=== PATIENT | male | born 1945 | race African-American/Black ===

== ENCOUNTER 2020-07-23 07:52 | Outpatient (REF) | payer MEDICARE, MEDICAID, SELFPAY | END 2020-07-23 07:53 | disposition home or self-care (01) | LOC: HO.LAB 07:52 | PROVIDERS: Visit Provider Internal Medicine | DX: Z20.822 Contact with and (suspected) exposure to COVID-19 (principal) | CPT/HCPCS: 36415; C9803; U0003 ==

== ENCOUNTER → 2022-03-06 14:32 | Outpatient (BNVA) | payer OTHER, MEDICAID, SELFPAY | PROVIDERS: PCP Internal Medicine; Visit Provider Internal Medicine Cardiovascular Disease | DX: I10 Essential (primary) hypertension (principal); I35.0 Nonrheumatic aortic (valve) stenosis; E78.5 Hyperlipidemia, unspecified; Z79.899 Other long term (current) drug therapy | CPT/HCPCS: 93005 ==

== ENCOUNTER → 2023-04-22 09:40 | Outpatient (REF) | payer OTHER, SELFPAY | LOC: HO.CARD 09:40 | PROVIDERS: PCP Internal Medicine; Visit Provider Internal Medicine Cardiovascular Disease | DX: I51.7 Cardiomegaly (principal) | CPT/HCPCS: 93306; Q9957 ==

== ENCOUNTER → 2023-04-22 09:45 | Outpatient (BNV) | payer OTHER, SELFPAY | PROVIDERS: PCP Internal Medicine; Visit Provider Internal Medicine Cardiovascular Disease | DX: I35.0 Nonrheumatic aortic (valve) stenosis (principal) | CPT/HCPCS: 93306 ==

== ENCOUNTER 2023-07-29 09:26 | Outpatient (AMB) | payer OTHER, SELFPAY ==
[2023-07-29 09:27] VITALS: BP 140/56; PULSE 85; BMI 36.8
--- NOTE | 2023-07-29 09:27 | A.OFFVIS_ITS ---
Intake Vital Signs 07/29/23 09:27 Height 5 ft 5 in Weight 220 lb 14.451 oz BMI 36.8 BP 140/56 H Blood Pressure Location Lt brachial Position Sitting Pulse 85 Intake Visit Reasons: f/up overdue Intake Note: f/up pt its its feeling fine. 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: No Accompanied by: Daughter Allergies oxycodone [OXYCODONE] Allergy (Unknown, Verified 03/06/22 14:33) ITCH Medication List - Last Reconciled 07/29/23 by Helder Nguyen MD albuterol sulfate 90 mcg/actuation (Ventolin HFA) 2 puffs inhalation Q4H PRN amlodipine 2.5 mg PO DAILY aspirin 81 mg PO DAILY atorvastatin 40 mg PO BEDTIME cholecalciferol (vitamin D3) 50 mcg PO DAILY dulaglutide (Trulicity) 1.5 mg subcut QWEEK empagliflozin (Jardiance) 10 mg PO DAILY finasteride 5 mg PO DAILY lisinopril-hydrochlorothiazide 20-25 mg 1 tab PO DAILY metformin 1,000 mg PO BID naproxen 500 mg PO BID PRN omeprazole 20 mg PO DAILY HPI HPI Comments History of Present Illness Details Pleasant 77-year-old gentleman who is here for aortic stenosis and hypertension. It appears he had a murmur picked up by his primary care physician and underwent echocardiography. ECHO was performed with [facility] at [facility] which showed mild aortic valve stenosis and preserved left ventricular right ventricular function with concentric mild left ventricle hypertrophy. He also had a stress echocardiogram performed previously which did not show any wall motion abnormalities but he had a hypertensive response to exercise after exercising to a maximum workload of 7 metabolic equivalents. He also had [address] depressions inferiorly. He is not complaining of any chest discomfort or shortness of breath. He is compliant with medications but it appears he takes more than recommend salt in his diet. He has background of hypertension, hyperlipidemia, diabetes and asthma. 07/29/2023: He returns for follow-up. B lood pressure is mildly elevated. He is accompanied by his daughter who is concerned that he is short of breath with activities. Patient is denying any dyspnea but apparently does not complain as per the daughter. No chest discomfort. He has vfzz-yo-adlqjgqr aortic valve stenosis on echocardiography. Previously we tried to do stress test but he had a hypertensive response to exercise and had some ST depressions inferiorly. He also has asthma and is poorly controlled and wheezes with activity quite frequently. He has not seen a awning maker before. [facility] Surgical History H/O prostate biopsy Family History Mother Diabetes HTN (hypertension) Hypercholesteremia Father Heart disease Cancer HTN (hypertension) Hypercholesteremia Asthma Brother HTN (hypertension) Heart disease Hypercholesteremia Prostate cancer Brother No problems noted. Brother No problems noted. Brother Heart disease Heart attack Asthma Sister HTN (hypertension) Hypercholesteremia Kidney disease Sister Diabetes HTN (hypertension) Hypercholesteremia COPD (chronic obstructive pulmonary disease) Asthma Daughter Hyperthyroidism Asthma Daughter Asthma Migraines Social History Alcohol intake: current Alcohol intake frequency: a few times a week Alcohol type: beer and hard liquor Patient Tobacco Use Status: Never used Tobacco Review of Systems Const Reports chills, Reports fatigue, Reports fever(s), Reports frequent falls, Reports weakness, Reports weight gain and Reports weight loss ENT Reports dizziness Card Reports chest pain, Reports leg edema, Reports lightheadedness, Reports palpitations, Reports dyspnea and Reports dyspnea on exertion Resp Reports cough, Reports dyspnea and Reports dyspnea on exertion GI Reports hematochezia Musc Reports abnormal gait, Reports muscle weakness, Reports numbness, Reports radiating pain into limb and Reports tingling Neuro Reports abnormal gait, Reports dizziness, Reports frequent falls, Reports numbness, Reports tingling and Reports weakness Endo Reports fatigue and Reports palpitations Physical Exam Vital Signs: Last Vital Signs Pulse 85 07/29/23 09:27 BP 140/56 H 07/29/23 09:27 BMI result Body Mass Index 36.8 GENERAL APPEARANCE: in no acute distress, pleasant. NECK: no carotid bruit, mild jugular venous distention. SKIN: no suspicious lesions, warm and dry. HEART: Ejection systolic murmur aortic area with preserved 2nd heart sound, regular rate and rhythm. LUNGS: clear to auscultation bilaterally. ABDOMEN: soft, nontender. EXTREMITIES: no edema. PERIPHERAL PULSES: equal. NEUROLOGIC: No gross deficits, AAO X 3 Office Procedures EKG Details: Sinus rhythm 85 beats per minute, normal axis, premature atrial complexes, QTC 445 milliseconds. [id number], Complete Assessment & Plan Assessment & Plan (1) Hyperlipidemia: Code(s): E78.5 - Hyperlipidemia, unspecified (2) Aortic stenosis: Code(s): I35.0 - Nonrheumatic aortic (valve) stenosis (3) Essential hypertension: Code(s): I10 - Essential (primary) hypertension (4) LEONG (dyspnea on exertion): Code(s): R06.09 - Other forms of dyspnea Plan 77-year-old gentleman with background of hypertension, diabetes, hyperlipidemia and axjj-ns-ucgcttky aortic valve stenosis. Blood pressure is not well controlled. Increasing amlodipine to 5 mg daily. His daughter is a medical administrator and will check the blood pressure and reach out to us about the readings in case they are elevated. Not endorsing any clear signs of congestive heart failure. Given dyspnea on exertion and equivocal exercise stress test previously where he had hypertensive response to exercise with some inferior ST depressions: I have decided to refer him for a coronary CTA to make sure he does not have any significant coronary disease in the background. We will also refer him to pulmonology for further assessment of asthma and management. He should have a fasting lipid panel. He is complaining of some neuropathy and I have advised him that he should be using multivitamins which it appears he has been. Follow-up with us in few months. Thank you for allowing me to participate in the care of your patient. Please feel free to contact me if you have any questions. Orders: Orders B Type Natriuretic Peptide Today R06.09 - Other forms of dyspnea Basic Metabolic Panel Today R06.09 - Other forms of dyspnea CT Cardiac Coronary Angio Today R06.09 - Other forms of dyspnea Referrals Pulmonary Medicine Referral R06.09 - Other forms of dyspnea Medications: New amlodipine 5 mg PO DAILY 90 tabs 3RF Discontinued amlodipine PLEASE CALL AND SCHEDULE CARDIOLOGY FOLLOW-UP Discontinued Reason: Doctor's Order 2.5 mg PO DAILY 90 tabs 0RF I10 - Essential (primary) hypertension Coding Level of Care Code Procedure Only Diagnoses Hyperlipidemia E78.5 Aortic stenosis I35.0 Essential hypertension I10 LEONG (dyspnea on exertion) R06.09 CPT Codes EKG - CPT: 86667-[id number], Complete ([id number])
== END 2023-07-29 10:23 | disposition home or self-care (01) ==
PROVIDERS: PCP Internal Medicine; Visit Provider Internal Medicine Cardiovascular Disease
DX: E78.5 Hyperlipidemia, unspecified (principal); I35.0 Nonrheumatic aortic (valve) stenosis; I10 Essential (primary) hypertension; R06.09 Other forms of dyspnea; I49.1 Atrial premature depolarization
CPT/HCPCS: 93010; 99214

== ENCOUNTER → 2023-07-29 09:26 | Outpatient (BNVA) | payer OTHER, SELFPAY | PROVIDERS: PCP Internal Medicine; Visit Provider Internal Medicine Cardiovascular Disease | DX: E78.5 Hyperlipidemia, unspecified (principal); I35.0 Nonrheumatic aortic (valve) stenosis; I10 Essential (primary) hypertension; R06.09 Other forms of dyspnea | CPT/HCPCS: 93005; 99212 ==

== ENCOUNTER 2023-08-31 14:52 | Outpatient (AMB) | payer OTHER, SELFPAY ==
--- NOTE | 2023-08-31 14:55 | A.OFFVIS_ITS ---
Intake Vital Signs 08/31/23 14:58 Height 5 ft 7 in Weight 225 lb BMI 35.2 Pulse 89 Pulse Source Pulse Oximeter Pulse Oximetry (%) 96 Oxygen Delivery Method Room Air Intake Visit Reasons: dyspnea Allergies oxycodone [OXYCODONE] Allergy (Unknown, Verified 08/31/23 15:00) ITCH HPI HPI Comments History of Present Illness Details The patient is here for pulmonary evaluation. The patient is a 77-year-old gentleman with a known history of asthma in addition to underlying valvular disease in being evaluated from a cardiac standpoint. The patient has been having increasing dyspnea on exertion. Even with minimal activity the family's noticed that he is very breathless. The patient has been using his rescue inhaler few times a day when he gets short of breath. This has been partially helpful. He also was on Flovent and subsequently switched over to Asmanex due to the fact that Flovent was no longer available. He however does not feel comfortable with taking the Asmanex because it has a bad after taste and he does not see that is helpful. He quit smoking around 25-30 years ago. And denies any exposure to any fumes or toxins. The patient states that he does have allergies specially the springtime with pollen and other environmental allergies. The patient has not had allergy testing. During the office visit we did go for brief walking oximetry and the patient were spacer be dyspneic and his heart rate increased to 140. At that point we slow down to stop to allow his heart rate come down. It quickly came down but is suggest that there was significant amount of physiological stress. His pulse ox did decrease slightly to 94% but still within normal limits. The patient did have an echocardiogram demonstrating hyim-yl-ymhyvhlz aortic stenosis and will be evaluated with a cardiac coronary artery CT scan coming up soon. I do believe that assessing his cardiac status is the right approach. Right now his respiratory exam is fairly controlled. Will go ahead and maximize his respiratory inhalers and will plan to have him come back for PFTs. [facility] Medical History (Updated 08/31/23 @ 21:30 by Yogesh Saul MD) Tachycardia Asthma Surgical History H/O prostate biopsy Family History Mother Diabetes HTN (hypertension) Hypercholesteremia Father Heart disease Cancer HTN (hypertension) Hypercholesteremia Asthma Brother HTN (hypertension) Heart disease Hypercholesteremia Prostate cancer Brother No problems noted. Brother No problems noted. Brother Heart disease Heart attack Asthma Sister HTN (hypertension) Hypercholesteremia Kidney disease Sister Diabetes HTN (hypertension) Hypercholesteremia COPD (chronic obstructive pulmonary disease) Asthma Daughter Hyperthyroidism Asthma Daughter Asthma Migraines Social History Alcohol intake: current Alcohol intake frequency: a few times a week Alcohol type: beer and hard liquor Patient Tobacco Use Status: Never used Tobacco Review of Systems Const Reports chills, Reports fatigue, Reports fever(s), Reports frequent falls, Reports weakness, Reports weight gain and Reports weight loss ENT Reports dizziness Card Reports chest pain, Reports leg edema, Reports lightheadedness, Reports palpitations, Reports dyspnea and Reports dyspnea on exertion Resp Reports cough, Reports dyspnea and Reports dyspnea on exertion GI Reports hematochezia Musc Reports abnormal gait, Reports muscle weakness, Reports numbness, Reports radiating pain into limb and Reports tingling Neuro Reports abnormal gait, Reports dizziness, Reports frequent falls, Reports numbness, Reports tingling and Reports weakness Endo Reports fatigue and Reports palpitations Physical Exam Vital Signs: Last Vital Signs Pulse 89 08/31/23 14:58 Pulse Ox 96 08/31/23 14:58 Oxygen Delivery Method Room Air 08/31/23 14:58 BMI result Body Mass Index 35.2 Const General: comfortable HEENT Head: Yes normocephalic Neck Neck: Yes supple Chest Chest palpation & inspection: normal inspection of the chest Resp Effort & Inspection: normal respiratory effort Auscultation: no wheezes and diminished lung sounds Cardio Heart sounds: S1 normal heart sound present, S2 normal heart sound present and Murmur heart sound present systolic III/ and at the right sternal border GI Palpation (GI): Soft to palpation Skin General skin exam: no rashes or lesions noted Extrem General: No clubbing and No cyanosis Assessment & Plan Assessment & Plan (1) LEONG (dyspnea on exertion): Code(s): R06.09 - Other forms of dyspnea (2) Aortic stenosis: Code(s): I35.0 - Nonrheumatic aortic (valve) stenosis Qualifiers: Cardiac valve disease etiology: etiology unspecified Qualified Code(s): I35.0 - Nonrheumatic aortic (valve) stenosis (3) Asthma: Code(s): J45.909 - Unspecified asthma, uncomplicated Qualifiers: Asthma severity: moderate Asthma persistence: persistent Asthma complication type: uncomplicated Qualified Code(s): J45.40 - Moderate persistent asthma, uncomplicated (4) Tachycardia: Code(s): R00.0 - Tachycardia, unspecified Plan Stop Asmanex start Trelegy daily CHERELLE as needed PFTs Awaiting cardiac w/u with CT coronary scan at [facility] [facility] Monitor HR with activity F/U after PFTs Orders: Orders PFT pulmonary function test Today R06.09 - Other forms of dyspnea Medications: New fjlppiqeegf-dsemjooqw-wwtvuldr 100-62.5-25 mcg (Trelegy Ellipta) 1 inh inhalation DAILY 30 days 60 ea 11RF J44.9 - Chronic obstructive pulmonary disease, unspecified Coding Level of Care Code New Pt Level 4 (35172) Diagnoses LEONG (dyspnea on exertion) R06.09 Aortic valve stenosis, etiology of cardiac valve disease unspecified I35.0 Cardiac valve disease etiology: etiology unspecified Moderate persistent asthma without complication J45.40 Asthma severity: moderate Asthma persistence: persistent Asthma complication type: uncomplicated Tachycardia R00.0 Time Spent (min) 40
[2023-08-31 14:58] VITALS: PULSE 89; O2SAT 96; BMI 35.2
== END 2023-08-31 15:32 | disposition home or self-care (01) ==
PROVIDERS: PCP Internal Medicine; Referring Provider Internal Medicine Cardiovascular Disease; Visit Provider Hospitalist
DX: R06.09 Other forms of dyspnea (principal); I35.0 Nonrheumatic aortic (valve) stenosis; J45.40 Moderate persistent asthma, uncomplicated; R00.0 Tachycardia, unspecified
CPT/HCPCS: 99204

== ENCOUNTER → 2023-08-31 14:52 | Outpatient (BNVA) | payer OTHER, SELFPAY | PROVIDERS: PCP Internal Medicine; Referring Provider Internal Medicine Cardiovascular Disease; Visit Provider Hospitalist | DX: J45.40 Moderate persistent asthma, uncomplicated (principal); R06.09 Other forms of dyspnea; R00.0 Tachycardia, unspecified; I35.0 Nonrheumatic aortic (valve) stenosis | CPT/HCPCS: 99202 ==

== ENCOUNTER 2023-10-19 10:34 | Outpatient (REF) | payer OTHER, SELFPAY ==
[2023-10-19 09:10] VITALS: PULSE 82; RESP 16; O2SAT 97
--- NOTE | 2023-10-19 14:45 | PFT_ITS ---
Indication: Asthma Spirometry [FEV1 to FVC 78%; FEV1 2.5 L; FVC 3.22 L. No significant response to bronchodilators noted. Maximum voluntary ventilation within normal limits.] Lung Volumes [Total lung capacity 80% predicted] Diffusion Capacity [DLCO 125% predicted] Comparisons [None] Interpretation [No obstructive nor restrictive ventilatory defects identified. No significant response to bronchodilators noted. Normal maximum voluntary ventilation. Total lung capacity is low normal. The patient does have a elevated diffusion capacity. Clinical correlation warranted.] MTDD
== END 2023-10-19 10:35 | disposition home or self-care (01) ==
LOC: HO.RESP 10:34
PROVIDERS: Visit Provider Hospitalist
DX: R06.09 Other forms of dyspnea (principal)
CPT/HCPCS: 94010; 94640; 94727; 94729

== ENCOUNTER → 2023-10-19 14:45 | Outpatient (BNV) | payer OTHER, SELFPAY | PROVIDERS: Visit Provider Hospitalist | DX: J45.909 Unspecified asthma, uncomplicated (principal) | CPT/HCPCS: 94060; 94727; 94729 ==

== ENCOUNTER 2023-11-11 06:57 | Outpatient (REF) | payer OTHER, SELFPAY ==
[2023-11-11 08:53] LABS: Anion Gap 13 (12-20); Blood Urea Nitrogen 19 mg/dL (9-16); Calcium 9.3 mg/dL (8.4-10.2); Carbon Dioxide 29 mmol/L (22-29); Chloride 102 mmol/L (96-108); Cholesterol 144 mg/dL (<200); Estimated Glomerular Filt Rate > 60; Glucose Random 146 mg/dL (60-115); HDL Cholesterol 36 mg/dL (>40); LDL Cholesterol Calculated 71 mg/dL (<100); Sodium 140 mmol/L (135-145); Triglycerides 185 mg/dL (<150)
[2023-11-11 08:58] LABS: B Type Natriuretic Peptide < 10 pg/mL (<100)
== END 2023-11-11 06:58 | disposition home or self-care (01) ==
LOC: HO.LAB 06:57
PROVIDERS: PCP Internal Medicine; Visit Provider Internal Medicine Cardiovascular Disease
DX: R06.09 Other forms of dyspnea (principal); E78.5 Hyperlipidemia, unspecified
CPT/HCPCS: 36415; 80048; 80061; 83880

== ENCOUNTER 2023-11-17 10:49 | Outpatient (AMB) | payer OTHER, SELFPAY ==
[2023-11-17 11:06] VITALS: PULSE 78; O2SAT 97; BMI 35.2
--- NOTE | 2023-11-17 11:06 | MHC.OFFVIS ---
Vital Signs 11/17/23 11:06 Height 5 ft 7 in Weight 224 lb 13.944 oz BMI 35.2 Pulse 78 Pulse Source Pulse Oximeter Pulse Oximetry (%) 97 Oxygen Delivery Method Room Air Intake Visit Reasons: dyspnea Manufacture Specialist Required: No Allergies oxycodone [OXYCODONE] Allergy (Unknown, Verified 11/17/23 11:08) ITCH HPI Comments Details: The patient is a 78-year-old gentleman with a known history of asthma in addition to underlying valvular disease in being evaluated from a cardiac standpoint. The patient has been having increasing dyspnea on exertion. Even with minimal activity the family's noticed that he is very breathless. The patient has been using his rescue inhaler few times a day when he gets short of breath. This has been partially helpful. He also was on Flovent and subsequently switched over to Asmanex due to the fact that Flovent was no longer available. He however does not feel comfortable with taking the Asmanex because it has a bad after taste and he does not see that is helpful. He quit smoking around 25-30 years ago. And denies any exposure to any fumes or toxins. The patient states that he does have allergies specially the springtime with pollen and other environmental allergies. The patient has not had allergy testing. During the office visit we did go for brief walking oximetry and the patient were spacer be dyspneic and his heart rate increased to 140. At that point we slow down to stop to allow his heart rate come down. It quickly came down but is suggest that there was significant amount of physiological stress. His pulse ox did decrease slightly to 94% but still within normal limits. The patient did have an echocardiogram demonstrating rghg-vv-sxjxsdpn aortic stenosis and will be evaluated with a cardiac coronary artery CT scan coming up soon. I do believe that assessing his cardiac status is the right approach. Right now his respiratory exam is fairly controlled. Will go ahead and maximize his respiratory inhalers and will plan to have him come back for PFTs. 11/17/2023 the patient is here for a pulmonary follow-up visit. The patient overall has been doing well. He is responding well to the Trelegy inhaler. Denies any significant shortness of breath or wheezing at rest. The patient did have pulmonary function studies which were also reassuring without any evidence of any obstructive nor restrictive ventilatory defects. He did undergo his CT angiogram of the coronary arteries. I did look at the images in his lung parenchyma least the lung windows we had available appeared to be completely normal. The patient however did have significant atherosclerosis and some areas of stenosis. Will be meeting the transportation planning technician soon and they can talk about the findings and then further interventions in steps moving forward. Otherwise patient is doing well from a respiratory status he will continue the Trelegy for now will follow-up in a year's time. If any new issues arise he will call for an earlier assessment. [facility] Medical History (Updated 11/17/23 @ 21:32 by Yogesh Saul MD) CAD (coronary artery disease) Tachycardia Asthma Surgical History H/O prostate biopsy Family History Mother Diabetes HTN (hypertension) Hypercholesteremia Father Heart disease Cancer HTN (hypertension) Hypercholesteremia Asthma Brother HTN (hypertension) Heart disease Hypercholesteremia Prostate cancer Brother No problems noted. Brother No problems noted. Brother Heart disease Heart attack Asthma Sister HTN (hypertension) Hypercholesteremia Kidney disease Sister Diabetes HTN (hypertension) Hypercholesteremia COPD (chronic obstructive pulmonary disease) Asthma Daughter Hyperthyroidism Asthma Daughter Asthma Migraines Social History Alcohol intake: current Alcohol intake frequency: a few times a week Alcohol type: beer and hard liquor Patient Tobacco Use Status: Never used Tobacco Review of Systems Const Reports fatigue, Denies fever(s) and Reports weight loss ENT Reports dizziness Card Reports chest pain, Reports leg edema, Reports lightheadedness, Reports palpitations, Reports dyspnea and Reports dyspnea on exertion Resp Reports cough, Reports dyspnea and Reports dyspnea on exertion GI Reports hematochezia Musc Reports abnormal gait, Reports muscle weakness, Reports numbness, Reports radiating pain into limb and Reports tingling Neuro Reports abnormal gait, Reports dizziness, Reports numbness and Reports tingling Endo Reports fatigue and Reports palpitations Physical Exam Vital Signs: Last Vital Signs Pulse 78 11/17/23 11:06 Pulse Ox 97 11/17/23 11:06 Oxygen Delivery Method Room Air 11/17/23 11:06 BMI result Body Mass Index 35.2 Const General: comfortable HEENT Head: Yes normocephalic Neck Neck: Yes supple Chest Chest palpation & inspection: normal inspection of the chest Resp Effort & Inspection: normal respiratory effort Auscultation: no wheezes and diminished lung sounds Cardio Heart sounds: S1 normal heart sound present, S2 normal heart sound present and Murmur heart sound present systolic III/ and at the right sternal border GI Palpation (GI): Soft to palpation Skin General skin exam: no rashes or lesions noted Extrem General: No clubbing and No cyanosis Assessment & Plan Assessment & Plan (1) LEONG (dyspnea on exertion): Code(s): R06.09 - Other forms of dyspnea Category: Medical (2) Aortic stenosis: Code(s): I35.0 - Nonrheumatic aortic (valve) stenosis Category: Medical Qualifiers: Cardiac valve disease etiology: etiology unspecified Qualified Code(s): I35.0 - Nonrheumatic aortic (valve) stenosis (3) Asthma: Code(s): J45.909 - Unspecified asthma, uncomplicated Category: Medical Qualifiers: Asthma complication type: uncomplicated Asthma persistence: persistent Asthma severity: moderate Qualified Code(s): J45.40 - Moderate persistent asthma, uncomplicated (4) Tachycardia: Code(s): R00.0 - Tachycardia, unspecified Category: Medical (5) CAD (coronary artery disease): Code(s): I25.10 - Atherosclerotic heart disease of [place] coronary artery without angina pectoris Category: Medical Qualifiers: Coronary Disease-Associated Artery/Lesion type: [place] artery [place] vs. transplanted heart: [place] heart Associated angina: unspecified whether angina present Qualified Code(s): I25.10 - Atherosclerotic heart disease of [place] coronary artery without angina pectoris Plan continue Trelegy daily CHERELLE as needed F/U with Cardiology re: abnormal CTA coronary F/U 1 yr Orders: Orders XR foot RT 2V Today R52 - Pain, unspecified XR foot LT 2V Today R52 - Pain, unspecified Coding Level of Care Code Est Pt Level 4 (18592) Diagnoses LEONG (dyspnea on exertion) R06.09 Aortic valve stenosis, etiology of cardiac valve disease unspecified I35.0 Cardiac valve disease etiology: etiology unspecified Moderate persistent asthma without complication J45.40 Asthma complication type: uncomplicated Asthma persistence: persistent Asthma severity: moderate Tachycardia R00.0 Coronary artery disease involving [place] coronary artery of [place] heart, unspecified whether angina present I25.10 Coronary Disease-Associated Artery/Lesion type: [place] artery [place] vs. transplanted heart: [place] heart Associated angina: unspecified whether angina present Time Spent (min) 18
== END 2023-11-17 11:31 | disposition home or self-care (01) ==
PROVIDERS: PCP Internal Medicine; Visit Provider Hospitalist
DX: R06.09 Other forms of dyspnea (principal); I35.0 Nonrheumatic aortic (valve) stenosis; J45.40 Moderate persistent asthma, uncomplicated; R00.0 Tachycardia, unspecified; I25.10 Atherosclerotic heart disease of native coronary artery without angina pectoris
CPT/HCPCS: 99214

== ENCOUNTER → 2023-11-17 10:49 | Outpatient (BNVA) | payer OTHER, SELFPAY | PROVIDERS: PCP Internal Medicine; Visit Provider Hospitalist | DX: J45.40 Moderate persistent asthma, uncomplicated (principal); R06.09 Other forms of dyspnea; R00.0 Tachycardia, unspecified; I25.10 Atherosclerotic heart disease of native coronary artery without angina pectoris; I35.0 Nonrheumatic aortic (valve) stenosis | CPT/HCPCS: 99212 ==

== ENCOUNTER 2023-11-19 09:12 | Outpatient (REF) | payer OTHER, SELFPAY ==
--- NOTE | ~2023-11-19 | XR_ITS ---
EXAM: X-RAYS BILATERAL FEET CLINICAL INFORMATION: Pain, unspecified. TECHNIQUE: 3 views of each foot. COMPARISON: None. FINDINGS: Right foot: Large plantar and small dorsal calcaneal spurs. Extensive vascular calcifications. Mild narrowing of the first metatarsophalangeal joint with degenerative changes. Left foot: Moderate plantar and small dorsal calcaneal spurs. Extensive vascular calcifications. Mild narrowing of the first metatarsophalangeal joint with lateral hypertrophic change. XR/XR foot RT 2V IMPRESSION: 1. Bilateral calcaneal spurs. 2. Mild degenerative changes bilateral first metatarsophalangeal joints. 3. Extensive vascular calcifications. 4. No displaced fracture. Recommend follow up imaging in 10-14 days if fracture is suspected.
--- NOTE | ~2023-11-19 | XR_ITS ---
EXAM: X-RAYS BILATERAL FEET CLINICAL INFORMATION: Pain, unspecified. TECHNIQUE: 3 views of each foot. COMPARISON: None. FINDINGS: Right foot: Large plantar and small dorsal calcaneal spurs. Extensive vascular calcifications. Mild narrowing of the first metatarsophalangeal joint with degenerative changes. Left foot: Moderate plantar and small dorsal calcaneal spurs. Extensive vascular calcifications. Mild narrowing of the first metatarsophalangeal joint with lateral hypertrophic change. XR/XR foot LT 2V IMPRESSION: 1. Bilateral calcaneal spurs. 2. Mild degenerative changes bilateral first metatarsophalangeal joints. 3. Extensive vascular calcifications. 4. No displaced fracture. Recommend follow up imaging in 10-14 days if fracture is suspected.
== END 2023-11-19 09:13 | disposition home or self-care (01) ==
LOC: HO.XRAY 09:12
PROVIDERS: Visit Provider Hospitalist
DX: M79.672 Pain in left foot (principal); M79.671 Pain in right foot
CPT/HCPCS: 73620

== ENCOUNTER 2023-12-18 06:53 | Outpatient (REF) | payer OTHER, SELFPAY ==
[2023-12-18 07:40] LABS: Hematocrit 40.7 % (42.0-52.0); Hemoglobin 13.1 g/dl (14.0-18.0); Mean Corpuscular HGB Conc 32.2 g/dl (31.0-36.0); Mean Corpuscular Volume 83.9 fL (80.0-98.0); Mean Platelet Volume 12.7 fL (9.4-12.4); Platelet Count 192 X10*3/uL (160-400); Red Blood Count 4.85 X10*6/uL (4.60-5.80); White Blood Count 7.6 X10*3/uL (4.8-10.8)
[2023-12-18 07:59] LABS: Anion Gap 14 (12-20); Blood Urea Nitrogen 17 mg/dL (9-16); Calcium 9.8 mg/dL (8.4-10.2); Carbon Dioxide 27 mmol/L (22-29); Chloride 104 mmol/L (96-108); Estimated Glomerular Filt Rate > 60; Glucose Random 169 mg/dL (60-115); Potassium 4.2 mmol/L (3.3-5.1); Prothrombin Time 11.6 SEC (11.1-13.3); Sodium 141 mmol/L (135-145)
== END 2023-12-18 06:54 | disposition home or self-care (01) ==
LOC: HO.LAB 06:53
PROVIDERS: PCP Internal Medicine; Visit Provider Internal Medicine Cardiovascular Disease
DX: I25.10 Atherosclerotic heart disease of native coronary artery without angina pectoris (principal)
CPT/HCPCS: 36415; 80048; 85027; 85610

== ENCOUNTER → 2023-12-22 23:59 | Outpatient (BNV) | payer OTHER, SELFPAY | PROVIDERS: PCP Internal Medicine; Visit Provider Internal Medicine Cardiovascular Disease | DX: R93.1 Abnormal findings on diagnostic imaging of heart and coronary circulation (principal); I25.118 Atherosclerotic heart disease of native coronary artery with other forms of angina pectoris | CPT/HCPCS: 93458; 93571; 99152 ==

== ENCOUNTER 2024-01-28 12:13 | Outpatient (AMB) | payer OTHER, SELFPAY ==
[2024-01-28 12:15] VITALS: BP 130/62; PULSE 80; TEMP 36.6; O2SAT 96
--- NOTE | 2024-01-28 12:15 | MHC.OFFWIV ---
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 He injured his lower leg this morning on the Door (door closed on his leg). [facility] Medical History (Updated 11/17/23 @ 21:32 by Yogesh Saul MD) CAD (coronary artery disease) Tachycardia Asthma Surgical History H/O prostate biopsy Family History Mother Diabetes HTN (hypertension) Hypercholesteremia Father Heart disease Cancer HTN (hypertension) Hypercholesteremia Asthma Brother HTN (hypertension) Heart disease Hypercholesteremia Prostate cancer Brother No problems noted. Brother No problems noted. Brother Heart disease Heart attack Asthma Sister HTN (hypertension) Hypercholesteremia Kidney disease Sister Diabetes HTN (hypertension) Hypercholesteremia COPD (chronic obstructive pulmonary disease) Asthma Daughter Hyperthyroidism Asthma Daughter Asthma Migraines Social History Alcohol intake: current Alcohol intake frequency: a few times a week Alcohol type: beer and hard liquor Patient Tobacco Use Status: Never used Tobacco Review of Systems Const All systems reviewed & are unremarkable except as noted in HPI and below Physical Exam Vital Signs: Last Vital Signs Temp 97.8 F 01/28/24 12:15 Pulse 80 01/28/24 12:15 BP 130/62 01/28/24 12:15 Pulse Ox 96 01/28/24 12:15 Const General: comfortable and no acute distress Nutritional Appearance: obese Orientation/consciousness: patient oriented x3 Skin Trauma: laceration (Small Laceration clean and no pus) Neuro General: patient oriented x3, gait normal and moves all extremities Extrem Right lower extremity: full ROM and lower leg Details: erythema, no edema and laceration (right lower leg) Left lower extremity: normal to inspection and full ROM Ankle/foot/toe images: 1. Clean superficial cut, well healing Psych Speech and movement: Normal speech and movement present Assessment & Plan Assessment & Plan (1) Laceration of right lower leg: Code(s): S81.811A - Laceration without foreign body, right lower leg, initial encounter Qualifiers: Encounter type: initial encounter Qualified Code(s): S81.811A - Laceration without foreign body, right lower leg, initial encounter Plan: Clean the wound, applied Dermabond and Steris Acetaminophen for pain relief Coding Level of Care Code Est Pt Level 3 (31492) Diagnoses Laceration of right lower leg, initial encounter S81.811A Encounter type: initial encounter Time Spent (min) 15
== END 2024-01-28 12:46 | disposition home or self-care (01) ==
PROVIDERS: PCP Internal Medicine; Visit Provider Nurse Practitioner Family
DX: S81.811A Laceration without foreign body, right lower leg, initial encounter (principal)
CPT/HCPCS: 99213

== ENCOUNTER 2024-02-01 10:17 | Outpatient (AMB) | payer OTHER, SELFPAY ==
[2024-02-01 10:24] VITALS: BP 140/60; PULSE 75; BMI 34.9
--- NOTE | 2024-02-01 10:24 | MHC.OFFVIS ---
Vital Signs 02/01/24 10:24 Height 5 ft 7 in Weight 222 lb 10.67 oz BMI 34.9 BP 140/60 H Blood Pressure Location Lt brachial Position Sitting Pulse 75 Pulse Source Pulse Oximeter Intake Visit Reasons: 6 mth f/up cta/ ref to pulm / lipids Intake Note: pt is here for his 6mht f/up pt state that he is doing fine. Manufacturing Specialist Required: Yes Manufacturing Specialist Name: Molly/czech/ daughter Accompanied by: Daughter Allergies oxycodone [OXYCODONE] Allergy (Unknown, Verified 01/28/24 12:15) ITCH Medication List - Last Reconciled 02/01/24 by Helder Nguyen MD albuterol sulfate 90 mcg/actuation (Ventolin HFA) 2 puffs inhalation Q4H PRN 30 days amlodipine 5 mg PO DAILY aspirin 81 mg PO DAILY atorvastatin 40 mg PO BEDTIME blood sugar diagnostic (FreeStyle Lite Strips) As directed cholecalciferol (vitamin D3) 50 mcg PO DAILY empagliflozin (Jardiance) 10 mg PO DAILY finasteride 5 mg PO DAILY xnkguxhzdaq-rmxmckvom-pbacpwwa 100-62.5-25 mcg (Trelegy Ellipta) 1 inh inhalation DAILY 30 days lisinopril-hydrochlorothiazide 20-25 mg 1 tab PO DAILY metformin 1,000 mg PO BID naproxen 500 mg PO BID PRN omeprazole 20 mg PO DAILY semaglutide (Ozempic) mg subcut HPI Comments Details: Pleasant 78-year-old gentleman who is here for aortic stenosis and hypertension. It appears he had a murmur picked up by his primary care physician and underwent echocardiography. ECHO was performed with [facility] at [facility] which showed mild aortic valve stenosis and preserved left ventricular right ventricular function with concentric mild left ventricle hypertrophy. He also had a stress echocardiogram performed previously which did not show any wall motion abnormalities but he had a hypertensive response to exercise after exercising to a maximum workload of 7 metabolic equivalents. He also had [address] depressions inferiorly. He is not complaining of any chest discomfort or shortness of breath. He is compliant with medications but it appears he takes more than recommend salt in his diet. He has background of hypertension, hyperlipidemia, diabetes and asthma. 07/29/2023: He returns for follow-up. Blood pressure is mildly elevated. He is accompanied by his daughter who is concerned that he is short of breath with activities. Patient is denying any dyspnea but apparently does not complain as per the daughter. No chest discomfort. He has lcuc-yf-jbhzorsf aortic valve stenosis on echocardiography. Previously we tried to do stress test but he had a hypertensive response to exercise and had some ST depressions inferiorly. He also has asthma and is poorly controlled and wheezes with activity quite frequently. He has not seen a director building before. 02/01/24: He is here for follow-up. He underwent cardiac catheterization in December 2023. He had a 70% mid LAD stenosis-we performed IFR which was 0.93 and negative for ischemia. Mild gradient across the aortic valve 15 mm Hg was noted. Systemic pressures were mildly elevated during the procedure but LVEDP was normal. He returns and has been doing well. No chest discomfort. He has been changed to Ozempic but has not lost any significant weight currently. Blood pressure manually is 120/60. Lipid panel and labs reviewed. [facility] Medical History (Updated 11/17/23 @ 21:32 by Yogesh Saul MD) CAD (coronary artery disease) Tachycardia Asthma Surgical History (Updated 02/01/24 @ 10:29 by Renita Callejas CMA) Hx of cardiac cath H/O prostate biopsy Family History Mother Diabetes HTN (hypertension) Hypercholesteremia Father Heart disease Cancer HTN (hypertension) Hypercholesteremia Asthma Brother HTN (hypertension) Heart disease Hypercholesteremia Prostate cancer Brother No problems noted. Brother No problems noted. Brother Heart disease Heart attack Asthma Sister HTN (hypertension) Hypercholesteremia Kidney disease Sister Diabetes HTN (hypertension) Hypercholesteremia COPD (chronic obstructive pulmonary disease) Asthma Daughter Hyperthyroidism Asthma Daughter Asthma Migraines Social History Alcohol intake: current Alcohol intake frequency: a few times a week Alcohol type: beer and hard liquor Patient Tobacco Use Status: Never used Tobacco Review of Systems Const Denies chills, Denies fatigue, Denies fever(s), Denies frequent falls, Denies weakness, Denies weight gain and Denies weight loss ENT Denies dizziness Card Denies chest pain, Denies leg edema, Denies lightheadedness, Denies palpitations, Denies dyspnea and Denies dyspnea on exertion Resp Denies cough, Denies dyspnea and Denies dyspnea on exertion GI Denies hematochezia Musc Denies abnormal gait, Denies muscle weakness, Denies numbness, Denies radiating pain into limb and Denies tingling Neuro Denies abnormal gait, Denies dizziness, Denies frequent falls, Denies numbness, Denies tingling and Denies weakness Endo Denies fatigue and Denies palpitations Physical Exam Vital Signs: Last Vital Signs Pulse 75 02/01/24 10:24 BP 140/60 H 02/01/24 10:24 BMI result Body Mass Index 34.9 GENERAL APPEARANCE: in no acute distress, pleasant. NECK: no carotid bruit, mild jugular venous distention. SKIN: no suspicious lesions, warm and dry. HEART: Ejection systolic murmur aortic area with preserved 2nd heart sound, regular rate and rhythm. LUNGS: clear to auscultation bilaterally. ABDOMEN: soft, nontender. EXTREMITIES: no edema. PERIPHERAL PULSES: equal. NEUROLOGIC: No gross deficits, AAO X 3 Assessment & Plan Assessment & Plan (1) CAD (coronary artery disease): Code(s): I25.10 - Atherosclerotic heart disease of [place] coronary artery without angina pectoris Category: Medical Qualifiers: Coronary Disease-Associated Artery/Lesion type: [place] artery [place] vs. transplanted heart: [place] heart Associated angina: unspecified whether angina present Qualified Code(s): I25.10 - Atherosclerotic heart disease of [place] coronary artery without angina pectoris (2) Hyperlipidemia: Code(s): E78.5 - Hyperlipidemia, unspecified Category: Medical (3) Aortic stenosis: Code(s): I35.0 - Nonrheumatic aortic (valve) stenosis Category: Medical Qualifiers: Cardiac valve disease etiology: etiology unspecified Qualified Code(s): I35.0 - Nonrheumatic aortic (valve) stenosis (4) Essential hypertension: Code(s): I10 - Essential (primary) hypertension Category: Medical Plan Very pleasant 78-year-old gentleman who is here for follow-up. He has background history of hypertension, hyperlipidemia and diabetes. Blood pressure is 120/60 manually. He should continue same medications for now. His daughter will monitor blood pressure and report to us if he has high readings. Labs done in 11/07/2023 showing LDL 71, HDL 36, total cholesterol 144 and triglycerides 185. I have advised him that he is triglycerides are mildly elevated and he should watch what he is eating. Triglycerides are most commonly affected by lifestyle and diet. He should start exercising regularly and cut back on greasy foods and concentrated sugars like soda/cakes etc. Zrib-pu-hirwvcig aortic valve stenosis. He will see us back in few months. Thank you for allowing me to participate in the care of your patient. Please feel free to contact me if you have any questions. Coding Level of Care Code Est Pt Level 4 (21991) Diagnoses Coronary artery disease involving [place] coronary artery of [place] heart, unspecified whether angina present I25.10 Coronary Disease-Associated Artery/Lesion type: [place] artery [place] vs. transplanted heart: [place] heart Associated angina: unspecified whether angina present Hyperlipidemia E78.5 Aortic valve stenosis, etiology of cardiac valve disease unspecified I35.0 Cardiac valve disease etiology: etiology unspecified Essential hypertension I10
== END 2024-02-01 10:57 | disposition home or self-care (01) ==
PROVIDERS: PCP Internal Medicine; Visit Provider Internal Medicine Cardiovascular Disease
DX: I25.10 Atherosclerotic heart disease of native coronary artery without angina pectoris (principal); E78.5 Hyperlipidemia, unspecified; I35.0 Nonrheumatic aortic (valve) stenosis; I10 Essential (primary) hypertension
CPT/HCPCS: 99214

== ENCOUNTER → 2024-02-01 10:17 | Outpatient (BNVA) | payer OTHER, SELFPAY | PROVIDERS: PCP Internal Medicine; Visit Provider Internal Medicine Cardiovascular Disease | DX: I25.10 Atherosclerotic heart disease of native coronary artery without angina pectoris (principal); I35.0 Nonrheumatic aortic (valve) stenosis; I10 Essential (primary) hypertension; E78.5 Hyperlipidemia, unspecified | CPT/HCPCS: 99212 ==

== ENCOUNTER 2024-06-06 14:54 | Outpatient (AMB) | payer OTHER, SELFPAY ==
[2024-06-06 14:56] VITALS: BP 140/66; PULSE 94; BMI 34.9
--- NOTE | 2024-06-06 14:56 | A.OFFVIS_ITS ---
Vital Signs 06/06/24 14:56 Height 5 ft 7 in Weight 223 lb 1.725 oz BMI 34.9 BP 140/66 H Blood Pressure Location Lt brachial Position Sitting Pulse 94 Pulse Source Pulse Oximeter Intake Visit Reasons: 4 mthf /up Intake Note: 4 mth f/u Complaint Manager Required: Yes Complaint Manager Language: [employer]: Complaint Manager Offered & Declined Complaint Manager Name: daughter/ princess/ belarusian Accompanied by: Daughter Allergies oxycodone [OXYCODONE] Allergy (Unknown, Verified 01/28/24 12:15) ITCH Medication List - Last Reconciled 06/06/24 by Helder Nguyen MD albuterol sulfate 90 mcg/actuation (Ventolin HFA) 2 puffs inhalation Q4H PRN 30 days amlodipine 5 mg PO DAILY aspirin 81 mg PO DAILY atorvastatin 40 mg PO BEDTIME blood sugar diagnostic (FreeStyle Lite Strips) As directed cholecalciferol (vitamin D3) 50 mcg PO DAILY dulaglutide (Trulicity) mg subcut empagliflozin (Jardiance) 10 mg PO DAILY finasteride 5 mg PO DAILY aozuhmzcqhn-mtaxjvsrz-ujxftfuu 100-62.5-25 mcg (Trelegy Ellipta) 1 inh inhalation DAILY 30 days lisinopril-hydrochlorothiazide 20-25 mg 1 tab PO DAILY metformin 1,000 mg PO BID naproxen 500 mg PO BID PRN omeprazole 20 mg PO DAILY HPI Comments Details: Pleasant 78-year-old gentleman who is here for aortic stenosis and hypertension. It appears he had a murmur picked up by his primary care physician and underwent echocardiography. ECHO was performed with [facility] at [facility] which showed mild aortic valve stenosis and preserved left ventricular right ventricular function with concentric mild left ventricle hypertrophy. He also had a stress echocardiogram performed previously which did not show any wall motion abnormalities but he had a hypertensive response to exercise after exercising to a maximum workload of 7 metabolic equivalents. He also had [address] depressions inferiorly. He is not complaining of any chest discomfort or shortness of breath. He is compliant with medications but it appears he takes more than recommend salt in his diet. He has background of hypertension, hyperlipidemia, diabetes and asthma. 07/29/2023: He returns for follow-up. Blood pressure is mildly elevated. He is accompanied by his daughter who is concerned that he is short of breath with activities. Patient is denying any dyspnea but apparently does not complain as per the daughter. No chest discomfort. He has utwz-qv-rzfrfwzp aortic valve stenosis on echocardiography. Previously we tried to do stress test but he had a hypertensive response to exercise and had some ST depressions inferiorly. He also has asthma and is poorly controlled and wheezes with activity quite freque ntly. 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 02/01/24: He is here for follow-up. He underwent cardiac catheterization in December 2023. He had a 70% mid LAD stenosis-we performed IFR which was 0.93 and negative for ischemia. Mild gradient across the aortic valve 15 mm Hg was noted. Systemic pressures were mildly elevated during the procedure but LVEDP was normal. He returns and has been doing well. No chest discomfort. He has been changed to Ozempic but has not lost any significant weight currently. Blood pressure manually is 120/60. Lipid panel and labs reviewed. 06/06/2024: He is here for follow-up. He has bone spurs and is contemplating surgery. No chest pains or shortness of breath. He is doing some activities in his yd with raking leaves etc. but no regular exercise otherwise. He did not take all his medications today and blood pressure is mildly elevated. His daughter has been monitoring BP and reports blood pressures at home are in 120s. [facility] Medical History (Updated 11/17/23 @ 21:32 by Yogesh Saul MD) CAD (coronary artery disease) Tachycardia Asthma Surgical History (Reviewed 06/06/24 @ 14:59 by Renita Callejas [facility]) Hx of cardiac cath H/O prostate biopsy Family History Mother Diabetes HTN (hypertension) Hypercholesteremia Father Heart disease Cancer HTN (hypertension) Hypercholesteremia Asthma Brother HTN (hypertension) Heart disease Hypercholesteremia Prostate cancer Brother No problems noted. Brother No problems noted. Brother Heart disease Heart attack Asthma Sister HTN (hypertension) Hypercholesteremia Kidney disease Sister Diabetes HTN (hypertension) Hypercholesteremia COPD (chronic obstructive pulmonary disease) Asthma Daughter Hyperthyroidism Asthma Daughter Asthma Migraines Social History (Reviewed 06/06/24 @ 14:59 by Renita Callejas [facility]) Alcohol intake: current Alcohol intake frequency: a few times a week Alcohol type: beer and hard liquor Patient Tobacco Use Status: Never used Tobacco Review of Systems Const Denies chills, Denies fatigue, Denies fever(s), Denies frequent falls, Denies weakness, Denies weight gain and Denies weight loss ENT Denies dizziness Card Denies chest pain, Denies leg edema, Denies lightheadedness, Denies palpitations, Denies dyspnea and Denies dyspnea on exertion Resp Denies cough, Denies dyspnea and Denies dyspnea on exertion GI Denies hematochezia Musc Denies abnormal gait, Denies muscle weakness, Denies numbness, Denies radiating pain into limb and Denies tingling Neuro Denies abnormal gait, Denies dizziness, Denies frequent falls, Denies numbness, Denies tingling and Denies weakness Endo Denies fatigue and Denies palpitations Physical Exam Vital Signs: Last Vital Signs Pulse 94 06/06/24 14:56 BP 140/66 H 06/06/24 14:56 BMI result Body Mass Index 34.9 GENERAL APPEARANCE: in no acute distress, pleasant. NECK: no carotid bruit, mild jugular venous distention. SKIN: no suspicious lesions, warm and dry. HEART: Ejection systolic murmur aortic area with preserved 2nd heart sound, regular rate and rhythm. LUNGS: clear to auscultation bilaterally. ABDOMEN: soft, nontender. EXTREMITIES: no edema. PERIPHERAL PULSES: equal. NEUROLOGIC: No gross deficits, AAO X 3 Assessment & Plan Assessment & Plan (1) Aortic stenosis: Code(s): I35.0 - Nonrheumatic aortic (valve) stenosis Category: Medical Qualifiers: Cardiac valve disease etiology: etiology unspecified Qualified Code(s): I35.0 - Nonrheumatic aortic (valve) stenosis (2) Essential hypertension: Code(s): I10 - Essential (primary) hypertension Category: Medical (3) Hyperlipidemia: Code(s): E78.5 - Hyperlipidemia, unspecified Category: Medical Plan Pleasant 78-year-old gentleman who is here for follow-up. He has known history of coronary artery disease 60% mid LAD stenosis which was IFR negative (IFR 0.93). Blood pressure is mildly elevated but he has not taking his medications and his daughter worked as an MA before and has been monitoring blood pressure and reports that blood pressure has been good. Shqw-xv-tyymnogd aortic valve stenosis. He will need repeat echocardiography in 05/08/2025. No anginal symptoms currently. Overall he is intermediate risk for perioperative complication in case he decides to go for surgery under [place]. Thank you for allowing me to participate in the care of your patient. Please feel free to contact me if you have any questions. Coding Level of Care Code Est Pt Level 4 (66268) Diagnoses Aortic valve stenosis, etiology of cardiac valve disease unspecified I35.0 Cardiac valve disease etiology: etiology unspecified Essential hypertension I10 Hyperlipidemia E78.5
== END 2024-06-06 15:52 | disposition home or self-care (01) ==
PROVIDERS: PCP Internal Medicine; Visit Provider Internal Medicine Cardiovascular Disease
DX: I35.0 Nonrheumatic aortic (valve) stenosis (principal); I10 Essential (primary) hypertension; E78.5 Hyperlipidemia, unspecified
CPT/HCPCS: 99214

== ENCOUNTER → 2024-06-06 14:54 | Outpatient (BNVA) | payer OTHER, SELFPAY | PROVIDERS: PCP Internal Medicine; Visit Provider Internal Medicine Cardiovascular Disease | DX: I10 Essential (primary) hypertension (principal); I35.0 Nonrheumatic aortic (valve) stenosis; E78.5 Hyperlipidemia, unspecified | CPT/HCPCS: 99212 ==

== ENCOUNTER 2024-08-13 11:19 | Emergency (ER) | payer OTHER, SELFPAY ==
--- NOTE | ~2024-08-13 | XR_ITS ---
CLINICAL HISTORY: lesion 3 view left foot Comparison: CR/SR - XR FOOT LT 2V - 11/19/23 09:38 EDT Findings: No fractures or dislocations. Mild degenerative change of the 1st metatarsophalangeal joint. Mild deviation of the toes. Calcaneal enthesophytes. No ankle effusion. No radiopaque foreign body. Atherosclerosis calcification of the arterial structures. IMPRESSION: 1. No acute findings. This document has been electronically signed by: Chula Johnson MD on 08/13/2024 13:03:46
[2024-08-13 12:02] VITALS: BP 149/68; PULSE 79; RESP 20; TEMP 37.2; O2SAT 98; BMI 33.8
[2024-08-13 12:19] LABS: MANUAL DIFF FLAG NO
[2024-08-13 12:20] LABS: Basophils Absolute Auto 0.1 X10*3/uL (0.0-0.2); Basophils Percent Auto 0.6 % (0-2); Eosinophils Absolute Auto 0.1 X10*3/uL (0.0-0.4); Eosinophils Percent Auto 0.8 % (0-4); Hemoglobin 13.8 g/dl (14.0-18.0); Imm Gran Abs Auto 0.04 X10*3/uL (0.00-0.03); Imm Gran Pct Auto 0.4 % (0.0-0.4); Lymphocytes Absolute Auto 1.8 X10*3/uL (1.2-4.9); Lymphocytes Percent Auto 20.7 % (20-40); Mean Corpuscular HGB Conc 32.1 g/dl (31.0-36.0); Mean Corpuscular Hemoglobin 27.2 pg (27.0-33.0); Mean Corpuscular Volume 84.8 fL (80.0-98.0); Mean Platelet Volume 12.1 fL (9.4-12.4); Monocytes Absolute Auto 0.8 X10*3/uL (0.1-1.2); Monocytes Percent Auto 8.4 % (2-11); Neutrophils Absolute Auto 6.2 x10*3/uL (2.0-8.3); Neutrophils Percent Auto 69.1 % (45-73); Platelet Count 199 X10*3/uL (160-400); Red Blood Count 5.07 X10*6/uL (4.60-5.80); Red Cell Distribution Width 16.2 % (11.0-16.0); White Blood Count 8.9 X10*3/uL (4.8-10.8)
[2024-08-13 12:43] LABS: Alanine Aminotransferase 28 U/L (0-40); Albumin Level 4.6 g/dL (3.5-5.0); Alkaline Phosphatase 66 U/L (39-117); Anion Gap 13 (12-20); Aspartate Amino Transferase 28 U/L (5-37); Bilirubin Direct 0.2 mg/dL (0.0-0.5); Bilirubin Total 0.5 mg/dL (0.0-1.0); Blood Urea Nitrogen 22 mg/dL (9-16); Calcium 10.2 mg/dL (8.4-10.2); Carbon Dioxide 26 mmol/L (22-29); Chloride 105 mmol/L (96-108); Creatinine Clr Calc Pharmacy 89.5; Estimated Glomerular Filt Rate > 60; Glucose Random 78 mg/dL (60-115); Lipase 29 U/L (8-78); Sodium 140 mmol/L (135-145); Total Protein 8.1 g/dL (6.5-8.0)
[2024-08-13 16:00] VITALS: BP 137/88; PULSE 72; RESP 20; TEMP 36.9; O2SAT 98
--- NOTE | 2024-08-13 17:19 | ED_ITS ---
HPI - Extremity Problem General Chief complaint: Wound/Laceration Stated complaint: cellulitis of L foot Time Seen by Provider: 08/13/24 17:02 Source: patient Mode of arrival: ambulatory Limitations: no limitations History of Present Illness ED Provider: HPI Narrative: Patient is diabetic had a callus on the left lateral aspect of 5th toe seen by acid correction hand had a small wound seen at the urgent care center and prescribed doxycycline which she finished few days for last 2- 3 days patient noticed pain coming back without any pus discharge slight swelling no fever no chills Related Data Home Medications ?Medication ?Instructions ?Recorded ?Confirmed aspirin 81 mg tablet,delayed 81 mg PO DAILY 03/06/22 06/06/24 release cholecalciferol (vitamin D3) 50 50 mcg PO DAILY 03/06/22 06/06/24 mcg (2,000 unit) capsule empagliflozin 10 mg tablet 10 mg PO DAILY 03/06/22 06/06/24 (Jardiance) finasteride 5 mg tablet 5 mg PO DAILY 03/06/22 06/06/24 lisinopril 20 1 tab PO DAILY 03/06/22 06/06/24 mg-hydrochlorothiazide 25 mg tablet metformin 1,000 mg tablet 1,000 mg PO BID 03/06/22 06/06/24 naproxen 500 mg tablet 500 mg PO BID PRN 03/06/22 06/06/24 omeprazole 20 mg capsule,delayed 20 mg PO DAILY 03/06/22 06/06/24 release blood sugar diagnostic (FreeStyle #10 ea 01/28/24 Lite Strips) dulaglutide 3 mg/0.5 mL mg subcut 06/06/24 06/06/24 subcutaneous pen injector (Trulicity) Previous Rx's ?Medication ?Instructions ?Recorded fluticasone fur. 100 mcg-umeclid 1 inh inhalation DAILY 30 days #60 08/31/23 62.5 mcg-vilant 25 mcg ea inhalat.powder (Trelegy Ellipta) albuterol sulfate 90 mcg/actuation 2 puff inhalation Q4H PRN wheezing 09/21/23 aerosol inhaler (Ventolin HFA) 30 days #8.5 grams atorvastatin 40 mg tablet 40 mg PO BEDTIME #90 tabs 12/07/23 amlodipine 5 mg tablet 5 mg PO DAILY #90 tabs 05/03/24 cephalexin 500 mg capsule 500 mg PO QID 10 days #40 caps 08/13/24 doxycycline hyclate 100 mg tablet 100 mg PO BID #20 tabs 08/13/24 Allergies Allergy/AdvReac Type Severity Reaction Status Date / Time oxycodone [OXYCODONE] Allergy Unknown ITCH Verified 08/13/24 12:05 Review of Systems 2 Review of Systems: Yes all other systems are reviewed and are negative [facility] Past Medical History Medical History CAD (coronary artery disease) Tachycardia Asthma Surgical History Hx of cardiac cath H/O prostate biopsy Family History Family History Mother Diabetes HTN (hypertension) Hypercholesteremia Father Heart disease Cancer HTN (hypertension) Hypercholesteremia Asthma Brother HTN (hypertension) Heart disease Hypercholesteremia Prostate cancer Brother No problems noted. Brother No problems noted. Brother Heart disease Heart attack Asthma Sister HTN (hypertension) Hypercholesteremia Kidney disease Sister Diabetes HTN (hypertension) Hypercholesteremia COPD (chronic obstructive pulmonary disease) Asthma Daughter Hyperthyroidism Asthma Daughter Asthma Migraines Social History Social History Alcohol intake: current Alcohol intake frequency: a few times a week Alcohol type: beer and hard liquor Patient Tobacco Use Status: Never used Tobacco Smoked in Last 30 Days: No Use of substances other than those prescribed or required for medical reasons: No Advance Directives: No Advance Directives Information Provided: Yes Do you have a plan to hurt others: No Plan Physical Exam 2 Vital Signs: Vital Signs: Last Vital Signs Temp 98.5 F 08/13/24 18:35 Pulse 72 08/13/24 18:35 Resp 20 08/13/24 18:35 BP 137/88 08/13/24 18:35 Pulse Ox 98 08/13/24 18:35 O2 Del Method Room Air 08/13/24 18:35 BMI result Body Mass Index 33.8 Appearance: Alert. Oriented X3. No acute distress. Eyes: No pallor or icterus ENT: Pharynx normal. Oral Mucosa moist Neck: Normal inspection. Neck supple. CVS: Normal heart rate and rhythm. Pulses normal. Respiratory: No respiratory distress. Equal air entry bilateral, no wheezing/rales/rhonchi Abdomen: Soft and nontender. Bowel sounds are present, no mass palpable, no CVA tenderness Skin: Skin warm and dry. Normal skin color. Normal skin turgor. Extremities: No lower extremity edema. No calf tenderness left foot small healing wound with scab slight redness no pus discharge Neuro: Oriented X 3. No motor deficit. No sensory deficit. Medications Administered Discontinued Medications Generic Name Dose Route Start Last Admin Trade Name Freq PRN Reason Stop Dose Admin Cephalexin HCl 500 mg 08/13/24 18:01 08/13/24 18:35 Cephalexin 500 Mg Capsule PO 08/13/24 18:02 500 mg ONCE ONE Administration Doxycycline Monohydrate 100 mg 08/13/24 18:01 08/13/24 18:35 Doxycycline Monohydrate 100 Mg Capsule PO 08/13/24 18:02 100 mg ONCE ONE Administration Medical Decision Making Medical Decision Making [facility] Narrative: Patient is diabetic with healing wound on the left foot slight redness and tenderness x-ray negative for bony erosion WBC count normal wound does not look very deep slightly cellulitic will prescribe course of cephalexin and doxycycline again patient is suppose to see acid correction hand and will follow up Differential Diagnosis Differential Diagnoses: The differential diagnosis associated with the presentation includes Cellulitis/infected wound /osteomyelitis Lab Data [facility] Lab Attestation statement: I reviewed the patient's lab results. 08/13/24 12:15 08/13/24 12:15 Labs: Lab Results 08/13/24 Range/Units 12:15 WBC 8.9 (4.8-10.8) X10*3/uL RBC 5.07 (4.60-5.80) X10*6/uL Hgb 13.8 L (14.0-18.0) g/dl Hct 43.0 (42.0-52.0) % MCV 84.8 (80.0-98.0) fL MCH 27.2 (27.0-33.0) pg MCHC 32.1 (31.0-36.0) g/dl RDW 16.2 H (11.0-16.0) % Plt Count 199 (160-400) X10*3/uL MPV 12.1 (9.4-12.4) fL Immature Gran % (Auto) 0.4 (0.0-0.4) % Neut % (Auto) 69.1 (45-73) % Lymph % (Auto) 20.7 (20-40) % [place] % (Auto) 8.4 (2-11) % Eos % (Auto) 0.8 (0-4) % Baso % (Auto) 0.6 (0-2) % Lymph # (Auto) 1.8 (1.2-4.9) X10*3/uL [place] # (Auto) 0.8 (0.1-1.2) X10*3/uL Eos # (Auto) 0.1 (0.0-0.4) X10*3/uL Baso # (Auto) 0.1 (0.0-0.2) X10*3/uL Abs Immat Gran (auto) 0.04 H (0.00-0.03) X10*3/uL Absolute Neuts (auto) 6.2 (2.0-8.3) x10*3/uL Absolute Nucleated RBC 0.000 (0.0-0.012) X10*3/uL Nucleated RBC % (auto) 0.0 (0.0-0.2) /100WBC Sodium 140 (135-145) mmol/L Potassium 4.0 (3.3-5.1) mmol/L Chloride 105 (96-108) mmol/L Carbon Dioxide 26 (22-29) mmol/L Anion Gap 13 (12-20) BUN 22 H (9-16) mg/dL Creatinine 0.77 (0.5-1.4) mg/dL Estim Creat Clear Calc 89.5 Estimated GFR > 60 Random Glucose 78 (60-115) mg/dL Calcium 10.2 (8.4-10.2) mg/dL Total Bilirubin 0.5 (0.0-1.0) mg/dL Direct Bilirubin 0.2 (0.0-0.5) mg/dL AST 28 (5-37) U/L ALT 28 (0-40) U/L Alkaline Phosphatase 66 (39-117) U/L Total Protein 8.1 H (6.5-8.0) g/dL Albumin 4.6 (3.5-5.0) g/dL Lipase 29 (8-78) U/L Independent Interpretation I performed an independent interpretation of an: Plain X-Ray Radiology Impression Discussion of test interpretation with radiology: I have reviewed the radiologist's reading. Radiologist Impression: [address] [address] XRay Report Signed Patient: Major Christianson MR#: [id number] : 1945 Acct:[id number] Age/Sex: 78 / M ADM Date: 08/13/24 Loc: HO.ED Attending Dr: Ordering Physician: Generic ED Physician Date of Service: 08/13/24 Procedure(s): XR foot LT min 3V Accession Number(s): [id number] cc: Generic ED Physician; Carri Suazo MD~ CLINICAL HISTORY: lesion 3 view left foot Comparison: CR/SR - XR FOOT LT 2V - 11/19/23 09:38 EDT Findings: No fractures or dislocations. Mild degenerative change of the 1st metatarsophalangeal joint. Mild deviation of the toes. Calcaneal enthesophytes. No ankle effusion. No radiopaque foreign body. Atherosclerosis calcification of the arterial structures. IMPRESSION: 1. No acute findings. This document has been electronically signed by: Chula Johnsno MD on 08/13/2024 13:0 Discharge Plan Discharge Clinical Impression: Cellulitis of left foot Patient Disposition: Home, Self-Care Instructions: Cellulitis (ED) Additional Instructions: Local care as advised Take antibiotic as prescribed Follow up with acid correction hand and report to ER if not better Prescriptions: New cephalexin 500 mg capsule 500 mg PO QID 10 Days Qty: 40 0RF doxycycline hyclate 100 mg tablet 100 mg PO BID Qty: 20 0RF No Action albuterol sulfate [Ventolin HFA] 90 mcg/actuation HFA aerosol inhaler 2 puff inhalation Q4H PRN (Reason: wheezing) 30 Days Qty: 8.5 11RF atorvastatin 40 mg tablet 40 mg PO BEDTIME Qty: 90 1RF amlodipine 5 mg tablet 5 mg PO DAILY Qty: 90 3RF (DME) FreeStyle Lite Strips Strip See Rx Instructions .ROUTE DAILY Qty: 10 Rx Instructions: As directed Jardiance 10 mg tablet 10 mg PO DAILY omeprazole 20 mg capsule,delayed release(DR/EC) 20 mg PO DAILY naproxen 500 mg tablet 500 mg PO BID PRN lisinopril-hydrochlorothiazide 20-25 mg tablet 1 tab PO DAILY finasteride 5 mg tablet 5 mg PO DAILY metformin 1,000 mg tablet 1,000 mg PO BID aspirin 81 mg tablet,delayed release (DR/EC) 81 mg PO DAILY cholecalciferol (vitamin D3) 50 mcg (2,000 unit) capsule 50 mcg PO DAILY Trelegy Ellipta 100-62.5-25 mcg blister with device 1 inh inhalation DAILY 30 Days Qty: 60 11RF Trulicity 3 mg/0.5 mL pen injector subcut Interventions: ED Discharge Assessment Last Done: 08/13/24 18:35 Discharge Date/Time: 08/13/24 18:36 Print Language: Yakut
[2024-08-13 18:35] VITALS: BP 137/88; PULSE 72; RESP 20; TEMP 36.9; O2SAT 98
[2024-08-13] MEDS: cephALEXin 500 MG CAPSULE PO (18:35)
[2024-08-13] MEDS: Doxycycline Monohydrate 100 MG CAPSULE PO (18:35)
== END 2024-08-13 18:36 | disposition home or self-care (01) ==
PROVIDERS: Emergency Provider Internal Medicine; PCP Internal Medicine
DX: L03.116 Cellulitis of left lower limb (principal); M79.672 Pain in left foot; E11.9 Type 2 diabetes mellitus without complications; J45.909 Unspecified asthma, uncomplicated; Z79.85 Long-term (current) use of injectable non-insulin antidiabetic drugs; Z79.899 Other long term (current) drug therapy; Z79.82 Long term (current) use of aspirin; Z79.02 Long term (current) use of antithrombotics/antiplatelets
CPT/HCPCS: 36415; 73630; 80048; 80076; 83690; 85025; 99283; 99284

== ENCOUNTER → 2024-08-13 12:07 | Outpatient (BNV) | payer OTHER, SELFPAY | PROVIDERS: PCP Internal Medicine; Visit Provider Nuclear Medicine | DX: L98.9 Disorder of the skin and subcutaneous tissue, unspecified (principal) | CPT/HCPCS: 73630 ==

== ENCOUNTER 2024-10-04 15:52 | Emergency (ER) | payer OTHER, SELFPAY ==
--- NOTE | ~2024-10-04 | XR_ITS ---
CLINICAL HISTORY: pain, infection 2 view left ankle Comparison: None Findings: Bones intact. No dislocations. Mild degenerative changes throughout the ankle. No ankle effusion. No radiopaque foreign body. Diffuse vascular calcification. IMPRESSION: 1. No acute findings. This document has been electronically signed by: Samm Khan MD on 10/04/2024 17:53:53
--- NOTE | ~2024-10-04 | XR_ITS ---
CLINICAL HISTORY: pain 3 view left foot Comparison: None Findings: Bones intact. No dislocations. Mild degenerative changes throughout the foot and ankle. Diffuse vascular calcification. No bone destruction to suggest osteomyelitis by radiograph. No radiopaque foreign body. IMPRESSION: No bone destruction to suggest osteomyelitis by radiograph. This document has been electronically signed by: Samm Khan MD on 10/04/2024 17:54:06
[2024-10-04 16:07] VITALS: BP 147/74; PULSE 82; RESP 20; TEMP 36.6; O2SAT 97; BMI 34.1
--- NOTE | 2024-10-04 16:11 | ED_ITS ---
HPI - General Adult General Chief complaint: Skin/Abscess/Foreign Body Stated complaint: L foot pain Time Seen by Provider: 10/04/24 19:42 Source: patient Limitations: language barrier History of Present Illness ED Provider: Marleny Porter PA-C HPI narrative: 78-year-old male with a history of hypertension, hyperlipidemia, diabetes, coronary artery disease who is coming in with a atraumatic left foot and ankle pain x1 week. Patient is able to flex and extend, mild generalized erythema noted. No fevers. He is pending a procedure by vascular surgery, he saw his digital media planner, he was told to come in to rule out cellulitis. Related Data Home Medications ?Medication ?Instructions ?Recorded ?Confirmed aspirin 81 mg tablet,delayed 81 mg PO DAILY 03/06/22 06/06/24 release cholecalciferol (vitamin D3) 50 50 mcg PO DAILY 03/06/22 06/06/24 mcg (2,000 unit) capsule empagliflozin 10 mg tablet 10 mg PO DAILY 03/06/22 06/06/24 (Jardiance) finasteride 5 mg tablet 5 mg PO DAILY 03/06/22 06/06/24 lisinopril 20 1 tab PO DAILY 03/06/22 06/06/24 mg-hydrochlorothiazide 25 mg tablet metformin 1,000 mg tablet 1,000 mg PO BID 03/06/22 06/06/24 naproxen 500 mg tablet 500 mg PO BID PRN 03/06/22 06/06/24 omeprazole 20 mg capsule,delayed 20 mg PO DAILY 03/06/22 06/06/24 release blood sugar diagnostic (FreeStyle #10 ea 01/28/24 Lite Strips) dulaglutide 3 mg/0.5 mL mg subcut 06/06/24 06/06/24 subcutaneous pen injector (Trulicity) Previous Rx's ?Medication ?Instructions ?Recorded amlodipine 5 mg tablet 5 mg PO DAILY #90 tabs 05/03/24 cephalexin 500 mg capsule 500 mg PO QID 10 days #40 caps 08/13/24 doxycycline hyclate 100 mg tablet 100 mg PO BID #20 tabs 08/13/24 atorvastatin 40 mg tablet 40 mg PO BEDTIME #90 tabs 09/03/24 fluticasone fur. 100 mcg-umeclid 1 inh inhalation DAILY 30 days #60 09/06/24 62.5 mcg-vilant 25 mcg ea inhalat.powder (Trelegy Ellipta) albuterol sulfate 90 mcg/actuation 2 puff inhalation Q4H PRN wheezing 09/23/24 aerosol inhaler (Ventolin HFA) 30 days #8.5 grams clindamycin HCl 150 mg capsule 450 mg (3 x 150 mg) PO TID #90 caps 10/04/24 Allergies Allergy/AdvReac Type Severity Reaction Status Date / Time oxycodone [OXYCODONE] Allergy Unknown ITCH Verified 10/04/24 16:10 Review of Systems 2 Review of Systems: Yes all other systems are reviewed and are negative Constitutional: Constitutional: Denies fatigue and Denies fever(s) Musculoskeletal: Musculoskeletal: Reports arthralgias and Reports joint swelling Integumentary/Breasts: Skin/Breast: Reports erythema Endocrine: Endocrine: Denies fatigue PMFSH Past Medical History Attestation statement: The following information was validated with the patient. Medical History CAD (coronary artery disease) Tachycardia Asthma Surgical History Hx of cardiac cath H/O prostate biopsy Family History Family History Mother Diabetes HTN (hypertension) Hypercholesteremia Father Heart disease Cancer HTN (hypertension) Hypercholesteremia Asthma Brother HTN (hypertension) Heart disease Hypercholesteremia Prostate cancer Brother No problems noted. Brother No problems noted. Brother Heart disease Heart attack Asthma Sister HTN (hypertension) Hypercholesteremia Kidney disease Sister Diabetes HTN (hypertension) Hypercholesteremia COPD (chronic obstructive pulmonary disease) Asthma Daughter Hyperthyroidism Asthma Daughter Asthma Migraines Social History Social History Alcohol intake: current Alcohol intake frequency: a few times a week Alcohol type: beer and hard liquor Patient Tobacco Use Status: Never used Tobacco Advance Directives: No Advance Directives Information Provided: Yes Do you have a plan to hurt others: No Plan Physical Exam ED Vital Signs: Vital Signs - 24 hr 10/04/24 16:07 10/04/24 20:37 Temperature 97.9 F 98.7 F Pulse Rate 82 89 Respiratory Rate 20 16 Blood Pressure 147/74 H 142/79 H Pulse Oximetry 97 97 Oxygen Delivery Method Room Air Room Air BMI result Body Mass Index 34.1 Const Other: Alert Orientation/consciousness: patient oriented x3 Resp Effort & Inspection: normal respiratory effort Cardio Other: Normal peripheral perfusion Skin Other: Warm dry no rash Neuro General: patient oriented x3, gait normal, no focal motor deficits and CN's II- XI intact bilaterally Extrem Other: The skin over bilateral lower extremities is dry, somewhat hyperpigmented, thickened, may be signs of early venous insufficiency, there is a patch of further darkened skin with overlying erythema medial ankle over the left ankle. He is able to fully flex and extend, he is ambulatory with a ease Psych Other: Cooperative Course Course Course Narrative: This is a rapid medical exam performed by Marleny Porter PA-C. The patient is a 78-year-old male with a history of hypertension, hyperlipidemia, diabetes, coronary artery disease who is coming in with a atraumatic left foot and ankle pain x1 week. Patient was able to flex and extend, mild generalized erythema noted. We will be screening basic labs, inflammatory markers and x-rays of the ankle in the foot. The patient was hemodynamically stable and can return to the waiting room pending his full medical assessment. Medications Administered Discontinued Medications Generic Name Dose Route Start Last Admin Trade Name Freq PRN Reason Stop Dose Admin Clindamycin HCl 450 mg 10/04/24 19:42 10/04/24 20:36 Clindamycin Hcl 150 Mg Capsule PO 10/04/24 19:43 450 mg ONCE ONE Administration Medical Decision Making Medical Decision Making [facility] Narrative: 78-year-old male with a history of hypertension, hyperlipidemia, diabetes, coronary artery disease who is coming in with a atraumatic left foot and ankle pain x1 week. Patient is able to flex and extend, mild generalized erythema noted. No fevers. He is pending a procedure by vascular surgery, he saw his digital media planner, he was told to come in to rule out cellulitis. Problem: Diabetes History: Per patient I have considered the following differential diagnoses: Cellulitis, purulent cellulitis, diabetic foot infection, osteomyelitis, septic effusion Plan: Screening labs and imaging were ordered from triage, everything is unremarkable. This may be developing cellulitis, however I suspect it is chronic in nature. We will place on a course of clindamycin. The patient has pending follow up with his digital media planner and vascular surgeon within the week, this is ideal for a skin check. I have independently reviewed the following tests: Labs: No leukocytosis, not anemic, no electrolyte abnormality noted X-ray left ankle:Findings: Bones intact. No dislocations. Mild degenerative changes throughout the ankle. No ankle effusion. No radiopaque foreign body. Diffuse vascular calcification. IMPRESSION: 1. No acute findings. X-ray left foot:Findings: Bones intact. No dislocations. Mild degenerative changes throughout the foot and ankle. Diffuse vascular calcification. No bone destruction to suggest osteomyelitis by radiograph. No radiopaque foreign body. IMPRESSION: No bone destruction to suggest osteomyelitis by radiograph. Lab Data 10/04/24 16:15 10/04/24 16:15 Labs: Lab Results 10/04/24 Range/Units 16:15 WBC 7.6 (4.8-10.8) X10*3/uL RBC 4.73 (4.60-5.80) X10*6/uL Hgb 12.9 L (14.0-18.0) g/dl Hct 39.7 L (42.0-52.0) % MCV 83.9 (80.0-98.0) fL MCH 27.3 (27.0-33.0) pg MCHC 32.5 (31.0-36.0) g/dl RDW 18.5 H (11.0-16.0) % Plt Count 192 (160-400) X10*3/uL MPV 12.0 (9.4-12.4) fL Immature Gran % (Auto) 0.3 (0.0-0.4) % Neut % (Auto) 64.8 (45-73) % Lymph % (Auto) 25.1 (20-40) % [place] % (Auto) 8.4 (2-11) % Eos % (Auto) 1.0 (0-4) % Baso % (Auto) 0.4 (0-2) % Lymph # (Auto) 1.9 (1.2-4.9) X10*3/uL [place] # (Auto) 0.6 (0.1-1.2) X10*3/uL Eos # (Auto) 0.1 (0.0-0.4) X10*3/uL Baso # (Auto) 0.0 (0.0-0.2) X10*3/uL Abs Immat Gran (auto) 0.02 (0.00-0.03) X10*3/uL Absolute Neuts (auto) 4.9 (2.0-8.3) x10*3/uL Absolute Nucleated RBC 0.000 (0.0-0.012) X10*3/uL Nucleated RBC % (auto) 0.0 (0.0-0.2) /100WBC ESR 11 (0-15) MM/HR Sodium 143 (135-145) mmol/L Potassium 4.1 (3.3-5.1) mmol/L Chloride 107 (96-108) mmol/L Carbon Dioxide 28 (22-29) mmol/L Anion Gap 12 (12-20) BUN 17 H (9-16) mg/dL Creatinine 0.98 (0.5-1.4) mg/dL Estim Creat Clear Calc 70.6 Estimated GFR > 60 Random Glucose 163 H (60-115) mg/dL Calcium 9.5 D (8.4-10.2) mg/dL Magnesium 1.9 (1.6-2.6) mg/dL Total Bilirubin 0.4 (0.0-1.0) mg/dL AST 25 (5-37) U/L ALT 32 (0-40) U/L Alkaline Phosphatase 66 (39-117) U/L C-Reactive Protein 0.25 (< or = 0.50) mg/dL Total Protein 7.8 (6.5-8.0) g/dL Albumin 4.4 (3.5-5.0) g/dL Discharge Plan Discharge Clinical Impression: Cellulitis Patient Disposition: Home, Self-Care Instructions: Cellulitis (ED) Additional Instructions: All of your screening labs were normal, there were no abnormalities noted on the x-rays of your foot and ankle. We are treating you for suspect early cellulitis. See home care instructions. Take the clindamycin as directed, be sure to keep your follow up appointments with your vascular surgeon and your digital media planner. These will be great opportunities for skin re- checks. Prescriptions: New clindamycin HCl 150 mg capsule 450 mg PO TID Qty: 90 0RF No Action amlodipine 5 mg tablet 5 mg PO DAILY Qty: 90 3RF atorvastatin 40 mg tablet 40 mg PO BEDTIME Qty: 90 1RF Trelegy Ellipta 100-62.5-25 mcg blister with device 1 inh inhalation DAILY 30 Days Qty: 60 11RF albuterol sulfate [Ventolin HFA] 90 mcg/actuation HFA aerosol inhaler 2 puff inhalation Q4H PRN (Reason: wheezing) 30 Days Qty: 8.5 11RF cephalexin 500 mg capsule 500 mg PO QID 10 Days Qty: 40 0RF doxycycline hyclate 100 mg tablet 100 mg PO BID Qty: 20 0RF (DME) FreeStyle Lite Strips Strip See Rx Instructions .ROUTE DAILY Qty: 10 Rx Instructions: As directed Jardiance 10 mg tablet 10 mg PO DAILY omeprazole 20 mg capsule,delayed release(DR/EC) 20 mg PO DAILY naproxen 500 mg tablet 500 mg PO BID PRN lisinopril-hydrochlorothiazide 20-25 mg tablet 1 tab PO DAILY finasteride 5 mg tablet 5 mg PO DAILY metformin 1,000 mg tablet 1,000 mg PO BID aspirin 81 mg tablet,delayed release (DR/EC) 81 mg PO DAILY cholecalciferol (vitamin D3) 50 mcg (2,000 unit) capsule 50 mcg PO DAILY Trulicity 3 mg/0.5 mL pen injector subcut Interventions: ED Discharge Assessment Last Done: 10/04/24 20:37 Discharge Date/Time: 10/04/24 20:39 Print Language: [place]ayan
[2024-10-04 16:20] LABS: Basophils Percent Auto 0.4 % (0-2); Eosinophils Absolute Auto 0.1 X10*3/uL (0.0-0.4); Hematocrit 39.7 % (42.0-52.0); Hemoglobin 12.9 g/dl (14.0-18.0); Imm Gran Abs Auto 0.02 X10*3/uL (0.00-0.03); Imm Gran Pct Auto 0.3 % (0.0-0.4); Lymphocytes Absolute Auto 1.9 X10*3/uL (1.2-4.9); Lymphocytes Percent Auto 25.1 % (20-40); MANUAL DIFF FLAG NO; Mean Corpuscular HGB Conc 32.5 g/dl (31.0-36.0); Mean Corpuscular Hemoglobin 27.3 pg (27.0-33.0); Mean Corpuscular Volume 83.9 fL (80.0-98.0); Monocytes Absolute Auto 0.6 X10*3/uL (0.1-1.2); Monocytes Percent Auto 8.4 % (2-11); Neutrophils Absolute Auto 4.9 x10*3/uL (2.0-8.3); Neutrophils Percent Auto 64.8 % (45-73); Platelet Count 192 X10*3/uL (160-400); Red Blood Count 4.73 X10*6/uL (4.60-5.80); Red Cell Distribution Width 18.5 % (11.0-16.0); White Blood Count 7.6 X10*3/uL (4.8-10.8)
[2024-10-04 16:33] LABS: Alanine Aminotransferase 32 U/L (0-40); Albumin Level 4.4 g/dL (3.5-5.0); Alkaline Phosphatase 66 U/L (39-117); Anion Gap 12 (12-20); Aspartate Amino Transferase 25 U/L (5-37); Bilirubin Total 0.4 mg/dL (0.0-1.0); Blood Urea Nitrogen 17 mg/dL (9-16); C Reactive Protein 0.25 mg/dL (< or = 0.50); Calcium 9.5 mg/dL (8.4-10.2); Carbon Dioxide 28 mmol/L (22-29); Chloride 107 mmol/L (96-108); Creatinine Clr Calc Pharmacy 70.6; Estimated Glomerular Filt Rate > 60; Glucose Random 163 mg/dL (60-115); Magnesium 1.9 mg/dL (1.6-2.6); Potassium 4.1 mmol/L (3.3-5.1); Sodium 143 mmol/L (135-145); Total Protein 7.8 g/dL (6.5-8.0)
[2024-10-04 17:07] LABS: Erythrocyte Sedimentation Rate 11 MM/HR (0-15)
[2024-10-04] MEDS: Clindamycin HCL 150 MG CAPSULE 450 MG PO (20:36)
[2024-10-04 20:37] VITALS: BP 142/79; PULSE 89; RESP 16; TEMP 37.1; O2SAT 97
== END 2024-10-04 20:39 | disposition home or self-care (01) ==
PROVIDERS: Physician Assistant Medical; Emergency Provider Emergency Medicine; PCP Internal Medicine
DX: L03.116 Cellulitis of left lower limb (principal); M25.572 Pain in left ankle and joints of left foot; E11.9 Type 2 diabetes mellitus without complications; I10 Essential (primary) hypertension; I25.10 Atherosclerotic heart disease of native coronary artery without angina pectoris; E78.5 Hyperlipidemia, unspecified; Z79.899 Other long term (current) drug therapy
CPT/HCPCS: 36415; 73610; 73630; 80053; 83735; 85025; 85652; 86140; 99282; 99283

== ENCOUNTER → 2024-10-04 16:09 | Outpatient (BNV) | payer OTHER, SELFPAY | PROVIDERS: PCP Internal Medicine; Visit Provider Radiology Vascular & Interventional Radiology | DX: M25.572 Pain in left ankle and joints of left foot (principal) | CPT/HCPCS: 73610; 73630 ==

== ENCOUNTER 2024-10-18 15:21 | Outpatient (AMB) | payer OTHER, SELFPAY ==
--- NOTE | 2024-10-18 15:23 | A.OFFVIS_ITS ---
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 Snyder is concerned about circulation due to diabetes. Pt has cramping in bilateral LE w/ ambulation. Also when lying in bed he can get cramping and numbness. Does have some discoloration on the left ankle. 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 He has a longstanding history of diabetes and developed a left medial calf ulceration. In addition he has discomfort of the left foot. He had followed up with Podiatry and had discussed 5th metatarsal osteotomy the concern was at that time did not have palpable pulses. He now presents to us for vascular evaluation with daughter at bedside. PENDING SALE TO [facility] Medical History Diabetes CAD (coronary artery disease) Tachycardia Asthma Surgical History Hx of cardiac cath H/O prostate biopsy Family History Mother Diabetes HTN (hypertension) Hypercholesteremia Father Heart disease Cancer HTN (hypertension) Hypercholesteremia Asthma Brother HTN (hypertension) Heart disease Hypercholesteremia Prostate cancer Brother No problems noted. Brother No problems noted. Brother Heart disease Heart attack Asthma Sister HTN (hypertension) Hypercholesteremia Kidney disease Sister Diabetes HTN (hypertension) Hypercholesteremia COPD (chronic obstructive pulmonary disease) Asthma Daughter Hyperthyroidism Asthma Daughter Asthma Migraines Social History Alcohol intake: current Alcohol intake frequency: a few times a week Alcohol type: beer and hard liquor Patient Tobacco Use Status: Never used Tobacco Review of Systems Const All systems reviewed & are unremarkable except as noted in HPI and below Reports no additional complaints ENT Reports Normal hearing present Card Denies chest pain, Denies chest pain at rest, Denies chest pain with activity and Denies pedal edema Resp Denies cough GI Denies abdominal pain Musc Denies abnormal gait, Denies muscle cramps and Denies radiating pain into limb Skin/Breast Denies skin ulcer and Denies wounds Neuro Reports Normal hearing present and Denies abnormal gait Psych Reports no additional complaints Physical Exam Vital Signs: BMI result Body Mass Index 34.0 Const General: cooperative, healthy appearing and comfortable Orientation/consciousness: oriented to person, oriented to place and oriented to time HEENT Head: Yes normal to inspection Neck Neck: Yes normal visual inspection Carotids: no bruits Chest Chest palpation & inspection: normal inspection of the chest Resp Effort & Inspection: normal respiratory effort and able to speak in complete sentences Auscultation: clear to auscultation bilaterally, no crackles, no rales, no rhonchi and no wheezes Cardio Other: Bilateral DP signals Rate: regular rate Rhythm: regular rhythm Heart sounds: S1 normal heart sound present and S2 normal heart sound present Bruits: no carotid bruits GI Inspection: Yes normal to inspection Skin Other: Nonhealing ulcer medial aspect of left calf with skin discoloration Wounds: wounds noted Hair: normal Neuro General: oriented to person, oriented to place and oriented to time Cranial nerves: Yes CN's II-XII intact bilaterally and Yes Normal hearing present Cognition (Neuro): normal cognition Motor exam (neuro): 5/5 motor strength present throughout Extrem Other: venous exam: No significant superficial varicosities or spider t elangiectasias, minimal edema General: No clubbing, No cyanosis and No edema Psych Appearance: grossly normal Mental Status: mental status grossly normal Speech and movement: Normal speech and movement present Assessment & Plan Assessment & Plan (1) PAD (peripheral artery disease): Code(s): I73.9 - Peripheral vascular disease, unspecified Category: Medical Plan: In short patient has a history of a nonhealing ulcer with longstanding history of diabetes. I have taken the liberty of ordering noninvasive arterial testing in anticipation for podiatric intervention. I did review the pathophysiology of peripheral vascular disease with the patient. In addition we did discuss routine conservative measures including a healthy diet and the importance of exercise and ambulation. We did discuss risk factor modification. the patient will follow up with us after arterial testing. Thank you for allowing us to participate in this patient's care. If there are any questions or concerns please do not hesitate to contact us. (2) Varicose veins of left lower extremity with inflammation: Code(s): I83.12 - Varicose veins of left lower extremity with inflammation Category: Medical Plan: In addition the patient has discoloration on the medial aspect of the ankle with evidence of varicosities. I have taken the liberty of ordering venous insufficiency testing as well. This will not affect his overall podiatric surgery but may better assist us in healing that medial malleolus ulceration. He will follow up with us after testing. Thank you for allowing us to assist in his care. If there are any questions or concerns please do not hesitate to contact us. Orders: Orders US venous duplex LE BI 1 Week I83.12 - Varicose veins of left lower extremity with inflammation US arterial duplex LE BI 1 Week I73.9 - Peripheral vascular disease, unspecified Coding Level of Care Code New Pt Level 4 (08244) Complex EM visit Add On G2211 Diagnoses PAD (peripheral artery disease) I73.9 Varicose veins of left lower extremity with inflammation I83.12
[2024-10-18 15:24] VITALS: BMI 34.0
--- OUTSIDE RECORDS SUMMARY | 2024-10-18 18:13 | XMS_ITS | Clinical Summary ---
Author Organization [facility] [address] Address [address], [place] Phone Care Team Providers Care Admitting Manager Name Role Phone Carri Suazo MD Primary Care Provider [phone] Allergies Active Allergy Reactions Criticality Noted Date Comments Other 04/20/2009 Seasonal Allergies Medications FREESTYLE LANCETS MISC Use to test blood sugar once daily 3 Active albuterol 2.5 mg /3 mL (0.083 %) nebulizer solution TAKE 1 VIAL BY NEBULIZATION 4 TIMES DAILY. 3 Active albuterol HFA (Ventolin HFA) 90 mcg/actuation inhaler Inhale 2 Puffs into the lungs every 4 hours as needed for Cough or Wheezing. 3 Active amLODIPine (NORVASC) 5 mg tablet Take 1 Tablet by mouth daily. Active atorvastatin (LIPITOR) 40 mg tablet Take 40 mg by mouth at bedtime. 2 Active diclofenac (VOLTAREN) 1 % topical gel Apply 4 g topically 2 times daily. 4 Active fluticasone propionate (FLONASE) 50 mcg/actuation nasal spray 2 sprays each nostril twice daily x 1 week then once daily as needed. 3 Active fluticasone-umec lidinium-vilante rol (Trelegy Ellipta) 100-62.5-25 mcg inhaler Inhale 1 Puff into the lungs daily. 4 Active pen needle, diabetic (Pen Needle) 31 gauge x 3/16 needle 1 Each by Does not apply route 3 times daily (with meals). 4 Active omeprazole (PriLOSEC) [address] capsule TAKE 1 CAPSULE BY MOUTH EVERY DAY 90 capsule 1 4 Active cholecalciferol (VITAMIN D-3) 50 mcg (2,000 unit) capsule TAKE 1 CAPSULE BY MOUTH EVERY DAY 90 capsule 1 4 Active finasteride (PROSCAR) 5 mg tablet TAKE 1 TABLET BY MOUTH EVERY DAY 90 tablet 1 4 Active Jardiance 25 mg tablet TAKE 1 TABLET BY MOUTH EVERY DAY 90 tablet 1 4 Active lisinopril-hydro CHLOROthiazide (PRINZIDE,ZESTOR ETIC) 20-25 mg per tablet TAKE 1 TABLET BY MOUTH EVERY DAY 90 tablet 1 4 Active glipiZIDE (GLUCOTROL) 5 mg tablet TAKE 1 TABLET BY MOUTH EVERY DAY 90 tablet 1 4 Active metFORMIN (GLUCOPHAGE) 1,000 mg tablet TAKE 1 TABLET BY MOUTH TWICE A DAY WITH FOOD 180 tablet 1 4 Active FreeStyle Lite Meter monitoring kitIndications:T ype 2 diabetes mellitus with other ophthalmic complication, without long-term current use of insulin USE TO CHECK BLOOD SUGAR DAILY 1 kit 5 Active blood sugar diagnostic (FreeStyle Lite Strips) test stripIndications :Type 2 diabetes mellitus with other ophthalmic complication, without long-term current use of insulin USE TO TEST BLOOD SUGAR ONCE DAILY 200 strip 5 5 Active aspirin 81 mg EC tablet TAKE 1 TABLET BY MOUTH EVERY DAY 90 tablet 1 5 Active Trulicity 3 mg/0.5 mL pen injector injectionIndicat ions:Type 2 diabetes mellitus with other specified complication INJECT 3 MG INTO THE SKIN ONE TIME PER WEEK 6 mL 1 5 Active Active Problems Problem Noted Date Diagnosed Date Microalbuminuria 04/07/2022 Normocytic anemia 10/02/2019 Habitual alcohol use 10/26/2018 BPH (benign prostatic hyperplasia) 01/30/2016 PSA elevation 02/06/2015 DM (diabetes mellitus), type 2 with ophthalmic complications 09/12/2013 Overview (04/18/2024): Nuclear Sclerosis out side eye exam 07/07/12. Dr. Engle. Obesity (BMI 30.0-34.9) 11/20/2009 Asthma 04/13/2006 Essential hypertension, benign 04/13/2006 CAD (coronary artery disease) 04/13/2006 Hyperlipidemia 04/13/2006 Lumbago 04/13/2006 Encounters Date Type Department Care Team Description 10/11/2024 8:30 AM EDT Office Visit Orthopedic Surgery [place] [phone] [phone] Elder Snyder DPM Cellulitis of left foot (Primary Dx); Bilateral femoral artery stenosis (CMS/HCC); Tailor's bunionette, left 09/12/2024 9:30 AM EST Office Visit Orthopedic Surgery [place] [phone] [phone] Elder Snyder DPM Tailor's bunionette, left (Primary Dx); Ulcer of toe of left foot, limited to breakdown of skin (CMS/HCC); Type II diabetes mellitus with peripheral circulatory disorder (CMS/HCC) 09/07/2024 1:30 PM EST Office Visit [address] [phone] Carri Suazo MD Essential hypertension, benign (Primary Dx); Mixed hyperlipidemia; Benign prostatic hyperplasia without lower urinary tract symptoms; Need for tetanus, diphtheria, and acellular pertussis (Tdap) vaccine; 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 (CMS/HCC) 08/29/2024 8:15 AM EST Office Visit Orthopedic Surgery [place] [phone] [phone] Elder Snyder DPM Ulcer of toe of left foot, limited to breakdown of skin (CMS/HCC) (Primary Dx); Follow-up exam; Tailor's bunionette, left; Diabetic mononeuropathy simplex (CMS/HCC); Type II diabetes mellitus with peripheral circulatory disorder (CMS/HCC) 08/22/2024 8:45 AM EST Office Visit Orthopedic Surgery - [place] [phone] [facility] [address] [place] [address] Elder Snyder DPAbbi Ulcer of toe of left foot, limited to breakdown of skin ([facility]) (Primary Dx); Cellulitis of left foot; Tailor's bunionette, left; Diabetic mononeuropathy simplex ([facility]); Type II diabetes mellitus with peripheral circulatory disorder ([facility]) 08/01/2024 Telephone Endocrinology [facility] [address] [place] [phone] Chu Joyner MD Medication Problem (Freestyle lite glucometer) from Last 3 Months Immunizations Name Administration Dates Next Due H1N1 Inj Preservative Free 08/21/2009 Influenza Quadravalent, MDCK , 0.5ml, preservative free (Flucelvax) 6mo and older 04/07/2022,07/08/2018 Influenza trivalent, 0.5mL ( Fluad) 65yo and older 05/25/2024 Influenza trivalent, 0.5mL ( Fluzone High-dose) 65yo and older 05/28/2023,05/16/2021,06/10/2020,07/25,05/01/2017 Influenza trivalent, with pr eservative (Fluzone; Afluria) 6mo and older 07/31/2016,06/11/2015,06/06/2014,05/31,05/25/2012,06/23/2011,03/26/2010 ,05/21/2009,05/17/2007,06/08/2006 [employer] SARS-CoV-2 COVID-19, mRNA, LNP-S, preservative free 07/09/2021 Pneumococcal conjugate 13 va lent (Prevnar 13, PCV13) 2mo and older 07/31/2016 Pneumococcal polysaccharide 23 valent (Pneumovax 23) 2yo and older 05/25/2012 Td Tetanus diptheria (Tdvax) 7yo and older 06/27/2014,05/31/2013 Tdap Tetanus diptheria acell ular pertussis (Boostrix; Adacel) 7yo and older 09/07/2024 Zoster recombinant (Shingrix ) 19yo and older 01/02/2024 Surgical History Surgery Date Site/Laterality Comments OTHER SURGICAL HISTORY PROCEDURE: DENIES PREVIOUS SURGERY COLONOSCOPY 12/26/2016 PROCEDURE: HISTORICAL COLONOSCOPY; COMMENT: negative screening examination. Medical History Medical History Date Comments Coronary atherosclerosis of unspecified type of vessel, andreafski or graft 04/13/2006 DX:Coronary atherosclerosis of unspecified type of vessel, andreafski or graft Other and unspecified hyperlipidemia 04/13/2006 DX:Other and unspecified hyperlipidemia Lumbago 04/13/2006 DX:Lumbago Unspecified asthma(493.90) 04/13/2006 DX:Un specified asthma(493.90) Type II or unspecified type diabetes mellitus without mention of complication, uncontrolled 04/13/2006 DX:Type II or unspecified t ype diabetes mellitus without mention of complication, uncontrolled Essential hypertension, benign 04/13/2006 D X:Essential hypertension, benign LVH (left ventricular hypertrophy) DX:LVH (left ventricular hypertrophy) Diastolic dysfunction DX:Diastol ic dysfunction BPH (benign prostatic hyperplasia) 01/30/2016 DX:BPH (benign prostatic hyperplasia) DM (diabetes mellitus), type 2, uncontrolled w/ophthalmic complication 09/12/2013 DX:DM (diabetes mellitus), type 2, uncontrolled w/ophthalmic complication; COMMENT: Nuclear Sclerosis out side eye exam 07/07/12. Dr. Engle. Habitual alcohol use 10/26/2018 DX:Habitual alcohol use Family History Medical History Relation Name Comments Glaucoma Father Glaucoma Mother cad Relation Name Status Comments Brother Alive CAD Daughter 1 Alive thyroid problem s Daughter 2 Alive Daughter 3 Alive Daughter 4 Alive Father LA Mother DM Sister Alive DM Son Alive Social History Tobacco Use Types Packs/Day Years Used Date Smoking Tobacco: Former Smokeless Tobacco: Never Tobacco Cessation:Counseling Given: Not Answered Alcohol Use Standard Drinks/Week Comments Yes 6 (1 standard drink = 0.6 oz pur e alcohol) Sex and Gender Information Value Date Recorded Sex Assigned at Male 05/18/2024 2:30 PM EDT Legal Sex Male 11:35 PM EST Gender Identity Male 05/18/2024 2:30 PM EDT Sexual Orientation Straight 05/18/2024 2: 30 PM EDT Obstetrics History Last Filed Vital Signs Vital Sign Reading Time Taken Comments Blood Pressure 128/62 09/07/2024 1:34 PM EST Pulse 74 09/07/2024 1:34 PM EST Temperature 36.6 ??C (97.9 ??F) 09/07/2024 1:34 PM ES T Respiratory Rate 14 09/07/2024 1:34 PM EST Oxygen Saturation 96% 07/05/2024 8:57 AM EST Inhaled Oxygen Concentration - - Weight 99.8 kg (220 lb) 10/11/2024 8:26 AM EDT Height 170.2 cm (5' 7.01 ) 10/11/2024 8:26 AM ED T Body Mass Index 34.45 10/11/2024 8:26 AM EDT Plan of Treatment Upcoming Encounters Date Type Department Care Team (Late st Contact Info) Description 10/19/2024 3:15 PM EDT Office Visit Orthopedic Surgery [place] [phone] [phone] Elder Snyder, DPM [address] [phone] 01/05/2025 9:00 AM EDT Office Visit Endocrinology [address] [phone] Chu Joyner MD [address] [place] [phone] 01/05/2025 9:30 AM EDT Office Visit Adult Medicine [address] [phone] Rachel Kilgore PA [address] [place] [address] Health Maintenance Due Date Last Done Comments RSV Immunization Patients 60+ Years Old (1 - 1-dose 75+ series) 2021 Falls Risk Assessment 06/28/2022 Medicare Annual Wellness Visit 06/28/2022 Social Influencers of Health Screening 06/28/2022 Zoster Vaccines (2 of 2) 02/27/2024 01/02/2024 COVID-19 Vaccine (4 - 2024-25 season) 2024 07/09/2021, 11/18/2020, 10/28/2020 Depression Screening 09/02/2024 09/02/2023 Diabetes: Annual Retina Eye Exam 09/08/2024 09/08/2023, 09/08/2023 Diabetes: Blood Sugar Control Test (HGBA1C) 01/03/2025 07/05/2024, 02/29/2024, 02/29/2024, Additional history exists Diabetes: Annual Foot Exam 03/30/2025 03/30/2024 Diabetes: Annual Urine Albumin-Creatinine Ratio (uACR) 07/05/2025 07/05/2024, 02/29/2024 Diabetes: Annual GFR (Glomerular Filtration Rate) 07/05/2025 07/05/2024, 02/29/2024, 12/02/2023, Additional history exists Hypertension/CHF/CAD Annual BMP Blood Test 07/05/2025 07/05/2024, 02/29/2024, 12/02/2023, Additional history exists Cholesterol Screening (Lipid Panel) 07/05/2029 07/05/2024, 02/29/2024, 02/29/2024 DTaP,Tdap,and Td Vaccines (4 - Td or Tdap) 09/07/2034 09/07/2024, 06/27/2014, 05/31/2013 Hepatitis C Screening Completed 06/02/2013 Pneumococcal Vaccine: 50+ Years Completed 07/31/2016, 05/25/2012 Influenza Vaccine Completed 05/25/2024, , 04/07/2022, Additional history exists HIB Vaccines Aged Out No longer eligi ble based on patient's age to complete this topic HPV Vaccines Aged Out No longer eligi ble based on patient's age to complete this topic Hepatitis A Vaccines Aged Out No long er eligible based on patient's age to complete this topic Hepatitis B Vaccines Aged Out No long er eligible based on patient's age to complete this topic IPV Vaccines Aged Out No longer eligi ble based on patient's age to complete this topic MMR Vaccines Aged Out No longer eligi ble based on patient's age to complete this topic Meningococcal ACWY Vaccine Aged Out N o longer eligible based on patient's age to complete this topic Meningococcal B Vacine Aged Out No lo nger eligible based on patient's age to complete this topic RSV Immunization Patients Under 20 months Aged Out No longer eligible based on patient's age to complete this topic Varicella Vaccines Aged Out No longer eligible based on patient's age to complete this topic Procedures Procedure Name Priority Date/Time Associated Diagnosis Comments XR FOOT 3+ VIEWS LEFT Routine 08/29/2024 8:29 AM EST Follow-up exam MICROALBUMIN CREATININE URINE RATIO Routine 07/05/2024 8:17 AM EST Type 2 diabetes mellitus with other specified complication, without long-term current use of insulin (CMS/HCC) COMPREHENSIVE METABOLIC PANEL Routine 07/05/2024 8:17 AM EST Primary hypertension HEMOGLOBIN A1C Routine 07/05/2024 8:17 AM EST Type 2 diabetes mellitus with other specified complication, without long-term current use of insulin (CMS/HCC) LIPID PANEL WITH REFLEX TO DIRECT LDL Routine 07/05/2024 8:17 AM EST Type 2 diabetes mellitus with other specified complication, without long-term current use of insulin (CMS/HCC) DIABETES FOOT EXAM Routine 03/30/2024 DIABETES EYE EXAM Routine 09/08/2023 DEPRESSION SCREENING Routine 09/02/2023 HEPATITIS C SCREENING Routine 06/02/2013 from Last 3 Months or Most Recently Relevant to Health Maintenance Results * XR Foot 3+ Views Left (08/29/2024 8:29 AM EST) Anatomical Region Laterality Modality Lower Extremities, Foot Left Computed Radiography Narrative 08/29/2024 1:00 PM EST Left foot 3 views Mild tailor's bunionette deformity No acute findings us Elder Snyder DPAbbi IMG XR PROCEDURES Final R esult * (ABNORMAL) Lipid panel with reflex to direct LDL (07/05/2024 8:17 AM EST) Cholesterol 153 0 - 200 mg/dL LAB CHEMISTRY METHOD 07/05/2024 10:38 AM [facility] Triglycerides 167(H) 0 - 150 mg/dL LAB CHEMISTRY METHOD 07/05/2024 10:38 AM [facility] HDL 49 >=40 mg/dL LAB CHEMISTRY METHOD 07/05/2024 10:38 AM [facility] LDL Calculated 71 0 - 100 mg/dL LAB CHEMISTRY METHOD 07/05/2024 10:38 AM [facility] VLDL Cholesterol Eleazar 33.4 mg/dL LAB CHEMISTRY METHOD 07/05/2024 10:38 AM [facility] Non HDL Chol. (LDL+VLDL) 104 <145 mg/dL LAB CHEMISTRY METHOD 07/05/2024 10:38 AM [facility] Chol/HDL Ratio 3.1 0.0 - 4.4 LAB CHEMISTRY METHOD 07/05/2024 10:38 AM [facility] Blood Venous blood specimen / Unknown Venipuncture / Unknown 07/05/2024 8:17 AM EST 07/05/2024 8:17 AM EST us Carri Suazo MD LAB BLOOD ORDERABLES Final Resul t [facility] [address] [place] [address], [place] [phone] * Microalbumin creatinine urine ratio (07/05/2024 8:17 AM EST) Creatinine, Urine 166.0 mg/dL LAB CHEMISTRY METHOD 07/05/2024 11:01 AM [facility] Microalb, Ur 13.5 0.0 - 29.0 mg/L LAB CHEMISTRY METHOD 07/05/2024 11:01 AM EST [facility] Microalb/Creat Ratio 8 <30 mg/g creat LAB CHEMISTRY METHOD 07/05/2024 11:01 AM EST [facility] Urine Urine specimen obtained by clean catch procedure / Unknown Non-blood Collection / Unknown 07/05/2024 8:17 AM EST 07/05/2024 8:17 AM EST Carri Suazo MD LAB URINE ORDERABLES Final Resul t Performing Organization Address [facility]/ZIP Co de Phone Number [facility] [address] [place] [address], [place] [phone] * (ABNORMAL) Hemoglobin A1c (07/05/2024 8:17 AM EST) Hemoglobin A1C 7.0(H) <6.5 % LAB CHEMISTRY METHOD 07/05/2024 1:50 PM EST [facility] Mean Bld Glu Estim. 154 mg/dL LAB CHEMISTRY METHOD 07/05/2024 1:50 PM [facility] Blood Venous blood specimen / Unknown Venipuncture / Unknown 07/05/2024 8:17 AM EST 07/05/2024 8:17 AM EST us Carri Suazo MD LAB BLOOD ORDERABLES Final Resul t Performing Organization Address [facility]/ZIP Co de Phone Number [facility] [address] [place] [address], [place] [phone] * (ABNORMAL) Comprehensive metabolic panel (07/05/2024 8:17 AM EST) Sodium 138 133 - 145 mmol/L LAB CHEMISTRY METHOD 07/05/2024 10:38 AM [facility] Potassium 4.4 3.5 - 5.5 mmol/L LAB CHEMISTRY METHOD 07/05/2024 10:38 AM EST [facility] Chloride 102 96 - 110 mmol/L LAB CHEMISTRY METHOD 07/05/2024 10:38 AM [facility] CO2 28 21 - 32 mmol/L LAB CHEMISTRY METHOD 07/05/2024 10:38 AM [facility] Anion Gap 8 3 - 11 LAB CHEMISTRY METHOD 07/05/2024 10:38 AM [facility] Glucose 130(H) 70 - 100 mg/dL LAB CHEMISTRY METHOD 07/05/2024 10:38 AM [facility] BUN 17 5 - 25 mg/dL LAB CHEMISTRY METHOD 07/05/2024 10:38 AM [facility] Creatinine 1.25 0.70 - 1.30 mg/dL LAB CHEMISTRY METHOD 07/05/2024 10:38 AM [facility] eGFR 59(L) >=60 mL/min/1. 73m2 LAB CHEMISTRY METHOD 07/05/2024 10:38 AM [facility] Comment:Calculation based on the??Chronic Kidney Disease Epidemiology Collaboration (CKD-EPI) equation refit??without adjustment for race. BUN/Creatinine Ratio 13.6 LAB CHEMISTRY METHOD 07/05/2024 10:38 AM [facility] Calcium 9.4 8.5 - 10.5 mg/dL LAB CHEMISTRY METHOD 07/05/2024 10:38 AM [facility] AST (SGOT) 21 10 - 42 unit/L LAB CHEMISTRY METHOD 07/05/2024 10:38 AM [facility] ALT (SGPT) 27 10 - 60 unit/L LAB CHEMISTRY METHOD 07/05/2024 10:38 AM [facility] Alkaline Phosphatase 65 42 - 121 unit/L LAB CHEMISTRY METHOD 07/05/2024 10:38 AM [facility] Total Protein 7.6 6.0 - 8.0 g/dL LAB CHEMISTRY METHOD 07/05/2024 10:38 AM [facility] Albumin 4.3 3.2 - 5.0 g/dL LAB CHEMISTRY METHOD 07/05/2024 10:38 AM EST [facility] Total Bilirubin 0.7 0.0 - 1.4 mg/dL LAB CHEMISTRY METHOD 07/05/2024 10:38 AM EST [facility] Blood Venous blood specimen / Unknown Venipuncture / Unknown 07/05/2024 8:17 AM EST 07/05/2024 8:17 AM EST Carri Suazo MD LAB BLOOD ORDERABLES Final Resul t [facility] [address] [place] [address], * Diabetes Foot Exam (03/30/2024) [facility] Diabetes: Annual Foot Exam Abstracted Historical Provider HEALTH MAINTENANCE Final Result * Diabetes Eye Exam (09/08/2023) [facility] Diabetes: Annual Retina Eye Exam Abstracted Historical Provider HEALTH MAINTENANCE Final Result * Depression Screening (09/02/2023) [facility] Depression Screening Abstracted Historical Provider HEALTH MAINTENANCE Final Result * Hepatitis C Screening (06/02/2013) [facility] Hepatitis C Screening Abstracted Historical Provider HEALTH MAINTENANCE Final Result from Last 3 Months or Most Recently Relevant to Health Maintenance Insurance [facility] [employer] Member Subscriber Plan / Payer (Ef fective 2020-Present) Name:Major Christianson Relation to Subscriber:Self Name:Major Christianson Payer ID:[id number] Group ID:[id number] Type:Not on file Address: [address] [place] [address] Care Teams Admitting Manager Relationship Specialty Start Date End Date Carri Suazo MD [address] [place] [phone] PCP - General Internal Medicine 05/24/24
== END 2024-10-18 15:53 | disposition home or self-care (01) ==
LOC: HO.HVS 15:22
PROVIDERS: PCP Internal Medicine; Visit Provider Surgery Vascular Surgery
DX: I73.9 Peripheral vascular disease, unspecified (principal); I83.12 Varicose veins of left lower extremity with inflammation
CPT/HCPCS: 99204; G2211

== ENCOUNTER → 2024-10-18 15:21 | Outpatient (BNVA) | payer OTHER, SELFPAY | PROVIDERS: PCP Internal Medicine; Visit Provider Surgery Vascular Surgery | DX: I83.12 Varicose veins of left lower extremity with inflammation (principal); I73.9 Peripheral vascular disease, unspecified | CPT/HCPCS: 99202 ==

== ENCOUNTER 2024-11-15 08:14 | Outpatient (REF) | payer OTHER, SELFPAY ==
--- NOTE | ~2024-11-15 | US_ITS ---
EXAMINATION: US LOWER EXTREMITY VENOUS (REFLUX EXAM), BILATERAL CLINICAL INFORMATION: Varicose veins of left lower extremity with inflammation. COMPARISON: None. TECHNIQUE: Color flow triplex imaging and compression Doppler was performed to evaluate both the deep and the superficial systems bilaterally. To evaluate the superficial system, the examination was performed in the upright position. Color-flow Doppler ultrasound and compression ultrasound were utilized. In addition, maneuvers were utilized to demonstrate reflux. FINDINGS: 1. DEEP VENOUS ULTRASOUND OF THE RIGHT LOWER EXTREMITY: Common Femoral Vein: Compressible, normal respiratory variation and augmented flow. Femoral Vein: Compressible, normal color flow and augmentation. Popliteal Vein: Compressible, normal augmentation. Deep Reflux: There is no evidence of reflux in the deep system in either the common femoral vein, superficial femoral or the popliteal vein. There is no evidence of a Koroma's cyst. 2. SUPERFICIAL ULTRASOUND WITH DOPPLER OF RIGHT LOWER EXTREMITY: GREAT SAPHENOUS VEIN: Saphenofemoral Junction: 0.6 cm; Reflux: 0 ms Proximal Thigh: 0.4 cm; Reflux: 0 ms Mid Thigh: 0.3 cm; Reflux: 0 ms Distal Thigh: 0.4 cm; Reflux: 0 ms At Knee: 0.4 cm; Reflux: 0 ms Proximal Calf: 0.3 cm; Reflux: 0 ms Mid Calf: 0.2 cm; Reflux: 0 ms Distal Calf: 0.2 cm; Reflux: 0 ms DUPLICATED MEDIAL GREAT SAPHENOUS VEIN: None imaged . DUPLICATED LATERAL GREAT SAPHENOUS VEIN: None imaged. SMALL SAPHENOUS VEIN: Saphenopopliteal Junction: 0.2 cm; Reflux: 0 ms Proximal: 2.2 cm; Reflux: 0 ms Distal: 1.1 cm; Reflux: 0 ms VEIN OF GIACOMINI: None imaged. PERFORATORS: Proximal right calf, 0.2 cm, no reflux. Mid right calf, 0.2 cm, no reflux. VARICOSITIES: None imaged. 3. DEEP VENOUS ULTRASOUND OF THE LEFT LOWER EXTREMITY: Common Femoral Vein: Compressible, normal respiratory variation and augmented flow. Femoral Vein: Compressible, normal color flow and augmentation. Popliteal Vein: Compressible, normal augmentation. Deep Reflux: There is no evidence of reflux in the deep system in either the common femoral vein, superficial femoral or the popliteal vein. There is no evidence of a Koroma's cyst. 4. SUPERFICIAL ULTRASOUND WITH DOPPLER OF LEFT LOWER EXTREMITY: GREAT SAPHENOUS VEIN: Saphenofemoral Junction: 0.8 cm; Reflux: 0 ms Proximal Thigh: 0.5 cm; Reflux: 0 ms Mid Thigh: 0.3 cm; Reflux: 0 ms Distal Thigh: 0.3 cm; Reflux: 0 ms At Knee: 0.3 cm; Reflux: 0 ms Proximal Calf: 0.3 cm; Reflux: 0 ms Mid Calf: 0.2 cm; Reflux: 0 ms Distal Calf: 0.2 cm; Reflux: 0 ms DUPLICATED MEDIAL GREAT SAPHENOUS VEIN: None imaged. DUPLICATED LATERAL GREAT SAPHENOUS VEIN: None imaged. SMALL SAPHENOUS VEIN: Saphenopopliteal Junction: 0.1 cm; Reflux: 0 ms Proximal: 0.2 cm; Reflux: 0 ms Distal: 0.2 cm; Reflux: 0 ms VEIN OF GIACOMINI: Size: 0.3 Reflux: 0 ms PERFORATORS: Left mid calf, 0.1 cm, no reflux. Left distal calf, 0.2 cm, no reflux. VARICOSITIES: None imaged. US/US venous duplex LE BI IMPRESSION: Right: 1. No varicosities are present. 2. No hemodynamically significant deep or superficial venous reflux. 3. No evidence of DVT. Left: 1. No varicosities are present. 2. No hemodynamically significant deep or superficial venous reflux. 3. No evidence of DVT. Electronically signed by: Steffen Hyatt MD 11/15/2024 09:45 AM EDT
--- OUTSIDE RECORDS SUMMARY | 2024-11-15 08:29 | XMS_ITS | Clinical Summary ---
Author Organization [facility] Address [address] [place] [address] Care Team Providers Care Buffing And Polishing Wheel Repairer Name Role Phone Wandy Delcid DO Primary Care P delmyder Allergies No known active allergies Medications Medication Sig Dispensed Refills Start Date End Date Status omeprazole (PriLOSEC) 20 MG capsule Take 20 mg by mouth daily. 0 Active albuterol (PROVENTIL HFA;VENTOLIN HFA) 108 (90 Base) MCG/ACT inhaler Inhale 2 puffs into the lungs every 4 (four) hours as needed for wheezing. 0 Active aspirin EC 81 MG tablet Take 81 mg by mouth daily. 0 Active lisinopril-hydroCHL OROthiazide (PRINZIDE,ZESTORETI C) tablet 20-25 mg Take 1 tablet by mouth daily. 0 Active finasteride (PROSCAR) 5 MG tablet Take 5 mg by mouth daily. 0 Active atorvastatin (LIPITOR) tablet 20 mg Take 20 mg by mouth daily. 0 Active naproxen (NAPROSYN) 500 MG tablet Take 500 mg by mouth 2 (two) times a day with meals. 0 Active metFORMIN (GLUCOPHAGE) tablet 1000 mg Take 1,000 mg by mouth 2 (two) times a day with meals. 0 Active albuterol (PROVENTIL) (2.5 MG/3ML) 0.083% nebulizer solution Take 2.5 mg by nebulization 4 (four) times a day. 0 Active loratadine (CLARITIN) 10 MG tablet Take 10 mg by mouth daily. 0 Active fluticasone (FLONASE) 50 MCG/ACT nasal spray spray/apply 1 spray in each nostril daily. 0 Active tamsulosin (FLOMAX) 0.4 MG CAPS Take 0.4 mg by mouth daily. 0 Active empagliflozin (JARDIANCE) tablet 10 mg Take 10 mg by mouth daily. 0 Active Active Problems No known active problems Social History Tobacco Use Types Packs/Day Years Used Date Smoking Tobacco: Former Smokeless Tobacco: Never Alcohol Use Standard Drinks/Week Comments Yes 0 (1 standard drink = 0.6 oz pur e alcohol) Sex and Gender Information Value Date Recorded Sex Assigned at Not on file Gender Identity Not on file Sexual Orientation Not on file Last Filed Vital Signs Vital Sign Reading Time Taken Comments Blood Pressure 141/67 05/16/2020 2:55 PM EDT Pulse 82 05/16/2020 2:55 PM EDT Temperature 36.6 ??C (97.9 ??F) 05/16/2020 2:55 PM ED T Respiratory Rate - - Oxygen Saturation - - Inhaled Oxygen Concentration - - Weight 99.9 kg (220 lb 3.2 oz) 05/16/2020 2:55 P M EDT Height 170.2 cm (5' 7 ) 05/16/2020 2:55 PM EDT Body Mass Index 34.49 05/16/2020 2:55 PM EDT Plan of Treatment Health Maintenance Due Date Last Done Comments Hepatitis C Screening 1945 COVID-19 Vaccine (#1) 05/12/1946 Depression Screening 1958 BMI Counseling 1964 Preventative Health Evaluation 1964 DTap / Tdap / Td (1 - Tdap) 1965 Shingrix-Zoster Vaccine (1 of 2) 1996 Fall Risk Assessment 11/11/2011 RSV Adult > 60+ Yrs or (1 - 1-dose 75+ series) 2021 Influenza Vaccine (#1) 2024 0, 07/08/2018, 05/01/2017, Additional history exists Pneumococcal Vaccine Completed 07/31/2016, 05/25/20 12 Hepatitis B Vaccines Aged Out No long er eligible based on patient's age to complete this topic RSV Ped < 20 months Aged Out No longe r eligible based on patient's age to complete this topic Care Teams Buffing And Polishing Wheel Repairer Relationship Specialty Start Date End Date Wandy Delcid DO PCP - General Apple Packing Header 02/17/20
--- OUTSIDE RECORDS SUMMARY | 2024-11-15 08:30 | XMS_ITS | Clinical Summary ---
Author Organization [facility] [address] [facility] Address [address] [place] [address] Phone Care Team Providers Care Foam Molder Name Role Phone Carri Suazo MD Primary Care Provider [phone] Allergies Active Allergy Reactions Criticality Noted Date [...] complication, without long-term current use of insulin ([facility] V24, [facility] V28) USE TO CHECK BLOOD SUGAR DAILY 1 kit 5 Active blood sugar diagnostic (FreeStyle Lite Strips) test stripIndications :Type 2 diabetes mellitus with other ophthalmic complication, without long-term current use of insulin ([facility] V24, [facility] V28) USE TO TEST BLOOD SUGAR ONCE DAILY 200 strip 5 5 Active aspirin 81 mg EC tablet TAKE 1 TABLET BY MOUTH EVERY DAY 90 tablet 1 5 Active Trulicity 3 mg/0.5 mL pen injector injectionIndicat ions:Type 2 diabetes mellitus with other specified complication ([facility] V24, [facility] V28) INJECT 3 MG INTO THE SKIN ONE TIME PER WEEK 6 mL 1 5 Active Active Problems Problem Noted Date Diagnosed Date Microalbuminuria 04/07/2022 Normocytic anemia 10/02/2019 Habitual alcohol use 10/26/2018 BPH (benign prostatic hyperplasia) 01/30/2016 PSA elevation 02/06/2015 DM (diabetes mellitus), type 2 with ophthalmic complications ([facility] V24, [facility] V28) 09/12/2013 Overview (04/18/2024): Nuclear Sclerosis out side eye exam 07/07/12. Dr. Engle. Obesity (BMI 30.0-34.9) 11/20/2009 Asthma 04/13/2006 Essential hypertension, benign 04/13/2006 CAD (coronary artery disease) 04/13/2006 Hyperlipidemia 04/13/2006 Lumbago 04/13/2006 Encounters Date Type Department Care Team Description 10/19/2024 3:15 PM EDT Office Visit [facility] [place] [id number] [phone] Elder Snyder DPM Tailor's bunionette, left (Primary Dx); Ulcer of toe of left foot, limited to breakdown of skin ([facility] V24, [facility] V28) 10/11/2024 8:30 AM EDT Office Visit [facility] [place] [address] [phone] Elder Snyder DPM Cellulitis of left foot (Primary Dx); Bilateral femoral artery stenosis ([facility] V24); Tailor's bunionette, left 09/12/2024 9:30 AM EST Office Visit [facility] [place] [address] [phone] Elder Snyder DPM Tailor's bunionette, left (Primary Dx); Ulcer of toe of left foot, limited to breakdown of skin ([facility] V24, [facility] V28); Type II diabetes mellitus with peripheral circulatory disorder ([facility] V24, [facility] V28) 09/07/2024 1:30 PM EST Office Visit [address] [phone] Carri Suazo MD Essential hypertension, benign (Primary Dx); Mixed hyperlipidemia; Benign prostatic hyperplasia without lower urinary tract symptoms; Need for tetanus, diphtheria, and acellular pertussis (Tdap) vaccine; 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 ([facility] V24, [facility] V28) 08/29/2024 8:15 AM EST Office Visit Orthopedic [address] [phone] Elder Snyder DPM Ulcer of toe of left foot, limited to breakdown of skin ([facility] V24, [facility] V28) (Primary Dx); Follow-up exam; Tailor's bunionette, left; Diabetic mononeuropathy simplex ([facility] V24, [facility] V28); Type II diabetes mellitus with peripheral circulatory disorder ([facility] V24, [facility] V28) 08/22/2024 8:45 AM EST Office Visit [facility] [address] [phone] Elder Snyder DPM Ulcer of toe of left foot, limited to breakdown of skin ([facility] V24, [facility] V28) (Primary Dx); Cellulitis of left foot; Tailor's bunionette, left; Diabetic mononeuropathy simplex ([facility] V24, [facility] V28); Type II diabetes mellitus with peripheral circulatory disorder ([facility] V24, [facility] V28) from Last 3 Months Immunizations Name Administration Dates Next Due H1N1 Inj Preservative Free 08/21/2009 Influenza Quadravalent, MDCK , 0.5ml, preservative free (Flucelvax) 6mo and older 04/07/2022,07/08/2018 Influenza trivalent, 0.5mL ( Fluad) 65yo and older 05/25/2024 Influenza trivalent, 0.5mL ( Fluzone High-dose) 65yo and older 05/28/2023,05/16/2021,06/10/2020,07/25,05/01/2017 Influenza trivalent, with pr eservative (Fluzone; Afluria) 6mo and older 07/31/2016,06/11/2015,06/06/2014,05/31,05/25/2012,06/23/2011,03/26/2010 ,05/21/2009,05/17/2007,06/08/2006 Pfizer SARS-CoV-2 COVID-19, mRNA, LNP-S, preservative free 07/09/2021 [...] Coronary atherosclerosis of unspecified type of vessel, [place] or graft 04/13/2006 DX:Coronary atherosclerosis of unspecified type of vessel, [place] or graft Other and unspecified hyperlipidemia 04/13/2006 [...] Daughter 3 Alive Daughter 4 Alive Father MD Mother DM Sister Alive DM Son Alive [...] - - Weight 99.8 kg (220 lb) 10/19/2024 3:09 PM EDT Height 170.2 cm (5' 7.01 ) 10/19/2024 3:09 PM ED T Body Mass Index 34.45 10/19/2024 3:09 PM EDT Plan of Treatment Upcoming Encounters Date Type Department Care Team (Late st Contact Info) Description 12/01/2024 8:15 AM EDT Office Visit Orthopedic [facility] [place] [address] [phone] Elder Snyder DPM [address] [address] 01/05/2025 9:00 AM EDT Office Visit Endocrinology [address] [phone] Chu Joyner MD [address] [place] [address] 01/05/2025 9:30 AM EDT Office Visit Adult Medicine [address] [phone] Rachel Kilgore PA [address] [place] [phone] Health Maintenance Due Date Last Done Comments RSV Immunization Adult Patients (1 - 1-dose 75+ series) 2021 Falls Risk Assessment 06/28/2022 Medicare Annual Wellness Visit 06/28/2022 Social Influencers of Health Screening 06/28/2022 Zoster Vaccines (2 of 2) 02/27/2024 01/02/2024 COVID-19 Vaccine ( season) 2024 07/09/2021, 11/18/2020, 10/28/2020 Depression Screening [...] age to complete this topic Meningococcal B Vaccine Aged Out No l onger eligible based on patient's age to complete [...] complication, without long-term current use of insulin ([facility] V24, [facility] V28) COMPREHENSIVE METABOLIC PANEL Routine 07/05/2024 8:17 AM EST Primary hypertension HEMOGLOBIN A1C Routine 07/05/2024 8:17 AM EST Type 2 diabetes mellitus with other specified complication, without long-term current use of insulin (CMS/HCC V24, CMS/HCC V28) LIPID PANEL WITH REFLEX TO DIRECT LDL Routine 07/05/2024 8:17 AM EST Type 2 diabetes mellitus with other specified complication, without long-term current use of insulin ([facility] V24, [facility] V28) DIABETES FOOT EXAM Routine 03/30/2024 DIABETES EYE [...] deformity No acute findings us Elder Snyder DPM IMG XR PROCEDURES Final R esult * (ABNORMAL) Lipid panel with reflex to direct LDL (07/05/2024 8:17 AM EST) Cholesterol 153 0 - 200 mg/dL LAB CHEMISTRY METHOD 07/05/2024 10:38 AM [facility] Triglycerides 167(H) 0 - 150 mg/dL LAB CHEMISTRY METHOD 07/05/2024 10:38 AM [facility] HDL 49 >=40 mg/dL LAB CHEMISTRY METHOD 07/05/2024 10:38 AM [facility] LDL Calculated 71 0 - 100 mg/dL LAB CHEMISTRY METHOD 07/05/2024 10:38 AM [facility] VLDL Cholesterol Eleazar 33.4 mg/dL LAB CHEMISTRY METHOD 07/05/2024 10:38 AM [facility] Non HDL Chol. (LDL+VLDL) 104 <145 mg/dL LAB CHEMISTRY METHOD 07/05/2024 10:38 AM [facility] Chol/HDL Ratio 3.1 0.0 - 4.4 LAB CHEMISTRY METHOD 07/05/2024 10:38 AM [facility] Blood Venous blood specimen / Unknown Venipuncture / Unknown 07/05/2024 8:17 AM EST 07/05/2024 8:17 AM EST us Carri Suazo MD LAB BLOOD ORDERABLES Final Resul t Performing Organization Address City/[facility]/ZIP Co de Phone Number [facility] [address] [place] [address], [place] [phone] * Microalbumin creatinine urine ratio (07/05/2024 8:17 AM EST) Creatinine, Urine 166.0 mg/dL LAB CHEMISTRY METHOD 07/05/2024 11:01 AM EST [facility] Microalb, Ur 13.5 0.0 - 29.0 mg/L LAB CHEMISTRY METHOD 07/05/2024 11:01 AM EST [facility] Microalb/Creat Ratio 8 <30 mg/g creat LAB CHEMISTRY METHOD 07/05/2024 11:01 AM EST [facility] Urine Urine specimen obtained by clean catch procedure / Unknown Non-blood Collection / Unknown 07/05/2024 8:17 AM EST 07/05/2024 8:17 AM EST Carri Suazo MD LAB URINE ORDERABLES Final Resul t Performing Organization Address City/[facility] Co de Phone Number [facility] [address] [place] [address], [place] [phone] * (ABNORMAL) Hemoglobin A1c (07/05/2024 8:17 AM EST) Hemoglobin A1C 7.0(H) <6.5 % LAB CHEMISTRY METHOD 07/05/2024 1:50 PM EST [facility] Mean Bld Glu Estim. 154 mg/dL LAB CHEMISTRY METHOD 07/05/2024 1:50 PM EST [facility] Blood Venous blood specimen / Unknown Venipuncture / Unknown 07/05/2024 8:17 AM EST 07/05/2024 8:17 AM EST us Carri Suazo MD LAB BLOOD ORDERABLES Final Resul t [facility] [address] [place] [address], [place] [phone] * (ABNORMAL) Comprehensive metabolic panel (07/05/2024 8:17 AM EST) Sodium 138 133 - 145 mmol/L LAB CHEMISTRY METHOD 07/05/2024 10:38 AM [facility] Potassium 4.4 3.5 - 5.5 mmol/L LAB CHEMISTRY METHOD 07/05/2024 10:38 AM [facility] Chloride 102 96 - 110 mmol/L LAB CHEMISTRY METHOD 07/05/2024 10:38 AM [facility] CO2 28 21 - 32 mmol/L LAB CHEMISTRY METHOD 07/05/2024 10:38 AM [facility] Anion Gap 8 3 - 11 LAB CHEMISTRY METHOD 07/05/2024 10:38 AM [facility] Glucose 130(H) 70 - 100 mg/dL LAB CHEMISTRY METHOD 07/05/2024 10:38 AM [facility] BUN 17 5 - 25 mg/dL LAB CHEMISTRY METHOD 07/05/2024 10:38 AM [facility] Creatinine 1.25 0.70 - 1.30 mg/dL LAB CHEMISTRY METHOD 07/05/2024 10:38 AM [facility] eGFR 59(L) >=60 mL/min/1. 73m2 LAB CHEMISTRY METHOD 07/05/2024 10:38 AM [facility] Comment:Calculation based on the??Chronic Kidney Disease Epidemiology Collaboration (CKD-EPI) equation refit??without adjustment for race. BUN/Creatinine Ratio 13.6 LAB CHEMISTRY METHOD 07/05/2024 10:38 AM [facility] Calcium 9.4 8.5 - 10.5 mg/dL LAB CHEMISTRY METHOD 07/05/2024 10:38 AM [facility] AST (SGOT) 21 10 - 42 unit/L LAB CHEMISTRY METHOD 07/05/2024 10:38 AM [facility] ALT (SGPT) 27 10 - 60 unit/L LAB CHEMISTRY METHOD 07/05/2024 10:38 AM [facility] Alkaline Phosphatase 65 42 - 121 unit/L LAB CHEMISTRY METHOD 07/05/2024 10:38 AM [facility] Total Protein 7.6 6.0 - 8.0 g/dL LAB CHEMISTRY METHOD 07/05/2024 10:38 AM [facility] Albumin 4.3 3.2 - 5.0 g/dL LAB CHEMISTRY METHOD 07/05/2024 10:38 AM [facility] Total Bilirubin 0.7 0.0 - 1.4 mg/dL LAB CHEMISTRY METHOD 07/05/2024 10:38 AM [facility] Blood Venous blood specimen / Unknown Venipuncture / Unknown 07/05/2024 8:17 AM EST 07/05/2024 8:17 AM EST us Carri Suazo MD LAB BLOOD ORDERABLES Final Resul t [facility] [address] [place] [address], * Diabetes Foot Exam (03/30/2024) Pathologist [facility] Diabetes: Annual Foot Exam Abstracted Historical Provider HEALTH MAINTENANCE Final Result * Diabetes Eye Exam (09/08/2023) [facility] Diabetes: Annual Retina Eye Exam Abstracted Historical Provider HEALTH MAINTENANCE Final Result * Depression Screening (09/02/2023) Pathologist [facility] Depression Screening Abstracted Historical Provider HEALTH MAINTENANCE Final Result * Hepatitis C Screening (06/02/2013) Hepatitis C Screening Abstracted us Historical Provider HEALTH MAINTENANCE Final Result from Last 3 Months or Most Recently Relevant to Health Maintenance Insurance [employer] Member Subscriber Plan / Payer (Ef fective 2020-Present) Name:Major Christianson Relation to Subscriber:Self Name:Major Christianson Payer ID:[id number] Group ID:[id number] Type:Not on file Address: [facility] [address] [id number] Care Teams Foam Molder Relationship Specialty Start Date End Date Carri Suazo MD [address] [place] [id number] PCP - General Internal Medicine 05/24/24
== END 2024-11-15 08:15 | disposition home or self-care (01) ==
LOC: HO.US 08:14
PROVIDERS: PCP Internal Medicine; Visit Provider Surgery Vascular Surgery
DX: I83.12 Varicose veins of left lower extremity with inflammation (principal)
CPT/HCPCS: 93970

== ENCOUNTER → 2024-11-15 08:16 | Outpatient (BNV) | payer OTHER, SELFPAY | PROVIDERS: PCP Internal Medicine; Visit Provider Radiology Diagnostic Radiology | DX: I83.12 Varicose veins of left lower extremity with inflammation (principal) | CPT/HCPCS: 93970 ==

== ENCOUNTER 2024-11-16 09:31 | Outpatient (AMB) | payer OTHER, SELFPAY ==
--- NOTE | 2024-11-16 09:33 | A.OFFVIS_ITS ---
Vital Signs 11/16/24 09:34 Height 5 ft 7 in Weight 219 lb 5.759 oz BMI 34.4 BP 142/80 H Blood Pressure Location Rt brachial Position Sitting Pulse 94 Pulse Source Pulse Oximeter Pulse Oximetry (%) 98 Oxygen Delivery Method Room Air Intake Visit Reasons: dyspnea Allergies oxycodone [OXYCODONE] Allergy (Unknown, Verified 11/16/24 09:37) ITCH HPI Comments Details: The patient is a 79-year-old gentleman with a known history of asthma in addition to underlying valvular disease in being evaluated from a cardiac standpoint. The patient has been having increasing dyspnea on exertion. Even with minimal activity the family's noticed that he is very breathless. The patient has been using his rescue inhaler few times a day when he gets short of breath. This has been partially helpful. He also was on Flovent and subsequently switched over to Asmanex due to the fact that Flovent was no longer available. He however does not feel comfortable with taking the Asmanex because it has a bad after taste and he does not see that is helpful. He quit smoking around 25-30 years ago. And denies any exposure to any fumes or toxins. The patient states that he does have allergies specially the springtime with pollen and other environmental allergies. The patient has not had allergy testing. During the office visit we did go for brief walking oximetry and the patient were spacer be dyspneic and his heart rate increased to 140. At that point we slow down to stop to allow his heart rate come down. It quickly came d own but is suggest that there was significant amount of physiological stress. His pulse ox did decrease slightly to 94% but still within normal limits. The patient did have an echocardiogram demonstrating [id number] aortic stenosis and will be evaluated with a cardiac coronary artery CT scan coming up soon. I do believe that assessing his cardiac status is the right approach. Right now his respiratory exam is fairly controlled. Will go ahead and maximize his respiratory inhalers and will plan to have him come back for PFTs. 11/17/2023 the patient is here for a pulmonary follow-up visit. The patient overall has been doing well. He is responding well to the Trelegy inhaler. Denies any significant shortness of breath or wheezing at rest. The patient did have pulmonary function studies which were also reassuring without any evidence of any obstructive nor restrictive ventilatory defects. He did undergo his CT angiogram of the coronary arteries. I did look at the images in his lung parenchyma least the lung windows we had available appeared to be completely normal. The patient however did have significant atherosclerosis and some areas of stenosis. Will be meeting the lagging machine operator soon and they can talk about the findings and then further interventions in steps moving forward. Otherwise patient is doing well from a respiratory status he will continue the Trelegy for now will follow-up in a year's time. If any new issues arise he will call for an earlier assessment. 11/16/2024 the patient is here for pulmonary follow-up visit. Overall he is doing well. He is responding well to the Trelegy inhaler. He does use it once a day. He does rinse and gargle well. He has not had to use his rescue inhaler which is reassuring. Denies any significant shortness of breath. He did follow-up with Cardiology in a cardiac catheterization. He did not need any PCI. Currently just medical management. He does have an echocardiogram pending for the fall to assess his valve. In the meantime the only active issues he has is occurring cellulitis with a boil on his foot. He does have diabetes. He has been on multiple antibiotics including cephalosporins, doxycycline more recently clindamycin. Seems like symptoms in the findings resolved some and then reoccur once he stopped in taking antibiotics. He is going to follow-up with vascular surgery. In the meantime will given some Bactrim to treat him for community-acquired staph aureus. If he does start to respond to the Bactrim he may need to continue a longer course. Otherwise the patient follow-up with Pulmonary in a year. If he has any issues prior to that he will call for an earlier assessment. [facility] Medical History Diabetes CAD (coronary artery disease) Tachycardia Asthma Surgical History Hx of cardiac cath H/O prostate biopsy Family History Mother Diabetes HTN (hypertension) Hypercholesteremia Father Heart disease Cancer HTN (hypertension) Hypercholesteremia Asthma Brother HTN (hypertension) Heart disease Hypercholesteremia Prostate cancer Brother No problems noted. Brother No problems noted. Brother Heart disease Heart attack Asthma Sister HTN (hypertension) Hypercholesteremia Kidney disease Sister Diabetes HTN (hypertension) Hypercholesteremia COPD (chronic obstructive pulmonary disease) Asthma Daughter Hyperthyroidism Asthma Daughter Asthma Migraines Social History (Updated 11/16/24 @ 09:37 by Madeline Gonzalez CMA) Alcohol intake: current Alcohol intake frequency: a few times a week Alcohol type: beer and hard liquor Patient Tobacco Use Status: Former Tobacco user Review of Systems Const Denies fever(s) and Reports weight loss ENT Reports dizziness Card Reports chest pain, Reports leg edema, Reports lightheadedness and Reports palpitations Resp Reports cough GI Reports hematochezia Musc Reports abnormal gait, Reports muscle weakness, Reports numbness, Reports radiating pain into limb and Reports tingling Skin/Breast Reports non-healing lesions, Reports erythema and Reports sores Neuro Reports abnormal gait, Reports dizziness, Reports numbness and Reports tingling Endo Reports palpitations Physical Exam Vital Signs: Last Vital Signs Pulse 94 11/16/24 09:34 BP 142/80 H 11/16/24 09:34 Pulse Ox 98 11/16/24 09:34 Oxygen Delivery Method Room Air 11/16/24 09:34 BMI result Body Mass Index 34.4 Const General: comfortable HEENT Head: Yes normocephalic Neck Neck: Yes supple Chest Chest palpation & inspection: normal inspection of the chest Resp Effort & Inspection: normal respiratory effort Auscultation: no wheezes and diminished lung sounds Cardio Heart sounds: S1 normal heart sound present, S2 normal heart sound present and Murmur heart sound present systolic III/ and at the right sternal border GI Palpation (GI): Soft to palpation Skin General skin exam: no rashes or lesions noted Extrem General: No clubbing and No cyanosis Left lower extremity: foot Details: other (Area of cellulitis and boil) Assessment & Plan Assessment & Plan (1) LEONG (dyspnea on exertion): Code(s): R06.09 - Other forms of dyspnea Category: Medical (2) Aortic stenosis: Code(s): I35.0 - Nonrheumatic aortic (valve) stenosis Category: Medical Qualifiers: Cardiac valve disease etiology: etiology unspecified Qualified Code(s): I35.0 - Nonrheumatic aortic (valve) stenosis (3) Asthma: Code(s): J45.909 - Unspecified asthma, uncomplicated Category: Medical Qualifiers: Asthma complication type: uncomplicated Asthma persistence: persistent Asthma severity: moderate Qualified Code(s): J45.40 - Moderate persistent asthma, uncomplicated (4) CAD (coronary artery disease): Code(s): I25.10 - Atherosclerotic heart disease of [place] coronary artery without angina pectoris Category: Medical Qualifiers: Associated angina: unspecified whether angina present Coronary Disease- Associated Artery/Lesion type: [place] artery [place] vs. transplanted heart: [place] heart Qualified Code(s): I25.10 - Atherosclerotic heart disease of [place] coronary artery without angina pectoris (5) Cellulitis: Code(s): L03.90 - Cellulitis, unspecified Category: Medical Qualifiers: Site of cellulitis of extremity: lower extremity Laterality: left Site of cellulitis: extremity Qualified Code(s): L03.116 - Cellulitis of left lower limb Plan continue Trelegy daily CHERELLE as needed start Bactrim F/U with vascular surgery F/U 1 yr Coding Level of Care Code Est Pt Level 4 (47811) Diagnoses LEONG (dyspnea on exertion) R06.09 Aortic valve stenosis, etiology of cardiac valve disease unspecified I35.0 Cardiac valve disease etiology: etiology unspecified Moderate persistent asthma without complication J45.40 Asthma complication type: uncomplicated Asthma persistence: persistent Asthma severity: moderate Coronary artery disease involving [place] coronary artery of [place] heart, unspecified whether angina present I25.10 Associated angina: unspecified whether angina present Coronary Disease-Associated Artery/Lesion type: [place] artery [place] vs. transplanted heart: [place] heart Cellulitis of left lower extremity L03.116 Site of cellulitis of extremity: lower extremity Laterality: left Site of cellulitis: extremity Time Spent (min) 16
[2024-11-16 09:34] VITALS: BP 142/80; PULSE 94; O2SAT 98; BMI 34.4
--- OUTSIDE RECORDS SUMMARY | 2024-11-16 10:17 | XMS_ITS | Clinical Summary ---
[facility] Address [address] [place] [address] Care Team Providers Care Tissue Technologist Name Role Phone Wandy Delcid DO Primary [...] age to complete this topic Care Teams Tissue Technologist Relationship Specialty Start Date End Date Wandy Delcid DO PCP - General Saw Grinder 02/17/20
--- OUTSIDE RECORDS SUMMARY | 2024-11-16 10:17 | XMS_ITS | Clinical Summary ---
Author Organization [facility] [address] [facility] Address [address] [place] [address] Phone Care Team Providers Care Aerospace Medicine Physician Name Role Phone Carri Suazo MD Primary Care Provider [phone] Allergies Active Allergy Reactions Criticality Noted Date [...] complication, without long-term current use of insulin ([facility] V24, [facility] V28) USE TO CHECK BLOOD SUGAR DAILY 1 kit 5 Active blood sugar diagnostic (FreeStyle Lite Strips) test stripIndications :Type 2 diabetes mellitus with other ophthalmic complication, without long-term current use of insulin ([facility] V24, [facility] V28) USE TO TEST BLOOD SUGAR ONCE DAILY 200 strip 5 5 Active aspirin 81 mg EC tablet TAKE 1 TABLET BY MOUTH EVERY DAY 90 tablet 1 5 Active Trulicity 3 mg/0.5 mL pen injector injectionIndicat ions:Type 2 diabetes mellitus with other specified complication ([facility] V24, [facility] V28) INJECT 3 MG INTO THE SKIN ONE TIME PER WEEK 6 mL 1 5 Active Active Problems Problem Noted Date Diagnosed Date Microalbuminuria 04/07/2022 Normocytic anemia 10/02/2019 Habitual alcohol use 10/26/2018 BPH (benign prostatic hyperplasia) 01/30/2016 PSA elevation 02/06/2015 DM (diabetes mellitus), type 2 with ophthalmic complications ([facility] V24, [facility] V28) 09/12/2013 Overview (04/18/2024): Nuclear Sclerosis out side eye exam 07/07/12. Dr. Engle. Obesity (BMI 30.0-34.9) 11/20/2009 Asthma 04/13/2006 Essential hypertension, benign 04/13/2006 CAD (coronary artery disease) 04/13/2006 Hyperlipidemia 04/13/2006 Lumbago 04/13/2006 Encounters Date Type Department Care Team Description 10/19/2024 3:15 PM EDT Office Visit Orth[facility] [place] [phone] [phone] Elder Snyder DPM Tailor's bunionette, left (Primary Dx); Ulcer of toe of left foot, limited to breakdown of skin ([facility] V24, [facility] V28) 10/11/2024 8:30 AM EDT Office Visit [facility] [place] [address] [phone] Elder Snyder DPM Cellulitis of left foot (Primary Dx); Bilateral femoral artery stenosis ([facility] V24); Tailor's bunionette, left 09/12/2024 9:30 AM EST Office Visit Orthopedic [facility] [address] [phone] Elder Snyder DPM Tailor's bunionette, left (Primary Dx); Ulcer of toe of left foot, limited to breakdown of skin ([facility] V24, [facility] V28); Type II diabetes mellitus with peripheral circulatory disorder ([facility] V24, [facility] V28) 09/07/2024 1:30 PM EST Office Visit [address] [phone] Carri Suazo MD Essential hypertension, benign (Primary Dx); Mixed hyperlipidemia; Benign prostatic hyperplasia without lower urinary tract symptoms; Need for tetanus, diphtheria, and acellular pertussis (Tdap) vaccine; 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 ([facility] V24, [facility] V28) 08/29/2024 8:15 AM EST Office Visit Orthopedic [address] [phone] Elder Snyder DPM Ulcer of toe of left foot, limited to breakdown of skin ([facility] V24, [facility] V28) (Primary Dx); Follow-up exam; Tailor's bunionette, left; Diabetic mononeuropathy simplex ([facility] V24, [facility] V28); Type II diabetes mellitus with peripheral circulatory disorder ([facility] V24, [facility] V28) 08/22/2024 8:45 AM EST Office Visit Orthopedic [facility] [address] [phone] Elder Snyder DPM Ulcer of toe of left foot, limited to breakdown of skin ([facility] V24, [facility] V28) (Primary Dx); Cellulitis of left foot; Tailor's bunionette, left; Diabetic mononeuropathy simplex ([facility] V24, [facility] V28); Type II diabetes mellitus with peripheral circulatory disorder ([facility] V24, [facility] V28) from Last 3 Months Immunizations Name [...] Coronary atherosclerosis of unspecified type of vessel, king salmon or graft 04/13/2006 DX:Coronary atherosclerosis of unspecified type of vessel, king salmon or graft Other and unspecified hyperlipidemia 04/13/2006 [...] Daughter 3 Alive Daughter 4 Alive Father NE Mother DM Sister Alive DM Son Alive [...] AM EDT Office Visit Orthopedic [place] [address] [phone] Elder Snyder, DPM [address] [address] 01/05/2025 9:30 AM EDT Office Visit Adult Medicine [address] [phone] Rachel Kilgore PA [address] [place] [phone] 01/12/2025 9:00 AM EDT Office Visit Endocrinology - [place] [address] [place] [phone] Chu Joyner MD [address] [place] [address] Health Maintenance Due Date Last Done Comments [...] complication, without long-term current use of insulin ([facility] V24, [facility] V28) COMPREHENSIVE METABOLIC PANEL Routine 07/05/2024 8:17 AM EST Primary hypertension HEMOGLOBIN A1C Routine 07/05/2024 8:17 AM EST Type 2 diabetes mellitus with other specified complication, without long-term current use of insulin (CMS/HCC V24, CMS/HCC V28) LIPID PANEL WITH REFLEX TO DIRECT LDL Routine 07/05/2024 8:17 AM EST Type 2 diabetes mellitus with other specified complication, without long-term current use of insulin ([facility] V24, [facility] V28) DIABETES FOOT EXAM Routine 03/30/2024 DIABETES [...] mg/dL LAB CHEMISTRY METHOD 07/05/2024 10:[address] [facility] Triglycerides 167(H) 0 - 150 mg/dL LAB CHEMISTRY METHOD 07/05/2024 10:[address] [facility] HDL 49 >=40 mg/dL LAB CHEMISTRY METHOD 07/05/2024 10:[address] [facility] LDL Calculated 71 0 - 100 mg/dL LAB CHEMISTRY METHOD 07/05/2024 10:[address] [facility] VLDL Cholesterol Eleazar 33.4 mg/dL LAB CHEMISTRY METHOD 07/05/2024 10:[address] [facility] Non HDL Chol. (LDL+VLDL) 104 <145 mg/dL LAB CHEMISTRY METHOD 07/05/2024 10:[address] [facility] Chol/HDL Ratio 3.1 0.0 - 4.4 LAB CHEMISTRY METHOD 07/05/2024 10:[address] [facility] Blood Venous blood specimen / Unknown Venipuncture / Unknown 07/05/2024 8:17 AM EST 07/05/2024 8:17 AM EST us Carri Suazo MD LAB BLOOD ORDERABLES Final Resul t Performing Organization Address City/[facility]/ZIP Co de Phone Number [facility] [address] [place] [address], [place] [phone] * Microalbumin creatinine urine ratio (07/05/2024 8:17 AM EST) Creatinine, Urine 166.0 mg/dL LAB CHEMISTRY METHOD 07/05/2024 11:01 AM EST [facility] Microalb, Ur 13.5 0.0 - 29.0 mg/L LAB CHEMISTRY METHOD 07/05/2024 11:01 AM EST [facility] Microalb/Creat Ratio 8 <30 mg/g creat LAB CHEMISTRY METHOD 07/05/2024 11:01 AM EST [facility] Urine Urine specimen obtained by clean catch procedure / Unknown Non-blood Collection / Unknown 07/05/2024 8:17 AM EST 07/05/2024 8:17 AM EST Carri Suazo MD LAB URINE ORDERABLES Final Resul t Performing Organization Address City/[facility] Co de Phone Number [facility] [address] [place] [address], [place] [phone] * (ABNORMAL) Hemoglobin A1c (07/05/2024 8:17 AM EST) Hemoglobin A1C 7.0(H) <6.5 % LAB CHEMISTRY METHOD 07/05/2024 1:50 PM EST [facility] Mean Bld Glu Estim. 154 mg/dL LAB CHEMISTRY METHOD 07/05/2024 1:50 PM EST [facility] Blood Venous blood specimen / Unknown Venipuncture / Unknown 07/05/2024 8:17 AM EST 07/05/2024 8:17 AM EST us Carri Suazo MD LAB BLOOD ORDERABLES Final Resul t [facility] [address] [place] [address], [place] [phone] * (ABNORMAL) Comprehensive metabolic panel (07/05/2024 8:17 AM EST) Sodium 138 133 - 145 mmol/L LAB CHEMISTRY METHOD 07/05/2024 10:[address] [facility] Potassium 4.4 3.5 - 5.5 mmol/L LAB CHEMISTRY METHOD 07/05/2024 10:[address] [facility] Chloride 102 96 - 110 mmol/L LAB CHEMISTRY METHOD 07/05/2024 10:[address] [facility] CO2 28 21 - 32 mmol/L LAB CHEMISTRY METHOD 07/05/2024 10:[address] [facility] Anion Gap 8 3 - 11 LAB CHEMISTRY METHOD 07/05/2024 10:[address] [facility] Glucose 130(H) 70 - 100 mg/dL LAB CHEMISTRY METHOD 07/05/2024 10:[address] [facility] BUN 17 5 - 25 mg/dL LAB CHEMISTRY METHOD 07/05/2024 10:[address] [facility] Creatinine 1.25 0.70 - 1.30 mg/dL LAB CHEMISTRY METHOD 07/05/2024 10:[address] [facility] eGFR 59(L) >=60 mL/min/1. 73m2 LAB CHEMISTRY METHOD 07/05/2024 10:[address] [facility] Comment:Calculation based on the??Chronic Kidney Disease Epidemiology Collaboration (CKD-EPI) equation refit??without adjustment for race. BUN/Creatinine Ratio 13.6 LAB CHEMISTRY METHOD 07/05/2024 10:[address] [facility] Calcium 9.4 8.5 - 10.5 mg/dL LAB CHEMISTRY METHOD 07/05/2024 10:[address] [facility] AST (SGOT) 21 10 - 42 unit/L LAB CHEMISTRY METHOD 07/05/2024 10:[address] [facility] ALT (SGPT) 27 10 - 60 unit/L LAB CHEMISTRY METHOD 07/05/2024 10:[address] [facility] Alkaline Phosphatase 65 42 - 121 unit/L LAB CHEMISTRY METHOD 07/05/2024 10:[address] [facility] Total Protein 7.6 6.0 - 8.0 g/dL LAB CHEMISTRY METHOD 07/05/2024 10:[address] [facility] Albumin 4.3 3.2 - 5.0 g/dL LAB CHEMISTRY METHOD 07/05/2024 10:[address] [facility] Total Bilirubin 0.7 0.0 - 1.4 mg/dL LAB CHEMISTRY METHOD 07/05/2024 10:[address] [facility] Blood Venous blood specimen / Unknown Venipuncture / Unknown 07/05/2024 8:17 AM EST 07/05/2024 8:17 AM EST us Carri Suazo MD LAB BLOOD ORDERABLES Final Resul t [facility] [address] [place] [address], * Diabetes Foot Exam (03/30/2024) Pathologist [facility] Diabetes: Annual Foot Exam Abstracted Historical Provider HEALTH MAINTENANCE Final Result * Diabetes Eye Exam (09/08/2023) [facility] Diabetes: Annual Retina Eye Exam Abstracted Historical Provider HEALTH MAINTENANCE Final Result * Depression Screening (09/02/2023) Pathologist [facility] Depression Screening Abstracted Historical Provider HEALTH [...] ID:[id number] Group ID:[id number] Type:Not on file Address: [facility] [address] [address] Care Teams Aerospace Medicine Physician Relationship Specialty Start Date End Date Carri Suazo MD [address] [place] [phone] PCP - General Internal Medicine 05/24/24
== END 2024-11-16 09:53 | disposition home or self-care (01) ==
LOC: HO.HPS 09:32
PROVIDERS: PCP Internal Medicine; Visit Provider Hospitalist
DX: R06.09 Other forms of dyspnea (principal); I35.0 Nonrheumatic aortic (valve) stenosis; J45.40 Moderate persistent asthma, uncomplicated; I25.10 Atherosclerotic heart disease of native coronary artery without angina pectoris; L03.116 Cellulitis of left lower limb
CPT/HCPCS: 99214

== ENCOUNTER → 2024-11-16 09:31 | Outpatient (BNVA) | payer OTHER, SELFPAY | PROVIDERS: PCP Internal Medicine; Visit Provider Hospitalist | DX: J45.40 Moderate persistent asthma, uncomplicated (principal); R06.09 Other forms of dyspnea; I35.0 Nonrheumatic aortic (valve) stenosis; I25.10 Atherosclerotic heart disease of native coronary artery without angina pectoris; L03.116 Cellulitis of left lower limb; Z79.2 Long term (current) use of antibiotics; Z87.891 Personal history of nicotine dependence | CPT/HCPCS: 99212 ==

== ENCOUNTER 2024-11-18 08:14 | Outpatient (REF) | payer OTHER, SELFPAY ==
--- NOTE | ~2024-11-18 | US_ITS ---
EXAMINATION: Noninvasive assessment of the bilateral lower extremities with ARTERIAL DUPLEX, ANKLE BRACHIAL INDICES (ABIs), and PULSE VOLUME RECORDINGS (PVRs). CLINICAL INFORMATION: Ulcer in the left foot. TECHNIQUE: Duplex Doppler techniques with waveform analysis and measurement of velocities in the bilateral common femoral, profunda femoris, superficial femoral, popliteal and tibial arteries were performed. Additionally, ankle pulse volume recordings, ankle pressure measurements and ankle brachial indices were obtained of the lower extremity arterial system bilaterally. The study was performed only at rest. COMPARISON: None FINDINGS: Arrhythmia episodes. DIRECT DUPLEX DOPPLER FINDINGS: RIGHT LEG: Common femoral artery: 71 cm/s, phasicity: Biphasic. Profunda femoris artery: 60 cm/s, phasicity: Biphasic. Superficial femoral artery (proximal): 62 cm/s, phasicity: Biphasic. Superficial femoral artery (mid): 54 cm/s, phasicity: Biphasic. Superficial femoral artery (distal): 52 cm/s, phasicity: Biphasic. Popliteal artery: 42 cm/s, phasicity: Biphasic. Posterior tibial artery: 37 cm/s, phasicity: Biphasic. Peroneal artery: 47 cm/s, phasicity: Monophasic Anterior tibial artery: 34 cm/s, phasicity: Monophasic Dorsalis pedis artery: 12 cm/s, phasicity:Monophasic. LEFT LEG: Common femoral artery: 66 cm/s, phasicity: Biphasic. Profunda femoris artery: 82 cm/s, phasicity: Biphasic. Superficial femoral artery (proximal): 48 cm/s, phasicity: Triphasic. Superficial femoral artery (mid): 57 cm/s, phasicity: Biphasic. Superficial femoral artery (distal): 49 cm/s, phasicity: Triphasic. Popliteal artery: 37 cm/s, phasicity: Biphasic. Posterior tibial artery: 26 cm/s, phasicity: Biphasic. Peroneal artery: 29 cm/s, phasicity: Monophasic. Anterior tibial artery: 45 cm/s, phasicity: Monophasic Dorsalis pedis artery: 15 cm/s, phasicity: Monophasic. 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 Left leg: Moderate to severe inflow disease involving mostly the arteries below the knee to the ankle/foot. Episodes of arrhythmia. DIANNA Reference: - >1.4 = calcified vessels - 0.9 - 1.4 = normal - no significant arterial disease - 0.7 - 0.89 = mild peripheral arterial disease - 0.51 - 0.69 = moderate peripheral arterial disease - d 0.50 = severe peripheral arterial disease - < .30 = critical arterial disease Electronically signed by: Israel Roberts MD 11/18/2024 09:46 AM EDT
--- OUTSIDE RECORDS SUMMARY | 2024-11-18 08:24 | XMS_ITS | Clinical Summary ---
Author Organization [facility] Address [address] [place] [address] Care Team Providers Care Cam Specialist Name Role Phone Wandy Delcid DO Primary [...] age to complete this topic Care Teams Cam Specialist Relationship Specialty Start Date End Date Wandy Delcid DO PCP - General Mechanical Drawing Teacher 02/17/20
--- OUTSIDE RECORDS SUMMARY | 2024-11-18 08:24 | XMS_ITS | Clinical Summary ---
Author Organization [facility] [address] [facility] Address [address] [place], [place] Phone Care Team Providers Care Certified Registered Locksmith Name Role Phone Carri Suazo MD Primary Care Provider [phone] Allergies Active Allergy Reactions Criticality Noted Date [...] complication, without long-term current use of insulin ([facility] V24, [facility] V28) USE TO CHECK BLOOD SUGAR DAILY 1 kit 5 Active blood sugar diagnostic (FreeStyle Lite Strips) test stripIndications :Type 2 diabetes mellitus with other ophthalmic complication, without long-term current use of insulin ([facility] V24, [facility] V28) USE TO TEST BLOOD SUGAR ONCE DAILY 200 strip 5 5 Active aspirin 81 mg EC tablet TAKE 1 TABLET BY MOUTH EVERY DAY 90 tablet 1 5 Active Trulicity 3 mg/0.5 mL pen injector injectionIndicat ions:Type 2 diabetes mellitus with other specified complication ([facility] V24, [facility] V28) INJECT 3 MG INTO THE SKIN ONE TIME PER WEEK 6 mL 1 5 Active Active Problems Problem Noted Date Diagnosed Date Microalbuminuria 04/07/2022 Normocytic anemia 10/02/2019 Habitual alcohol use 10/26/2018 BPH (benign prostatic hyperplasia) 01/30/2016 PSA elevation 02/06/2015 DM (diabetes mellitus), type 2 with ophthalmic complications ([facility] V24, [facility] V28) 09/12/2013 Overview (04/18/2024): Nuclear Sclerosis out side eye exam 07/07/12. Dr. Engle. Obesity (BMI 30.0-34.9) 11/20/2009 Asthma 04/13/2006 Essential hypertension, benign 04/13/2006 CAD (coronary artery disease) 04/13/2006 Hyperlipidemia 04/13/2006 Lumbago 04/13/2006 Encounters Date Type Department Care Team Description 10/19/2024 3:15 PM EDT Office Visit Orthopedic [place] [phone] [phone] Elder Snyder DPM Tailor's bunionette, left (Primary Dx); Ulcer of toe of left foot, limited to breakdown of skin ([facility] V24, [facility] V28) 10/11/2024 8:30 AM EDT Office Visit [facility] [place] [phone] [phone] Elder Snyder DPM Cellulitis of left foot (Primary Dx); Bilateral femoral artery stenosis ([facility] V24); Tailor's bunionette, left 09/12/2024 9:30 AM EST Office Visit Orthopedic [facility] [address] [phone] Elder Snyder DPM Tailor's bunionette, left (Primary Dx); Ulcer of toe of left foot, limited to breakdown of skin ([facility] V24, [facility] V28); Type II diabetes mellitus with peripheral circulatory disorder ([facility] V24, [facility] V28) 09/07/2024 1:30 PM EST Office Visit [address] [phone] Carri Suazo MD Essential hypertension, benign (Primary Dx); Mixed hyperlipidemia; Benign prostatic hyperplasia without lower urinary tract symptoms; Need for tetanus, diphtheria, and acellular pertussis (Tdap) vaccine; 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 ([facility] V24, [facility] V28) 08/29/2024 8:15 AM EST Office Visit Orthopedic [address] [phone] Elder Snyder DPM Ulcer of toe of left foot, limited to breakdown of skin ([facility] V24, [facility] V28) (Primary Dx); Follow-up exam; Tailor's bunionette, left; Diabetic mononeuropathy simplex ([facility] V24, [facility] V28); Type II diabetes mellitus with peripheral circulatory disorder ([facility] V24, [facility] V28) 08/22/2024 8:45 AM EST Office Visit Orthopedic [facility] [address] [phone] Elder Snyder DPM Ulcer of toe of left foot, limited to breakdown of skin ([facility] V24, [facility] V28) (Primary Dx); Cellulitis of left foot; Tailor's bunionette, left; Diabetic mononeuropathy simplex ([facility] V24, [facility] V28); Type II diabetes mellitus with peripheral circulatory disorder ([facility] V24, [facility] V28) from Last 3 Months Immunizations Name [...] Coronary atherosclerosis of unspecified type of vessel, [place] or graft 04/13/2006 DX:Coronary atherosclerosis of unspecified type of vessel, [place] or graft Other and unspecified hyperlipidemia 04/13/2006 [...] Daughter 3 Alive Daughter 4 Alive Father [place] Mother DM Sister Alive DM Son Alive [...] AM EDT Office Visit Orthopedic [facility] [place] [address] [phone] Elder Snyder, DPM [address] [phone] 01/05/2025 9:30 AM EDT Office Visit Adult Medicine [address] [phone] Rachel Kilgore PA [address] [place] [phone] 01/12/2025 9:00 AM EDT Office Visit Endocrinology - [place] [address] [place] [phone] Chu Joyner MD [address] [place] [address] Health Maintenance Due Date Last Done Comments [...] Procedure Name Priority Date/Time Associated Diagnosis Comments EXTERNAL VASCULAR ULTRASOUND 11/15/2024 EXTERNAL VASCULAR ULTRASOUND 11/15/2024 XR FOOT 3+ VIEWS LEFT Routine 08/29/2024 8:29 AM EST Follow-up exam MICROALBUMIN CREATININE URINE RATIO Routine 07/05/2024 8:17 AM EST Type 2 diabetes mellitus with other specified complication, without long-term current use of insulin ([facility] V24, [facility] V28) COMPREHENSIVE METABOLIC PANEL Routine 07/05/2024 8:17 AM EST Primary hypertension HEMOGLOBIN A1C Routine 07/05/2024 8:17 AM EST Type 2 diabetes mellitus with other specified complication, without long-term current use of insulin ([facility] V24, [facility] V28) LIPID PANEL WITH REFLEX TO DIRECT LDL Routine 07/05/2024 8:17 AM EST Type 2 diabetes mellitus with other specified complication, without long-term current use of insulin ([facility] V24, [facility] V28) HM DIABETES FOOT EXAM Routine 03/30/2024 DIABETES EYE EXAM Routine 09/08/2023 DEPRESSION SCREENING Routine 09/02/2023 HEPATITIS C SCREENING Routine 06/02/2013 from Last 3 Months or Most Recently Relevant to Health Maintenance Results * External Vascular Ultrasound (11/15/2024) Only the most recent of2 resultswithin the time period is included. Anatomical Region Laterality Modality Ultrasound Provider [facility] CV VASCULAR PROCEDURES F inal Result * XR Foot 3+ Views Left (08/29/2024 8:29 AM EST) Anatomical Region Laterality Modality Lower Extremities, Foot Left Computed Radiography Narrative 08/29/2024 1:00 PM EST Left foot 3 views Mild tailor's bunionette deformity No acute findings Elder Snyder DPM IMG XR PROCEDURES Final R esult * (ABNORMAL) Lipid panel with reflex to direct LDL (07/05/2024 8:17 AM EST) Cholesterol 153 0 - 200 mg/dL LAB CHEMISTRY METHOD 07/05/2024 10:38 AM [facility] Triglycerides 167(H) 0 - 150 mg/dL LAB CHEMISTRY METHOD 07/05/2024 10:38 AM [facility] HDL 49 >=40 mg/dL LAB CHEMISTRY METHOD 07/05/2024 10:38 AM [facility] LDL Calculated 71 0 - 100 mg/dL LAB CHEMISTRY METHOD 07/05/2024 10:38 AM [facility] VLDL Cholesterol Eleazar 33.4 mg/dL LAB CHEMISTRY METHOD 07/05/2024 10:38 AM [facility] Non HDL Chol. (LDL+VLDL) 104 <145 mg/dL LAB CHEMISTRY METHOD 07/05/2024 10:38 AM [facility] Chol/HDL Ratio 3.1 0.0 - 4.4 LAB CHEMISTRY METHOD 07/05/2024 10:38 AM [facility] Blood Venous blood specimen / Unknown Venipuncture / Unknown 07/05/2024 8:17 AM EST 07/05/2024 8:17 AM EST Carri Suazo MD LAB BLOOD ORDERABLES Final Resul t Performing Organization Address [facility]/ZIP Co de Phone Number [facility] [address] [place] [address], [place] [phone] * Microalbumin creatinine urine ratio (07/05/2024 8:17 AM EST) Creatinine, Urine 166.0 mg/dL LAB CHEMISTRY METHOD 07/05/2024 11:01 AM [facility] Microalb, Ur 13.5 0.0 - 29.0 mg/L LAB CHEMISTRY METHOD 07/05/2024 11:01 AM [facility] Microalb/Creat Ratio 8 <30 mg/g creat LAB CHEMISTRY METHOD 07/05/2024 11:01 AM [facility] Urine Urine specimen obtained by clean catch procedure / Unknown Non-blood Collection / Unknown 07/05/2024 8:17 AM EST 07/05/2024 8:17 AM EST us Carri Suazo MD LAB URINE ORDERABLES Final Resul t Performing Organization Address [facility]/ZIP Co de Phone Number [facility] [address] [place] [address], [place] [phone] * (ABNORMAL) Hemoglobin A1c (07/05/2024 8:17 AM EST) Hemoglobin A1C 7.0(H) <6.5 % LAB CHEMISTRY METHOD 07/05/2024 1:50 PM [facility] Mean Bld Glu Estim. 154 mg/dL LAB CHEMISTRY METHOD 07/05/2024 1:50 PM [facility] Blood Venous blood specimen / Unknown Venipuncture / Unknown 07/05/2024 8:17 AM EST 07/05/2024 8:17 AM EST us Carri Suazo MD LAB BLOOD ORDERABLES Final Resul t [facility] [address] [place] [address], [place] [phone] * (ABNORMAL) Comprehensive metabolic panel (07/05/2024 8:17 AM EST) Sodium 138 133 - 145 mmol/L LAB CHEMISTRY METHOD 07/05/2024 10:38 AM [facility] Potassium 4.4 3.5 - 5.5 mmol/L LAB CHEMISTRY METHOD 07/05/2024 10:38 AM [facility] Chloride 102 96 - 110 mmol/L LAB CHEMISTRY METHOD 07/05/2024 10:38 AM [facility] CO2 28 21 - 32 mmol/L LAB CHEMISTRY METHOD 07/05/2024 10:38 AM [facility] Anion Gap 8 3 - 11 LAB CHEMISTRY METHOD 07/05/2024 10:38 AM [facility] Glucose 130(H) 70 - 100 mg/dL LAB CHEMISTRY METHOD 07/05/2024 10:38 AM [facility] BUN 17 5 - 25 mg/dL LAB CHEMISTRY METHOD 07/05/2024 10:38 AM [facility] Creatinine 1.25 0.70 - 1.30 mg/dL LAB CHEMISTRY METHOD 07/05/2024 10:38 AM [facility] eGFR 59(L) >=60 mL/min/1. 73m2 LAB CHEMISTRY METHOD 07/05/2024 10:38 AM [facility] Comment:Calculation based on the??Chronic Kidney Disease Epidemiology Collaboration (CKD-EPI) equation refit??without adjustment for race. BUN/Creatinine Ratio 13.6 LAB CHEMISTRY METHOD 07/05/2024 10:38 AM [facility] Calcium 9.4 8.5 - 10.5 mg/dL LAB CHEMISTRY METHOD 07/05/2024 10:38 AM [facility] AST (SGOT) 21 10 - 42 unit/L LAB CHEMISTRY METHOD 07/05/2024 10:38 AM [facility] ALT (SGPT) 27 10 - 60 unit/L LAB CHEMISTRY METHOD 07/05/2024 10:38 AM [facility] Alkaline Phosphatase 65 42 - 121 unit/L LAB CHEMISTRY METHOD 07/05/2024 10:38 AM [facility] Total Protein 7.6 6.0 - 8.0 g/dL LAB CHEMISTRY METHOD 07/05/2024 10:38 AM [facility] Albumin 4.3 3.2 - 5.0 g/dL LAB CHEMISTRY METHOD 07/05/2024 10:38 AM [facility] Total Bilirubin 0.7 0.0 - 1.4 mg/dL LAB CHEMISTRY METHOD 07/05/2024 10:38 AM [facility] Blood Venous blood specimen / Unknown Venipuncture / Unknown 07/05/2024 8:17 AM EST 07/05/2024 8:17 AM EST Carri Suazo MD LAB BLOOD ORDERABLES Final Resul t [facility] [address] [place] [address], [place] [phone] * Diabetes Foot Exam (03/30/2024) Diabetes: Annual Foot Exam Abstracted Historical Provider HEALTH MAINTENANCE Final Result * Diabetes Eye Exam (09/08/2023) Pathologist [facility] Diabetes: Annual Retina Eye Exam Abstracted Historical Provider HEALTH MAINTENANCE Final Result * Depression Screening (09/02/2023) Pathologist [facility] Depression Screening Abstracted Historical Provider HEALTH MAINTENANCE Final Result * Hepatitis C Screening (06/02/2013) Pathologist [facility] Hepatitis C Screening Abstracted Historical Provider HEALTH MAINTENANCE Final Result from Last 3 Months or Most Recently Relevant to Health Maintenance Insurance [employer] Member Subscriber Plan / Payer (Ef fective 2020-Present) Name:Major Christianson Relation to Subscriber:Self Name:Major Christianson Payer ID:[id number] Group ID:[id number] Type:Not on file Address: [place] [address] [address] [id number] Care Teams Certified Registered Locksmith Relationship Specialty Start Date End Date Carri Suazo MD [address] [place] [id number] PCP - General Internal Medicine 05/24/24
== END 2024-11-18 08:15 | disposition home or self-care (01) ==
LOC: HO.US 08:14
PROVIDERS: PCP Internal Medicine; Visit Provider Surgery Vascular Surgery
DX: I73.9 Peripheral vascular disease, unspecified (principal)
CPT/HCPCS: 93922; 93925

== ENCOUNTER → 2024-11-18 08:17 | Outpatient (BNV) | payer OTHER, SELFPAY | PROVIDERS: PCP Internal Medicine; Visit Provider Radiology Diagnostic Radiology | DX: L97.529 Non-pressure chronic ulcer of other part of left foot with unspecified severity (principal) | CPT/HCPCS: 93922; 93925 ==

== ENCOUNTER 2024-11-21 09:05 | Emergency (ER) | payer OTHER, SELFPAY ==
--- NOTE | ~2024-11-21 | XR_ITS ---
EXAMINATION: XR ANKLE, LEFT CLINICAL INFORMATION: wound COMPARISON: October 04, 2024. TECHNIQUE: AP, lateral, and mortise views of the left ankle. FINDINGS: No acute cortical disruption or malalignment. No lytic or blastic lesions. Vascular complications. Small plantar calcaneus spur. No subcutaneous emphysema. No gross joint effusion, anterior tibiotarsal bursa. XR/XR ankle LT min 3V IMPRESSION: No acute fracture or dislocation. Atherosclerosis disease, peripheral. Electronically signed by: Israel Roberts MD 11/21/2024 10:52 AM EDT
[2024-11-21 09:18] VITALS: BP 133/69; PULSE 94; RESP 18; TEMP 36.7; O2SAT 95; BMI 34.6
--- NOTE | 2024-11-21 09:41 | ED.WOUNDLAC ---
HPI - Wound/Laceration General Chief Complaint: Wound/Laceration Stated Complaint: open wound L leg Time Seen by Provider: 11/21/24 09:40 Source: patient and RN notes reviewed Mode of arrival: ambulatory Limitations: no limitations History of Present Illness ED Provider: Guerline Ochoa PA-C HPI narrative: This is a 79-year-old Polish-speaking male, with a past medical history of hypertension, hyperlipidemia, diabetes, CAD, who presents emergency department with concerns for wound to left foot. Patient reports that he has had ongoing chronic wounds to his lower extremity, which typically resolves after being placed on antibiotics. Patient reports that he noticed an open wound on his left inner ankle. He was seen by Dr. Saul, coater helper, who looked at the wound, and started on Bactrim last week. He has been taking this as prescribed which has provided him with minimal relief. He reports increased pain to his ankle. He denies any fevers or chills. No drainage from the area. He states that his sugars have been well controlled with his medications. No other complaints or concerns at this time. Onset (ago): week(s) Extremity Location: left: ankle Place: home Associated symptoms: pain Related Data Home Medications ?Medication ?Instructions ?Recorded ?Confirmed aspirin 81 mg tablet,delayed 81 mg PO DAILY 03/06/22 06/06/24 release cholecalciferol (vitamin D3) 50 50 mcg PO DAILY 03/06/22 06/06/24 mcg (2,000 unit) capsule empagliflozin 10 mg tablet 10 mg PO DAILY 03/06/22 06/06/24 (Jardiance) finasteride 5 mg tablet 5 mg PO DAILY 03/06/22 06/06/24 lisinopril 20 1 tab PO DAILY 03/06/22 06/06/24 mg-hydrochlorothiazide 25 mg tablet metformin 1,000 mg tablet 1,000 mg PO BID 03/06/22 06/06/24 naproxen 500 mg tablet 500 mg PO BID PRN 03/06/22 06/06/24 omeprazole 20 mg capsule,delayed 20 mg PO DAILY 03/06/22 06/06/24 release blood sugar diagnostic (FreeStyle #10 ea 01/28/24 Lite Strips) dulaglutide 3 mg/0.5 mL mg subcut 06/06/24 06/06/24 subcutaneous pen injector (Trulicity) Previous Rx's ?Medication ?Instructions ?Recorded amlodipine 5 mg tablet 5 mg PO DAILY #90 tabs 05/03/24 cephalexin 500 mg capsule 500 mg PO QID 10 days #40 caps 08/13/24 doxycycline hyclate 100 mg tablet 100 mg PO BID #20 tabs 08/13/24 atorvastatin 40 mg tablet 40 mg PO BEDTIME #90 tabs 09/03/24 fluticasone fur. 100 mcg-umeclid 1 inh inhalation DAILY 30 days #60 09/06/24 62.5 mcg-vilant 25 mcg ea inhalat.powder (Trelegy Ellipta) albuterol sulfate 90 mcg/actuation 2 puff inhalation Q4H PRN wheezing 09/23/24 aerosol inhaler (Ventolin HFA) 30 days #8.5 grams clindamycin HCl 150 mg capsule 450 mg (3 x 150 mg) PO TID #90 caps 10/04/24 sulfamethoxazole 800 1 tab PO Q12H 14 days #28 tabs 11/17/24 mg-trimethoprim 160 mg tablet (Bactrim DS) acetaminophen 500 mg tablet 500 mg PO Q6H PRN pain #30 tabs 11/21/24 (Tylenol Extra Strength) cefuroxime axetil 500 mg tablet 500 mg PO Q12H 7 days #14 tabs 11/21/24 Allergies Allergy/AdvReac Type Severity Reaction Status Date / Time oxycodone [OXYCODONE] Allergy Unknown ITCH Verified 11/21/24 09:21 Review of Systems Review of Systems: Constitutional: No Weight loss, No Fever, No Chills, No Night Sweats, No Fatigue, No Malaise ENT/Mouth: No Hearing loss, No Ear Pain, No Nasal Congestion, No Sinus Pain, No Hoarseness, No sore throat, No Rhinorrhea, No Swallowing Difficulty Eyes: No Eye Pain, No Swelling, No Redness, No Foreign Body, No Discharge, No Vision Changes Cardiovascular: No Chest Pain, No SOB, No Dyspnea on Exertion, No Orthopnea, No Edema, No Palpitations Respiratory: No Cough, No Sputum, No Wheezing, No Smoke Exposure, No Dyspnea Gastrointestinal: No Nausea, No Vomiting, No Diarrhea, No Constipation, No Abdominal pain, No Hematochezia, No Melena Genitourinary: No irregular bleeding, No Dysuria, No Urinary Frequency, No Hematuria, No Urinary Incontinence/retention, No Urgency, No Flank Pain, No Urinary Flow Changes, No Hesitancy Musculoskeletal: No joint pain, No Myalgias, No Joint Swelling Skin: + Skin Lesions, No rash Neuro: No Weakness, No Numbness, No Paresthesias, No Loss of Consciousness, No Dizziness, No Headache Psych: No Anxiety/Panic, No Depression, No SI/HI/AH/VH, No Social Issues, Heme/Lymph: No Bruising, No Bleeding,No Lymphadenopathy Endocrine: No Polyuria, No Polydipsia, No Temperature Intolerance Yes all other systems are reviewed and are negative Constitutional: Constitutional: Reports as per HPI [facility] Past Medical History Medical History Diabetes CAD (coronary artery disease) Tachycardia Asthma Surgical History Hx of cardiac cath H/O prostate biopsy Family History Family History Mother Diabetes HTN (hypertension) Hypercholesteremia Father Heart disease Cancer HTN (hypertension) Hypercholesteremia Asthma Brother HTN (hypertension) Heart disease Hypercholesteremia Prostate cancer Brother No problems noted. Brother No problems noted. Brother Heart disease Heart attack Asthma Sister HTN (hypertension) Hypercholesteremia Kidney disease Sister Diabetes HTN (hypertension) Hypercholesteremia COPD (chronic obstructive pulmonary disease) Asthma Daughter Hyperthyroidism Asthma Daughter Asthma Migraines Social History Social History (Updated 11/16/24 @ 09:37 by Madeline Gonzalez [facility]) Alcohol intake: current Alcohol intake frequency: a few times a week Alcohol type: beer and hard liquor Patient Tobacco Use Status: Former Tobacco user Physical Exam Vital Signs: Vital Signs: Last Vital Signs Temp 98.0 F 11/21/24 11:48 Pulse 94 11/21/24 11:48 Resp 18 11/21/24 11:48 BP 133/69 11/21/24 11:48 Pulse Ox 95 11/21/24 11:48 O2 Del Method Room Air 11/21/24 11:48 BMI result Body Mass Index 34.6 Skin: Other: Left medial malleolus with healing ulcer noted with mild surrounding erythema, no drainage, full ROM of the ankle. Strong DP pulse. Leg is well perfused, no calf tenderness. Course Reevaluation(s) Reevaluation #1: nt. Medications Administered Discontinued Medications Generic Name Dose Route Start Last Admin Trade Name Raegan PRN Reason Stop Dose Admin Acetaminophen 975 mg 11/21/24 11:11 11/21/24 11:22 Acetaminophen 325 Mg Tablet PO 11/21/24 11:12 975 mg ONCE ONE Administration Cefuroxime Axetil 500 mg 11/21/24 11:44 11/21/24 11:47 Cefuroxime Axetil 500 Mg Tablet PO 11/21/24 11:45 500 mg ONCE ONE Administration Medical Decision Making Medical Decision Making [facility] Narrative: This is a 79-year-old Polish-speaking male, with a past medical history of hypertension, hyperlipidemia, diabetes, CAD, who presents emergency department with complaints of chronic wound to left foot. On arrival, vital signs within normal limits. He is speaking full sentences under no acute distress. Exam was conducted with non profit financial controller present. Patient has had ongoing chronic wounds, noticed this wound about 1 week ago, currently taking Bactrim without much relief. Increased pain to the area. He does have a history of diabetes. No fevers or chills. Exam with wound noted to the medial malleolus, with mild tenderness palpation. Will obtain basic labs, x-ray. Differential diagnoses include cellulitis, chronic wound, ulcer, osteomyelitis, septic arthritis. Course: Patient with no leukocytosis, normocytic anemia with an H&H of 12.2/38.3, chemistry revealing slight elevation in creatinine at 1.12, similar to previous. Lactic acidosis at 2.5, patient is on metformin, infection is not suspected. Random glucose 163. Ankle x-ray does not show any evidence of osteomyelitis. X-ray shows no acute fracture or dislocation, there is arthrosclerosis disease peripherally. No cortical disruption or malalignme I discussed overall workup with patient and family at bedside. He is already on Bactrim which he has been taking which has provided him with some relief. I discussed this case with my attending physician, Dr. Curran. Will add on Ceftin for better coverage. He has follow-up with vascular tomorrow. Given strict return precautions. He understands and agrees with plan. Patient stable for discharge. Differential Diagnosis Differential Diagnoses: The differential diagnosis associated with the presentation includes See above Lab Data [facility] Lab Attestation statement: I reviewed the patient's lab results. See course comment and MDM 11/21/24 09:37 11/21/24 09:37 Labs: Lab Results 11/21/24 Range/Units 09:37 WBC 6.4 (4.8-10.8) X10*3/uL RBC 4.59 L (4.60-5.80) X10*6/uL Hgb 12.2 L (14.0-18.0) g/dl Hct 38.3 L (42.0-52.0) % MCV 83.4 (80.0-98.0) fL MCH 26.6 L (27.0-33.0) pg MCHC 31.9 (31.0-36.0) g/dl RDW 17.5 H (11.0-16.0) % Plt Count 178 (160-400) X10*3/uL MPV 12.4 (9.4-12.4) fL Immature Gran % (Auto) 0.3 (0.0-0.4) % Neut % (Auto) 71.6 (45-73) % Lymph % (Auto) 18.4 L (20-40) % Island % (Auto) 7.4 (2-11) % Eos % (Auto) 1.7 (0-4) % Baso % (Auto) 0.6 (0-2) % Lymph # (Auto) 1.2 (1.2-4.9) X10*3/uL Island # (Auto) 0.5 (0.1-1.2) X10*3/uL Eos # (Auto) 0.1 (0.0-0.4) X10*3/uL Baso # (Auto) 0.0 (0.0-0.2) X10*3/uL Abs Immat Gran (auto) 0.02 (0.00-0.03) X10*3/uL Absolute Neuts (auto) 4.5 (2.0-8.3) x10*3/uL Absolute Nucleated RBC 0.000 (0.0-0.012) X10*3/uL Nucleated RBC % (auto) 0.0 (0.0-0.2) /100WBC Sodium 137 (135-145) mmol/L Potassium 4.0 (3.3-5.1) mmol/L Chloride 103 (96-108) mmol/L Carbon Dioxide 24 (22-29) mmol/L Anion Gap 14 (12-20) BUN 17 H (9-16) mg/dL Creatinine 1.12 (0.5-1.4) mg/dL Estim Creat Clear Calc 61.2 Estimated GFR > 60 Random Glucose 163 H (60-115) mg/dL Lactic Acid 2.5 H* (0.5-2.0) mmol/L Calcium 9.8 (8.4-10.2) mg/dL Total Bilirubin 0.4 (0.0-1.0) mg/dL AST 23 (5-37) U/L ALT 26 (0-40) U/L Alkaline Phosphatase 68 (39-117) U/L Total Protein 7.6 (6.5-8.0) g/dL Albumin 4.4 (3.5-5.0) g/dL Independent Interpretation I performed an independent interpretation of an: Plain X-Ray Interpretation: I reviewed the x-ray and agree with the radiology report. Radiology Impression Discussion of test interpretation with radiology: I have reviewed the radiologist's reading. Radiologist Impression: X-ray shows no acute fracture or dislocation, there is arthrosclerosis disease peripherally. No cortical disruption or malalignment Chronic Conditions Patient?s care impacted by: Diabetes Discharge Plan Discharge Clinical Impression: Cellulitis Patient Disposition: Home, Self-Care Instructions: Cellulitis (ED) Additional Instructions: You were seen in the emergency department due to a wound. Your blood work was reassuring. Your x-ray does not show any bony involvement of the wound. Please continue taking the Bactrim that is already prescribed to you. I am adding Ceftin, this is a antibiotic that can help in addition to this other medication. Please follow-up with Dr. Grajeda as scheduled. If any new or worsening symptoms occur including but not limited to worsening pain, drainage, worsening redness, swelling, please seek emergent care. Prescriptions: New cefuroxime axetil 500 mg tablet 500 mg PO Q12H 7 Days Qty: 14 0RF acetaminophen [Tylenol Extra Strength] 500 mg tablet 500 mg PO Q6H PRN (Reason: pain) Qty: 30 0RF No Action amlodipine 5 mg tablet 5 mg PO DAILY Qty: 90 3RF atorvastatin 40 mg tablet 40 mg PO BEDTIME Qty: 90 1RF Trelegy Ellipta 100-62.5-25 mcg blister with device 1 inh inhalation DAILY 30 Days Qty: 60 11RF albuterol sulfate [Ventolin HFA] 90 mcg/actuation HFA aerosol inhaler 2 puff inhalation Q4H PRN (Reason: wheezing) 30 Days Qty: 8.5 11RF sulfamethoxazole-trimethoprim [Bactrim DS] 800-160 mg tablet 1 tab PO Q12H 14 Days Qty: 28 0RF cephalexin 500 mg capsule 500 mg PO QID 10 Days Qty: 40 0RF doxycycline hyclate 100 mg tablet 100 mg PO BID Qty: 20 0RF clindamycin HCl 150 mg capsule 450 mg PO TID Qty: 90 0RF (DME) FreeStyle Lite Strips Strip See Rx Instructions .ROUTE DAILY Qty: 10 Rx Instructions: As directed Jardiance 10 mg tablet 10 mg PO DAILY omeprazole 20 mg capsule,delayed release(DR/EC) 20 mg PO DAILY naproxen 500 mg tablet 500 mg PO BID PRN lisinopril-hydrochlorothiazide 20-25 mg tablet 1 tab PO DAILY finasteride 5 mg tablet 5 mg PO DAILY metformin 1,000 mg tablet 1,000 mg PO BID aspirin 81 mg tablet,delayed release (DR/EC) 81 mg PO DAILY cholecalciferol (vitamin D3) 50 mcg (2,000 unit) capsule 50 mcg PO DAILY Trulicity 3 mg/0.5 mL pen injector subcut Referrals: [facility] Wound Care Management [Provider Group] Interventions: ED Discharge Assessment Last Done: 11/21/24 11:48 Discharge Date/Time: 11/21/24 11:48 Print Language: Polish
[2024-11-21 09:44] LABS: MANUAL DIFF FLAG NO
[2024-11-21 09:54] LABS: Basophils Percent Auto 0.6 % (0-2); Eosinophils Absolute Auto 0.1 X10*3/uL (0.0-0.4); Eosinophils Percent Auto 1.7 % (0-4); Hematocrit 38.3 % (42.0-52.0); Hemoglobin 12.2 g/dl (14.0-18.0); Imm Gran Abs Auto 0.02 X10*3/uL (0.00-0.03); Imm Gran Pct Auto 0.3 % (0.0-0.4); Lymphocytes Absolute Auto 1.2 X10*3/uL (1.2-4.9); Lymphocytes Percent Auto 18.4 % (20-40); Mean Corpuscular HGB Conc 31.9 g/dl (31.0-36.0); Mean Corpuscular Hemoglobin 26.6 pg (27.0-33.0); Mean Corpuscular Volume 83.4 fL (80.0-98.0); Mean Platelet Volume 12.4 fL (9.4-12.4); Monocytes Absolute Auto 0.5 X10*3/uL (0.1-1.2); Monocytes Percent Auto 7.4 % (2-11); Neutrophils Absolute Auto 4.5 x10*3/uL (2.0-8.3); Neutrophils Percent Auto 71.6 % (45-73); Platelet Count 178 X10*3/uL (160-400); Red Blood Count 4.59 X10*6/uL (4.60-5.80); Red Cell Distribution Width 17.5 % (11.0-16.0); White Blood Count 6.4 X10*3/uL (4.8-10.8)
[2024-11-21 10:03] LABS: Lactic Acid 2.5 mmol/L (0.5-2.0)
[2024-11-21 10:07] LABS: Alanine Aminotransferase 26 U/L (0-40); Albumin Level 4.4 g/dL (3.5-5.0); Alkaline Phosphatase 68 U/L (39-117); Anion Gap 14 (12-20); Aspartate Amino Transferase 23 U/L (5-37); Bilirubin Total 0.4 mg/dL (0.0-1.0); Blood Urea Nitrogen 17 mg/dL (9-16); Calcium 9.8 mg/dL (8.4-10.2); Carbon Dioxide 24 mmol/L (22-29); Chloride 103 mmol/L (96-108); Creatinine Clr Calc Pharmacy 61.2; Estimated Glomerular Filt Rate > 60; Glucose Random 163 mg/dL (60-115); Sodium 137 mmol/L (135-145); Total Protein 7.6 g/dL (6.5-8.0)
--- OUTSIDE RECORDS SUMMARY | 2024-11-21 10:47 | XMS_ITS | Clinical Summary ---
Author Organization [facility] [address] [facility] Address [address] [place], [place] Phone Care Team Providers Care Donor Technician Name Role Phone Carri Suazo MD Primary Care Provider [phone] Allergies Active Allergy Reactions Criticality Noted Date Comments Other 04/20/2009 Seasonal Allergies Medications FREESTYLE LANCETS MISC Use to test blood sugar once daily 03/19/20 23 Active albuterol 2.5 mg /3 mL (0.083 %) nebulizer solution TAKE 1 VIAL BY NEBULIZATION 4 TIMES DAILY. 02/24/20 23 Active albuterol HFA (Ventolin HFA) 90 mcg/actuation inhaler Inhale 2 Puffs into the lungs every 4 hours as needed for Cough or Wheezing. 05/28/20 23 Active amLODIPine (NORVASC) 5 mg tablet Take 1 Tablet by mouth daily. Active atorvastatin (LIPITOR) 40 mg tablet Take 40 mg by mouth at bedtime. 03/06/20 22 Active diclofenac (VOLTAREN) 1 % topical gel Apply 4 g topically 2 times daily. 02/03/20 24 Active fluticasone-umec lidinium-vilante rol (Trelegy Ellipta) 100-62.5-25 mcg inhaler Inhale 1 Puff into the lungs daily. 09/02/19 24 Active pen needle, diabetic (Pen Needle) 31 gauge x 3/16 needle 1 Each by Does not apply route 3 times daily (with meals). 12/21/19 24 Active omeprazole (PriLOSEC) [address] capsule TAKE 1 CAPSULE BY MOUTH EVERY DAY 90 capsule 1 07/12/20 24 Active cholecalciferol (VITAMIN D-3) 50 mcg (2,000 unit) capsule TAKE 1 CAPSULE BY MOUTH EVERY DAY 90 capsule 1 07/12/20 24 Active finasteride (PROSCAR) 5 mg tablet TAKE 1 TABLET BY MOUTH EVERY DAY 90 tablet 1 07/12/20 Active Jardiance 25 mg tablet TAKE 1 TABLET BY MOUTH EVERY DAY 90 tablet 1 07/12/20 24 Active lisinopril-hydro CHLOROthiazide (PRINZIDE,ZESTOR ETIC) 20-25 mg per tablet TAKE 1 TABLET BY MOUTH EVERY DAY 90 tablet 1 07/12/20 Active glipiZIDE (GLUCOTROL) 5 mg tablet TAKE 1 TABLET BY MOUTH EVERY DAY 90 tablet 1 07/12/20 Active metFORMIN (GLUCOPHAGE) 1,000 mg tablet TAKE 1 TABLET BY MOUTH TWICE A DAY WITH FOOD 180 tablet 1 07/12/20 24 Active FreeStyle Lite Meter monitoring kitIndications:T ype 2 diabetes mellitus with other ophthalmic complication, without long-term current use of insulin ([facility] V24, [facility] V28) USE TO CHECK BLOOD SUGAR DAILY 1 kit 08/08/19 25 Active blood sugar diagnostic (FreeStyle Lite Strips) test stripIndications :Type 2 diabetes mellitus with other ophthalmic complication, without long-term current use of insulin ([facility] V24, [facility] V28) USE TO TEST BLOOD SUGAR ONCE DAILY 200 strip 5 08/08/19 25 Active aspirin 81 mg EC tablet TAKE 1 TABLET BY MOUTH EVERY DAY 90 tablet 1 09/06/19 25 Active Trulicity 3 mg/0.5 mL pen injector injectionIndicat ions:Type 2 diabetes mellitus with other specified complication ([facility] V24, [facility] V28) INJECT 3 MG INTO THE SKIN ONE TIME PER WEEK 6 mL 1 09/05/19 25 Active fluticasone propionate (FLONASE) 50 mcg/actuation nasal spray Administer 2 sprays into each nostril 2 (two) times a day. Shake gently. Before first use, prime pump. After use, clean tip and replace cap. 16 g 1 11/19/19 25 Active fluticasone propionate (FLONASE) 50 mcg/actuation nasal spray 2 sprays each nostril twice daily x 1 week then once daily as needed. 11/14/19 23 025 Discontin ued(Reord er) Active Problems Problem Noted Date Diagnosed Date Microalbuminuria 04/07/2022 Normocytic anemia 10/02/2019 Habitual alcohol use 10/26/2018 BPH (benign prostatic hyperplasia) 01/30/2016 PSA elevation 02/06/2015 DM (diabetes mellitus), type 2 with ophthalmic complications ([facility] V24, [facility] V28) 09/12/2013 Overview (04/18/2024): Nuclear Sclerosis out side eye exam 07/07/12. Dr. Engle. Obesity (BMI 30.0-34.9) 11/20/2009 Asthma 04/13/2006 Essential hypertension, benign 04/13/2006 CAD (coronary artery disease) 04/13/2006 Hyperlipidemia 04/13/2006 Lumbago 04/13/2006 Encounters Date Type Department Care Team Description 10/19/2024 3:15 PM EDT Office Visit Orthopedic Surgery [facility] [address] [phone] Elder Snyder DPM Tailor's bunionette, left (Primary Dx); Ulcer of toe of left foot, limited to breakdown of skin ([facility] V24, [facility] V28) 10/11/2024 8:30 AM EDT Office Visit Orthopedic [facility] [address] [phone] Elder Snyder DPM Cellulitis of left foot (Primary Dx); Bilateral femoral artery stenosis ([facility] V24); Tailor's bunionette, left 09/12/2024 9:30 AM EST Office Visit Orthopedic [facility] [address] [phone] Elder Snyder DPM Tailor's bunionette, left (Primary Dx); Ulcer of toe of left foot, limited to breakdown of skin (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 ([facility] V24, [facility] V28) 08/29/2024 8:15 AM EST Office Visit Orthopedic Surgery [address] [phone] Elder Snyder, DPM Ulcer of toe of left foot, limited to breakdown of skin ([facility] V24, [facility] V28) (Primary Dx); Follow-up exam; Maninder godfrey, left; Diabetic mononeuropathy simplex ([facility] V24, [facility] V28); Type II diabetes mellitus with peripheral circulatory disorder ([facility] V24, [facility] V28) from Last 3 Months Immunizations Name Administration Dates Next Due H1N1 Inj Preservative Free 08/21/2009 Influenza Quadravalent, MDCK , 0.5ml, preservative free (Flucelvax) 6mo and older 04/07/2022,07/08/2018 Influenza trivalent, 0.5mL ( Fluad) 65yo and older 05/25/2024 Influenza trivalent, 0.5mL ( Fluzone High-dose) 65yo and older 05/28/2023,05/16/2021,06/10/2020,07/25,05/01/2017 Influenza trivalent, with pr eservative (Fluzone; Afluria) 6mo and older 07/31/2016,06/11/2015,06/06/2014,05/31,05/25/2012,06/23/2011,03/26/2010 ,05/21/2009,05/17/2007,06/08/2006 [employer] SARS-CoV-2 COVID-19, mRNA, LNP-S, preservative free 07/09/2021 [...] Coronary atherosclerosis of unspecified type of vessel, [place] or graft 04/13/2006 DX:Coronary atherosclerosis of unspecified type of vessel, [place] or graft Other and unspecified hyperlipidemia 04/13/2006 [...] Daughter 3 Alive Daughter 4 Alive Father [place] Mother DM Sister Alive DM Son Alive [...] 8:15 AM EDT Office Visit Orthopedic Surgery [facility] [address] [phone] Elder Snyder DPM [address] [address] 01/05/2025 9:30 AM EDT Office Visit Adult Medicine [facility] [address] [phone] Rachel Kilgore PA [address] [place] [address] 01/12/2025 9:00 AM EDT Office Visit Endocrinology [address] [phone] Chu Joyner [place] [address] Health Maintenance Due Date Last Done Comments [...] complication, without long-term current use of insulin ([facility]/HCC V24, [facility]/HCC V28) COMPREHENSIVE METABOLIC PANEL Routine 07/05/2024 8:17 AM EST Primary hypertension HEMOGLOBIN A1C Routine 07/05/2024 8:17 AM EST Type 2 diabetes mellitus with other specified complication, without long-term current use of insulin (CMS/HCC V24, [facility] V28) LIPID PANEL WITH REFLEX TO DIRECT LDL Routine 07/05/2024 8:17 AM EST Type 2 diabetes mellitus with other specified complication, without long-term current use of insulin (CMS/HCC V24, CMS/HCC V28) DIABETES FOOT EXAM Routine 03/30/2024 DIABETES [...] mg/dL LAB CHEMISTRY METHOD 07/05/2024 10:38 AM [facility] Triglycerides 167(H) 0 - 150 mg/dL LAB CHEMISTRY METHOD 07/05/2024 10:38 AM [facility] HDL 49 >=40 mg/dL LAB CHEMISTRY METHOD 07/05/2024 10:38 AM [facility] LDL Calculated 71 0 - 100 mg/dL LAB CHEMISTRY METHOD 07/05/2024 10:38 AM [facility] VLDL Cholesterol Eleazar 33.4 mg/dL LAB CHEMISTRY METHOD 07/05/2024 10:38 AM [facility] Non HDL Chol. (LDL+VLDL) 104 <145 mg/dL LAB CHEMISTRY METHOD 07/05/2024 10:38 AM [facility] Chol/HDL Ratio 3.1 0.0 - 4.4 LAB CHEMISTRY METHOD 07/05/2024 10:38 AM [facility] Blood Venous blood specimen / Unknown Venipuncture / Unknown 07/05/2024 8:17 AM EST 07/05/2024 8:17 AM EST us Carri Suazo MD LAB BLOOD ORDERABLES Final Resul t [facility] [address] [place] [address], [place] [phone] * Microalbumin creatinine urine ratio (07/05/2024 8:17 AM EST) Creatinine, Urine 166.0 mg/dL LAB CHEMISTRY METHOD 07/05/2024 11:01 AM EST [facility] Microalb, Ur 13.5 0.0 - 29.0 mg/L LAB CHEMISTRY METHOD 07/05/2024 11:01 AM EST [facility] Microalb/Creat Ratio 8 <30 mg/g creat LAB CHEMISTRY METHOD 07/05/2024 11:01 AM EST [facility] Urine Urine specimen obtained by clean catch procedure / Unknown Non-blood Collection / Unknown 07/05/2024 8:17 AM EST 07/05/2024 8:17 AM EST us Carri Suazo MD LAB URINE ORDERABLES Final Resul t Performing Organization Address City/[facility]/ZIP Co de Phone Number [facility] [address] [place] [address], [place] [phone] * (ABNORMAL) Hemoglobin A1c (07/05/2024 8:17 AM EST) Hemoglobin A1C 7.0(H) <6.5 % LAB CHEMISTRY METHOD 07/05/2024 1:50 PM EST [facility] Mean Bld Glu Estim. 154 mg/dL LAB CHEMISTRY METHOD 07/05/2024 1:50 PM EST [facility] Blood Venous blood specimen / Unknown Venipuncture / Unknown 07/05/2024 8:17 AM EST 07/05/2024 8:17 AM EST us Carri Suazo MD LAB BLOOD ORDERABLES Final Resul t [facility] [address] [place] [address], [place] [phone] * (ABNORMAL) Comprehensive metabolic panel (07/05/2024 8:17 AM EST) Sodium 138 133 - 145 mmol/L LAB CHEMISTRY METHOD 07/05/2024 10:38 AM [facility] Potassium 4.4 3.5 - 5.5 mmol/L LAB CHEMISTRY METHOD 07/05/2024 10:38 AM [facility] Chloride 102 96 - 110 mmol/L LAB CHEMISTRY METHOD 07/05/2024 10:38 AM [facility] CO2 28 21 - 32 mmol/L LAB CHEMISTRY METHOD 07/05/2024 10:38 AM [facility] Anion Gap 8 3 - 11 LAB CHEMISTRY METHOD 07/05/2024 10:38 AM [facility] Glucose 130(H) 70 - 100 mg/dL LAB CHEMISTRY METHOD 07/05/2024 10:38 AM [facility] BUN 17 5 - 25 mg/dL LAB CHEMISTRY METHOD 07/05/2024 10:38 AM [facility] Creatinine 1.25 0.70 - 1.30 mg/dL LAB CHEMISTRY METHOD 07/05/2024 10:38 AM [facility] eGFR 59(L) >=60 mL/min/1. 73m2 LAB CHEMISTRY METHOD 07/05/2024 10:38 AM [facility] Comment:Calculation based on the??Chronic Kidney Disease Epidemiology Collaboration (CKD-EPI) equation refit??without adjustment for race. BUN/Creatinine Ratio 13.6 LAB CHEMISTRY METHOD 07/05/2024 10:38 AM [facility] Calcium 9.4 8.5 - 10.5 mg/dL LAB CHEMISTRY METHOD 07/05/2024 10:38 AM [facility] AST (SGOT) 21 10 - 42 unit/L LAB CHEMISTRY METHOD 07/05/2024 10:38 AM [facility] ALT (SGPT) 27 10 - 60 unit/L LAB CHEMISTRY METHOD 07/05/2024 10:38 AM [facility] Alkaline Phosphatase 65 42 - 121 unit/L LAB CHEMISTRY METHOD 07/05/2024 10:38 AM [facility] Total Protein 7.6 6.0 - 8.0 g/dL LAB CHEMISTRY METHOD 07/05/2024 10:38 AM [facility] Albumin 4.3 3.2 - 5.0 g/dL LAB CHEMISTRY METHOD 07/05/2024 10:38 AM [facility] Total Bilirubin 0.7 0.0 - 1.4 mg/dL LAB CHEMISTRY METHOD 07/05/2024 10:38 AM [facility] Blood Venous blood specimen / Unknown Venipuncture / Unknown 07/05/2024 8:17 AM EST 07/05/2024 8:17 AM EST us Carri Suazo MD LAB BLOOD ORDERABLES Final Resul t [facility] [address] [place] [address], * Diabetes Foot Exam (03/30/2024) Pathologist [facility] Diabetes: Annual Foot Exam Abstracted us Historical Provider HEALTH MAINTENANCE Final Result * Diabetes Eye Exam (09/08/2023) [facility] Diabetes: Annual Retina Eye Exam Abstracted us Historical Provider HEALTH MAINTENANCE Final Result * Depression Screening (09/02/2023) Pathologist [facility] Depression Screening Abstracted us Historical Provider HEALTH MAINTENANCE Final Result * Hepatitis C Screening (06/02/2013) Hepatitis C Screening Abstracted us Historical Provider HEALTH MAINTENANCE Final Result from Last 3 Months or Most Recently Relevant to Health Maintenance Insurance [facility] Member Subscriber Plan / Payer (Ef fective 2020-Present) Name:Major Christianson Relation to Subscriber:Self Name:Major Christianson Payer ID:[id number] Group ID:[id number] Type:Not on file Address: [place] [address] [address] [phone] Care Teams Donor Technician Relationship Specialty Start Date End Date Carri Suazo MD [address] [place] [id number] PCP - General Internal Medicine 05/24/24
[2024-11-21] MEDS: Acetaminophen 325 MG TABLET 975 MG PO (11:22)
[2024-11-21 11:43] LABS: Reflex Lactate? Lactic Acid Added
[2024-11-21] MEDS: cefuroxime axetiL 500 MG TABLET PO (11:47)
[2024-11-21 11:48] VITALS: BP 133/69; PULSE 94; RESP 18; TEMP 36.7; O2SAT 95
== END 2024-11-21 11:48 | disposition home or self-care (01) ==
PROVIDERS: Emergency Provider Emergency Medicine; PCP Internal Medicine
DX: L03.116 Cellulitis of left lower limb (principal); I25.10 Atherosclerotic heart disease of native coronary artery without angina pectoris; Z79.899 Other long term (current) drug therapy; Z87.891 Personal history of nicotine dependence
CPT/HCPCS: 36415; 73610; 80053; 83605; 85025; 87040; 99283

== ENCOUNTER → 2024-11-21 10:04 | Outpatient (BNV) | payer OTHER, SELFPAY | PROVIDERS: Emergency Provider Emergency Medicine; PCP Internal Medicine; Visit Provider Radiology Diagnostic Radiology | DX: I73.9 Peripheral vascular disease, unspecified (principal) | CPT/HCPCS: 73610 ==

== ENCOUNTER 2024-11-22 09:57 | Outpatient (AMB) | payer OTHER, SELFPAY ==
--- NOTE | 2024-11-22 10:01 | A.OFFVIS_ITS ---
Intake Visit Reasons: Follow up Arterial & US Intake Note: Patient presens for arterial and US. He was in the ER yesterday for left ankle pain. He has redness and a scab. He feels throbbing pain. Accompanied by: Daughter Allergies oxycodone [OXYCODONE] Allergy (Unknown, Verified 11/22/24 10:02) ITCH HPI HPI Follow up Arterial & US: Details: The patient is a 79-year-old male presenting with a follow-up for venous insufficiency testing. He reported visiting the emergency department due to a sudden ulceration and cellulitis. Initially, the area was observed as red prior to progression into an ulcer, despite starting on Bactrim. Persistent pain, especially at night, prompted additional emergency care and the commencement of Ceftin. Prior to that he was placed on Bactrim. Episodes of leg swelling and discomfort, particularly below the pinky toe due to bone spurs, have been noted, alongside dietary influences increasing the incidence of swelling. He now presents for re-evaluation of the left lower extremity with arterial and venous testing. [facility] Medical History Diabetes CAD (coronary artery disease) Tachycardia Asthma Surgical History Hx of cardiac cath H/O prostate biopsy Family History Mother Diabetes HTN (hypertension) Hypercholesteremia Father Heart disease Cancer HTN (hypertension) Hypercholesteremia Asthma Brother HTN (hypertension) Heart disease Hypercholesteremia Prostate cancer Brother No problems noted. Brother No problems noted. Brother Heart disease Heart attack Asthma Sister HTN (hypertension) Hypercholesteremia Kidney disease Sister Diabetes HTN (hypertension) Hypercholesteremia COPD (chronic obstructive pulmonary disease) Asthma Daughter Hyperthyroidism Asthma Daughter Asthma Migraines Social History Alcohol intake: current Alcohol intake frequency: a few times a week Alcohol type: beer and hard liquor Patient Tobacco Use Status: Former Tobacco user Review of Systems Const All systems reviewed & are unremarkable except as noted in HPI and below Reports no additional complaints ENT Reports Normal hearing present Card Denies chest pain, Denies chest pain at rest, Denies chest pain with activity and Denies pedal edema Resp Denies cough GI Denies abdominal pain Musc Denies abnormal gait, Denies muscle cramps and Denies radiating pain into limb Skin/Breast Denies skin ulcer and Denies wounds Neuro Reports Normal hearing present and Denies abnormal gait Psych Reports no additional complaints Physical Exam Const General: cooperative, healthy appearing and comfortable Orientation/consciousness: oriented to person, oriented to place and oriented to time HEENT Head: Yes normal to inspection Neck Neck: Yes normal visual inspection Carotids: no bruits Chest Chest palpation & inspection: normal inspection of the chest Resp Effort & Inspection: normal respiratory effort and able to speak in complete sentences Auscultation: clear to auscultation bilaterally, no crackles, no rales, no rhonchi and no wheezes Cardio Rate: regular rate Rhythm: regular rhythm Heart sounds: S1 normal heart sound present and S2 normal heart sound present Bruits: no carotid bruits Peripheral pulses: Peripheral pulses 2+ throughout GI Inspection: Yes normal to inspection Skin Other: Left medial calf ulceration 1 x 0.5 x 0.3 cm Wounds: no wounds Hair: normal Neuro General: oriented to person, oriented to place and oriented to time Cranial nerves: Yes CN's II-XII intact bilaterally and Yes Normal hearing present Cognition (Neuro): normal cognition Motor exam (neuro): 5/5 motor strength present throughout Extrem Other: venous exam: No significant superficial varicosities or spider telangiectasias, minimal edema General: No clubbing, No cyanosis and No edema Psych Appearance: grossly normal Mental Status: mental status grossly normal Speech and movement: Normal speech and movement present Office Procedures Vascular Office Procedure Details Details: Wound debridement note: Preoperative diagnosis: Nonhealing left calf ulcer Postoperative diagnosis: Same Procedure: Excisional debridement into muscle Anesthesia: None Estimated blood loss: Minimal Pre-procedure measurement and appearance: 1 x 0.5 x 0.3 cm with overlying dry eschar Postprocedure measurement and appearance: 1 x 0.5 x 0.5 cm clean granulation base with serous fluid Procedure in detail: Excisional debridement of the left medial calf was carried out.. Necrotic devitalized and nonviable tissue was removed. We debrided into muscle using curette pickups and iris scissors. Wound was thoroughly irrigated. At the conclusion wound appeared clean with serous fluid. Clean and sterile dressing was applied. Patient tolerated the procedure well. Instructions were given to the patient. Follow-up was suggested. This note is constructed using voice recognition software. While every effort has been made to ensure accuracy, financing analyst errors may have been included. Thank you for allowing me to participate in the care of your patient. Yours sincerely, Abisai Grajeda MD, FACS, R.P.V.I. [id number] Debridement, muscle and or fascia (lst 20 sq cm or less) All charges added?: Procedure code (CPT) selection complete Results Reviewed Results Reviewed: Brief summary of venous insufficiency testing is as follows: right great saphenous vein: negative right small saphenous vein: negative right accessory vein: none present left great saphenous vein: negative left small saphenous vein: negative left accessory vein: none present Please note there is no evidence of any venous aneurysms or significant tortuo sity arterial testing dated 11/18/2024 demonstrates mostly tibial disease. Assessment & Plan Assessment & Plan (1) PAD (peripheral artery disease): Code(s): I73.9 - Peripheral vascular disease, unspecified Category: Medical Plan: Patient has nonhealing left lower extremity ulcer. I have discussed the pathophysiology of peripheral vascular disease with the patient. I have also discussed risk factor modification. I have reviewed the patient's arterial testing which reveals tibial disease of left leg. the patient would benefit from a left leg endovascular peripheral angiogram with possible angioplasty, stent, and/or atherectomy. This has been discussed in detail with the patient along with risks, benefits, and complications. This includes but is not limited to bleeding, infection, heart attack, need for emergent surgical repair, limb ischemia, blood vessel damage, bleeding, puncture, kidney injury, bruising, allergic reaction, and skin reaction. The patient demonstrates a clear understanding. We will schedule for the next appropriate time. Thank you for allowing us to assist in this patient's care. Coding Level of Care Code Est Pt Level 4 (11507) Complex EM visit Add On G2211 Diagnoses PAD (peripheral artery disease) I73.9
--- OUTSIDE RECORDS SUMMARY | 2024-11-22 11:16 | XMS_ITS | Encounter Summary ---
Author Organization [facility] Address [address] [place] [address] Care Team Providers Care Welt Insole Channeler Name Role Phone Wandy Delcid DO Primary Care Pro vider Unavailable Joe Jimenez MD Primary Care Provider [phone] Carri Suazo MD Primary Care Provider [phone] Reason for Visit * Reason Comments E-prescribe Rx Request Encounter Details Date Type Department Care Team Description 10/07/2020 Refill Adult Medicine [address] [address] Wandy Delcid DO E-prescribe Rx Request Social History Tobacco Use Types Packs/Day Years Used Date Smoking Tobacco: Former Smokeless Tobacco: Never Comments:15 yrs Alcohol Use Standard Drinks/Week Comments Yes 6 (1 standard drink = 0.6 oz pur e alcohol) per weekend Sex Assigned at Date Recorded Not on file Job Start Date Occupation Industry Not on file Not on file Not on file documented as of this encounter Miscellaneous Notes * Telephone Encounter - Minal Vincent M.A. - 10/10/2020 12:37 PM EDT Lab Results Component Value Date NA 139 05/10/2020 K 4.1 05/10/2020 CO2 29 05/10/2020 CL 102 05/10/2020 BUN 15 05/10/2020 CREAT 1.04 05/10/2020 GLU 149 05/10/2020 CA 9.6 05/10/2020 GFR > 60 05/10/2020 Pending appt 12/07/20 * Telephone Encounter - Annmarie Costa - 10/10/2020 12:35 PM EDT Patient would like script to be: E-PRESCRIBED/FAXED TO PHARMACY WHEN WAS THE PATIENT'S LAST APPOINTMENT IN ADULT MEDICINE? 08/10/20 WHEN WAS THE LAST TIME THE PATIENT SAW THEIR PCP? Same as above Does patient have an upcoming appointment? Yes 12/12/20 (THE MEDICATION REQUESTED IS ON THE MED LIST ABOVE) All of the medications requested were on the CURRENT MEDS list Did you check the Pharmacy information above?: YES Patient wants: 90 -day supply Is this a mail order prescription request ? NO If the refill is from a FAXED refill request what is the RX # listed on the fax? N/A Patients current insurance carrier is: [place] / [place] / Product Type: MEDICARE [id number] documented in this encounter Plan of Treatment Not on file documented as of this encounter Visit Diagnoses Not on filedocumented in this encounter Care Teams Welt Insole Channeler Relationship Specialty Start Date End Date Wandy Dlecid DO PCP - General Internal Medicine 02/23/19 12/27/20 Joe Jimenez MD [address] [place] [address] PCP - General Internal Medicine 12/28/20 04/06/22 Carri Suazo MD [address] [place] [address] PCP - General Internal Medicine 04/07/22 documented as of this encounter
--- OUTSIDE RECORDS SUMMARY | 2024-11-22 11:17 | XMS_ITS | Encounter Summary ---
Author Organization [facility] Address [address] [place] [address] Care Team Providers Care Damage Prevention Coordinator Name Role Phone Wandy Delcid DO Primary Care Pro Joe Gray MD Primary Care Provider [phone] Carri Suazo MD Primary Care Provider [phone] Reason for Visit * Reason Onset Date Comments medication problems 09/05/2019 PROAIR HFA 1 08 (90 Base) MCG/ACT Aero Soln Encounter Details Date Type Department Care Team Description 09/05/2019 Telephone Adult [address] [phone] Wandy Delcid DO medication problems (PROAIR HFA 108 (90 Base) MCG/ACT Aero Soln) Social History Tobacco Use Types Packs/Day Years [...] encounter Miscellaneous Notes * Telephone Encounter - Wandy Duque DO - 09/12/2019 8:49 AM EST Sent in [employer] * Telephone Encounter - Michelle Vogel - 09/05/2019 4:36 PM EST Who is calling? A pharmacist: Pharmacy: [facility] Pharmacist Name: incoming fax Pharmacy Name of the medication PROAIR HFA 108 (90 Base) MCG/ACT Aero Soln What is the specific problem or interaction? Proair is not covered, ventolin or xopenex preferred. If the patient is having a problem with taking the med - how long has the problem been going on? N/A documented in this encounter Plan of Treatment Not on file documented as of this encounter Visit Diagnoses Not on filedocumented in this encounter Care Teams Damage Prevention Coordinator Relationship Specialty Start Date End Date Wandy Delcid DO PCP - General Internal Medicine 02/23/19 12/27/20 Joe Jimenez MD [address] [place] [address] PCP - General Internal Medicine 12/28/20 04/06/22 Carri Suazo MD [address] [place] [address] PCP - General Internal Medicine 04/07/22 documented as of this encounter
--- OUTSIDE RECORDS SUMMARY | 2024-11-22 11:17 | XMS_ITS | Encounter Summary ---
Author Organization [facility] Address [address] [place] [address] Care Team Providers Care Astronautical Engineer Name Role Phone Wandy Delcid DO Primary Care Pro vider Unavailable Joe Jimenez MD Primary Care Provider [phone] Carri Suazo MD Primary Care Provider [phone] Encounter Details Date Type Department Care Team Description 02/28/2019 Medical Librarian Report Medical Records [address] [place] [address] José Miguel Diaz MD Social History Tobacco Use Types Packs/Day Years Used Date Smoking Tobacco: Former Smokeless Tobacco: Never Comments:15 yrs Alcohol Use Standard Drinks/Week Comments Yes 6 (1 standard drink = 0.6 oz pur e alcohol) per weekend Sex Assigned at Date Recorded Not on file Job Start Date Occupation Industry Not on file Not on file Not on file documented as of this encounter Plan of Treatment Not on file documented as of this encounter Visit Diagnoses Not on filedocumented in this encounter Care Teams Astronautical Engineer Relationship Specialty Start Date End Date Wandy Delcid DO PCP - General Internal Medicine 02/23/19 12/27/20 Joe Jimenez MD [address] [place], [place] [phone] PCP - General Internal Medicine 12/28/20 04/06/22 Carri Suazo MD [address] [place] [address] PCP - General Internal Medicine 04/07/22 documented as of this encounter
--- OUTSIDE RECORDS SUMMARY | 2024-11-22 11:17 | XMS_ITS | Encounter Summary ---
Author Organization [facility] Address [address] [place] [address] Care Team Providers Care Forest Management Teacher Name Role Phone Name, Leno BLANDON Primary Care Provider Unavailabl e Wandy Delcid DO Primary Care Pro vider Unavailable Ricardo Louie MD Primary Care Provider Un available Wandy Delcid DO Primary Care Pro vider Unavailable Joe Jimenez MD Primary Care Provider [phone] Carri Suazo MD Primary Care Provider [phone] Encounter Details Date Type Department Care Team Description 03/16/2015 Release of Information Medical Records [address] [place] [address] Abstract, Provider Social History Tobacco Use Types Packs/Day Years Used Date Smoking Tobacco: Former Smokeless Tobacco: Never Comments:15 yrs Alcohol Use Standard Drinks/Week Comments No 0 (1 standard drink = 0.6 oz pur e alcohol) Sex Assigned at Date Recorded Not on file Job Start Date Occupation Industry Not on file Not on file Not on file documented as of this encounter Plan of Treatment Not on file documented as of this encounter Visit Diagnoses Not on filedocumented in this encounter Care Teams Forest Management Teacher Relationship Specialty Start Date End Date Name, MD Leno PCP - General 03/30/06 07/29/15 Wandy Delcid DO PCP - General Internal Medicine 07/30/15 10/30/15 Ricardo Louie MD PCP - General Internal Medicine 10/31/15 9 Wandy Delcid DO PCP - General Internal Medicine 02/23/19 12/27/20 Joe Jimenez MD [address] [place] [address] PCP - General Internal Medicine 12/28/20 04/06/22 Carri Suazo MD [address] [place] [address] PCP - General Internal Medicine 04/07/22 documented as of this encounter
--- OUTSIDE RECORDS SUMMARY | 2024-11-22 11:17 | XMS_ITS | Encounter Summary ---
Author Organization [facility] Address [address] [place] [address] Care Team Providers Care Resource Agent Name Role Phone Ricardo Louie MD Primary Care Provider Un available Wandy Delcid DO Primary Care Pro vider Unavailable Joe Jimenez MD Primary Care Provider [phone] Carri Suazo MD Primary Care Provider [phone] Reason for Visit * Reason Onset Date Comments Faxed Refill 07/07/2018 Encounter Details Date Type Department Care Team Description 07/07/2018 Refill Adult Medicine [address] [address] Ricardo Louie MD Faxed Refill Social History Tobacco Use Types Packs/Day Years [...] encounter Miscellaneous Notes * Telephone Encounter - Esther Hall - 07/07/2018 6:04 PM EST Patient would like script to be: E-PRESCRIBED/FAXED TO PHARMACY WHEN WAS THE PATIENT'S LAST APPOINTMENT IN ADULT MEDICINE? 03/05/18 WHEN WAS THE LAST TIME THE PATIENT SAW THEIR PCP? 03/05/18 Does patient have an upcoming appointment? Yes 07/08/18 (THE MEDICATION REQUESTED IS ON THE MED LIST ABOVE) All of the medications requested were on the CURRENT MEDS list Did you check the Pharmacy information above?: YES Patient wants: 30 -day supply Is this a mail order prescription request ? NO If the refill is from a FAXED refill request what is the RX # listed on the fax? N/A Patients current insurance carrier is: [place] / [place] / Product Type: MEDICARE [id number] documented in this encounter Plan of Treatment Not on file documented as of this encounter Visit Diagnoses Not on filedocumented in this encounter Care Teams Resource Agent Relationship Specialty Start Date End Date Ricardo Louie MD PCP - General Internal Medicine 10/31/15 9 Wandy Delcid DO PCP - General Internal Medicine 02/23/19 12/27/20 Joe Jimenez MD [address] [place] [address] PCP - General Internal Medicine 12/28/20 04/06/22 Carir Suazo MD [address] [place] [address] PCP - General Internal Medicine 04/07/22 documented as of this encounter
--- OUTSIDE RECORDS SUMMARY | 2024-11-22 11:17 | XMS_ITS | Encounter Summary ---
Author Organization [facility] Address [address] [place] [address] Care Team Providers Care Rn On Site Name Role Phone Wandy Delcid DO Primary Care Pro vider Joe Ladd MD Primary Care Provider Carri Suazo MD Primary Care Provider [phone] Reason for Visit * Reason Comments E-prescribe Rx Request Encounter Details Date Type Department Care Team Description 11/12/2019 Refill Adult Medicine [address] [address] Magen Rodriguez NP E-prescribe Rx Request Social History Tobacco Use [...] encounter Miscellaneous Notes * Telephone Encounter - Dena Sue M.A. - 11/14/2019 1:07 PM EDT Last ov 09/23/19 Next ov 01/31/20 Lab Results Component Value Date PSA 5.3 02/06/2015 * Telephone Encounter - Nina Saul - 11/14/2019 12:51 PM EDT Patient would like script to be: E-PRESCRIBED/FAXED TO PHARMACY WHEN WAS THE PATIENT'S LAST APPOINTMENT IN ADULT MEDICINE? 09-23-19 WHEN WAS THE LAST TIME THE PATIENT SAW THEIR PCP? Same as above Does patient have an upcoming appointment? Yes 01-31-20 (THE MEDICATION REQUESTED IS ON THE MED [...] / [place] / Product Type: MEDICARE [id number] documented in this encounter Plan of Treatment Not on file documented as of this encounter Visit Diagnoses Not on filedocumented in this encounter Care Teams Rn On Site Relationship Specialty Start Date End Date Wandy Delcid DO PCP - General Internal Medicine 02/23/19 12/27/20 Joe Jimenez MD [address] [place] [address] [phone] PCP - General Internal Medicine 12/28/20 04/06/22 Carri Suazo MD [address] [place] [address] PCP - General Internal Medicine 04/07/22 documented as of this encounter
--- OUTSIDE RECORDS SUMMARY | 2024-11-22 11:17 | XMS_ITS | Encounter Summary ---
Author Organization [facility] Address [address] [place] [address] Care Team Providers Care Oil Burner Mechanic Name Role Phone Wandy Delcid DO Primary Care Pro vider Joe Ladd MD Primary Care Provider [phone] Carri Suazo MD Primary Care Provider [phone] Reason for Visit * Reason Comments E-prescribe Rx Request Encounter Details Date Type Department Care Team Description 09/28/2019 Refill Adult Medicine [address] [phone] Wandy Delcid DO E-prescribe Rx Request Social [...] encounter Miscellaneous Notes * Telephone Encounter - Annmarie Bryant M.A. - 09/28/2019 9:56 AM EDT Lab Results Component Value Date ALB 4.5 07/05/2018 SGOT 32 01/21/2019 SGPT 36 01/21/2019 TBILI 0.3 07/05/2018 DBILI 0.1 02/06/2007 IBILI 0.6 02/06/2007 ALKPHOS 79 07/05/2018 TP 7.4 07/05/2018 * Telephone Encounter - Becky Munguia - 09/28/2019 9:52 AM EDT Patient would like script to be: E-PRESCRIBED/FAXED TO PHARMACY WHEN WAS THE PATIENT'S LAST APPOINTMENT IN ADULT MEDICINE? 09/23/19 WHEN WAS THE LAST TIME THE PATIENT SAW THEIR PCP? Same as above Does patient have an upcoming appointment? Yes 01/31/20 (THE MEDICATION REQUESTED IS ON THE MED [...] / Plan[place] / Product Type: MEDICARE [id number] documented in this encounter Plan of Treatment Not on file documented as of this encounter Visit Diagnoses Not on filedocumented in this encounter Care Teams Oil Burner Mechanic Relationship Specialty Start Date End Date Wandy Delcid DO PCP - General Internal Medicine 02/23/19 12/27/20 Joe Jimenez MD [address] [place] [address] PCP - General Internal Medicine 12/28/20 04/06/22 Carri Suazo MD [address] [place] [address] PCP - General Internal Medicine 04/07/22 documented as of this encounter
--- OUTSIDE RECORDS SUMMARY | 2024-11-22 11:17 | XMS_ITS | Encounter Summary ---
Author Organization [facility] Address [address] [place] [address] Care Team Providers Care Street Light Cleaner Name Role Phone Carri Suazo MD Primary Care Provider [phone] Encounter Details Date Type Department Care Team Description 02/23/2024 Telephone Adult Medicine [address] [address] Carri Suazo MD [address] [place] [address] [phone] Social History Tobacco Use Types Packs/Day Years [...] on filedocumented in this encounter Care Teams Street Light Cleaner Relationship Specialty Start Date End Date Carri Suazo MD [address] [place] [address] [phone] PCP - General Internal Medicine 04/07/22 documented as of this encounter
--- OUTSIDE RECORDS SUMMARY | 2024-11-22 11:17 | XMS_ITS | Encounter Summary ---
Author Organization [facility] Address [address] [place] [address] Care Team Providers Care Pharmacy Benefit Manager Name Role Phone Carri Suazo MD Primary Care Provider [phone] Reason for Visit * Reason Onset Date Comments Surgery (Schedule) 05/18/2024 Encounter Details Date Type Department Care Team Description 05/18/2024 Telephone [facility] [address] [phone] Elder Snyder DPM 175 [facility] [address] [place] [address] Surgery (Schedule) Social History Tobacco Use Types Packs/Day Years [...] encounter Miscellaneous Notes * Telephone Encounter - Delaney Krishna - 05/18/2024 9:34 AM EDT Called the daughter to schedule surgery for the patient and she stated that the patient is having cold feet, asking if he can get a orthopedic shoe to try first before proceeding with surgery, pleaseadvise. documented in this encounter Plan of Treatment Not on file documented as of this encounter Visit Diagnoses Not on filedocumented in this encounter Care Teams Pharmacy Benefit Manager Relationship Specialty Start Date End Date Carri Suazo MD [address] [place] [address] PCP - General Internal Medicine 04/07/22 documented as of this encounter
--- OUTSIDE RECORDS SUMMARY | 2024-11-22 11:17 | XMS_ITS | Encounter Summary ---
Author Organization [facility] Address [address] [place] [address] Care Team Providers Care Fish Agent Name Role Phone Wandy Delcid DO Primary Care Pro carlinr Joe Ladd MD Primary Care Provider [phone] Carri Suazo MD Primary Care Provider [phone] Reason for Visit * Reason Onset Date Comments Faxed Refill 08/23/2019 Encounter Details Date Type Department Care Team Description 08/23/2019 Refill Adult Medicine [address] [address] Wandy Delcid DO Faxed Refill Social History Tobacco Use Types [...] encounter Miscellaneous Notes * Telephone Encounter - Stephanie Ritter C.M.A. - 08/23/2019 2:42 PM EST AJ 07/25/19 Appt 11/25/19 Lab Results Component Value Date HGBA1C 7.8 04/19/2019 MALBUR 14.0 01/21/2019 MALBCR 9.2 01/21/2019 CHOL 141 01/21/2019 LDL 59 01/21/2019 HDL 41 01/21/2019 TRIG 209 01/21/2019 GLU 179 12/26/2016 CREAT 0.9 07/05/2018 * Telephone Encounter - Michelle Vogel - 08/23/2019 9:16 AM EST Patient would like script to be: E-PRESCRIBED/FAXED TO PHARMACY ?? WHEN WAS THE PATIENT'S LAST APPOINTMENT IN ADULT MEDICINE? 07/25/19 ?? WHEN WAS THE LAST TIME THE PATIENT SAW THEIR PCP? Same as above ?? Does patient have an upcoming appointment? Yes 11/25/19 ?? (THE MEDICATION REQUESTED IS ON THE MED LIST ABOVE) All of the medications requested were on the CURRENT MEDS list ?? Did you check the Pharmacy information above?: YES ?? Patient wants: 30 -day supply ?? Is this a mail order prescription request ? NO ?? If the refill is from a FAXED refill request what is the RX # listed on the fax? N/A ?? Patients current insurance carrier is: [place] / [place] / Product Type: MEDICARE [id number] ? documented in this encounter Plan of Treatment Not on file documented as of this encounter Visit Diagnoses Not on filedocumented in this encounter Care Teams Fish Agent Relationship Specialty Start Date End Date Wandy Delcid DO PCP - General Internal Medicine 02/23/19 12/27/20 Joe Jimenez MD [address] [place] [address] PCP - General Internal Medicine 12/28/20 04/06/22 Carri Suazo MD [address] [place] [address] PCP - General Internal Medicine 04/07/22 documented as of this encounter
--- OUTSIDE RECORDS SUMMARY | 2024-11-22 11:17 | XMS_ITS | Encounter Summary ---
Author Organization [facility] Address [address] [place] [address] Care Team Providers Care Ad Copy Writer Name Role Phone Joe Jimenez MD Primary Care Provider [phone] Carri Suazo MD Primary Care Provider [phone] Encounter Details Date Type Department Care Team Description 01/09/2022 Pt. Non Urgent Medical Question Adult Medicine [address] [address] Lazara Harrison PA-C Vitamin D deficiency (Primary Dx); Elevated blood protein Social History Tobacco Use Types Packs/Day Years Used Date Smoking Tobacco: Former Smokeless Tobacco: Never Comments:15 yrs Alcohol Use Standard Drinks/Week Comments Yes 6 (1 standard drink = 0.6 oz pur e alcohol) per weekend Sex Assigned at Date Recorded Not on file Job Start Date Occupation Industry Not on file Not on file Not on file COVID-19 Exposure Response Date Recorded In the last 10 days, have yo u been in contact with someone who was confirmed or suspected to have Coronavirus/COVID-19? No / Unsure 01/03/2022 10:06 AM EDT documented as of this encounter Miscellaneous Notes * Telephone Encounter - Minal Vincent M.A. - 01/09/2022 11:40 AM EDTFrom: Major Sammy To: Suzi Harrison Sent: 01/09/2022 11:38 AM EDT Subject: Clinical Questions RE: last visit Good morning, My name is Jacy Christianson, I am writing on behalf of my father Major. He was recently seen byyou on 01.03 and he was unable to give us a plan of care in regards to some findings you noted during his visit. I did read your note here on the portal and would like to clarify the following; 1 . I read you found a murmur... will you be ordering an echocardiogram for further assessment? I noticed that his chart history says CAD but he has never had any cardiac issues besides elevated cholesterol levels. He is only on Atorvastatin 20mg QD would increasing that be an option to better control his levels? 2. I noticed his labs showed Vitamin D levels and Folic Acid levels are low, should he be put on supplements? 3. Fabian ry issues: I appreciate the Neuropsych. referral as he has been having issues with remembering certain things. Is there any imaging you think he may need as well? 4. Colonoscopy, as noted in his notes his last colonoscopy was done on 12/26/2016 which means it has been 5 years. Are we going to be ordering one soon? There is a family history of colon cancer on hisside. 5. Urology- I have set him up for follow up with Dr. Diaz as he is very overdue. He will be seen 7.. I apologize for the long message, just want to be sure we are staying on top of things as Fiorella very stubborn when it comes to his health and seeing his providers. I appreciate the care you are providing to him and I hope to hear back from you soon. -Jacy documented in this encounter Plan of Treatment Not on file documented as of this encounter Results * PROTEIN TOTAL EP, SERUM (08/01/2022 8:09 AM EST) TOTAL PROTEIN (TP) 7.7 6.0 - 8.0 G/dL 08/01/2022 10:43 AM EST [facility] 08/01/2022 8:0 9 AM EST 08/01/2022 8:10 AM EST Narrative EDELMIRA SIMONS - 08/01/2022 10:43 AM EST Release to patient->Immediate Lazara Harrison PA-C LAB EDELMIRA SIMONS documented in this encounter Visit Diagnoses Diagnosis Vitamin D deficiency- Primary Unspecified vitamin D deficiency Elevated blood protein Other disorders of plasma protein metabolism Elevated blood protein Other disorders of plasma protein metabolism Type 2 diabetes mellitus with microalbuminuria, without long-term current use of insulin (HCC) Vitamin D deficiency Unspecified vitamin D deficiency PSA elevation Elevated prostate specific antigen (PSA) documented in this encounter Care Teams Ad Copy Writer Relationship Specialty Start Date End Date Joe Jimenez MD [address] [place] [address] PCP - General Internal Medicine 12/28/20 04/06/22 Carri Suazo MD [address] [place] [address] PCP - General Internal Medicine 04/07/22 documented as of this encounter
--- OUTSIDE RECORDS SUMMARY | 2024-11-22 11:17 | XMS_ITS | Encounter Summary ---
Author Organization [facility] Address [address] [place] [address] Care Team Providers Care Card Brusher Name Role Phone Carri Suazo MD Primary Care Provider [phone] Reason for Visit * Reason Comments E-prescribe Rx Request Encounter Details Date Type Department Care Team Description 09/11/2022 Refill Adult Medicine [address] [address] Carri Suazo MD [address] [place] [address] E-prescribe Rx Request Social History Tobacco Use [...] suspected to have Coronavirus/COVID-19? No / Unsure 09/01/2022 7:37 AM EST documented as of this encounter Miscellaneous Notes * Telephone Encounter - Taylor Paiz M.A. - 09/11/2022 1:58 PM EST Last office visit 08/12/22 Next office visit 4/27/23 Ventolin filled on 08/12/22, rescue use only and should last 6 months Trulicity: Transmission to pharmacy failed (08/11/2022 ??4:11 PM EST) Please sign again. * Telephone Encounter - Kelin Castillo - 09/11/2022 1:55 PM EST Patient would like script to be: E-PRESCRIBED/FAXED TO PHARMACY WHEN WAS THE PATIENT'S LAST APPOINTMENT IN ADULT MEDICINE? 08/12/22 WHEN WAS THE LAST TIME THE PATIENT SAW THEIR PCP? Same as above Does patient have an upcoming appointment? Yes 11/13/22 (THE MEDICATION REQUESTED IS ON THE MED [...] N/A Patients current insurance carrier is: Payor: [facility] MCR / Plan: [facility]0 [facility] [id number] / Product Type: HMO [id number] documented in this encounter Plan of Treatment Not on file documented as of this encounter Visit Diagnoses Not on filedocumented in this encounter Care Teams Card Brusher Relationship Specialty Start Date End Date Carri Suazo MD [address] [place] [address] PCP - General Internal Medicine 04/07/22 documented as of this encounter
--- OUTSIDE RECORDS SUMMARY | 2024-11-22 11:17 | XMS_ITS | Clinical Summary ---
Author Organization [facility] [address] [facility] Address [address] [place], [place] Phone Care Team Providers Care Brake Linings Coater Name Role Phone Carri Suazo MD Primary Care Provider [phone] Allergies Active Allergy Reactions Criticality Noted Date [...] complication, without long-term current use of insulin ([facility] V24, [facility] V28) USE TO CHECK BLOOD SUGAR DAILY 1 kit 08/08/19 25 Active blood sugar diagnostic (FreeStyle Lite Strips) test stripIndications :Type 2 diabetes mellitus with other ophthalmic complication, without long-term current use of insulin ([facility] V24, [facility] V28) USE TO TEST BLOOD SUGAR ONCE DAILY 200 strip 5 08/08/19 25 Active aspirin 81 mg EC tablet TAKE 1 TABLET BY MOUTH EVERY DAY 90 tablet 1 09/06/19 25 Active Trulicity 3 mg/0.5 mL pen injector injectionIndicat ions:Type 2 diabetes mellitus with other specified complication ([facility] V24, [facility] V28) INJECT 3 MG INTO THE SKIN [...] (diabetes mellitus), type 2 with ophthalmic complications ([facility] V24, [facility] V28) 09/12/2013 Overview (04/18/2024): Nuclear Sclerosis out side eye exam 07/07/12. Dr. Engle. Obesity (BMI 30.0-34.9) 11/20/2009 Asthma 04/13/2006 Essential hypertension, benign 04/13/2006 CAD (coronary artery disease) 04/13/2006 Hyperlipidemia 04/13/2006 Lumbago 04/13/2006 Encounters Date Type Department Care Team Description 10/19/2024 3:15 PM EDT Office Visit Orthopedic Surgery [facility] [address] [phone] Elder Snyder DPM Tailor's bunionette, left (Primary Dx); Ulcer of toe of left foot, limited to breakdown of skin ([facility] V24, [facility] V28) 10/11/2024 8:30 AM EDT Office Visit Orthopedic [facility] [address] [phone] Elder Snyder DPM Cellulitis of left foot (Primary Dx); Bilateral femoral artery stenosis ([facility] V24); Tailor's bunionette, left 09/12/2024 9:30 AM EST Office Visit Orthopedic [facility] [address] [phone] Elder Snyder DPM Tailor's bunionette, left (Primary Dx); Ulcer of toe of left foot, limited to breakdown of skin ([facility] V24, [facility] V28); Type II diabetes mellitus with peripheral circulatory disorder ([facility] V24, [facility] V28) 09/07/2024 1:30 PM EST Office Visit Adult Medicine [address] [phone] Carri Suazo MD Essential hypertension, benign (Primary Dx); Mixed hyperlipidemia; Benign prostatic hyperplasia without lower urinary tract symptoms; Need for tetanus, diphtheria, and acellular pertussis (Tdap) vaccine; 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 ([facility] V24, [facility] V28) 08/29/2024 8:15 AM EST Office Visit Orthopedic Surgery [address] [phone] Elder Snyder, DPM Ulcer of toe of left foot, limited to breakdown of skin ([facility] V24, [facility] V28) (Primary Dx); Follow-up exam; Maninder godfrey, left; Diabetic mononeuropathy simplex ([facility] V24, [facility] V28); Type II diabetes mellitus with peripheral circulatory disorder ([facility] V24, [facility] V28) from Last 3 Months Immunizations Name Administration Dates Next Due H1N1 Inj Preservative Free 08/21/2009 Influenza Quadravalent, MDCK , 0.5ml, preservative free (Flucelvax) 6mo and older 04/07/2022,07/08/2018 Influenza trivalent, 0.5mL ( Fluad) 65yo and older 05/25/2024 Influenza trivalent, 0.5mL ( Fluzone High-dose) 65yo and older 05/28/2023,05/16/2021,06/10/2020,07/25,05/01/2017 Influenza trivalent, with pr eservative (Fluzone; Afluria) 6mo and older 07/31/2016,06/11/2015,06/06/2014,05/31,05/25/2012,06/23/2011,03/26/2010 ,05/21/2009,05/17/2007,06/08/2006 [employer] [facility] [employer] SARS-CoV-2 COVID-19, mRNA, LNP-S, preservative free 07/09/2021 [...] Coronary atherosclerosis of unspecified type of vessel, [place] or graft 04/13/2006 DX:Coronary atherosclerosis of unspecified type of vessel, [place] or graft Other and unspecified hyperlipidemia 04/13/2006 [...] Daughter 3 Alive Daughter 4 Alive Father [place] Mother DM Sister Alive DM Son Alive [...] 8:15 AM EDT Office Visit Orthopedic Surgery [facility] [address] [phone] Elder Snyder DPM [address] [address] 01/05/2025 9:30 AM EDT Office Visit Adult Medicine [place] [facility] [address] [phone] Rachel Kilgore PA [address] [place] [address] 01/12/2025 9:00 AM EDT Office Visit Endocrinology [address] [phone] Chu Joyner MD [facility] [place] [address] Health Maintenance Due Date Last Done Comments [...] complication, without long-term current use of insulin ([facility] V24, [facility] V28) COMPREHENSIVE METABOLIC PANEL Routine 07/05/2024 8:17 AM EST Primary hypertension HEMOGLOBIN A1C Routine 07/05/2024 8:17 AM EST Type 2 diabetes mellitus with other specified complication, without long-term current use of insulin ([facility]/H[facility] V24, [facility] V28) LIPID PANEL WITH REFLEX TO DIRECT [...] mg/dL LAB CHEMISTRY METHOD 07/05/2024 10:38 AM [facility] Triglycerides 167(H) 0 - 150 mg/dL LAB CHEMISTRY METHOD 07/05/2024 10:38 AM [facility] HDL 49 >=40 mg/dL LAB CHEMISTRY METHOD 07/05/2024 10:38 AM [facility] LDL Calculated 71 0 - 100 mg/dL LAB CHEMISTRY METHOD 07/05/2024 10:38 AM [facility] VLDL Cholesterol Eleazar 33.4 mg/dL LAB CHEMISTRY METHOD 07/05/2024 10:38 AM [facility] Non HDL Chol. (LDL+VLDL) 104 <145 mg/dL LAB CHEMISTRY METHOD 07/05/2024 10:38 AM [facility] Chol/HDL Ratio 3.1 0.0 - 4.4 LAB CHEMISTRY METHOD 07/05/2024 10:38 AM [facility] Blood Venous blood specimen / Unknown Venipuncture / Unknown 07/05/2024 8:17 AM EST 07/05/2024 8:17 AM EST us Carri Suazo MD LAB BLOOD ORDERABLES Final Resul t [facility] [address] [place] [address], [place] [phone] * Microalbumin creatinine urine ratio (07/05/2024 8:17 AM EST) Creatinine, Urine 166.0 mg/dL LAB CHEMISTRY METHOD 07/05/2024 11:01 AM EST [facility] Microalb, Ur 13.5 0.0 - 29.0 mg/L LAB CHEMISTRY METHOD 07/05/2024 11:01 AM EST [facility] Microalb/Creat Ratio 8 <30 mg/g creat LAB CHEMISTRY METHOD 07/05/2024 11:01 AM EST [facility] Urine Urine specimen obtained by clean catch procedure / Unknown Non-blood Collection / Unknown 07/05/2024 8:17 AM EST 07/05/2024 8:17 AM EST us Carri Suazo MD LAB URINE ORDERABLES Final Resul t Performing Organization Address City/[facility]/ZIP Co de Phone Number [facility] [address] [place] [address], [place] [phone] * (ABNORMAL) Hemoglobin A1c (07/05/2024 8:17 AM EST) Hemoglobin A1C 7.0(H) <6.5 % LAB CHEMISTRY METHOD 07/05/2024 1:50 PM EST [facility] Mean Bld Glu Estim. 154 mg/dL LAB CHEMISTRY METHOD 07/05/2024 1:50 PM EST [facility] Blood Venous blood specimen / Unknown Venipuncture / Unknown 07/05/2024 8:17 AM EST 07/05/2024 8:17 AM EST us Carri Suazo MD LAB BLOOD ORDERABLES Final Resul t [facility] [address] [place] [address], [place] [phone] * (ABNORMAL) Comprehensive metabolic panel (07/05/2024 8:17 AM EST) Sodium 138 133 - 145 mmol/L LAB CHEMISTRY METHOD 07/05/2024 10:38 AM [facility] Potassium 4.4 3.5 - 5.5 mmol/L LAB CHEMISTRY METHOD 07/05/2024 10:38 AM [facility] Chloride 102 96 - 110 mmol/L LAB CHEMISTRY METHOD 07/05/2024 10:38 AM [facility] CO2 28 21 - 32 mmol/L LAB CHEMISTRY METHOD 07/05/2024 10:38 AM [facility] Anion Gap 8 3 - 11 LAB CHEMISTRY METHOD 07/05/2024 10:38 AM [facility] Glucose 130(H) 70 - 100 mg/dL LAB CHEMISTRY METHOD 07/05/2024 10:38 AM [facility] BUN 17 5 - 25 mg/dL LAB CHEMISTRY METHOD 07/05/2024 10:38 AM [facility] Creatinine 1.25 0.70 - 1.30 mg/dL LAB CHEMISTRY METHOD 07/05/2024 10:38 AM [facility] eGFR 59(L) >=60 mL/min/1. 73m2 LAB CHEMISTRY METHOD 07/05/2024 10:38 AM [facility] Comment:Calculation based on the??Chronic Kidney Disease Epidemiology Collaboration (CKD-EPI) equation refit??without adjustment for race. BUN/Creatinine Ratio 13.6 LAB CHEMISTRY METHOD 07/05/2024 10:38 AM [facility] Calcium 9.4 8.5 - 10.5 mg/dL LAB CHEMISTRY METHOD 07/05/2024 10:38 AM [facility] AST (SGOT) 21 10 - 42 unit/L LAB CHEMISTRY METHOD 07/05/2024 10:38 AM [facility] ALT (SGPT) 27 10 - 60 unit/L LAB CHEMISTRY METHOD 07/05/2024 10:38 AM [facility] Alkaline Phosphatase 65 42 - 121 unit/L LAB CHEMISTRY METHOD 07/05/2024 10:38 AM [facility] Total Protein 7.6 6.0 - 8.0 g/dL LAB CHEMISTRY METHOD 07/05/2024 10:38 AM [facility] Albumin 4.3 3.2 - 5.0 g/dL LAB CHEMISTRY METHOD 07/05/2024 10:38 AM [facility] Total Bilirubin 0.7 0.0 - 1.4 mg/dL LAB CHEMISTRY METHOD 07/05/2024 10:38 AM [facility] Blood Venous blood specimen / Unknown Venipuncture / Unknown 07/05/2024 8:17 AM EST 07/05/2024 8:17 AM EST us Carri Suazo MD LAB BLOOD ORDERABLES Final Resul t [facility] [address] [place] [address], * Diabetes Foot Exam (03/30/2024) Pathologist [facility] Diabetes: Annual Foot Exam Abstracted us Historical Provider HEALTH MAINTENANCE Final Result * Diabetes Eye Exam (09/08/2023) [facility] Diabetes: Annual Retina Eye Exam Abstracted us Historical Provider HEALTH MAINTENANCE Final Result * Depression Screening (09/02/2023) Pathologist [facility] Depression Screening Abstracted us Historical Provider HEALTH MAINTENANCE Final Result * Hepatitis C Screening (06/02/2013) Hepatitis C Screening Abstracted us Historical Provider HEALTH MAINTENANCE Final Result from Last 3 Months or Most Recently Relevant to Health Maintenance Insurance [facility] Member Subscriber Plan / Payer (Ef fective 2020-Present) Name:Major Christianson Relation to Subscriber:Self Name:Major Christianson Payer ID:[id number] Group ID:[id number] Type:Not on file Address: [place] [address] [address] [id number] Care Teams Brake Linings Coater Relationship Specialty Start Date End Date Carri Suazo MD [address] [place] [phone] PCP - General Internal Medicine 05/24/24
--- OUTSIDE RECORDS SUMMARY | 2024-11-22 11:17 | XMS_ITS | Encounter Summary ---
Author Organization [facility] Address [address] [place] [address] Care Team Providers Care Mechanical Engineering Draftsperson Name Role Phone Carri Suazo MD Primary Care Provider [phone] Reason for Visit * Reason Comments E-prescribe Rx Request Encounter Details Date Type Department Care Team Description 06/01/2023 Refill Adult Medicine [address] [address] Carri Suazo MD [address] [place] [address] E-prescribe Rx Request Social History Tobacco Use [...] suspected to have Coronavirus/COVID-19? No / Unsure 05/28/2023 12:39 PM EST documented as of this encounter Miscellaneous Notes * Telephone Encounter - Rachel Kilgore PA-C - 06/01/2023 5:01 PM EST Ok to fill. Bryanna Wilkerson * Telephone Encounter - Taylor Paiz M.A. - 06/01/2023 3:51 PM EST Last office visit 05/28/23 Next office visit 09/02/23 Not filled at time of visit, will you fill please documented in this encounter Plan of Treatment Not on file documented as of this encounter Visit Diagnoses Not on filedocumented in this encounter Care Teams Mechanical Engineering Draftsperson Relationship Specialty Start Date End Date Carri Suazo MD [address] [place] [phone] PCP - General Internal Medicine 04/07/22 documented as of this encounter
--- OUTSIDE RECORDS SUMMARY | 2024-11-22 11:17 | XMS_ITS | Encounter Summary ---
Author Organization [facility] Address [address] [place] [address] Care Team Providers Care Contract Law Specialist Name Role Phone Carri Suazo MD Primary Care Provider [phone] Reason for Visit * Reason Comments E-prescribe Rx Request Encounter Details Date Type Department Care Team Description 11/22/2022 Refill Adult Medicine [address] [address] Joe Jimenez MD [address] [place] [address] E-prescribe Rx Request Social History Tobacco Use [...] suspected to have Coronavirus/COVID-19? No / Unsure 11/13/2022 9:14 AM EDT documented as of this encounter Miscellaneous Notes * Telephone Encounter - Sandy Moreno M.A. - 11/25/2022 3:32 PM EDT Lab Results Component Value Date NA 140 11/13/2022 K 4.0 11/13/2022 CO2 27 11/13/2022 CL 103 11/13/2022 BUN 19 11/13/2022 CREAT 1.09 11/13/2022 GLU 163 11/13/2022 CA 9.7 11/13/2022 GFR 70 11/13/2022 Lab Results Component Value Date HGBA1C 6.7 11/13/2022 MALBUR 7.0 11/13/2022 MALBCR < 10.4 11/13/2022 CHOL 169 11/13/2022 LDL 77 11/13/2022 HDL 43 11/13/2022 TRIG 246 11/13/2022 GLU 163 11/13/2022 CREAT 1.09 11/13/2022 AJ w/PCP 11/13/2022 Next OV w/PCP 02/12/2023 * Telephone Encounter - Kristin Hernandez - 11/25/2022 2:29 PM EDT Patient would like script to be: E-PRESCRIBED/FAXED TO PHARMACY WHEN WAS THE PATIENT'S LAST APPOINTMENT IN ADULT MEDICINE? 11/13/22 WHEN WAS THE LAST TIME THE PATIENT SAW THEIR PCP? Same as above Does patient have an upcoming appointment? Yes 02/12/23 (THE MEDICATION REQUESTED IS ON THE MED [...] N/A Patients current insurance carrier is: Payor: [facility] MCR / Plan: O $0 [facility] [id number] / Product Type: HMO Duv-[id number] documented in this encounter Plan of Treatment Not on file documented as of this encounter Visit Diagnoses Not on filedocumented in this encounter Care Teams Contract Law Specialist Relationship Specialty Start Date End Date Carri Suazo MD [address] [place] [phone] PCP - General Internal Medicine 04/07/22 documented as of this encounter
--- OUTSIDE RECORDS SUMMARY | 2024-11-22 11:17 | XMS_ITS | Encounter Summary ---
Author Organization [facility] Address [address] [place] [address] Care Team Providers Care Boot And Saddle Repair Person Name Role Phone Wandy Delcid DO Primary Care Pro vider Unavailable Joe Jimenez MD Primary Care Provider [phone] Carri Suazo MD Primary Care Provider [phone] Encounter Details Date Type Department Care Team Description 08/29/2019 SCAN Medical Records [address] [place] [address] Abstract, Provider Social History Tobacco Use Types [...] on file documented as of this encounter Procedures Procedure Name Priority Date/Time Associated Diagnosis Comments OUTSIDE STRESS ECHO Routine 08/29/2019 documented in this encounter Results * OUTSIDE STRESS ECHO (08/29/2019) Provider Default CARDIOLOGY documented in this encounter Visit Diagnoses Not on filedocumented in this encounter Care Teams Boot And Saddle Repair Person Relationship Specialty Start Date End Date Wandy Delcid DO PCP - General Internal Medicine 02/23/19 12/27/20 Joe Jimenez MD [address] [place] [address] PCP - General Internal Medicine 12/28/20 04/06/22 Carri Suazo MD [address] [place] [address] PCP - General Internal Medicine 04/07/22 documented as of this encounter
--- OUTSIDE RECORDS SUMMARY | 2024-11-22 11:17 | XMS_ITS | Encounter Summary ---
Author Organization [facility] Address [address] [place] [address] Care Team Providers Care Clinic Lead Name Role Phone Carri Suazo MD Primary Care Provider [phone] Reason for Visit * Reason Comments E-prescribe Rx Request Encounter Details Date Type Department Care Team Description 02/20/2023 Refill Adult Medicine [address] [address] Carri Suazo MD [address] [place] [address] E-prescribe Rx Request Social History Tobacco Use [...] suspected to have Coronavirus/COVID-19? No / Unsure 02/12/2023 8:40 AM EDT documented as of this encounter Miscellaneous Notes * Telephone Encounter - Taylor Paiz M.A. - 02/23/2023 3:43 PM EDT Last office visit 02/12/23 Next office visit 05/15/23 Pt with dx of asthma. * Telephone Encounter - Torstenjame Bill - 02/23/2023 3:34 PM EDT Patient would like script to be: E-PRESCRIBED/FAXED TO PHARMACY WHEN WAS THE PATIENT'S LAST APPOINTMENT IN ADULT MEDICINE? 02/12/2023 WHEN WAS THE LAST TIME THE PATIENT SAW THEIR PCP? Same as above Does patient have an upcoming appointment? Yes 05/15/2023 (THE MEDICATION REQUESTED IS ON THE MED [...] N/A Patients current insurance carrier is: Payor: [facility] MCR / Plan: [facility] $0 [facility] [id number] / Product Type: HMO [id number]-[id number] documented in this encounter Plan of Treatment Not on file documented as of this encounter Visit Diagnoses Not on filedocumented in this encounter Care Teams Clinic Lead Relationship Specialty Start Date End Date Carri Suazo MD [address] [place] [address] PCP - General Internal Medicine 04/07/22 documented as of this encounter
--- OUTSIDE RECORDS SUMMARY | 2024-11-22 11:17 | XMS_ITS | Encounter Summary ---
Author Organization [facility] Address [address] [place] [address] Care Team Providers Care After School Tutor Name Role Phone Joe Jimenez MD Primary Care Provider [phone] Carri Suazo MD Primary Care Provider [phone] Reason for Visit * Reason Onset Date Comments refill request 06/12/2021 Encounter Details Date Type Department Care Team Description 06/12/2021 Refill Adult Medicine [address] [phone] Joe Jimenez MD [address] [place] [phone] refill request Social History Tobacco Use Types Packs/Day Years [...] Exposure Response Date Recorded In the last month, have you been in contact with someone who was confirmed or suspected to have Coronavirus / COVID-19? No / Unsure 05/16/2021 8:13 AM EDT documented as of this encounter Miscellaneous Notes * Telephone Encounter - Amparo Ibrahim - 06/12/2021 2:41 PM EST Jordon 05/16/21 Ov 11/05/20 Lab Results Component Value Date HGBA1C 8.4 05/16/2021 MALBUR 24.2 05/16/2021 MALBCR 30.2 05/16/2021 CHOL 195 05/16/2021 LDL 102 05/16/2021 HDL 45 05/16/2021 TRIG 241 05/16/2021 GLU 196 05/16/2021 CREAT 1.00 05/16/2021 * Telephone Encounter - Lluvia Castano - 06/12/2021 2:14 PM EST Patient would like script to be: E-PRESCRIBED/FAXED TO PHARMACY WHEN WAS THE PATIENT'S LAST APPOINTMENT IN ADULT MEDICINE? 05/16/21 WHEN WAS THE LAST TIME THE PATIENT SAW THEIR PCP? Same as above Does patient have an upcoming appointment? Yes 11/05/21 (THE MEDICATION REQUESTED IS ON THE MED [...] N/A Patients current insurance carrier is: Payor: [facility] MCR / Plan: [employer] $0 [facility] [id number] / Product Type: HMO [id number] documented in this encounter Plan of Treatment Not on file documented as of this encounter Visit Diagnoses Not on filedocumented in this encounter Care Teams After School Tutor Relationship Specialty Start Date End Date Joe Jimenez MD [address] [place] [address] PCP - General Internal Medicine 12/28/20 04/06/22 Carri Suazo MD [address] [place] [address] PCP - General Internal Medicine 04/07/22 documented as of this encounter
--- OUTSIDE RECORDS SUMMARY | 2024-11-22 11:17 | XMS_ITS | Encounter Summary ---
Author Organization [facility] Address [address] [place] [address] Care Team Providers Care Inverted Block Operator Name Role Phone Carri Suazo MD Primary Care Provider [phone] Encounter Details Date Type Department Care Team Description 08/11/2023 Orders Only Adult Medicine [address] [address] Rachel Kilgore PA-C [address] [place] [address] [phone] Social History Tobacco Use Types Packs/Day Years [...] on filedocumented in this encounter Care Teams Inverted Block Operator Relationship Specialty Start Date End Date Carri Suazo MD [address] [place] [address] PCP - General Internal Medicine 04/07/22 documented as of this encounter
--- OUTSIDE RECORDS SUMMARY | 2024-11-22 11:17 | XMS_ITS | Encounter Summary ---
Author Organization [facility] Address [address] [place] [address] Care Team Providers Care Market Research Lead Name Role Phone Carri Suazo MD Primary Care Provider [phone] Encounter Details Date Type Department Care Team Description 11/21/2022 Release of Information Medical Records [address] [place] [address] Abstract, Provider Social History Tobacco Use Types [...] AM EDT documented as of this encounter Plan of Treatment Not on file documented as of this encounter Visit Diagnoses Not on filedocumented in this encounter Care Teams Market Research Lead Relationship Specialty Start Date End Date Carri Suzao MD [address] [place] [phone] PCP - General Internal Medicine 04/07/22 documented as of this encounter
--- OUTSIDE RECORDS SUMMARY | 2024-11-22 11:17 | XMS_ITS | Encounter Summary ---
Author Organization [facility] Address [address] [place] [address] Care Team Providers Care Radar Repairer Name Role Phone Joe Jimenez MD Primary Care Provider [phone] Carri Suazo MD Primary Care Provider [phone] Encounter Details Date Type Department Care Team Description 02/12/2022 Carbon Setter Report Medical Records [address] [place] [phone] Jennifer Nava Social History Tobacco Use Types Packs/Day Years [...] Recorded In the last 10 days, have genaro narayanan been in contact with someone who was confirmed or suspected to have Coronavirus/COVID-19? No / Unsure 02/14/2022 12:32 PM EDT documented as of this encounter Plan of Treatment Not on file documented as of this encounter Visit Diagnoses Not on filedocumented in this encounter Care Teams Radar Repairer Relationship Specialty Start Date End Date Joe Jimenez MD [address] [place] [address] PCP - General Internal Medicine 12/28/20 04/06/22 Carri Suazo MD [address] [place] [address] PCP - General Internal Medicine 04/07/22 documented as of this encounter
--- OUTSIDE RECORDS SUMMARY | 2024-11-22 11:17 | XMS_ITS | Encounter Summary ---
Author Organization [facility] Address [address] [place] [address] Care Team Providers Care Clean Energy Policy Analyst Name Role Phone Wandy Delcid DO Primary Care Pro carlinr Joe Ladd MD Primary Care Provider [phone] Carri Suazo MD Primary Care Provider [phone] Reason for Visit * Reason Onset Date Comments Call From Patient Family 02/14/2020 Encounter Details Date Type Department Care Team Description 02/14/2020 Telephone Adult Medicine [address] [id number] Wandy Delcid DO Call From Patient Family Social History Tobacco Use Types Packs/Day Years [...] encounter Miscellaneous Notes * Telephone Encounter - Wendy Helms M.A. - 02/14/2020 5:35 PM EDT left message to call back, please put call through to x [phone] or resend to message/pod pool if no answer Referral letter was mailed to pt * Telephone Encounter - Jelena Dixonjuarez - 02/14/2020 9:00 AM EDT Patient's daughter would like to speak with Wandy Marinelli about the referral to onchology/hematology department. documented in this encounter Plan of Treatment Not on file documented as of this encounter Visit Diagnoses Not on filedocumented in this encounter Care Teams Clean Energy Policy Analyst Relationship Specialty Start Date End Date Wandy Delcid DO PCP - General Internal Medicine 02/23/19 12/27/20 Joe Jimenez MD [address] [place] [address] PCP - General Internal Medicine 12/28/20 04/06/22 Carri Suzao MD [address] [place] [address] PCP - General Internal Medicine 04/07/22 documented as of this encounter
--- OUTSIDE RECORDS SUMMARY | 2024-11-22 11:17 | XMS_ITS | Encounter Summary ---
Author Organization [facility] Address [address] [place] [address] Care Team Providers Care Silver Designer Name Role Phone Ricardo Louie MD Primary Care Provider Un available Wandy Delcid DO Primary Care Pro vider Unavailable Joe Jimenez MD Primary Care Provider [phone] Carri Suazo MD Primary Care Provider [phone] Reason for Visit * Reason Onset Date Comments refill request 08/16/2018 Encounter Details Date Type Department Care Team Description 08/16/2018 Refill Adult Medicine [address] [address] Ricardo Louei MD refill request Social History Tobacco Use Types [...] Telephone Encounter - Taylor Paiz M.A. - 08/17/2018 11:22 AM EST Lab Results Component Value Date HGBA1C 7.5 07/05/2018 MALBUR 51.2 03/01/2018 MALBCR 19.6 03/01/2018 CHOL 186 07/25/2017 LDL 110 07/25/2017 HDL 54 07/25/2017 TRIG 112 07/25/2017 GLU 175 07/05/2018 CREAT 0.9 07/05/2018 * Telephone Encounter - Jelena Shauna - 08/16/2018 4:40 PM EST Patient had been out of this medication for one day. Per pharmacy this has been rejected. Patient would like script to be: E-PRESCRIBED/FAXED TO PHARMACY WHEN WAS THE PATIENT'S LAST APPOINTMENT IN ADULT MEDICINE? 07/08/18 WHEN WAS THE LAST TIME THE PATIENT SAW THEIR PCP? Same as above Does patient have an upcoming appointment? Yes 10/26/18 (THE MEDICATION REQUESTED IS ON THE MED [...] / Plan: [place] / Product Type: MEDICARE [id number] documented in this encounter Plan of Treatment Not on file documented as of this encounter Visit Diagnoses Not on filedocumented in this encounter Care Teams Silver Designer Relationship Specialty Start Date End Date Ricardo Louie MD PCP - General Internal Medicine 10/31/15 9 Wandy Delcid DO PCP - General Internal Medicine 02/23/19 12/27/20 Joe Jimenez MD [address] [place] [address] PCP - General Internal Medicine 12/28/20 04/06/22 Carri Suazo MD [address] [place] [address] PCP - General Internal Medicine 04/07/22 documented as of this encounter
--- OUTSIDE RECORDS SUMMARY | 2024-11-22 11:17 | XMS_ITS | Encounter Summary ---
Author Organization [facility] Address [address] [place] [address] Care Team Providers Care Principal Network Architect Name Role Phone Ricardo Louie MD Primary Care Provider Un available Wandy Delcid DO Primary Care Pro vider Unavailable Joe Jimenez MD Primary Care Provider [phone] Carri Suazo MD Primary Care Provider [phone] Encounter Details Date Type Department Care Team Description 12/31/2015 Purchasing Specialist Report Medical Records [address] [place] [address] Oleg Gamboa MD Social History Tobacco Use Types Packs/Day [...] on filedocumented in this encounter Care Teams Principal Network Architect Relationship Specialty Start Date End Date Ricardo Louie MD PCP - General Internal Medicine 10/31/15 9 Wandy Delcid DO PCP - General Internal Medicine 02/23/19 12/27/20 Joe Jimenez MD [address] [place] [address] [phone] PCP - General Internal Medicine 12/28/20 04/06/22 Carri Suazo MD [address] [place] [address] [phone] PCP - General Internal Medicine 04/07/22 documented as of this encounter
--- OUTSIDE RECORDS SUMMARY | 2024-11-22 11:17 | XMS_ITS | Encounter Summary ---
Author Organization [facility] Address [address] [place] [address] Care Team Providers Care Computer Support Technician Name Role Phone Carri Suazo MD Primary Care Provider [phone] Reason for Visit * Reason Onset Date Comments medication problems 07/21/2023 Encounter Details Date Type Department Care Team Description 07/21/2023 Telephone Adult Medicine [address] [address] Carri Suazo MD [address] [place] [address] [phone] medication problems Social History Tobacco Use Types Packs/Day [...] Telephone Encounter - Rachel Kilgore PA-C - 07/21/2023 4:18 PM EST Asmanex sent to pharmacy. * Telephone Encounter - Wendy Bonds L.P.NTiffanie - 07/21/2023 3:31 PM EST Suzan, here is another one... will cover mometasone..... * Telephone Encounter - Lluvia Chani Castano - 07/21/2023 2:53 PM EST Who is calling? A pharmacist: Pharmacy: [facility] Pharmacist Name: Pharmacy Name of the medication fluticasone 50 MCG/ACT nasal spray What is the specific problem or interaction? Med brand name discontinued by company If the patient is having a problem with taking the med - how long has the problem been going on? N/A documented in this encounter Plan of Treatment Not on file documented as of this encounter Visit Diagnoses Not on filedocumented in this encounter Care Teams Computer Support Technician Relationship Specialty Start Date End Date Carri Suazo MD [address] [place] [address] PCP - General Internal Medicine 04/07/22 documented as of this encounter
--- OUTSIDE RECORDS SUMMARY | 2024-11-22 11:17 | XMS_ITS | Encounter Summary ---
Author Organization [facility] Address [address] [place] [address] Care Team Providers Care Adult Specialist Name Role Phone Wandy Delcid DO Primary Care Pro vider Joe Ladd MD Primary Care Provider [phone] Carri Suazo MD Primary Care Provider [phone] Reason for Visit * Reason Comments E-prescribe Rx Request Encounter Details Date Type Department Care Team Description 09/28/2019 Refill Adult Medicine [address] [phone] Wandy Delcid DO E-prescribe Rx Request Social [...] encounter Miscellaneous Notes * Telephone Encounter - Becky Munguia - 09/29/2019 9:23 AM EDT Patient would like script to [...] / Plan: [place] / Product Type: MEDICARE [id number] documented in this encounter Plan of Treatment Not on file documented as of this encounter Visit Diagnoses Not on filedocumented in this encounter Care Teams Adult Specialist Relationship Specialty Start Date End Date Wandy Delcid DO PCP - General Internal Medicine 02/23/19 12/27/20 Joe Jimenez MD [address] [place] [address] PCP - General Internal Medicine 12/28/20 04/06/22 Carri Suazo MD [address] [place] [address] PCP - General Internal Medicine 04/07/22 documented as of this encounter
--- OUTSIDE RECORDS SUMMARY | 2024-11-22 11:17 | XMS_ITS | Encounter Summary ---
Author Organization [facility] Address [address] [place] [address] Care Team Providers Care Real Time Operator Name Role Phone Ricardo Louie MD Primary Care Provider Un available Wandy Delcid DO Primary Care Pro vider Unavailable Joe Jimenez MD Primary Care Provider [phone] Carri Suazo MD Primary Care Provider [phone] Reason for Visit * Reason Onset Date Comments refill request 08/10/2018 Encounter Details Date Type Department Care Team Description 08/10/2018 Refill Adult Medicine [address] [address] Ricardo Louie MD refill request Social History Tobacco Use [...] Telephone Encounter - Taylor Paiz M.A. - 08/10/2018 4:57 PM EST Please sign, needed to be for [employer] Mobile[employer] device. * Telephone Encounter - Beena Sanderson - 08/10/2018 4:51 PM EST Patient would like script to be: E-PRESCRIBED/FAXED TO PHARMACY WHEN WAS THE PATIENT'S LAST APPOINTMENT IN ADULT MEDICINE? 07/08/2018 WHEN WAS THE LAST TIME THE PATIENT SAW THEIR PCP? Same as above Does patient have an upcoming appointment? Yes 10/26/2018 (THE MEDICATION REQUESTED IS ON THE MED [...] / Plan: [place] / Product Type: MEDICARE [id number] documented in this encounter Plan of Treatment Not on file documented as of this encounter Visit Diagnoses Not on filedocumented in this encounter Care Teams Real Time Operator Relationship Specialty Start Date End Date Ricardo Louie MD PCP - General Internal Medicine 10/31/15 9 Wandy Delcid DO PCP - General Internal Medicine 02/23/19 12/27/20 Joe Jimenez MD [address] [place] [address] PCP - General Internal Medicine 12/28/20 04/06/22 Carri Suazo MD [address] [place] [address] PCP - General Internal Medicine 04/07/22 documented as of this encounter
--- OUTSIDE RECORDS SUMMARY | 2024-11-22 11:17 | XMS_ITS | Encounter Summary ---
Author Organization [facility] Address [address] [place] [address] Care Team Providers Care Exhaust Machine Operator Name Role Phone Carri Suazo MD Primary Care Provider [phone] Reason for Visit * Reason Comments E-prescribe Rx Request Encounter Details Date Type Department Care Team Description 05/06/2024 Refill Adult Medicine [address] [address] Carri Suazo MD [address] [place] [address] E-prescribe Rx Request Social History Tobacco Use [...] encounter Miscellaneous Notes * Telephone Encounter - Jabier Tatum - 05/06/2024 9:37 AM EDT duplicate documented in this encounter Plan of Treatment Not on file documented as of this encounter Visit Diagnoses Diagnosis Type 2 diabetes mellitus with other specified complication, without long-term current use of insulin (HCC) documented in this encounter Care Teams Exhaust Machine Operator Relationship Specialty Start Date End Date Carri Sauzo MD [address] [place] [address] PCP - General Internal Medicine 04/07/22 documented as of this encounter
--- OUTSIDE RECORDS SUMMARY | 2024-11-22 11:17 | XMS_ITS | Encounter Summary ---
Author Organization [facility] Address [address] [place] [address] Care Team Providers Care Rn Field Case Manager Name Role Phone Carri Suazo MD Primary Care Provider [phone] Reason for Visit * Reason Comments E-prescribe Rx Request Encounter Details Date Type Department Care Team Description 02/01/2024 Refill Adult Medicine [address] [address] Carri Suazo MD [address] [place] [address] E-prescribe Rx Request Social History Tobacco Use [...] encounter Miscellaneous Notes * Telephone Encounter - Carri Suazo MD - 02/03/2024 4:24 PM EDT Continue with Ozempic * Telephone Encounter - Taylor Paiz M.A. - 02/03/2024 4:22 PM EDT Called the pt, He is no longer using the humalog (refused). He is on ozempic (because trulicity was on backorder). Trulicity is now available and the pt wants to know if he should take the ozempic or go pick pack worker the trulicity? * Telephone Encounter - Carri Suazo MD - 02/03/2024 4:15 PM EDT This was only for a bridge when he was off medications for cardiac, can you please confirm if he isstill taking it or not? * Telephone Encounter - Taylor Paiz M.A. - 02/03/2024 1:29 PM EDT Last office visit 12/04/23 Next office visit 02/23/24 semaglutide filled on 01/15/24 for 90 days Lab Results Component Value Date HGBA1C 7.0 12/02/2023 MALBUR 7.0 11/13/2022 MALBCR < 10.4 11/13/2022 CHOL 166 09/02/2023 LDL 69 09/02/2023 HDL 47 09/02/2023 TRIG 250 09/02/2023 GLU 146 12/02/2023 CREAT 0.98 12/02/2023 * Telephone Encounter - Karina Harrison - 02/03/2024 12:53 PM EDT Patient would like script to be: E-PRESCRIBED/FAXED TO PHARMACY WHEN WAS THE PATIENT'S LAST APPOINTMENT IN ADULT MEDICINE? 12/04/23 WHEN WAS THE LAST TIME THE PATIENT SAW THEIR PCP? Same as above Does patient have an upcoming appointment? Yes 02/23/24 pcp (THE MEDICATION REQUESTED IS ON THE MED [...] N/A Patients current insurance carrier is: [facility] / Plan: ECO-[employer] Energy $0 [facility] [id number] / Product Type: OceaneaO [id number] documented in this encounter Plan of Treatment Not on file documented as of this encounter Visit Diagnoses Not on filedocumented in this encounter Care Teams Rn Field Case Manager Relationship Specialty Start Date End Date Carri Suazo MD [address] [place] [address] PCP - General Internal Medicine 04/07/22 documented as of this encounter
--- OUTSIDE RECORDS SUMMARY | 2024-11-22 11:17 | XMS_ITS | Encounter Summary ---
Author Organization [facility] Address [address] [place] [address] Care Team Providers Care Beverage Host Name Role Phone Name, Leno BLANDON Primary Care Provider Unavailabl e Wandy Delcid DO Primary Care Pro vider Unavailable Ricardo Louie MD Primary Care Provider Un available Wandy Delcid DO Primary Care Pro vider Unavailable Joe Jimenez MD Primary Care Provider [phone] Carri Suazo MD Primary Care Provider [phone] Encounter Details Date Type Department Care Team Description 06/11/2015 Diesel Fleet Mechanic Report Medical Records [address] [place] [address] Oleg Gamboa MD Social History Tobacco Use [...] on filedocumented in this encounter Care Teams Beverage Host Relationship Specialty Start Date End Date Name, MD Leno PCP - General 03/30/06 07/29/15 Wandy Delcid DO PCP - General Internal Medicine 07/30/15 10/30/15 Ricardo Louie MD PCP - General Internal Medicine 10/31/15 Wandy Delcid DO PCP - General Internal Medicine 02/23/19 12/27/20 Joe Jimenez MD [address] [place] [address] PCP - General Internal Medicine 12/28/20 04/06/22 Carri Suazo MD [address] [place] [address] PCP - General Internal Medicine 04/07/22 documented as of this encounter
--- OUTSIDE RECORDS SUMMARY | 2024-11-22 11:17 | XMS_ITS | Encounter Summary ---
Author Organization [facility] Address [address] [place] [address] Care Team Providers Care Infantry Unit Leader Name Role Phone Joe Jimenez MD Primary Care Provider [phone] Carri Suazo MD Primary Care Provider [phone] Encounter Details Date Type Department Care Team Description 03/06/2022 Hearing Health Technician Report Medical Records [address] [place] [address] Abstract, Provider Social History Tobacco Use Types [...] on filedocumented in this encounter Care Teams Infantry Unit Leader Relationship Specialty Start Date End Date Joe Jimenez MD [address] [place] [address] [phone] PCP - General Internal Medicine 12/28/20 04/06/22 Carri Suazo MD [address] [place] [address] PCP - General Internal Medicine 04/07/22 documented as of this encounter
--- OUTSIDE RECORDS SUMMARY | 2024-11-22 11:17 | XMS_ITS | Clinical Summary ---
Author Organization [facility] Address [address] [place] [address] Care Team Providers Care Social Professionals Name Role Phone Wandy Delcid DO Primary [...] age to complete this topic Care Teams Social Professionals Relationship Specialty Start Date End Date Wandy Delcid DO PCP - General Concrete Pump Operator Helper 02/17/20
--- OUTSIDE RECORDS SUMMARY | 2024-11-22 11:17 | XMS_ITS | Encounter Summary ---
Author Organization [facility] Address [address] [place] [address] Care Team Providers Care Gimp Buttonhole Machine Operator Name Role Phone Carri Suazo MD Primary Care Provider [phone] Encounter Details Date Type Department Care Team Description 03/11/2023 Walk In Clinic Visit Medical Records [address] [place] [address] Eb Banks NP Social History Tobacco Use Types Packs/Day Years [...] suspected to have Coronavirus/COVID-19? No / Unsure 03/10/2023 2:38 PM EDT documented as of this encounter Plan of Treatment Not on file documented as of this encounter Visit Diagnoses Not on filedocumented in this encounter Care Teams Gimp Buttonhole Machine Operator Relationship Specialty Start Date End Date Carri Suazo MD [address] [place] [address] PCP - General Internal Medicine 04/07/22 documented as of this encounter
--- OUTSIDE RECORDS SUMMARY | 2024-11-22 11:17 | XMS_ITS | Encounter Summary ---
Author Organization [facility] Address [address] [place] [address] Care Team Providers Care Shank Boner Name Role Phone Ricardo Louie MD Primary Care Provider Un available Wandy Delcid DO Primary Care Pro vider Unavailable Joe Jimenez MD Primary Care Provider [phone] Carri Suazo MD Primary Care Provider [phone] Reason for Visit * Reason Comments E-prescribe Rx Request Encounter Details Date Type Department Care Team Description 11/22/2018 Refill Adult Medicine [address] [phone] Rachel Kilgore PA-C [address] [place] [address] [phone] E-prescribe Rx Request Social History Tobacco Use [...] Telephone Encounter - Taylor Paiz M.A. - 11/23/2018 6:57 AM EDT Lab Results Component Value Date HGBA1C 8.0 10/23/2018 MALBUR 51.2 03/01/2018 MALBCR 19.6 03/01/2018 CHOL 184 10/23/2018 LDL 109 10/23/2018 HDL 45 10/23/2018 TRIG 152 10/23/2018 GLU 179 12/26/2016 CREAT 0.9 07/05/2018 * Telephone Encounter - Elder Khan - 11/22/2018 9:41 AM EDT Patient would like script to be: E-PRESCRIBED/FAXED TO PHARMACY WHEN WAS THE PATIENT'S LAST APPOINTMENT IN ADULT MEDICINE? 10/26/18 WHEN WAS THE LAST TIME THE PATIENT SAW THEIR PCP? Same as above Does patient have an upcoming appointment? Yes 01/27/19 (THE MEDICATION REQUESTED IS ON THE MED [...] / Plan: [place] / Product Type: MEDICARE [id number] documented in this encounter Plan of Treatment Not on file documented as of this encounter Visit Diagnoses Not on filedocumented in this encounter Care Teams Shank Boner Relationship Specialty Start Date End Date Ricardo Louie MD PCP - General Internal Medicine 10/31/15 9 Wandy Delcid DO PCP - General Internal Medicine 02/23/19 12/27/20 Joe Jimenez MD [address] [place] [address] PCP - General Internal Medicine 12/28/20 04/06/22 Carri Suazo MD [address] [place] [address] PCP - General Internal Medicine 04/07/22 documented as of this encounter
--- OUTSIDE RECORDS SUMMARY | 2024-11-22 11:17 | XMS_ITS | Encounter Summary ---
Author Organization [facility] Address [address] [place] [address] Care Team Providers Care Sql Server Dba Developer Name Role Phone Ricardo Louie MD Primary Care Provider Un available Wandy Delcid DO Primary Care Pro vider Unavailable Joe Jimenez MD Primary Care Provider [phone] Carri Suazo MD Primary Care Provider [phone] Encounter Details Date Type Department Care Team Description 11/05/2016 Orders Only Adult Medicine [address] [address] Ricardo Louie MD Social History Tobacco Use Types Packs/Day [...] on filedocumented in this encounter Care Teams Sql Server Dba Developer Relationship Specialty Start Date End Date Ricardo Louie MD PCP - General Internal Medicine 10/31/15 9 Wandy Delcid DO PCP - General Internal Medicine 02/23/19 12/27/20 Joe Jimenez MD [address] [place] [address] PCP - General Internal Medicine 12/28/20 04/06/22 Carri Suazo MD [address] [place] [address] PCP - General Internal Medicine 04/07/22 documented as of this encounter
--- OUTSIDE RECORDS SUMMARY | 2024-11-22 11:17 | XMS_ITS | Encounter Summary ---
Author Organization [facility] Address [address] [place] [address] Care Team Providers Care Packaging Operator Name Role Phone Ricardo Louie MD Primary Care Provider Un available Wandy Delcid DO Primary Care Pro vider Unavailable Joe Jimenez MD Primary Care Provider [phone] Carri Suazo MD Primary Care Provider [phone] Encounter Details Date Type Department Care Team Description 05/13/[address] [address] Ricardo Louie MD Social History Tobacco Use [...] on filedocumented in this encounter Care Teams Packaging Operator Relationship Specialty Start Date End Date Ricardo Louie MD PCP - General Internal Medicine 10/31/15 9 Wandy Delcid DO PCP - General Internal Medicine 02/23/19 12/27/20 Joe Jimenez MD [address] [place] [address] PCP - General Internal Medicine 12/28/20 04/06/22 Carri Suazo MD [address] [place] [address] PCP - General Internal Medicine 04/07/22 documented as of this encounter
--- OUTSIDE RECORDS SUMMARY | 2024-11-22 11:17 | XMS_ITS | Encounter Summary ---
Author Organization [facility] Address [address] [place] [address] Care Team Providers Care Film Cleaner Name Role Phone Joe Jimenez MD Primary Care Provider [phone] Carri Suazo MD Primary Care Provider [phone] Encounter Details Date Type Department Care Team Description 03/06/2022 Web Search Evaluator Report Medical Records [address] [place] [address] Helder Nguyen Social History Tobacco Use Types Packs/Day Years [...] on filedocumented in this encounter Care Teams Film Cleaner Relationship Specialty Start Date End Date Joe Jimenez MD [address] [place] [address] [phone] PCP - General Internal Medicine 12/28/20 04/06/22 Carri Suazo MD [address] [place] [address] PCP - General Internal Medicine 04/07/22 documented as of this encounter
--- OUTSIDE RECORDS SUMMARY | 2024-11-22 11:17 | XMS_ITS | Encounter Summary ---
Author Organization [facility] Address [address] [place] [address] Care Team Providers Care Property Supervisor Name Role Phone Wandy Delcid DO Primary Care Pro vider Joe Ladd MD Primary Care Provider [phone] Carri Suazo MD Primary Care Provider [phone] Reason for Visit * Reason Onset Date Comments refill request 10/11/2020 Encounter Details Date Type Department Care Team Description 10/11/2020 Refill Adult Medicine [address] [address] Wandy Delcid DO refill request Social History Tobacco Use Types [...] Telephone Encounter - Minal Vincent M.A. - 10/11/2020 10:46 AM EDT Lab Results Component Value Date HGBA1C 6.7 05/10/2020 MALBUR 37.5 05/10/2020 MALBCR 13.7 05/10/2020 CHOL 164 05/10/2020 LDL 79 05/10/2020 HDL 42 05/10/2020 TRIG 217 05/10/2020 GLU 149 05/10/2020 CREAT 1.04 05/10/2020 Pending appt 11/2020 * Telephone Encounter - Jesusita Ricks - 10/11/2020 10:13 AM EDT Patient would like script to be: E-PRESCRIBED/FAXED TO PHARMACY WHEN WAS THE PATIENT'S LAST APPOINTMENT IN ADULT MEDICINE? 08/10/2020 WHEN WAS THE LAST TIME THE PATIENT SAW THEIR PCP? Same as above Does patient have an upcoming appointment? Yes 12/12/2020 (THE MEDICATION REQUESTED IS ON THE MED [...] / Plan: [place] / Product Type: MEDICARE [id number] documented in this encounter Plan of Treatment Not on file documented as of this encounter Visit Diagnoses Not on filedocumented in this encounter Care Teams Property Supervisor Relationship Specialty Start Date End Date Wandy Delcid DO PCP - General Internal Medicine 02/23/19 12/27/20 Joe Jimenez MD [address] [place] [address] PCP - General Internal Medicine 12/28/20 04/06/22 Carri Suazo MD [address] [place] [address] PCP - General Internal Medicine 04/07/22 documented as of this encounter
--- OUTSIDE RECORDS SUMMARY | 2024-11-22 11:18 | XMS_ITS | Encounter Summary ---
Author Organization [facility] Address [address] [place] [address] Care Team Providers Care Forest Resources Professor Name Role Phone Ricardo Louie MD Primary Care Provider Un available Wandy Delcid DO Primary Care Pro vider Unavailable Joe Jimenez MD Primary Care Provider [phone] Carri Suazo MD Primary Care Provider [phone] Encounter Details Date Type Department Care Team Description 12/30/2016 Business Doc Medical Records [address] [place] [address] Abstract, Provider Social History Tobacco Use Types [...] filedocumented in this encounter Care Teams Forest Resources Professor Relationship Specialty Start Date End Date Ricardo Luoie MD PCP - General Internal Medicine 10/31/15 9 Wandy Delcid DO PCP - General Internal Medicine 02/23/19 12/27/20 Joe Jimenez MD [address] [place] [address] PCP - General Internal Medicine 12/28/20 04/06/22 Carri Suazo MD [address] [place] [address] PCP - General Internal Medicine 04/07/22 documented as of this encounter
--- OUTSIDE RECORDS SUMMARY | 2024-11-22 11:18 | XMS_ITS | Encounter Summary ---
Author Organization [facility] Address [address] [place] [address] Care Team Providers Care Semiconductor Lab Technician Name Role Phone Name, Leno BLANDON Primary Care Provider Unavailabl e Wandy Delcid DO Primary Care Pro vider Unavailable Ricardo Louie MD Primary Care Provider Un available Wandy Delcid DO Primary Care Pro vider Unavailable Joe Jimenez MD Primary Care Provider [phone] Carri Suazo MD Primary Care Provider [phone] Encounter Details Date Type Department Care Team Description 02/08/2010 Hospital Medical Records [address] [place] [address] Florencio Wing Social History Tobacco Use Types Packs/Day Years [...] on filedocumented in this encounter Care Teams Semiconductor Lab Technician Relationship Specialty Start Date End Date Name, MD Leno PCP - General 03/30/06 07/29/15 Wandy Delcid DO PCP - General Internal Medicine 07/30/15 10/30/15 Ricardo Louie MD PCP - General Internal Medicine 10/31/15 Wandy Delcid DO PCP - General Internal Medicine 02/23/19 12/27/20 Joe Jimenez MD [address] [place] [address] PCP - General Internal Medicine 12/28/20 04/06/22 Carri Suazo MD [address] [place] [address] PCP - General Internal Medicine 04/07/22 documented as of this encounter
--- OUTSIDE RECORDS SUMMARY | 2024-11-22 11:18 | XMS_ITS | Encounter Summary ---
Author Organization [facility] Address [address] [place] [address] Care Team Providers Care Grinder Gear Name Role Phone Name, Leno BLANDON Primary Care Provider Unavailabl e Wandy Delcid DO Primary Care Pro vider Unavailable Ricardo Louie MD Primary Care Provider Un available Wandy Delcid DO Primary Care Pro vider Unavailable Joe Jimenez MD Primary Care Provider [phone] Carri Suazo MD Primary Care Provider [phone] Encounter Details Date Type Department Care Team Description 02/08/2010 Hospital Medical Records [address] [place] [address] Florencio Wing Social History Tobacco Use Types [...] on filedocumented in this encounter Care Teams Grinder Gear Relationship Specialty Start Date End Date Name, MD Leno PCP - General 03/30/06 07/29/15 Wandy Delcid DO PCP - General Internal Medicine 07/30/15 10/30/15 Ricardo Louie MD PCP - General Internal Medicine 10/31/15 Wandy Delcid DO PCP - General Internal Medicine 02/23/19 12/27/20 Joe Jimenez MD [address] [place] [address] PCP - General Internal Medicine 12/28/20 04/06/22 Carri Suazo MD [address] [place] [address] PCP - General Internal Medicine 04/07/22 documented as of this encounter
== END 2024-11-22 10:40 | disposition home or self-care (01) ==
LOC: HO.HVS 09:58
PROVIDERS: PCP Internal Medicine; Visit Provider Surgery Vascular Surgery
DX: I73.9 Peripheral vascular disease, unspecified (principal)
CPT/HCPCS: 99214; G2211

== ENCOUNTER → 2024-11-22 09:57 | Outpatient (BNVA) | payer OTHER, SELFPAY | PROVIDERS: PCP Internal Medicine; Visit Provider Surgery Vascular Surgery | DX: I73.9 Peripheral vascular disease, unspecified (principal); L97.223 Non-pressure chronic ulcer of left calf with necrosis of muscle; L03.119 Cellulitis of unspecified part of limb; Z79.2 Long term (current) use of antibiotics | CPT/HCPCS: 11043; 99212 ==

== ENCOUNTER 2024-11-30 06:09 | Day surgery (SDC) | payer OTHER, SELFPAY ==
--- OUTSIDE RECORDS SUMMARY | 2024-11-22 12:12 | XMS_ITS | Encounter Summary ---
Author Organization [facility] Address [address] [place] [address] Care Team Providers Care White Metal Caster Name Role Phone Ricardo Louie MD Primary Care Provider Un available Wandy Delcid DO Primary Care Pro vider Unavailable Joe Jimenez MD Primary Care Provider [phone] Carri Suazo MD Primary Care Provider [phone] Reason for Visit * Reason Comments E-prescribe Rx Request Encounter Details Date Type Department Care Team Description 01/16/2018 Refill Adult Medicine [address] [id number] Rachel Kilgore PA-C [address] [place] [address] [phone] E-prescribe Rx Request Social History Tobacco Use [...] encounter Miscellaneous Notes * Telephone Encounter - Raven Aranda M.A. - 01/18/2018 4:22 PM EDT Lab Results Component Value Date CHOL 186 07/25/2017 LDL 110 07/25/2017 HDL 54 07/25/2017 TRIG 112 07/25/2017 SGOT 45 07/25/2017 SGPT 35 07/25/2017 * Telephone Encounter - Yuli Mejia - 01/18/2018 4:18 PM EDT Patient would like script to be: E-PRESCRIBED/FAXED TO PHARMACY WHEN WAS THE PATIENT'S LAST APPOINTMENT IN ADULT MEDICINE? 11/17/17 WHEN WAS THE LAST TIME THE PATIENT SAW THEIR PCP? 05/01/17 Does patient have an upcoming appointment? Yes 03/05/18 (THE MEDICATION REQUESTED IS ON THE MED [...] / Plan: [place] / Product Type: MEDICARE [id number] documented in this encounter Plan of Treatment Not on file documented as of this encounter Visit Diagnoses Not on filedocumented in this encounter Care Teams White Metal Caster Relationship Specialty Start Date End Date Ricardo Louie MD PCP - General Internal Medicine 10/31/15 9 Wandy Delcid DO PCP - General Internal Medicine 02/23/19 12/27/20 Joe Jimenez MD [address] [place] [address] PCP - General Internal Medicine 12/28/20 04/06/22 Carri Suazo MD [address] [place] [address] PCP - General Internal Medicine 04/07/22 documented as of this encounter
--- OUTSIDE RECORDS SUMMARY | 2024-11-22 12:12 | XMS_ITS | Encounter Summary ---
Author Organization [facility] Address [address] [place] [address] Care Team Providers Care Carroting Machine Operator Name Role Phone Wandy Delcid DO Primary Care Pro vider Unavailable Joe Jimenez MD Primary Care Provider [phone] Carri Suazo MD Primary Care Provider [phone] Encounter Details Date Type Department Care Team Description 02/28/2019 Health Educator Report Medical Records [address] [place] [address] José Miguel Diaz MD Social History Tobacco [...] on filedocumented in this encounter Care Teams Carroting Machine Operator Relationship Specialty Start Date End Date Wandy Delcid DO PCP - General Internal Medicine 02/23/19 12/27/20 Joe Jimenez MD [address] [place], [place] [phone] PCP - General Internal Medicine 12/28/20 04/06/22 Carri Suazo MD [address] [place] [address] PCP - General Internal Medicine 04/07/22 documented as of this encounter
--- OUTSIDE RECORDS SUMMARY | 2024-11-22 12:12 | XMS_ITS | Encounter Summary ---
Author Organization [facility] Address [address] [place] [address] Care Team Providers Care Chief Crew Scheduler Name Role Phone Carri Suazo MD Primary Care Provider [phone] Reason for Visit * Reason Comments E-prescribe Rx Request Encounter Details Date Type Department Care Team Description 06/01/2023 Refill Adult Medicine [address] [address] Carri Suazo MD [address] [place] [address] E-prescribe Rx Request Social History Tobacco Use [...] 5:01 PM EST Ok to fill. Bryanna Wiklerson * Telephone Encounter - Taylor Paiz M.A. - 06/01/2023 3:51 PM EST Last office visit 05/28/23 Next office visit 09/02/23 Not filled at time of visit, will you fill please documented in this encounter Plan of Treatment Not on file documented as of this encounter Visit Diagnoses Not on filedocumented in this encounter Care Teams Chief Crew Scheduler Relationship Specialty Start Date End Date Carri uSazo MD [address] [place] [address] PCP - General Internal Medicine 04/07/22 documented as of this encounter
--- OUTSIDE RECORDS SUMMARY | 2024-11-22 12:12 | XMS_ITS | Encounter Summary ---
Author Organization [facility] Address [address] [place] [address] Care Team Providers Care Industrial Engineering Intern Name Role Phone Wandy Delcid DO Primary Care Pro vider Joe Ladd MD Primary Care Provider [phone] Carri Suazo MD Primary Care Provider [phone] Reason for Visit * Reason Comments E-prescribe Rx Request Encounter Details Date Type Department Care Team Description 12/12/2019 Refill Adult Medicine [address] [address] Wandy Delcid DO E-prescribe Rx Request Social [...] Telephone Encounter - Dena Sue M.A. - 12/13/2019 1:27 PM EDT Last ov 09/23/19 Next ov 01/31/20 * Telephone Encounter - Beena Sanderson - 12/13/2019 10:29 AM EDT Patient would like script to be: E-PRESCRIBED/FAXED TO PHARMACY WHEN WAS THE PATIENT'S LAST APPOINTMENT IN ADULT MEDICINE? 09/23/2019 WHEN WAS THE LAST TIME THE PATIENT SAW THEIR PCP? Same as above Does patient have an upcoming appointment? Yes 01/31/2020 (THE MEDICATION REQUESTED IS ON THE MED [...] / Plan: [place] / Product Type: MEDICARE [id number] documented in this encounter Plan of Treatment Not on file documented as of this encounter Visit Diagnoses Not on filedocumented in this encounter Care Teams Industrial Engineering Intern Relationship Specialty Start Date End Date Wandy Delcid DO PCP - General Internal Medicine 02/23/19 12/27/20 Joe Jimenez MD [address] [place] [address] [phone] PCP - General Internal Medicine 12/28/20 04/06/22 Carri Suazo MD [address] [place] [address] PCP - General Internal Medicine 04/07/22 documented as of this encounter
--- OUTSIDE RECORDS SUMMARY | 2024-11-22 12:12 | XMS_ITS | Encounter Summary ---
Author Organization [facility] Address [address] [place] [address] Care Team Providers Care Records Management Associate Name Role Phone Wandy Delcid DO Primary Care Pro vider Unavailable Joe Jimenez MD Primary Care Provider [phone] Carri Suazo MD Primary Care Provider Encounter Details Date Type Department Care Team Description 08/29/2019 SCAN Medical Records [address] [place] [address] Abstract, Provider Social History Tobacco Use Types [...] on filedocumented in this encounter Care Teams Records Management Associate Relationship Specialty Start Date End Date Wandy Delcid DO PCP - General Internal Medicine 02/23/19 12/27/20 Joe Jimenez MD [address] [place] [address] PCP - General Internal Medicine 12/28/20 04/06/22 Carir Suazo MD [address] [place] [address] PCP - General Internal Medicine 04/07/22 documented as of this encounter
--- OUTSIDE RECORDS SUMMARY | 2024-11-22 12:12 | XMS_ITS | Encounter Summary ---
Author Organization [facility] Address [address] [place] [address] Care Team Providers Care Nematologist Name Role Phone Ricardo Louie MD Primary Care Provider Un available Wandy Delcid DO Primary Care Pro vider Unavailable Joe Jimenez MD Primary Care Provider [phone] Carri Suazo MD Primary Care Provider [phone] Encounter Details Date Type Department Care Team Description 10/31/2016 Telegraphic Typewriter Operator Report Medical Records [address] [place] [address] Oleg Gamboa MD Social History Tobacco Use [...] on filedocumented in this encounter Care Teams Nematologist Relationship Specialty Start Date End Date Ricardo Louie MD PCP - General Internal Medicine 10/31/15 9 Wandy Delcid DO PCP - General Internal Medicine 02/23/19 12/27/20 Joe Jimenez MD [address] [place] [address] [phone] PCP - General Internal Medicine 12/28/20 04/06/22 Carri Suazo MD [address] [place] [address] [phone] PCP - General Internal Medicine 04/07/22 documented as of this encounter
--- OUTSIDE RECORDS SUMMARY | 2024-11-22 12:12 | XMS_ITS | Encounter Summary ---
Author Organization [facility] Address [address] [place] [address] Care Team Providers Care Tax Economist Name Role Phone Joe Jimenez MD Primary Care Provider [phone] Carri Suazo MD Primary Care Provider [phone] Encounter Details Date Type Department Care Team Description 02/24/2022 SCAN Cardio [facility] [address] [place] [address] Abstract, Provider Social History Tobacco Use Types [...] In the last 10 days, have genaro u been in contact with someone who was confirmed or suspected to have Coronavirus/COVID-19? No / Unsure 02/14/2022 12:32 PM EDT documented as of this encounter Plan of Treatment Not on file documented as of this encounter Visit Diagnoses Not on filedocumented in this encounter Care Teams Tax Economist Relationship Specialty Start Date End Date Joe Jimenez MD [address] [place] [address] [phone] PCP - General Internal Medicine 12/28/20 04/06/22 Carri Suazo MD [address] [place] [address] PCP - General Internal Medicine 04/07/22 documented as of this encounter
--- OUTSIDE RECORDS SUMMARY | 2024-11-22 12:12 | XMS_ITS | Encounter Summary ---
Author Organization [facility] Address [address] [place] [address] Care Team Providers Care Nonprofit Fundraiser Name Role Phone Joe Jimenez MD Primary Care Provider Carri Suazo MD Primary Care Provider [phone] Encounter Details Date Type Department Care Team Description 03/06/2022 Hose Operator Report Medical Records [address] [place] [address] Helder Nguyen Social History Tobacco Use Types [...] on filedocumented in this encounter Care Teams Nonprofit Fundraiser Relationship Specialty Start Date End Date Joe Jimenez MD [address] [place] [address] [phone] PCP - General Internal Medicine 12/28/20 04/06/22 Carri Suazo MD [address] [place] [address] PCP - General Internal Medicine 04/07/22 documented as of this encounter
--- OUTSIDE RECORDS SUMMARY | 2024-11-22 12:12 | XMS_ITS | Encounter Summary ---
Author Organization [facility] Address [address] [place] [address] Care Team Providers Care Comb Machine Operator Name Role Phone Wandy Delcid DO Primary Care Pro vider Joe Ladd MD Primary Care Provider [phone] Carri Suazo MD Primary Care Provider [phone] Reason for Visit * Reason Onset Date Comments refill request 09/13/2020 Encounter Details Date Type Department Care Team Description 09/13/2020 Refill Adult Medicine [address] [address] Wandy Delcid DO refill request Social History [...] Telephone Encounter - Minal Vincent M.A. - 09/13/2020 12:04 PM EST Lab Results Component Value Date HGBA1C 6.7 05/10/2020 MALBUR 37.5 05/10/2020 MALBCR 13.7 05/10/2020 CHOL 164 05/10/2020 LDL 79 05/10/2020 HDL 42 05/10/2020 TRIG 217 05/10/2020 GLU 149 05/10/2020 CREAT 1.04 05/10/2020 Last appt with pcp 08/10/20 * Telephone Encounter - Jesusita Ricks - 09/13/2020 11:46 AM EST *PATIENT OUT OF ALL MEDICINE AND NEEDS SCRIPT DENISE* Patient would like script to be: E-PRESCRIBED/FAXED [...] / Plan: [place] / Product Type: MEDICARE [id number] documented in this encounter Plan of Treatment Not on file documented as of this encounter Visit Diagnoses Not on filedocumented in this encounter Care Teams Comb Machine Operator Relationship Specialty Start Date End Date Wandy Delcid DO PCP - General Internal Medicine 02/23/19 12/27/20 Joe Jimenez MD [address] [place] [address] PCP - General Internal Medicine 12/28/20 04/06/22 Carri Suazo MD [address] [place] [address] PCP - General Internal Medicine 04/07/22 documented as of this encounter
--- OUTSIDE RECORDS SUMMARY | 2024-11-22 12:12 | XMS_ITS | Encounter Summary ---
Author Organization [facility] Address [address] [place] [address] Care Team Providers Care Straight Truck Driver Name Role Phone Joe Jimenez MD Primary Care Provider [phone] Carri Suazo MD Primary Care Provider [phone] Encounter Details Date Type Department Care Team Description 01/09/2022 Field Cane Scaler Report Medical Records [address] [place] [address] Kenia Amaral PA-C Social History Tobacco Use Types Packs/Day Years [...] on filedocumented in this encounter Care Teams Straight Truck Driver Relationship Specialty Start Date End Date Joe Jimenez MD [address] [place] [address] [phone] PCP - General Internal Medicine 12/28/20 04/06/22 Carri Suazo MD [address] [place] [address] PCP - General Internal Medicine 04/07/22 documented as of this encounter
--- OUTSIDE RECORDS SUMMARY | 2024-11-22 12:12 | XMS_ITS | Encounter Summary ---
Author Organization [facility] Address [address] [place] [address] Care Team Providers Care Certification Technician Name Role Phone Ricardo Louie MD Primary Care Provider Un available Wandy Delcid DO Primary Care Pro vider Unavailable Joe Jimenez MD Primary Care Provider [phone] Carri Suazo MD Primary Care Provider [phone] Encounter Details Date Type Department Care Team Description 11/05/2016 Orders Only Adult Medicine [address] [address] Ricardo Louie MD Social History Tobacco Use [...] on filedocumented in this encounter Care Teams Certification Technician Relationship Specialty Start Date End Date Ricardo Louie MD PCP - General Internal Medicine 10/31/15 9 Wandy Delcid DO PCP - General Internal Medicine 02/23/19 12/27/20 Joe Jimenez MD [address] [place] [address] PCP - General Internal Medicine 12/28/20 04/06/22 Carri Suazo MD [address] [place] [address] PCP - General Internal Medicine 04/07/22 documented as of this encounter
--- OUTSIDE RECORDS SUMMARY | 2024-11-22 12:12 | XMS_ITS | Encounter Summary ---
Author Organization [facility] Address [address] [place] [address] Care Team Providers Care Finisher Denture Name Role Phone Carri Suazo MD Primary Care Provider [phone] Reason for Visit * Reason Comments E-prescribe Rx Request Encounter Details Date Type Department Care Team Description 05/06/2024 Refill Adult Medicine [address] [address] Carri Suazo MD [address] [place] [address] E-prescribe Rx Request Social History Tobacco Use [...] (HCC) documented in this encounter Care Teams Finisher Denture Relationship Specialty Start Date End Date Carri Suazo MD [address] [place] [address] PCP - General Internal Medicine 04/07/22 documented as of this encounter
--- OUTSIDE RECORDS SUMMARY | 2024-11-22 12:12 | XMS_ITS | Encounter Summary ---
Author Organization [facility] Address [address] [place] [address] Care Team Providers Care Pediatric Dermatologist Name Role Phone Wandy Delcid DO Primary Care Pro vider Joe Ladd MD Primary Care Provider [phone] Carri Suazo MD Primary Care Provider [phone] Reason for Visit * Reason Onset Date Comments Information Needed 08/26/2019 Encounter Details Date Type Department Care Team Description 08/26/2019 Telephone Adult Medicine [address] [phone] Wandy Delcid DO Information Needed Social History Tobacco Use Types Packs/Day Years [...] Telephone Encounter - Wandy Duque DO - 08/30/2019 1:00 PM EST We would need the information from cardiology. though she works there I am sure they had to have a track helper sign off on the order an order for the stress test to be complete. The fact that he hadsuch blood pressure changes during the test by itself would have been commented upon by cardiology which is what were looking for for the information. May need to call [facility] cardiology directly. * Telephone Encounter - Martin Duran - 08/29/2019 4:57 PM EST Spoke with Daughter Guadalupe- Daughter states that father hafd episodes of dypnea with exertin- daughter works at [employer] at [facility] office- spoke with a provider there who recommended that patient get a stress test- daughter scheduled it as patient did not require a referral-- pt's bp at start oftest 140/84-- patient had peak BP of 212/112 during test an then returned to baseline systolics in the 140's with rest-- daughter is asking for follow- up for patient sooner that 11/24 for BP as concerned that his blood pressure remains in the 140s systolic moist of the time-- advised daughter that can move appointment to 09/22 but that provider may want him around 140 due to his history * Telephone Encounter - Martin Duran - 08/29/2019 4:44 PM EST Call placed to the patient's daughter Guadalupe-- message left for the daughter to return the call to the office * Telephone Encounter - Patricia Gutierrez R.N. - 08/29/2019 4:31 PM EST Daughter states she wants to speak with a supervisor knitting , she states the stress test she ordered has nothing to do with this message , she is calling about his BP daughter (Guadalupe) states his BP is 140-150/ unknown diastolic . She wants to know what is going to bedone about this , I asked triage questions and guadalupe states she is not aware of diastolic or any other info as she just started getting involved in his health care because nothing is being done her at [facility] . Guadalupe asks to speak to a supervisor knitting since she does not feel I have an appropriate attitude and I am stuck on the stress test and the BP report of 212/112 Which she states is an error Will forward to Baldemar Duran * Telephone Encounter - Patricia Gutierrez R.N. - 08/29/2019 2:36 PM EST Pt's daughter ordered a stress test , she works for [facility] cardiology , they did the test and after he did the stress test his BP was 212/112 She is asking for instructions for f/u. I do not have any information about the stress test ( daughter states it is At the track helper anddoes not need interpretation ) she wants something done about BP Please advise * Telephone Encounter - La Nena Razo - 08/29/2019 2:31 PM EST Patient did stress test and blood pressure high 140/82 after the stress test [patient blood pressure was 212/112 * Telephone Encounter - Patricia Gutierrez R.N. - 08/26/2019 4:00 PM EST Daughter is asking for a copy of pt's echo, can this be sent to her , she works at track [employer] andpt is being seen for stress test , she is questioning the CAD diagnosis in pts record ( it appears this come with him when he started here from [facility] ) * Telephone Encounter - Yuli Mejia - 08/26/2019 1:45 PM EST Patient's daughter states she received a call and is returning that call * Telephone Encounter - Karlee Floyd - 08/26/2019 10:16 AM EST Pt's daughter Jacy calling [phone], pt is having a stress test done Thursday where she works,they have last office notes it states pt has coronary artery disease, they have no idea patient hasthis, Could she have more information on this and if pt had any echo or other testing down please forward. They don't want to have to cancel Mondays testing documented in this encounter Plan of Treatment Not on file documented as of this encounter Visit Diagnoses Not on filedocumented in this encounter Care Teams Pediatric Dermatologist Relationship Specialty Start Date End Date Wandy Delcid DO PCP - General Internal Medicine 02/23/19 12/27/20 Joe Jimenez MD [address] [place] [address] PCP - General Internal Medicine 12/28/20 04/06/22 Carri Suazo MD [address] [place] [address] PCP - General Internal Medicine 04/07/22 documented as of this encounter
--- OUTSIDE RECORDS SUMMARY | 2024-11-22 12:12 | XMS_ITS | Encounter Summary ---
Author Organization [facility] Address [address] [place] [address] Care Team Providers Care Lead Material Handler Name Role Phone Wandy Delcid DO Primary Care Pro carlinr Joe Ladd MD Primary Care Provider [phone] Carri Suazo MD Primary Care Provider [phone] Reason for Visit * Reason Onset Date Comments Call From Patient Family 02/14/2020 Encounter Details Date Type Department Care Team Description 02/14/2020 Telephone Adult Medicine [address] [phone] Wandy Delcid DO Call From Patient Family [...] back, please put call through to [phone] or resend to message/pod pool if no [...] on filedocumented in this encounter Care Teams Lead Material Handler Relationship Specialty Start Date End Date Wandy Delcid DO PCP - General Internal Medicine 02/23/19 12/27/20 Joe Jimenez MD [address] [place] [address] PCP - General Internal Medicine 12/28/20 04/06/22 Carri Suazo MD [address] [place] [address] PCP - General Internal Medicine 04/07/22 documented as of this encounter
--- OUTSIDE RECORDS SUMMARY | 2024-11-22 12:12 | XMS_ITS | Encounter Summary ---
Author Organization [facility] Address [address] [place] [address] Care Team Providers Care Coach Operator Name Role Phone Ricardo Louie MD Primary Care Provider Un available Wandy Delcid DO Primary Care Pro vider Unavailable Joe Jimenez MD Primary Care Provider [phone] Carri Suazo MD Primary Care Provider [phone] Reason for Visit * Reason Comments E-prescribe Rx Request Encounter Details Date Type Department Care Team Description 11/22/2018 Refill Adult Medicine [address] [id number] Rachel Kilgore PA-C [address] [place] [address] [phone] E-prescribe Rx Request Social History Tobacco Use [...] / Plan: [place] / Product Type: MEDICARE [id number] documented in this encounter Plan of Treatment Not on file documented as of this encounter Visit Diagnoses Not on filedocumented in this encounter Care Teams Coach Operator Relationship Specialty Start Date End Date Ricardo Louie MD PCP - General Internal Medicine 10/31/15 9 Wandy Delcid DO PCP - General Internal Medicine 02/23/19 12/27/20 Joe Jimenez MD [address] [place] [address] PCP - General Internal Medicine 12/28/20 04/06/22 Carri Suazo MD [address] [place] [address] PCP - General Internal Medicine 04/07/22 documented as of this encounter
--- OUTSIDE RECORDS SUMMARY | 2024-11-22 12:12 | XMS_ITS | Encounter Summary ---
Author Organization [facility] Address [address] [place] [address] Care Team Providers Care Quality Lab Technician Name Role Phone Carri Suazo MD Primary Care Provider [phone] Encounter Details Date Type Department Care Team Description 06/05/2023 Orders Only Adult Medicine [address] [address] Carri Suazo MD [address] [place] [address] [phone] Social History Tobacco Use Types Packs/Day Years [...] PM EST documented as of this encounter Plan of Treatment Not on file documented as of this encounter Visit Diagnoses Not on filedocumented in this encounter Care Teams Quality Lab Technician Relationship Specialty Start Date End Date Carri Suazo MD [address] [place] [address] [phone] PCP - General Internal Medicine 04/07/22 documented as of this encounter
--- OUTSIDE RECORDS SUMMARY | 2024-11-22 12:12 | XMS_ITS | Encounter Summary ---
Author Organization [facility] Address [address] [place] [address] Care Team Providers Care Pasta Press Operator Name Role Phone Wandy Delcid DO Primary Care Pro vider Joe Ladd MD Primary Care Provider [phone] Carri Suazo MD Primary Care Provider [phone] Reason for Visit * Reason Comments E-prescribe Rx Request Encounter Details Date Type Department Care Team Description 05/04/2020 Refill Adult Medicine [address] [address] Wandy Delcid DO E-prescribe Rx Request Social [...] Telephone Encounter - Minal Vincent M.A. - 05/07/2020 9:07 AM EDT Lab Results Component Value Date NA 140 03/22/2020 K 4.5 03/22/2020 CO2 30 03/22/2020 CL 103 03/22/2020 BUN 17 03/22/2020 CREAT 0.93 03/22/2020 GLU 134 03/22/2020 CA 9.3 03/22/2020 GFR > 60 03/22/2020 Last appt with pcp 03/20/20 * Telephone Encounter - Karina Xiao - 05/07/2020 7:42 AM EDT Patient would like script to be: E-PRESCRIBED/FAXED TO PHARMACY WHEN WAS THE PATIENT'S LAST APPOINTMENT IN ADULT MEDICINE? 03/20/20 WHEN WAS THE LAST TIME THE PATIENT SAW THEIR PCP? Same as above Does patient have an upcoming appointment? No, patient will call (THE MEDICATION REQUESTED IS ON THE MED [...] / Plan: [place] / Product Type: MEDICARE [id number] documented in this encounter Plan of Treatment Not on file documented as of this encounter Visit Diagnoses Not on filedocumented in this encounter Care Teams Pasta Press Operator Relationship Specialty Start Date End Date Wandy Delcid DO PCP - General Internal Medicine 02/23/19 12/27/20 Joe Jimenez MD [address] [place] [address] PCP - General Internal Medicine 12/28/20 04/06/22 Carri Suazo MD [address] [place] [address] PCP - General Internal Medicine 04/07/22 documented as of this encounter
--- OUTSIDE RECORDS SUMMARY | 2024-11-22 12:12 | XMS_ITS | Encounter Summary ---
Author Organization [facility] Address [address] [place] [address] Care Team Providers Care Crane Operator Name Role Phone Carri Suazo MD Primary Care Provider [phone] Reason for Visit * Reason Onset Date Comments refill request 05/15/2023 Encounter Details Date Type Department Care Team Description 05/15/2023 Telephone Adult Medicine [facility] [address] [place] [address] Carri Suazo MD [address] [place] [address] refill request Social History Tobacco Use Types [...] Telephone Encounter - Carri Suazo MD - 05/15/2023 7:50 AM EDT Refill sent * Telephone Encounter - Latoya Ibrahim - 05/15/2023 7:30 AM EDT Appt scheduled today has been rescheduled to 05/28 @1 pm documented in this encounter Plan of Treatment Not on file documented as of this encounter Visit Diagnoses Not on filedocumented in this encounter Care Teams Crane Operator Relationship Specialty Start Date End Date Carri Suazo MD [address] [place] [address] PCP - General Internal Medicine 04/07/22 documented as of this encounter
--- OUTSIDE RECORDS SUMMARY | 2024-11-22 12:12 | XMS_ITS | Encounter Summary ---
Author Organization [facility] Address [address] [place] [address] Care Team Providers Care Notereader Name Role Phone Carri Suazo MD Primary Care Provider [phone] Reason for Visit * Reason Onset Date Comments Surgery (Schedule) 05/18/2024 Encounter Details Date Type Department Care Team Description 05/18/2024 Telephone [facility] [address] [address] Elder Snyder DPM 175 [facility] [address] [place] [address] Surgery (Schedule) Social History Tobacco Use Types [...] on filedocumented in this encounter Care Teams Notereader Relationship Specialty Start Date End Date Carri Suazo MD [address] [place] [address] PCP - General Internal Medicine 04/07/22 documented as of this encounter
--- OUTSIDE RECORDS SUMMARY | 2024-11-22 12:12 | XMS_ITS | Encounter Summary ---
Author Organization [facility] Address [address] [place] [address] Care Team Providers Care Accessibility Lift Technician Name Role Phone Carri Suazo MD Primary Care Provider [phone] Reason for Visit * Reason Comments E-prescribe Rx Request Encounter Details Date Type Department Care Team Description 11/22/2022 Refill Adult Medicine [address] [address] Joe Jimenez MD [address] [place] [address] E-prescribe Rx Request Social History Tobacco Use [...] N/A Patients current insurance carrier is: Payor: [facility] MCR / Plan: O $0 [facility] [id number] / Product Type: HMO [id number] documented in this encounter Plan of Treatment Not on file documented as of this encounter Visit Diagnoses Not on filedocumented in this encounter Care Teams Accessibility Lift Technician Relationship Specialty Start Date End Date Carri Suazo MD [address] [place] [address] PCP - General Internal Medicine 04/07/22 documented as of this encounter
--- OUTSIDE RECORDS SUMMARY | 2024-11-22 12:12 | XMS_ITS | Encounter Summary ---
Author Organization [facility] Address [address] [place] [address] Care Team Providers Care Display Associate Name Role Phone Carri Suazo MD Primary Care Provider Encounter Details Date Type Department Care Team Description 11/21/2022 Release of Information Medical Records [address] [place] [address] Abstract, Provider Social History Tobacco Use Types [...] on filedocumented in this encounter Care Teams Display Associate Relationship Specialty Start Date End Date Carri Suazo MD [address] [place] [address] PCP - General Internal Medicine 04/07/22 documented as of this encounter
--- OUTSIDE RECORDS SUMMARY | 2024-11-22 12:12 | XMS_ITS | Encounter Summary ---
Author Organization [facility] Address [address] [place] [address] Care Team Providers Care Manager Audit Name Role Phone Carri Suazo MD Primary Care Provider [phone] Encounter Details Date Type Department Care Team Description 07/29/2023 Dynamic Balancer Set Up Worker Report Medical Records [address] [place] [address] Helder Nguyen Social History Tobacco Use Types [...] on filedocumented in this encounter Care Teams Manager Audit Relationship Specialty Start Date End Date Carri Suazo MD [address] [place], [place] [phone] PCP - General Internal Medicine 04/07/22 documented as of this encounter
--- OUTSIDE RECORDS SUMMARY | 2024-11-22 12:12 | XMS_ITS | Encounter Summary ---
Author Organization [facility] Address [address] [place] [address] Care Team Providers Care Hand Grinder Name Role Phone Carri Suazo MD Primary Care Provider [phone] Reason for Visit * Reason Comments E-prescribe Rx Request Encounter Details Date Type Department Care Team Description 01/05/2023 Refill Adult Medicine [address] [address] Samm Koroma, PLASTER LATHER [address] [place] [address] E-prescribe Rx Request Social History Tobacco Use [...] Telephone Encounter - Minal Vincent M.A. - 01/05/2023 10:31 AM EDT Lab Results Component Value Date NA 140 11/13/2022 K 4.0 11/13/2022 CO2 27 11/13/2022 CL 103 11/13/2022 BUN 19 11/13/2022 CREAT 1.09 11/13/2022 GLU 163 11/13/2022 CA 9.7 11/13/2022 GFR 70 11/13/2022 Pending appt 02/12/23 Last appt 11/13/22 * Telephone Encounter - Phyllis ContrerasBron - 01/05/2023 10:13 AM EDT Patient would like script to be: E-PRESCRIBED/FAXED TO PHARMACY WHEN WAS THE PATIENT'S LAST APPOINTMENT IN ADULT MEDICINE? 11-13-22 WHEN WAS THE LAST TIME THE PATIENT SAW THEIR PCP? 08-12-22 Does patient have an upcoming appointment? Yes 02-12-23 (THE MEDICATION REQUESTED IS ON THE MED [...] N/A Patients current insurance carrier is: Payor: [facility] MCR / Plan: [facility] $0 [facility] [id number] / Product Type: HMO [id number] documented in this encounter Plan of Treatment Not on file documented as of this encounter Visit Diagnoses Not on filedocumented in this encounter Care Teams Hand Grinder Relationship Specialty Start Date End Date Carri Suazo MD [address] [place] [address] PCP - General Internal Medicine 04/07/22 documented as of this encounter
--- OUTSIDE RECORDS SUMMARY | 2024-11-22 12:12 | XMS_ITS | Encounter Summary ---
Author Organization [facility] Address [address] [place] [address] Care Team Providers Care Relief Mate Name Role Phone Wandy Delcid DO Primary Care Pro vider Joe Ladd MD Primary Care Provider [phone] Carri Suazo MD Primary Care Provider [phone] Reason for Visit * Reason Comments E-prescribe Rx Request Encounter Details Date Type Department Care Team Description 12/11/2019 Refill Adult Medicine [address] [address] Wandy Delcid DO E-prescribe Rx Request Social [...] Encounter - Dena Sue M.A. - 12/13/2019 1:29 PM EDT Last ov 09/23/19 Next ov 01/31/20 Lab Results Component Value Date NA 137 09/26/2019 K 4.1 09/26/2019 CO2 30 09/26/2019 CL 101 09/26/2019 BUN 15 09/26/2019 CREAT 0.93 09/26/2019 GLU 159 09/26/2019 CA 9.4 09/26/2019 GFR > 60 09/26/2019 * Telephone Encounter - Beena Kin - 12/13/2019 10:30 AM EDT Patient would like script to [...] / Plan: [place] / Product Type: MEDICARE [id number] documented in this encounter Plan of Treatment Not on file documented as of this encounter Visit Diagnoses Not on filedocumented in this encounter Care Teams Relief Mate Relationship Specialty Start Date End Date Wandy Delcid DO PCP - General Internal Medicine 02/23/19 12/27/20 Joe Jimenez MD [address] [place] [address] [phone] PCP - General Internal Medicine 12/28/20 04/06/22 Carri Suazo MD [address] [place] [address] PCP - General Internal Medicine 04/07/22 documented as of this encounter
--- OUTSIDE RECORDS SUMMARY | 2024-11-22 12:12 | XMS_ITS | Encounter Summary ---
Author Organization [facility] Address [address] [place] [address] Care Team Providers Care Apple Sorter Name Role Phone Ricardo Louie MD Primary Care Provider Un available Wandy Delcid DO Primary Care Pro vider Unavailable Joe Jimenez MD Primary Care Provider [phone] Carri Suazo MD Primary Care Provider Encounter Details Date Type Department Care Team Description 12/31/2015 Recep Report Medical Records [address] [place] [address] Oleg Gamboa MD Social History Tobacco Use [...] on filedocumented in this encounter Care Teams Apple Sorter Relationship Specialty Start Date End Date Ricardo Louie MD PCP - General Internal Medicine 10/31/15 9 Wandy Delcid DO PCP - General Internal Medicine 02/23/19 12/27/20 Joe Jimenez MD [address] [place] [address] [phone] PCP - General Internal Medicine 12/28/20 04/06/22 Carri Suazo MD [address] [place] [address] [phone] PCP - General Internal Medicine 04/07/22 documented as of this encounter
--- OUTSIDE RECORDS SUMMARY | 2024-11-22 12:12 | XMS_ITS | Clinical Summary ---
Author Organization [facility] Address [address] [place] [address] Care Team Providers Care Wealth Management Advisor Name Role Phone Wandy Delcid DO Primary [...] age to complete this topic Care Teams Wealth Management Advisor Relationship Specialty Start Date End Date Wandy Delcid DO PCP - General Computer Support Analyst 02/17/20
--- OUTSIDE RECORDS SUMMARY | 2024-11-22 12:12 | XMS_ITS | Encounter Summary ---
Author Organization [facility] Address [address] [place] [address] Care Team Providers Care Conveyor Belt Installer Name Role Phone Ricardo Louie MD Primary Care Provider Un available Wandy Delcid DO Primary Care Pro vider Unavailable Joe Jimenez MD Primary Care Provider [phone] Carri Suazo MD Primary Care Provider [phone] Encounter Details Date Type Department Care Team Description 09/03/2016 Wellness Visit Medical Records [address] [place] [phone] Name, MD Leno Social History Tobacco Use Types Packs/Day Years [...] on filedocumented in this encounter Care Teams Conveyor Belt Installer Relationship Specialty Start Date End Date Ricardo Louie MD PCP - General Internal Medicine 10/31/15 9 Wandy Delcid DO PCP - General Internal Medicine 02/23/19 12/27/20 Joe Jimenez MD [address] [place] [address] [phone] PCP - General Internal Medicine 12/28/20 04/06/22 Carri Suazo MD [address] [place] [address] [phone] PCP - General Internal Medicine 04/07/22 documented as of this encounter
--- OUTSIDE RECORDS SUMMARY | 2024-11-22 12:12 | XMS_ITS | Encounter Summary ---
Author Organization [facility] Address [address] [place] [address] Care Team Providers Care Metallurgical Tester Name Role Phone Wandy Delcid DO Primary Care Pro vider Unavailable Joe Jimenez MD Primary Care Provider [phone] Carri Suazo MD Primary Care Provider [phone] Reason for Visit * Reason Comments E-prescribe Rx Request Encounter Details Date Type Department Care Team Description 10/07/2020 Refill Adult Medicine [address] [address] Wandy Delcid DO E-prescribe Rx Request Social [...] / Plan: [place] / Product Type: MEDICARE [id number] documented in this encounter Plan of Treatment Not on file documented as of this encounter Visit Diagnoses Not on filedocumented in this encounter Care Teams Metallurgical Tester Relationship Specialty Start Date End Date Wandy Delcid DO PCP - General Internal Medicine 02/23/19 12/27/20 Joe Jimenez MD [address] [place] [address] PCP - General Internal Medicine 12/28/20 04/06/22 Carri Suazo MD [address] [place] [address] PCP - General Internal Medicine 04/07/22 documented as of this encounter
--- OUTSIDE RECORDS SUMMARY | 2024-11-22 12:12 | XMS_ITS | Encounter Summary ---
Author Organization [facility] Address [address] [place] [address] Care Team Providers Care Deputy Sheriff Civil Division Name Role Phone Wandy Delcid DO Primary Care Pro vider Joe Ladd MD Primary Care Provider [phone] Carri Suazo MD Primary Care Provider Encounter Details Date Type Department Care Team Description 10/02/2019 Orders Only Adult Medicine [address] [address] Wandy Delcid DO Normocytic anemia (Primary Dx) Social History Tobacco Use Types Packs/Day Years [...] documented as of this encounter Results * (ABNORMAL) FOLIC ACID (01/29/2020 9:32 AM EDT) FOLATE 19.9(H) 2.8 - 17.0 ng/ml 01/29/2020 2:50 PM EDT [facility] 01/29/2020 9:32 AM EDT 01/29/2020 9:35 AM EDT Wandy [employer] LAB Performing Organization Address City/[facility]/ZIP Co de Phone Number [employer] * VITAMIN B-12, ASSAY (01/29/2020 9:32 AM EDT) VITAMIN B12 431 250 - 900 pg/mL 01/29/2020 2:50 PM EDT [facility] 01/29/2020 9:32 AM EDT 01/29/2020 9:35 AM EDT Wandy eG [employer] LAB Performing Organization Address [facility] Co de Phone Number [employer] * (ABNORMAL) FERRITIN ASSAY (01/29/2020 9:32 AM EDT) FERRITIN 8(L) 26 - 388 ng/mL 01/29/2020 2:52 PM EDT [facility] 01/29/2020 9:32 AM EDT 01/29/2020 9:35 AM EDT [employer]andy [employer] Performing Organization Address [facility] Co de Phone Number [employer] * (ABNORMAL) IRON/TIBC (01/29/2020 9:32 AM EDT) TOTAL IRON BINDING CAPACITY 383 250 - 450 ug/dL 01/29/2020 2:26 PM EDT [facility] IRON (FE) 30(L) 50 - 160 ug/dL 01/29/2020 2:26 PM EDT [facility] % FE SATURATION 8(L) 20 - 50 % 0 2:26 PM EDT [facility] 01/29/2020 9:32 AM EDT 01/29/2020 9:35 AM EDT [employer] LAB Performing Organization Address City/[facility]/ZIP Co de Phone Number [employer] * (ABNORMAL) CBC (AUTO DIFF PLATELET) (01/29/2020 9:32 AM EDT) [facility] WHITE BLOOD COUNT 6.2 4.8 - 10.8 x10-3/uL 01/29/2020 2:20 PM EDT [facility] RED BLOOD COUNT 4.5 4.5 - 5.5 x10-6/uL 01/29/2020 2:20 PM EDT [facility] Hemoglobin 10.6(L) 13.5 - 17.5 g/dL 01/29/2020 2:20 PM EDT [facility] Hematocrit 36.8(L) 42 - 54 % 01/29/2020 2:20 PM EDT [facility] MEAN CORPUSCULAR VOLUME 81.8 79 - 98 fL 01/29/2020 2:20 PM EDT [facility] HEMOGLOBIN 23.6(L) 27 - 32 pg 01/29/2020 2:20 PM EDT [facility] HGB CONC 28.8(L) 32 - 37 g/dL 01/29/2020 2:20 PM EDT [facility] RED CELL DISTRIBUTION WIDTH 17.6(H) 11 - 15 % 01/29/2020 2:20 PM EDT [facility] PLT COUNT 150 130 - 400 x10-3/uL 01/29/2020 2:20 PM EDT [facility] NRBC % AUTO 0.0 <1 % 01/29/2020 2:20 PM EDT [facility] NEUTROPHILS % 60.9 % 01/29/2020 2:20 PM EDT [facility] LYMPH % 28.8 % 01/29/2020 2:20 PM EDT [facility] MONO % 8.5 % 01/29/2020 2:20 PM EDT [facility] EOS % 1.1 % 01/29/2020 2:20 PM EDT [facility] BASO % 0.5 % 01/29/2020 2:20 PM EDT [facility] IMMATURE GRANULOCYTES % 0.2 % 01/29/2020 2:20 PM EDT [facility] NRBC # AUTO 0.00 <0.1 x10-3/uL 01/29/2020 2:20 PM EDT [facility] NEUT # 3.75 1.5 - 7.0 x10-3/uL 01/29/2020 2:20 PM EDT [facility] LYMPH # 1.77 1 - 5.0 x10-3/uL 01/29/2020 2:20 PM EDT [facility] MONO # 0.52 0.2 - 1.0 x10-3/uL 01/29/2020 2:20 PM EDT [facility] EOS # 0.07 0 - 0.5 x10-3/uL 01/29/2020 2:20 PM EDT [facility] BASO # 0.03 0 - 0.2 x10-3/uL 01/29/2020 2:20 PM EDT [facility] IMMATURE GRANULOCYTES # 0.01 0 - 0.03 x10-3/uL 01/29/2020 2:20 PM EDT [facility] 01/29/2020 9:32 AM EDT 01/29/2020 9:35 AM EDT Wandy Duque DO LAB [facility] documented in this encounter Visit Diagnoses Diagnosis Normocytic anemia- Primary Anemia, unspecified documented in this encounter Care Teams Deputy Sheriff Civil Division Relationship Specialty Start Date End Date Wandy Delcid DO PCP - General Internal Medicine 02/23/19 12/27/20 Joe Jimenez MD [address] [place] [address] PCP - General Internal Medicine 12/28/20 04/06/22 Carri Suazo MD [address] [place] [address] PCP - General Internal Medicine 04/07/22 documented as of this encounter
--- OUTSIDE RECORDS SUMMARY | 2024-11-22 12:12 | XMS_ITS | Encounter Summary ---
Author Organization [facility] Address [address] [place] [address] Care Team Providers Care Portfolio Strategist Name Role Phone NameLeno MD Primary Care Provider Unavailabl e [place] Colasacco, Wandy DO Primary Care Pro vider Unavailable Ricardo Louie MD Primary Care Provider Un available [place] Colasacco, Wandy DO Primary Care Pro vider Unavailable Joe Jimenez MD Primary Care Provider [phone] Carri Suazo MD Primary Care Provider [phone] Reason for Visit * Reason Onset Date Comments Faxed Refill 07/12/2012 Encounter Details Date Type Department Care Team Description 07/12/2012 Refill Adult Medicine [address] [address] Name, MD Leno Faxed Refill Social History Tobacco Use Types [...] encounter Miscellaneous Notes * Telephone Encounter - Lavinia Mcdermott Perico - 07/12/2012 11:02 AM EST WHEN WAS THE PATIENT'S LAST APPOINTMENT IN ADULT MEDICINE? 05/25/2012 WHEN WAS THE LAST TIME THE PATIENT SAW THEIR PCP? Same as above Does patient have an upcoming appointment? Yes 09/22/2012 (THE MEDICATION REQUESTED IS ON THE MED LIST ABOVE) All of the medications requested were on the CURRENT MEDS list Did you check the Pharmacy information above?: YES Patient wants: 30 -day supply Patient would like script to be: E-PRESCRIBED/FAXED TO PHARMACY Is this a mail order prescription request ? NO Indicate how soon the patient needs the script: BY THE END OF THE DAY Patients current insurance carrier is: [place] Plan[place] Product Type: MEDICARE [id number] * Telephone Encounter - Carline Woodard M.A. - 07/12/2012 11:00 AM EST Pt looking for prednisone. Please triage documented in this encounter Plan of Treatment Not on file documented as of this encounter Visit Diagnoses Diagnosis Asthma exacerbation- Primary Unspecified asthma, with exacerbation documented in this encounter Care Teams Portfolio Strategist Relationship Specialty Start Date End Date Name, MD Leno PCP - General 03/30/06 07/29/15 Wandy Delcid DO PCP - General Internal Medicine 07/30/15 10/30/15 Ricardo Louie MD PCP - General Internal Medicine 10/31/15 9 Wandy Delcid DO PCP - General Internal Medicine 02/23/19 12/27/20 Joe Jimenez MD [address] [place] [address] PCP - General Internal Medicine 12/28/20 04/06/22 Carri Suazo MD [address] [place] [address] PCP - General Internal Medicine 04/07/22 documented as of this encounter
--- OUTSIDE RECORDS SUMMARY | 2024-11-22 12:12 | XMS_ITS | Encounter Summary ---
Author Organization [facility] Address [address] [place] [address] Care Team Providers Care Setter Up Name Role Phone Wandy Delcid DO Primary Care Pro vider Joe Ladd MD Primary Care Provider [phone] Carri Suazo MD Primary Care Provider [phone] Reason for Visit * Reason Onset Date Comments refill request 10/11/2020 Encounter Details Date Type Department Care Team Description 10/11/2020 Refill Adult Medicine [address] [address] Wandy Delcid DO refill request Social History [...] / Plan: [place] / Product Type: MEDICARE [id number] documented in this encounter Plan of Treatment Not on file documented as of this encounter Visit Diagnoses Not on filedocumented in this encounter Care Teams Setter Up Relationship Specialty Start Date End Date Wandy Delcid DO PCP - General Internal Medicine 02/23/19 12/27/20 Joe Jimenez MD [address] [place] [address] PCP - General Internal Medicine 12/28/20 04/06/22 Carri Suazo MD [address] [place] [address] PCP - General Internal Medicine 04/07/22 documented as of this encounter
--- OUTSIDE RECORDS SUMMARY | 2024-11-22 12:12 | XMS_ITS | Encounter Summary ---
Author Organization [facility] Address [address] [place] [address] Care Team Providers Care Street Photographer Name Role Phone Wandy Delcid DO Primary Care Pro vider Joe Ladd MD Primary Care Provider [phone] Carri Suazo MD Primary Care Provider [phone] Reason for Visit * Reason Comments E-prescribe Rx Request Encounter Details Date Type Department Care Team Description 01/30/2020 Refill Adult Medicine [address] [address] Magen Rodriguez NP E-prescribe Rx Request Social [...] encounter Miscellaneous Notes * Telephone Encounter - Vandana Ibrahim - 01/30/2020 3:05 PM EDT Last office visit: 09.23.2019 Pending apt for tomorrow. Lab Results Component Value Date CHOL 157 09/26/2019 LDL 84 09/26/2019 HDL 42 09/26/2019 TRIG 156 09/26/2019 SGOT 32 01/21/2019 SGPT 36 01/21/2019 ] * Telephone Encounter - Torstenjame Bill - 01/30/2020 2:33 PM EDT Patient would like script to [...] / Plan: [place] / Product Type: MEDICARE [id number] documented in this encounter Plan of Treatment Not on file documented as of this encounter Visit Diagnoses Not on filedocumented in this encounter Care Teams Street Photographer Relationship Specialty Start Date End Date Wandy Delcid DO PCP - General Internal Medicine 02/23/19 12/27/20 Joe Jimenez MD [address] [place] [address] PCP - General Internal Medicine 12/28/20 04/06/22 Carri Suazo MD [address] [place] [address] PCP - General Internal Medicine 04/07/22 documented as of this encounter
--- OUTSIDE RECORDS SUMMARY | 2024-11-22 12:13 | XMS_ITS | Encounter Summary ---
Author Organization [facility] Address [address] [place] [address] Care Team Providers Care Executive Consultant Name Role Phone Joe Jimenez MD Primary Care Provider [phone] Carri Suazo MD Primary Care Provider [phone] Reason for Visit * Reason Onset Date Comments refill request 06/12/2021 Encounter Details Date Type Department Care Team Description 06/12/2021 Refill Adult Medicine [address] [phone] Joe Jimenez MD [address] [place] [address] [phone] refill request Social History Tobacco Use Types [...] N/A Patients current insurance carrier is: Payor: [facility] MCR / Plan: nuMVCO [facility] [id number] / Product Type: HMO [id number] documented in this encounter Plan of Treatment Not on file documented as of this encounter Visit Diagnoses Not on filedocumented in this encounter Care Teams Executive Consultant Relationship Specialty Start Date End Date Joe Jimenez MD [address] [place] [address] PCP - General Internal Medicine 12/28/20 04/06/22 Carri Suazo MD [address] [place] [address] PCP - General Internal Medicine 04/07/22 documented as of this encounter
--- OUTSIDE RECORDS SUMMARY | 2024-11-22 12:13 | XMS_ITS | Encounter Summary ---
Author Organization [facility] Address [address] [place] [address] Care Team Providers Care Rock Wool Insulator Name Role Phone Wandy eDlcid DO Primary Care Pro vider Unavailable Ricardo Louie MD Primary Care Provider Un available Wandy Delcid DO Primary Care Pro vider Unavailable Joe Jimenez MD Primary Care Provider [phone] Carri Suazo MD Primary Care Provider Encounter Details Date Type Department Care Team Description 08/10/2015 Wellness Visit Medical Records [address] [place] [address] Abstract, Provider Social History Tobacco Use Types [...] on filedocumented in this encounter Care Teams Rock Wool Insulator Relationship Specialty Start Date End Date Wandy Delcid DO PCP - General Internal Medicine 07/30/15 10/30/15 Ricardo Louie MD PCP - General Internal Medicine 10/31/15 9 Wandy Delcid, DO PCP - General Internal Medicine 02/23/19 12/27/20 Joe Jimenez MD [address] [place] [address] PCP - General Internal Medicine 12/28/20 04/06/22 Carri Suazo MD [address] [place] [address] PCP - General Internal Medicine 04/07/22 documented as of this encounter
--- OUTSIDE RECORDS SUMMARY | 2024-11-22 12:13 | XMS_ITS | Encounter Summary ---
Author Organization [facility] Address [address] [place] [address] Care Team Providers Care Dryer Operator Name Role Phone Carri Suazo MD Primary Care Provider [phone] Encounter Details Date Type Department Care Team Description 08/11/2023 Orders Only Adult Medicine [address] [address] Rachel Kilgore PA-C [address] [place] [address] [phone] Social History Tobacco Use Types Packs/Day Years [...] on filedocumented in this encounter Care Teams Dryer Operator Relationship Specialty Start Date End Date Carri Suazo MD [address] [place] [address] PCP - General Internal Medicine 04/07/22 documented as of this encounter
--- OUTSIDE RECORDS SUMMARY | 2024-11-22 12:13 | XMS_ITS | Encounter Summary ---
Author Organization [facility] Address [address] [place] [address] Care Team Providers Care Social Media Strategist Name Role Phone Carri Suazo MD Primary Care Provider [phone] Encounter Details Date Type Department Care Team Description 08/31/2023 Marketing Operations Assistant Report Medical Records [address] [place] [address] Yogesh Saul MD Social History Tobacco Use Types Packs/Day [...] on filedocumented in this encounter Care Teams Social Media Strategist Relationship Specialty Start Date End Date Carri Suazo MD [address] [place], [place] [phone] PCP - General Internal Medicine 04/07/22 documented as of this encounter
--- OUTSIDE RECORDS SUMMARY | 2024-11-22 12:13 | XMS_ITS | Encounter Summary ---
Author Organization [facility] Address [address] [place] [address] Care Team Providers Care Oracle Hrms Developer Name Role Phone Ricardo Louie MD Primary Care Provider Un available Wandy Delcid DO Primary Care Pro vider Unavailable Joe Jimenez MD Primary Care Provider Carri Suazo MD Primary Care Provider [phone] Encounter Details Date Type Department Care Team Description 12/30/2016 Business Doc Medical Records [address] [place] [address] Abstract, Provider Social History Tobacco Use Types [...] on filedocumented in this encounter Care Teams Oracle Hrms Developer Relationship Specialty Start Date End Date Ricardo Louie MD PCP - General Internal Medicine 10/31/15 9 Wandy Delcid DO PCP - General Internal Medicine 02/23/19 12/27/20 Joe Jimenez MD [address] [place] [address] PCP - General Internal Medicine 12/28/20 04/06/22 Carri Suazo MD [address] [place] [address] PCP - General Internal Medicine 04/07/22 documented as of this encounter
--- OUTSIDE RECORDS SUMMARY | 2024-11-22 12:13 | XMS_ITS | Encounter Summary ---
Author Organization [facility] Address [address] [place] [address] Care Team Providers Care Clinic Manager Name Role Phone Carri Suazo MD Primary Care Provider [phone] Reason for Visit * Reason Comments E-prescribe Rx Request Encounter Details Date Type Department Care Team Description 12/04/2023 Refill Adult Medicine [address] [address] Carri Suazo MD [address] [place] [address] E-prescribe Rx Request Social History Tobacco Use [...] encounter Miscellaneous Notes * Telephone Encounter - Amos Zee M.A. - 12/04/2023 9:00 PM EDT Last ov 12/04/23 next ov 02/23/24 Lab Results Component Value Date NA 141 12/02/2023 K 4.6 12/02/2023 CO2 28 12/02/2023 CL 106 12/02/2023 BUN 15 12/02/2023 CREAT 0.98 12/02/2023 GLU 146 12/02/2023 CA 9.8 12/02/2023 GFR 79 12/02/2023 documented in this encounter Plan of Treatment Not on file documented as of this encounter Visit Diagnoses Not on filedocumented in this encounter Care Teams Clinic Manager Relationship Specialty Start Date End Date Carri Suazo MD [address] [place] [address] PCP - General Internal Medicine 04/07/22 documented as of this encounter
--- OUTSIDE RECORDS SUMMARY | 2024-11-22 12:13 | XMS_ITS | Encounter Summary ---
Author Organization [facility] Address [address] [place] [address] Care Team Providers Care Compliance Specialist Name Role Phone Name, Leno BLANDON Primary Care Provider Unavailabl e Wandy Delcid DO Primary Care Pro vider Unavailable Ricardo Louie MD Primary Care Provider Un available Wandy Delcid DO Primary Care Pro vider Unavailable Joe Jimenez MD Primary Care Provider [phone] Carri Suazo MD Primary Care Provider [phone] Encounter Details Date Type Department Care Team Description 02/08/2010 Hospital Medical Records [address] [place] [address] Deacon Villarreal MD Social History Tobacco Use Types Packs/Day [...] on filedocumented in this encounter Care Teams Compliance Specialist Relationship Specialty Start Date End Date Name, MD Leno PCP - General 03/30/06 07/29/15 Wandy Delcid DO PCP - General Internal Medicine 07/30/15 10/30/15 Ricardo Louie MD PCP - General Internal Medicine 10/31/15 Wandy Delcid DO PCP - General Internal Medicine 02/23/19 12/27/20 Joe Jimenez MD [address] [place] [address] PCP - General Internal Medicine 12/28/20 04/06/22 Carri Suazo MD [address] [place] [address] PCP - General Internal Medicine 04/07/22 documented as of this encounter
--- OUTSIDE RECORDS SUMMARY | 2024-11-22 12:13 | XMS_ITS | Encounter Summary ---
Author Organization [facility] Address [address] [place] [address] Care Team Providers Care Flat Bed Operator Name Role Phone Name, Leno BLANDON Primary Care Provider Unavailabl e Wandy Delcid DO Primary Care Pro vider Unavailable Ricardo Louie MD Primary Care Provider Un available Wandy Delcid DO Primary Care Pro vider Unavailable Joe Jimenez MD Primary Care Provider [phone] Carri Suazo MD Primary Care Provider [phone] Encounter Details Date Type Department Care Team Description 02/09/2010 Hospital Medical Records [address] [place] [address] Deacon Villarreal MD Social History Tobacco Use [...] on filedocumented in this encounter Care Teams Flat Bed Operator Relationship Specialty Start Date End Date Name, MD Leno PCP - General 03/30/06 07/29/15 Wadny Delcid DO PCP - General Internal Medicine 07/30/15 10/30/15 Ricardo Louie MD PCP - General Internal Medicine 10/31/15 Wandy Delcid DO PCP - General Internal Medicine 02/23/19 12/27/20 Joe Jimenez MD [address] [place] [address] PCP - General Internal Medicine 12/28/20 04/06/22 Carri Suazo MD [address] [place] [address] PCP - General Internal Medicine 04/07/22 documented as of this encounter
--- OUTSIDE RECORDS SUMMARY | 2024-11-22 12:13 | XMS_ITS | Encounter Summary ---
Author Organization [facility] Address [address] [place] [address] Care Team Providers Care Iron Installer Name Role Phone Ricardo Louie MD Primary Care Provider Un available Wandy Delcid DO Primary Care Pro vider Unavailable Joe Jimenez MD Primary Care Provider [phone] Carri Suazo MD Primary Care Provider [phone] Reason for Visit * Reason Onset Date Comments refill request 08/10/2018 Encounter Details Date Type Department Care Team Description 08/10/2018 Refill Adult Medicine [address] [address] Ricardo Louie MD refill request Social History [...] EST Please sign, needed to be for Codem[employer] device. * Telephone Encounter - Beena Sanderson [...] / Plan[place] / Product Type: MEDICARE [id number] documented in this encounter Plan of Treatment Not on file documented as of this encounter Visit Diagnoses Not on filedocumented in this encounter Care Teams Iron Installer Relationship Specialty Start Date End Date Ricardo Louie MD PCP - General Internal Medicine 10/31/15 9 Wandy Delcid DO PCP - General Internal Medicine 02/23/19 12/27/20 Joe Jimenez MD [address] [place] [address] PCP - General Internal Medicine 12/28/20 04/06/22 Carri Suazo MD [address] [place] [address] PCP - General Internal Medicine 04/07/22 documented as of this encounter
--- OUTSIDE RECORDS SUMMARY | 2024-11-22 12:13 | XMS_ITS | Encounter Summary ---
Author Organization [facility] Address [address] [place] [address] Care Team Providers Care Addressing Machine Operator Name Role Phone Ricardo Louie MD Primary Care Provider Un available Wandy Delcid DO Primary Care Pro vider Unavailable Joe Jimenez MD Primary Care Provider Carri Suazo MD Primary Care Provider [phone] Encounter Details Date Type Department Care Team Description 11/12/2015 Business Doc Medical Records [address] [place] [address] Abstract, Provider Social History Tobacco Use Types [...] on filedocumented in this encounter Care Teams Addressing Machine Operator Relationship Specialty Start Date End Date Ricarod Louie MD PCP - General Internal Medicine 10/31/15 9 Wandy Delcid DO PCP - General Internal Medicine 02/23/19 12/27/20 Joe Jimenez MD [address] [place] [address] PCP - General Internal Medicine 12/28/20 04/06/22 Carri Suazo MD [address] [place] [address] PCP - General Internal Medicine 04/07/22 documented as of this encounter
--- OUTSIDE RECORDS SUMMARY | 2024-11-22 12:13 | XMS_ITS | Encounter Summary ---
Author Organization [facility] Address [address] [place] [address] Care Team Providers Care Petroleum Refining Firer Name Role Phone Name, Leno BLANDON Primary Care Provider Unavailabl e Wandy Delcid DO Primary Care Pro vider Unavailable Ricardo Louie MD Primary Care Provider Un available Wandy Delcid DO Primary Care Pro vider Unavailable Joe Jimenez MD Primary Care Provider [phone] Carri Suazo MD Primary Care Provider [phone] Encounter Details Date Type Department Care Team Description 06/11/2015 Dress Designer Report Medical Records [address] [place] [address] Oleg Gamboa MD Social History Tobacco Use [...] on filedocumented in this encounter Care Teams Petroleum Refining Firer Relationship Specialty Start Date End Date Name, MD Leno PCP - General 03/30/06 07/29/15 Wandy Delcid DO PCP - General Internal Medicine 07/30/15 10/30/15 Ricardo Louie MD PCP - General Internal Medicine 10/31/15 Wandy Delcid DO PCP - General Internal Medicine 02/23/19 12/27/20 Joe Jimenez MD [address] [place] [address] PCP - General Internal Medicine 12/28/20 04/06/22 Carri Suazo MD [address] [place] [address] PCP - General Internal Medicine 04/07/22 documented as of this encounter
--- OUTSIDE RECORDS SUMMARY | 2024-11-22 12:13 | XMS_ITS | Encounter Summary ---
Author Organization [facility] Address [address] [place] [address] Care Team Providers Care Outbound Sales Agent Name Role Phone Carri Suazo MD Primary Care Provider [phone] Reason for Visit * Reason Comments E-prescribe Rx Request Encounter Details Date Type Department Care Team Description 11/08/2023 Refill Adult Medicine [address] [address] Carri Suazo MD [address] [place] [address] E-prescribe Rx Request Social History Tobacco Use [...] Telephone Encounter - Rachel Kilgore PA-C - 11/09/2023 1:59 PM EDT Ok to fill. Bryanna Wilkerson * Telephone Encounter - Taylor Paiz M.A. - 11/09/2023 1:22 PM EDT Last office visit 09/02/23 Next office visit 12/04/23 Lab Results Component Value Date NA 137 09/02/2023 K 4.0 09/02/2023 CO2 30 09/02/2023 CL 103 09/02/2023 BUN 20 09/02/2023 CREAT 1.01 09/02/2023 GLU 151 09/02/2023 CA 9.9 09/02/2023 GFR 77 09/02/2023 Lab Results Component Value Date 25OHD 26 09/02/2023 * Telephone Encounter - Karina Harrison - 11/09/2023 12:57 PM EDT Patient would like script to be: E-PRESCRIBED/FAXED TO PHARMACY WHEN WAS THE PATIENT'S LAST APPOINTMENT IN ADULT MEDICINE? 09/02/23 WHEN WAS THE LAST TIME THE PATIENT SAW THEIR PCP? Same as above Does patient have an upcoming appointment? Yes 12/04/23 pcp (THE MEDICATION REQUESTED IS ON THE [...] N/A Patients current insurance carrier is: Payor: [facility] [employer] MCR / Plan: HMO $0 [facility] [id number] / Product Type: HMO [id number] documented in this encounter Plan of Treatment Not on file documented as of this encounter Visit Diagnoses Not on filedocumented in this encounter Care Teams Outbound Sales Agent Relationship Specialty Start Date End Date Carri Suazo MD [address] [place] [address] PCP - General Internal Medicine 04/07/22 documented as of this encounter
--- OUTSIDE RECORDS SUMMARY | 2024-11-22 12:13 | XMS_ITS | Encounter Summary ---
Author Organization [facility] Address [address] [place] [address] Care Team Providers Care Residential Mortgage Underwriter Name Role Phone Ricardo Louie MD Primary Care Provider Un available Wandy Delcid DO Primary Care Pro vider Unavailable Joe Jimenez MD Primary Care Provider [phone] aCrri Suazo MD Primary Care Provider [phone] Encounter Details Date Type Department Care Team Description 05/13/[address] [address] Ricardo Louie MD Social History Tobacco Use [...] on filedocumented in this encounter Care Teams Residential Mortgage Underwriter Relationship Specialty Start Date End Date Ricardo Louie MD PCP - General Internal Medicine 10/31/15 9 Wandy Delcid DO PCP - General Internal Medicine 02/23/19 12/27/20 Joe Jimenez MD [address] [place] [address] PCP - General Internal Medicine 12/28/20 04/06/22 Carri Suazo MD [address] [place] [address] PCP - General Internal Medicine 04/07/22 documented as of this encounter
--- OUTSIDE RECORDS SUMMARY | 2024-11-22 12:13 | XMS_ITS | Encounter Summary ---
Author Organization [facility] Address [address] [place] [address] Care Team Providers Care Jewelry Racker Name Role Phone Carri Suazo MD Primary Care Provider [phone] Reason for Visit * Reason Comments E-prescribe Rx Request Flovent HFA 110 M CG/ACT inhaler Encounter Details Date Type Department Care Team Description 08/08/2023 Refill Adult Medicine [address] [address] Rachel Kilgore PA-C [address] [place] [address] E-prescribe Rx Request (Flovent HFA 110 MCG/ACT inhaler) Social History Tobacco Use Types Packs/Day Years [...] Telephone Encounter - Rachel Kilgore PA-C - 08/11/2023 5:23 PM EST Changed to asmanex due to insurance coverage. * Telephone Encounter - Minal Vincent M.A. - 08/11/2023 3:51 PM EST Lab Results Component Value Date NA 142 05/28/2023 K 4.0 05/28/2023 CO2 28 05/28/2023 CL 105 05/28/2023 BUN 17 05/28/2023 CREAT 0.99 05/28/2023 GLU 109 05/28/2023 CA 9.7 05/28/2023 GFR 79 05/28/2023 Pending appt with pcp 09/02/23 documented in this encounter Plan of Treatment Not on file documented as of this encounter Visit Diagnoses Not on filedocumented in this encounter Care Teams Jewelry Racker Relationship Specialty Start Date End Date Carri Suazo MD [address] [place] [address] PCP - General Internal Medicine 04/07/22 documented as of this encounter
--- OUTSIDE RECORDS SUMMARY | 2024-11-22 12:13 | XMS_ITS | Clinical Summary ---
Author Organization [facility] [address] [facility] Address [address] [place], [place] Phone Care Team Providers Care Employee Relations Administrator Name Role Phone Carri Suazo MD Primary Care Provider [phone] Allergies Active Allergy Reactions Criticality Noted Date [...] complication, without long-term current use of insulin ([facility] V24, [facility] V28) USE TO CHECK BLOOD SUGAR DAILY 1 kit 08/08/19 25 Active blood sugar diagnostic (FreeStyle Lite Strips) test stripIndications :Type 2 diabetes mellitus with other ophthalmic complication, without long-term current use of insulin ([facility] V24, [facility] V28) USE TO TEST BLOOD SUGAR ONCE DAILY 200 strip 5 08/08/19 25 Active aspirin 81 mg EC tablet TAKE 1 TABLET BY MOUTH EVERY DAY 90 tablet 1 09/06/19 25 Active Trulicity 3 mg/0.5 mL pen injector injectionIndicat ions:Type 2 diabetes mellitus with other specified complication ([facility] V24, [facility] V28) INJECT 3 MG INTO THE [...] (diabetes mellitus), type 2 with ophthalmic complications ([facility] V24, [facility] V28) 09/12/2013 Overview (04/18/2024): Nuclear Sclerosis out side eye exam 07/07/12. Dr. Engle. Obesity (BMI 30.0-34.9) 11/20/2009 Asthma 04/13/2006 Essential hypertension, benign 04/13/2006 CAD (coronary artery disease) 04/13/2006 Hyperlipidemia 04/13/2006 Lumbago 04/13/2006 Encounters Date Type Department Care Team Description 10/19/2024 3:15 PM EDT Office Visit Orthopedic Surgery [facility] [address] [phone] Elder Snyder DPM Tailor's bunionette, left (Primary Dx); Ulcer of toe of left foot, limited to breakdown of skin ([facility] V24, [facility] V28) 10/11/2024 8:30 AM EDT Office Visit [facility] [address] [phone] Elder Snyder DPM Cellulitis of left foot (Primary Dx); Bilateral femoral artery stenosis ([facility] V24); Tailor's bunionette, left 09/12/2024 9:30 AM EST Office Visit [facility] [address] [phone] Elder Snyder DPM Tailor's bunionette, left (Primary Dx); Ulcer of toe of left foot, limited to breakdown of skin ([facility] V24, [facility] V28); Type II diabetes mellitus with peripheral circulatory disorder ([facility] V24, [facility] V28) 09/07/2024 1:30 PM EST Office Visit Adult Medicine [address] [phone] Carri Suazo MD Essential hypertension, benign (Primary Dx); Mixed hyperlipidemia; Benign prostatic hyperplasia without lower urinary tract symptoms; Need for tetanus, diphtheria, and acellular pertussis (Tdap) vaccine; 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 ([facility] V24, [facility] V28) 08/29/2024 8:15 AM EST Office Visit Orthopedic Surgery [address] [phone] Elder Snyder, DPM Ulcer of toe of left foot, limited to breakdown of skin ([facility] V24, [facility] V28) (Primary Dx); Follow-up exam; Maninder godfrey, left; Diabetic mononeuropathy simplex ([facility] V24, [facility] V28); Type II diabetes mellitus with peripheral circulatory disorder ([facility] V24, [facility] V28) from Last 3 Months Immunizations Name Administration Dates Next Due H1N1 Inj Preservative Free 08/21/2009 Influenza Quadravalent, MDCK , 0.5ml, preservative free (Flucelvax) 6mo and older 04/07/2022,07/08/2018 Influenza trivalent, 0.5mL ( Fluad) 65yo and older 05/25/2024 Influenza trivalent, 0.5mL ( Fluzone High-dose) 65yo and older 05/28/2023,05/16/2021,06/10/2020,07/25,05/01/2017 Influenza trivalent, with pr eservative (Fluzone; Afluria) 6mo and older 07/31/2016,06/11/2015,06/06/2014,05/31,05/25/2012,06/23/2011,03/26/2010 ,05/21/2009,05/17/2007,06/08/2006 RainStor SARS-CoV-2 COVID-19, mRNA, LNP-S, preservative free 07/09/2021 [...] Coronary atherosclerosis of unspecified type of vessel, absentee-shawnee or graft 04/13/2006 DX:Coronary atherosclerosis of unspecified type of vessel, absentee-shawnee or graft Other and unspecified hyperlipidemia 04/13/2006 [...] Daughter 3 Alive Daughter 4 Alive Father [place] Mother DM Sister Alive DM Son Alive [...] 8:15 AM EDT Office Visit Orthopedic Surgery [facility] [address] [phone] Elder Snyder DPM [address] [address] 01/05/2025 9:30 AM EDT Office Visit Adult Medicine [place] [facility] [address] [phone] Rachel Kilgore PA [address] [place] [address] 01/12/2025 9:00 AM EDT Office Visit Endocrinology [address] [phone] Chu Joyner MD [facility] [place] [address] Health Maintenance Due Date Last Done Comments [...] complication, without long-term current use of insulin ([facility] V24, [facility] V28) COMPREHENSIVE METABOLIC PANEL Routine 07/05/2024 8:17 AM EST Primary hypertension HEMOGLOBIN A1C Routine 07/05/2024 8:17 AM EST Type 2 diabetes mellitus with other specified complication, without long-term current use of insulin ([facility] V24, [facility] V28) LIPID PANEL WITH REFLEX TO [...] mg/dL LAB CHEMISTRY METHOD 07/05/2024 10:38 AM [facility] Triglycerides 167(H) 0 - 150 mg/dL LAB CHEMISTRY METHOD 07/05/2024 10:38 AM [facility] HDL 49 >=40 mg/dL LAB CHEMISTRY METHOD 07/05/2024 10:38 AM [facility] LDL Calculated 71 0 - 100 mg/dL LAB CHEMISTRY METHOD 07/05/2024 10:38 AM [facility] VLDL Cholesterol Eleazar 33.4 mg/dL LAB CHEMISTRY METHOD 07/05/2024 10:38 AM [facility] Non HDL Chol. (LDL+VLDL) 104 <145 mg/dL LAB CHEMISTRY METHOD 07/05/2024 10:38 AM [facility] Chol/HDL Ratio 3.1 0.0 - 4.4 LAB CHEMISTRY METHOD 07/05/2024 10:38 AM [facility] Blood Venous blood specimen / Unknown Venipuncture / Unknown 07/05/2024 8:17 AM EST 07/05/2024 8:17 AM EST us Carri Suazo MD LAB BLOOD ORDERABLES Final Resul t [facility] [address] [place] [address], [place] [phone] * Microalbumin creatinine urine ratio (07/05/2024 8:17 AM EST) Creatinine, Urine 166.0 mg/dL LAB CHEMISTRY METHOD 07/05/2024 11:01 AM EST [facility] Microalb, Ur 13.5 0.0 - 29.0 mg/L LAB CHEMISTRY METHOD 07/05/2024 11:01 AM EST [facility] Microalb/Creat Ratio 8 <30 mg/g creat LAB CHEMISTRY METHOD 07/05/2024 11:01 AM EST [facility] Urine Urine specimen obtained by clean catch procedure / Unknown Non-blood Collection / Unknown 07/05/2024 8:17 AM EST 07/05/2024 8:17 AM EST us Carri Suazo MD LAB URINE ORDERABLES Final Resul t Performing Organization Address City/[facility]/ZIP Co de Phone Number [facility] [address] [place] [address], [place] [phone] * (ABNORMAL) Hemoglobin A1c (07/05/2024 8:17 AM EST) Hemoglobin A1C 7.0(H) <6.5 % LAB CHEMISTRY METHOD 07/05/2024 1:50 PM EST [facility] Mean Bld Glu Estim. 154 mg/dL LAB CHEMISTRY METHOD 07/05/2024 1:50 PM EST [facility] Blood Venous blood specimen / Unknown Venipuncture / Unknown 07/05/2024 8:17 AM EST 07/05/2024 8:17 AM EST us Carri Suazo MD LAB BLOOD ORDERABLES Final Resul t [facility] [address] [place] [address], [place] [phone] * (ABNORMAL) Comprehensive metabolic panel (07/05/2024 8:17 AM EST) Sodium 138 133 - 145 mmol/L LAB CHEMISTRY METHOD 07/05/2024 10:38 AM [facility] Potassium 4.4 3.5 - 5.5 mmol/L LAB CHEMISTRY METHOD 07/05/2024 10:38 AM [facility] Chloride 102 96 - 110 mmol/L LAB CHEMISTRY METHOD 07/05/2024 10:38 AM [facility] CO2 28 21 - 32 mmol/L LAB CHEMISTRY METHOD 07/05/2024 10:38 AM [facility] Anion Gap 8 3 - 11 LAB CHEMISTRY METHOD 07/05/2024 10:38 AM [facility] Glucose 130(H) 70 - 100 mg/dL LAB CHEMISTRY METHOD 07/05/2024 10:38 AM [facility] BUN 17 5 - 25 mg/dL LAB CHEMISTRY METHOD 07/05/2024 10:38 AM [facility] Creatinine 1.25 0.70 - 1.30 mg/dL LAB CHEMISTRY METHOD 07/05/2024 10:38 AM [facility] eGFR 59(L) >=60 mL/min/1. 73m2 LAB CHEMISTRY METHOD 07/05/2024 10:38 AM [facility] Comment:Calculation based on the??Chronic Kidney Disease Epidemiology Collaboration (CKD-EPI) equation refit??without adjustment for race. BUN/Creatinine Ratio 13.6 LAB CHEMISTRY METHOD 07/05/2024 10:38 AM [facility] Calcium 9.4 8.5 - 10.5 mg/dL LAB CHEMISTRY METHOD 07/05/2024 10:38 AM [facility] AST (SGOT) 21 10 - 42 unit/L LAB CHEMISTRY METHOD 07/05/2024 10:38 AM [facility] ALT (SGPT) 27 10 - 60 unit/L LAB CHEMISTRY METHOD 07/05/2024 10:38 AM [facility] Alkaline Phosphatase 65 42 - 121 unit/L LAB CHEMISTRY METHOD 07/05/2024 10:38 AM [facility] Total Protein 7.6 6.0 - 8.0 g/dL LAB CHEMISTRY METHOD 07/05/2024 10:38 AM [facility] Albumin 4.3 3.2 - 5.0 g/dL LAB CHEMISTRY METHOD 07/05/2024 10:38 AM [facility] Total Bilirubin 0.7 0.0 - 1.4 mg/dL LAB CHEMISTRY METHOD 07/05/2024 10:38 AM [facility] Blood Venous blood specimen / Unknown Venipuncture / Unknown 07/05/2024 8:17 AM EST 07/05/2024 8:17 AM EST us Carri Suazo MD LAB BLOOD ORDERABLES Final Resul t [facility] [address] [place] [address], * Diabetes Foot Exam (03/30/2024) Pathologist [facility] Diabetes: Annual Foot Exam Abstracted us Historical Provider HEALTH MAINTENANCE Final Result * Diabetes Eye Exam (09/08/2023) [facility] Diabetes: Annual Retina Eye Exam Abstracted us Historical Provider HEALTH MAINTENANCE Final Result * Depression Screening (09/02/2023) Pathologist [facility] Depression Screening Abstracted us Historical Provider HEALTH [...] ID:[id number] Group ID:[id number] Type:Not on file Address: [place] [address] [address] [id number] Care Teams Employee Relations Administrator Relationship Specialty Start Date End Date Carri Suazo MD [address] [place] [id number] PCP - General Internal Medicine 05/24/24
--- OUTSIDE RECORDS SUMMARY | 2024-11-22 12:13 | XMS_ITS | Encounter Summary ---
Author Organization [facility] Address [address] [place] [address] Care Team Providers Care Community Relations Officer Name Role Phone Carri Suazo MD Primary Care Provider [phone] Encounter Details Date Type Department Care Team Description 09/03/2023 Orders Only Medical Records [address] [place] [address] Helder Nguyen Social History Tobacco Use Types [...] Name Priority Date/Time Associated Diagnosis Comments OUTSIDE EKG Routine 07/29/2023 OUTSIDE ECHO Routine 04/22/2023 documented in this encounter Results * OUTSIDE EKG (07/29/2023) [facility] CARDIOLOGY * OUTSIDE ECHO (04/22/2023) Helder Nguyen CARDIOLOGY documented in this encounter Visit Diagnoses Not on filedocumented in this encounter Care Teams Community Relations Officer Relationship Specialty Start Date End Date Carri Suazo MD [address] [place] [address] PCP - General Internal Medicine 04/07/22 documented as of this encounter
--- OUTSIDE RECORDS SUMMARY | 2024-11-22 12:13 | XMS_ITS | Encounter Summary ---
Author Organization [facility] Address [address] [place] [address] Care Team Providers Care Warehouse Record Clerk Name Role Phone Name, Leno BLANDON Primary Care Provider Unavailabl e Wandy Delcid DO Primary Care Pro vider Unavailable Ricardo Louie MD Primary Care Provider Un available Wandy Delcid DO Primary Care Pro vider Unavailable Joe Jimenez MD Primary Care Provider [phone] Carri Suazo MD Primary Care Provider Encounter Details Date Type Department Care Team Description 03/16/2015 Release of Information Medical Records [address] [place] [id number] Abstract, Provider Social History Tobacco Use Types [...] on filedocumented in this encounter Care Teams Warehouse Record Clerk Relationship Specialty Start Date End Date Name, MD Leno PCP - General 03/30/06 07/29/15 Wandy Delcid DO PCP - General Internal Medicine 07/30/15 10/30/15 Ricardo Louie MD PCP - General Internal Medicine 10/31/15 9 Wandy Delcid DO PCP - General Internal Medicine 02/23/19 12/27/20 Joe Jimenez MD [address] [place] [address] PCP - General Internal Medicine 12/28/20 04/06/22 Carri Suazo MD [address] [place] [address] PCP - General Internal Medicine 04/07/22 documented as of this encounter
--- OUTSIDE RECORDS SUMMARY | 2024-11-22 12:13 | XMS_ITS | Encounter Summary ---
Author Organization [facility] Address [address] [place] [address] Care Team Providers Care Rn Chronic Name Role Phone Carri Suazo MD Primary Care Provider [phone] Reason for Visit * Reason Onset Date Comments Mychart Rx Refill 09/14/2023 Encounter Details Date Type Department Care Team Description 09/14/2023 Refill Adult Medicine [address] [address] Carri Suazo MD [address] [place] [address] Mychart Rx Refill Social History Tobacco Use Types Packs/Day [...] Telephone Encounter - Minal Vincent M.A. - 09/15/2023 8:50 AM EST Lab Results Component Value Date HGBA1C 7.1 09/02/2023 MALBUR 7.0 11/13/2022 MALBCR < 10.4 11/13/2022 CHOL 166 09/02/2023 LDL 69 09/02/2023 HDL 47 09/02/2023 TRIG 250 09/02/2023 GLU 151 09/02/2023 CREAT 1.01 09/02/2023 Pending appt with pcp 12/04/23 Last appt 09/02/23 documented in this encounter Plan of Treatment Not on file documented as of this encounter Visit Diagnoses Not on filedocumented in this encounter Care Teams Rn Chronic Relationship Specialty Start Date End Date Carri Suazo MD [address] [place] [address] PCP - General Internal Medicine 04/07/22 documented as of this encounter
[2024-11-30] VITALS (24 sets, daily range): BP systolic 108–144; BP diastolic 53–73; PULSE 69–91; RESP 12–20; TEMP 36.2–36.6; O2SAT 95–100; BMI 35.0
[2024-11-30 06:32] LABS: MANUAL DIFF FLAG NO
[2024-11-30 06:58] LABS: Blood Urea Nitrogen 15 mg/dL (9-16); Estimated Glomerular Filt Rate > 60
[2024-11-30 07:06] LABS: Basophils Absolute Auto 0.1 X10*3/uL (0.0-0.2); Eosinophils Absolute Auto 0.2 X10*3/uL (0.0-0.4); Eosinophils Percent Auto 2.9 % (0-4); Hematocrit 39.5 % (42.0-52.0); Hemoglobin 12.1 g/dl (14.0-18.0); Imm Gran Abs Auto 0.02 X10*3/uL (0.00-0.03); Imm Gran Pct Auto 0.3 % (0.0-0.4); Lymphocytes Percent Auto 32.8 % (20-40); Mean Corpuscular HGB Conc 30.6 g/dl (31.0-36.0); Mean Corpuscular Hemoglobin 25.7 pg (27.0-33.0); Mean Corpuscular Volume 83.9 fL (80.0-98.0); Monocytes Absolute Auto 0.5 X10*3/uL (0.1-1.2); Monocytes Percent Auto 8.6 % (2-11); Neutrophils Absolute Auto 3.3 x10*3/uL (2.0-8.3); Neutrophils Percent Auto 54.4 % (45-73); Platelet Count 208 X10*3/uL (160-400); Red Blood Count 4.71 X10*6/uL (4.60-5.80); Red Cell Distribution Width 17.2 % (11.0-16.0); White Blood Count 6.2 X10*3/uL (4.8-10.8)
[2024-11-30] MEDS: 0.9 % Sodium Chloride 1,000 ML 100 ML IVCONT (07:10)
[2024-11-30 07:12] LABS: Glucose, Whole Blood 172 mg/dL (60-115)
[2024-11-30] MEDS: Midazolam HCl 2 MG/2 ML VIAL 0.5 MG IVPUSH (08:00)
[2024-11-30] MEDS: fentaNYL citrate/PF 100 MCG/2 ML VIAL 25 MCG IVPUSH (08:03)
[2024-11-30] MEDS: Heparin Sodium,Porcine 10,000 UNIT/10 ML VIAL 8000 UNIT IVPUSH (08:20)
--- NOTE | 2024-11-30 09:25 | P.OP_ITS ---
Operative Note Operative Note Date of Service: 11/30/24 Narrative: Angiogram report from [facility] Preoperative diagnosis: Atherosclerosis of Left lower extremity with nonhealing ulcer Postoperative diagnosis: Same Procedure: 1. Ultrasound-guided right common femoral access 2. Aortogram with left lower extremity runoff 3. left anterior tibial plasty Surgeon:Abisai Grajeda M.D., FACS, RPVI Computational Physicist:None Anesthesia: Local with moderate conscious sedation. Total intraservice moderate sedation time was 58 minutes. I monitored the patient's level of consciousness and physiologic status continuously throughout the procedure. Specimens:none Drains:none Estimated blood loss: Less than 10 ml Radiation Dose: 444.5 mGy Implant: none Indications: 79-year-old diabetic gentleman with nonhealing left lower extremity ulcer presents for endovascular intervention The patient has signed the informed consent after reviewing risks, complications, benefits, and alternatives previously discussed with the patient. The patient was given the opportunity to ask any additional questions or voice any concerns. All questions were answered to the patient's satisfaction. Procedure in detail: Patient was brought to the angiography suite prior to which a time-out was called for patient identification and site verification. Bilateral groins were prepped and draped in the standard surgical fashion. Under ultrasound guidance right common femoral was punctured with micro puncture needle and wire. Subsequently a precision 5 Marshallese sheath was then placed. Bentson wire was advanced to the level of the aorta. 5 Marshallese Flush catheter was brought up and parked at the level of the renal arteries. Aortogram was then undertaken. Catheter was brought down to the level of the iliac bifurcation. Iliacs and runoff was performed through the flush catheter that was parked at the bifurcation and a power injection was performed to visualize bilateral runoff vessels. Subsequently the catheter was then brought in up and over to the left side SFA. we exchanged out for an 035 glidewire Advantage. We administered 8000 units of systemic heparin. After 5 minutes of circulation time up and over 6 Marshallese sheath was then placed. We then brought an 014 wire down into the anterior tibial we were able to mitch this with a trail Blazer catheter. We ensured true lumen by instilling the catheter with contrast. Once this was accomplished we plasty the entire length of the anterior tibial with a 2 x 120 balloon. This required multiple insufflations and was left insufflated for a total of 1 minute duration. Once this was all accomplished catheter wire sheath was brought back to the ipsilateral side. We exchanged out for short 6 Marshallese sheath. Through this we deployed a CELT closure device. Patient tolerated the procedure well and returned to recovery with stable vitals. Interpretation of films: 1. Ultrasound demonstrates appropriate femoral access site. Vessel was patent with minimal stenosis. Needle entry was visualized. Image of ultrasound was saved. 2. Aortogram demonstrates appropriate caliber aorta. Minimal disease. Appropriate take-off of the renals. 3. Iliac images demonstrate No significant disease 4. left Leg Common femoral artery: no significant disease Profundus Femoris: No significant disease Superficial femoral artery: patent with minimal calcification Popliteal artery (p1,p2,p3): patent Anterior tibial artery: multiple high-grade stenosis, occlusion demonstrated good flow all the way through the ankle Peroneal artery: good flow down to the ankle supplying the foot Posterior tibial artery: occluded Dorsalis pedis/plantar arch: incomplete but is present Conclusion: 1. successful left anterior tibial plasty. 2. Anticoagulation status: Patient will require 6 months of aspirin and Plavix This note is constructed using voice recognition software. While every effort has been made to ensure accuracy, assistant county attorney errors may have been included. Thank you for allowing me to participate in the care of your patient. Yours sincerely, Abisai Grajeda MD, FACS, R.P.V.I.
[2024-11-30] MEDS: Clopidogrel Bisulfate 300 MG TABLET PO (10:32)
[2024-12-01 10:01] LABS: ACT 263 Celite s (79-173)
== END 2024-11-30 11:30 | disposition home or self-care (01) ==
PROVIDERS: PCP Internal Medicine; Visit Provider Surgery Vascular Surgery
DX: E11.51 Type 2 diabetes mellitus with diabetic peripheral angiopathy without gangrene (principal); I70.248 Atherosclerosis of native arteries of left leg with ulceration of other part of lower leg; M25.572 Pain in left ankle and joints of left foot; L03.116 Cellulitis of left lower limb; I25.10 Atherosclerotic heart disease of native coronary artery without angina pectoris; R00.0 Tachycardia, unspecified; J45.909 Unspecified asthma, uncomplicated; Z79.84 Long term (current) use of oral hypoglycemic drugs; Z79.85 Long-term (current) use of injectable non-insulin antidiabetic drugs; Z88.5 Allergy status to narcotic agent; Z98.890 Other specified postprocedural states; Z87.891 Personal history of nicotine dependence
CPT/HCPCS: 36415; 37228; 76937; 82565; 82947; 84520; 85025; 85347; 99152; 99153; C1725; C1760; C1769; C1887; C1894; J1644; J2250; J2270; J3010; Q9967

== ENCOUNTER → 2024-11-30 06:09 | Outpatient (BNV) | payer OTHER, SELFPAY | PROVIDERS: PCP Internal Medicine; Visit Provider Surgery Vascular Surgery | DX: I70.249 Atherosclerosis of native arteries of left leg with ulceration of unspecified site (principal) | CPT/HCPCS: 37228; 75625; 75710; 99152 ==

== ENCOUNTER 2024-12-13 08:53 | Outpatient (AMB) | payer OTHER, SELFPAY ==
[2024-12-13 08:57] VITALS: BMI 34.5
--- NOTE | 2024-12-13 08:57 | A.OFFVIS_ITS ---
Vital Signs 12/13/24 08:57 Height 5 ft 7 in Weight 220 lb BMI 34.5 Intake Visit Reasons: 2 week follow up s/p L leg angio 11/30/24 Intake Note: 2 week follow up Left LE angio 11/30/24. Pt states leg feels good except the non- healing ulcer on left ankle . He was seen by wound care last week and has another appt with them today. Robins have some swelling in the toes. Dressing changed QOD by daughter at home. Computer Technical Specialist Required: Yes Computer Technical Specialist Language: Progressive Die Maker Name: request daughter to interp Information Interpreted: clinical only Accompanied by: Daughter Allergies oxycodone [OXYCODONE] Allergy (Unknown, Verified 12/13/24 09:00) ITCH HPI HPI 2 week follow up s/p L leg angio 11/30/24: Details: The patient is a 79-year-old male presenting with peripheral artery disease and a lower extremity wound. He reports that the wound, which began a week ago, has been treated with collagen cream to promote skin growth. Recent interventions included an angioplasty procedure where a balloon was used to improve blood flow, showing that one of three important vessels is functioning well to the foot. Despite overall success in treatment thus far, the patient describes ongoing symptoms of swelling in the toes and pain at the wound site, which throbs persistently. He now presents for post angio follow-up. [facility] Medical History (Updated 12/13/24 @ 10:25 by Abisai Grajeda MD) S/P angiogram of extremity (11/30/24) GERD (gastroesophageal reflux disease) Diabetes CAD (coronary artery disease) Tachycardia Asthma Surgical History Hx of cardiac cath H/O prostate biopsy Family History Mother Diabetes HTN (hypertension) Hypercholesteremia Father Heart disease Cancer HTN (hypertension) Hypercholesteremia Asthma Brother HTN (hypertension) Heart disease Hypercholesteremia Prostate cancer Brother No problems noted. Brother No problems noted. Brother Heart disease Heart attack Asthma Sister HTN (hypertension) Hypercholesteremia Kidney disease Sister Diabetes HTN (hypertension) Hypercholesteremia COPD (chronic obstructive pulmonary disease) Asthma Daughter Hyperthyroidism Asthma Daughter Asthma Migraines Social History Alcohol intake: current Alcohol intake frequency: a few times a week Alcohol type: beer and hard liquor Patient Tobacco Use Status: Former Tobacco user Review of Systems Const All systems reviewed & are unremarkable except as noted in HPI and below Reports no additional complaints ENT Reports Normal hearing present Card Denies chest pain, Denies chest pain at rest, Denies chest pain with activity and Denies pedal edema Resp Denies cough GI Denies abdominal pain Musc Denies abnormal gait, Denies muscle cramps and Denies radiating pain into limb Skin/Breast Denies skin ulcer and Denies wounds Neuro Reports Normal hearing present and Denies abnormal gait Psych Reports no additional complaints Physical Exam Vital Signs: BMI result Body Mass Index 34.5 Const General: cooperative, healthy appearing and comfortable Orientation/consciousness: oriented to person, oriented to place and oriented to time HEENT Head: Yes normal to inspection Neck Neck: Yes normal visual inspection Carotids: no bruits Chest Chest palpation & inspection: normal inspection of the chest Resp Effort & Inspection: normal respiratory effort and able to speak in complete sentences Auscultation: clear to auscultation bilaterally, no crackles, no rales, no rhonchi and no wheezes Cardio Rate: regular rate Rhythm: regular rhythm Heart sounds: S1 normal heart sound present and S2 normal heart sound present Bruits: no carotid bruits Peripheral pulses: Peripheral pulses 2+ throughout GI Inspection: Yes normal to inspection Skin Other: Left medial ankle proximally 2 cm nonhealing ulcer. Wounds: no wounds Hair: normal Neuro General: oriented to person, oriented to place and oriented to time Cranial nerves: Yes CN's II-XII intact bilaterally and Yes Normal hearing present Cognition (Neuro): normal cognition Motor exam (neuro): 5/5 motor strength present throughout Extrem Other: venous exam: No significant superficial varicosities or spider telangiectasias, minimal edema General: No clubbing, No cyanosis and No edema Psych Appearance: grossly normal Mental Status: mental status grossly normal Speech and movement: Normal speech and movement present Assessment & Plan Assessment & Plan (1) PAD (peripheral artery disease): Comment: 11/30/2024 - left anterior tibial plasty Code(s): I73.9 - Peripheral vascular disease, unspecified Category: Medical Plan: In short patient has nonhealing left ankle ulcer. [facility] I did review the pathophysiology of peripheral vascular disease with the patient. In addition we did discuss routine conservative measures including a healthy diet and the importance of exercise and ambulation. We did discuss risk factor modification. The patient will continue to to follow-up with surveillance follow-up in approximately 3 months. He will be on 6 months of aspirin and Plavix Thank you for allowing us to participate in this patient's care. If there are any questions or concerns please do not hesitate to contact us. Orders: Orders US arterial duplex LE BI 3 Months I73.9 - Peripheral vascular disease, unspecified Medications: Refilled acetaminophen (Tylenol Extra Strength) 500 mg PO Q6H PRN 30 tabs 0RF pain Coding Level of Care Code Est Pt Level 4 (05754) Complex EM visit Add On G2211 Diagnoses PAD (peripheral artery disease) I73.9
--- OUTSIDE RECORDS SUMMARY | 2024-12-13 09:17 | XMS_ITS | Encounter Summary ---
Author Organization [facility] Address [address] [place] [address] Care Team Providers Care Steel Cutter Name Role Phone Wandy Delcid DO Primary Care Pro vider Unavailable Joe Jimenez MD Primary Care Provider [phone] Carri Suazo MD Primary Care Provider [phone] Reason for Visit * Reason Comments E-prescribe Rx Request Encounter Details Date Type Department Care Team Description 10/07/2020 Refill Adult Medicine [address] [address] Wandy Delcid DO E-prescribe Rx Request Social [...] / Plan: [place]ICARE-[place] / Product Type: MEDICARE [id number] documented in this encounter Plan of Treatment Not on file documented as of this encounter Visit Diagnoses Not on filedocumented in this encounter Care Teams Steel Cutter Relationship Specialty Start Date End Date Wandy Delcid DO PCP - General Internal Medicine 02/23/19 12/27/20 Joe Jimenez MD [address] [place] [id number] PCP - General Internal Medicine 12/28/20 04/06/22 Carri Suazo MD [address] [place] [id number] PCP - General Internal Medicine 04/07/22 documented as of this encounter
== END 2024-12-13 09:28 | disposition home or self-care (01) ==
LOC: HO.HVS 08:54
PROVIDERS: PCP Internal Medicine; Visit Provider Surgery Vascular Surgery
DX: I73.9 Peripheral vascular disease, unspecified (principal)
CPT/HCPCS: 99214; G2211

== ENCOUNTER → 2024-12-13 08:53 | Outpatient (BNVA) | payer OTHER, SELFPAY | PROVIDERS: PCP Internal Medicine; Visit Provider Surgery Vascular Surgery | DX: I73.9 Peripheral vascular disease, unspecified (principal); L97.329 Non-pressure chronic ulcer of left ankle with unspecified severity | CPT/HCPCS: 99212 ==

== ENCOUNTER 2024-12-14 10:57 | Outpatient (AMB) | payer OTHER, SELFPAY ==
--- NOTE | 2024-12-14 10:58 | A.OFFVIS_ITS ---
Vital Signs 12/14/24 11:03 Height 5 ft 7 in Weight 223 lb 8.78 oz BMI 35.0 BP 130/64 Blood Pressure Location Lt brachial Position Sitting Pulse 96 Pulse Source Monitor Intake Visit Reasons: 6 month follow-up Intake Note: 6 mth f/up Glass Furnace Tender Required: No Glass Furnace Tender Services: Glass Furnace Tender Offered & Declined Accompanied by: Daughter Allergies oxycodone [OXYCODONE] Allergy (Unknown, Verified 12/13/24 09:00) ITCH Medication List - Last Reconciled 12/14/24 by Helder Nguyen MD acetaminophen (Tylenol Extra Strength) 500 mg PO Q6H PRN albuterol sulfate 90 mcg/actuation (Ventolin HFA) 2 puffs inhalation Q4H PRN 30 days amlodipine 5 mg PO DAILY aspirin 81 mg PO DAILY atorvastatin 40 mg PO BEDTIME blood sugar diagnostic (FreeStyle Lite Strips) As directed cefuroxime axetil 500 mg PO Q12H 7 days cephalexin 500 mg PO QID 10 days cholecalciferol (vitamin D3) 50 mcg PO DAILY clindamycin HCl 450 mg (3 x 150 mg) PO TID clopidogrel 75 mg PO DAILY doxycycline hyclate 100 mg PO BID dulaglutide (Trulicity) mg subcut empagliflozin (Jardiance) 10 mg PO DAILY finasteride 5 mg PO DAILY kffszjlabot-xnoajyvkb-xufqmksq 100-62.5-25 mcg (Trelegy Ellipta) 1 inh inhalation DAILY 30 days lisinopril-hydrochlorothiazide 20-25 mg 1 tab PO DAILY metformin 1,000 mg PO BID naproxen 500 mg PO BID PRN omeprazole 20 mg PO DAILY sulfamethoxazole-trimethoprim 800-160 mg (Bactrim DS) 1 tab PO Q12H 14 days HPI Comments Details: Pleasant 79-year-old gentleman who is here for aortic stenosis and hypertension. It appears he had a murmur picked up by his primary care physician and underwent echocardiography. ECHO was performed with [facility] which showed mild aortic valve stenosis and preserved left ventricular right ventricular function with concentric mild left ventricle hypertrophy. He also had a stress echocardiogram performed previously which did not show any wall motion abnormalities but he had a hypertensive response to exercise after exercising to a maximum workload of 7 metabolic equivalents. He also had [address] depressions inferiorly. He is not complaining of any chest discomfort or shortness of breath. He is compliant with medications but it appears he takes more than recommend salt in his diet. He has background of hypertension, hyper lipidemia, diabetes and asthma. 07/29/2023: He returns for follow-up. Blood pressure is mildly elevated. He is accompanied by his daughter who is concerned that he is short of breath with activities. Patient is denying any dyspnea but apparently does not complain as per the daughter. No chest discomfort. He has pnwz-tf-rcbhwmqd aortic valve stenosis on echocardiography. Previously we tried to do stress test but he had a hypertensive response to exercise and had some ST depressions inferiorly. He also has asthma and is poorly controlled and wheezes with activity quite frequently. He has not seen a publishing agent before. 02/01/24: He is here for follow-up. He underwent cardiac catheterization in December 2023. He had a 70% mid LAD stenosis-we performed IFR which was 0.93 and negative for ischemia. Mild gradient across the aortic valve 15 mm Hg was noted. Systemic pressures were mildly elevated during the procedure but LVEDP was normal. He returns and has been doing well. No chest discomfort. He has been changed to Ozempic but has not lost any significant weight currently. Blood pressure manually is 120/60. Lipid panel and labs reviewed. 06/06/2024: He is here for follow-up. He has bone spurs and is contemplating surgery. No chest pains or shortness of breath. He is doing some activities in his yd with raking leaves etc. but no regular exercise otherwise. He did not take all his medications today and blood pressure is mildly elevated. His daughter has been monitoring BP and reports blood pressures at home are in 120s. 12/14/2024: Here for follow-up. He underwent lower extremity angiogram and angioplasty by vascular surgery. He had nonhealing wound on the left medial malleolus. He is on antibiotics currently. He is on aspirin and Plavix. Denying any chest pain or shortness of breath. Blood pressure is well controlled. Last cholesterol panel was in October 2023 with total cholesterol 144, triglycerides 185, LDL 71 and HDL 36. [facility] Medical History (Updated 12/13/24 @ 10:25 by Abiasi Grajeda MD) S/P angiogram of extremity (11/30/24) GERD (gastroesophageal reflux disease) Diabetes CAD (coronary artery disease) Tachycardia Asthma Surgical History Hx of cardiac cath H/O prostate biopsy Family History Mother Diabetes HTN (hypertension) Hypercholesteremia Father Heart disease Cancer HTN (hypertension) Hypercholesteremia Asthma Brother HTN (hypertension) Heart disease Hypercholesteremia Prostate cancer Brother No problems noted. Brother No problems noted. Brother Heart disease Heart attack Asthma Sister HTN (hypertension) Hypercholesteremia Kidney disease Sister Diabetes HTN (hypertension) Hypercholesteremia COPD (chronic obstructive pulmonary disease) Asthma Daughter Hyperthyroidism Asthma Daughter Asthma Migraines Social History Alcohol intake: current Alcohol intake frequency: a few times a week Alcohol type: beer and hard liquor Patient Tobacco Use Status: Former Tobacco user Review of Systems Const Denies chills, Denies fatigue, Denies fever(s), Denies frequent falls, Denies weakness, Denies weight gain and Denies weight loss ENT Denies dizziness Card Denies chest pain, Denies leg edema, Denies lightheadedness, Denies palpitations, Denies dyspnea and Denies dyspnea on exertion Resp Denies cough, Denies dyspnea and Denies dyspnea on exertion GI Denies hematochezia Musc Denies abnormal gait, Denies muscle weakness, Denies numbness, Denies radiating pain into limb and Denies tingling Neuro Denies abnormal gait, Denies dizziness, Denies frequent falls, Denies numbness, Denies tingling and Denies weakness Endo Denies fatigue and Denies palpitations Physical Exam Vital Signs: Last Vital Signs Pulse 96 12/14/24 11:03 BP 130/64 12/14/24 11:03 BMI result Body Mass Index 35.0 GENERAL APPEARANCE: in no acute distress, pleasant. NECK: no carotid bruit, mild jugular venous distention. SKIN: no suspicious lesions, warm and dry. Wound left medial malleolus currently dressed. HEART: Ejection systolic murmur aortic area with preserved 2nd heart sound, regular rate and rhythm. LUNGS: clear to auscultation bilaterally. ABDOMEN: soft, nontender. EXTREMITIES: no edema. PERIPHERAL PULSES: equal. NEUROLOGIC: No gross deficits, AAO X 3 Office Procedures EKG Details: Sinus rhythm 86 beats per minute, premature atrial complexes, QTC 447 milliseconds. [id number]-Yluhchcubfgjkfrrz, Complete Assessment & Plan Assessment & Plan (1) Aortic stenosis: Code(s): I35.0 - Nonrheumatic aortic (valve) stenosis Category: Medical Qualifiers: Cardiac valve disease etiology: etiology unspecified Qualified Code(s): I35.0 - Nonrheumatic aortic (valve) stenosis (2) Essential hypertension: Code(s): I10 - Essential (primary) hypertension Category: Medical (3) Hyperlipidemia: Code(s): E78.5 - Hyperlipidemia, unspecified Category: Medical (4) CAD (coronary artery disease): Code(s): I25.10 - Atherosclerotic heart disease of [place] coronary artery without angina pectoris Category: Medical Qualifiers: Coronary Disease-Associated Artery/Lesion type: [place] artery [place] vs. transplanted heart: [place] heart Associated angina: unspecified whether angina present Qualified Code(s): I25.10 - Atherosclerotic heart disease of [place] coronary artery without angina pectoris (5) PAD (peripheral artery disease): Comment: 11/30/2024 - left anterior tibial plasty Code(s): I73.9 - Peripheral vascular disease, unspecified Category: Medical Plan 79-year-old gentleman who is here for follow-up. He has background history of coronary artery disease-moderate, hypertension, bktt-gr-bflgldyb aortic valve stenosis and peripheral vascular disease. He underwent left tibial angioplasty by Dr. Grajeda and is currently on aspirin and Plavix. Blood pressure is well controlled. Last LDL was in October 2023 and it was 71. Ideally should be close to 55. He can have repeat fasting lipid panel this year. We will repeat echocardiography to assess the aortic valve. This was previously in the yvrk-ym-bnbcglnh stenosis arrange in 2022. We will follow up with us in 6 months. Clinically stable currently. Thank you for allowing me to participate in the care of your patient. Please feel free to contact me if you have any questions. Orders: Orders CA echo transthoracic complete Today I35.0 - Nonrheumatic aortic (valve) stenosis Coding Level of Care Code Est Pt Level 4 (44356) Diagnoses Aortic valve stenosis, etiology of cardiac valve disease unspecified I35.0 Cardiac valve disease etiology: etiology unspecified Essential hypertension I10 Hyperlipidemia E78.5 Coronary artery disease involving [place] coronary artery of [place] heart, unspecified whether angina present I25.10 Coronary Disease-Associated Artery/Lesion type: [place] artery [place] vs. transplanted heart: [place] heart Associated angina: unspecified whether angina present PAD (peripheral artery disease) I73.9 CPT Codes EKG - CPT: 53309-Ayhrlccspyqzpfbxm, Complete ([id number])
[2024-12-14 11:03] VITALS: BP 130/64; PULSE 96; BMI 35.0
--- OUTSIDE RECORDS SUMMARY | 2024-12-14 12:02 | XMS_ITS | Clinical Summary ---
Author Organization [facility] Address [address] [place] [address] Care Team Providers Care Head Of Academic Technology Name Role Phone Wandy Delcid DO Primary [...] age to complete this topic Care Teams Head Of Academic Technology Relationship Specialty Start Date End Date Wandy Delcid DO PCP - General Aviation Manager 02/17/20
== END 2024-12-14 11:23 | disposition home or self-care (01) ==
LOC: HO.HCS 10:58
PROVIDERS: PCP Internal Medicine; Visit Provider Internal Medicine Cardiovascular Disease
DX: I35.0 Nonrheumatic aortic (valve) stenosis (principal); I10 Essential (primary) hypertension; E78.5 Hyperlipidemia, unspecified; I25.10 Atherosclerotic heart disease of native coronary artery without angina pectoris; I73.9 Peripheral vascular disease, unspecified
CPT/HCPCS: 93010; 99214

== ENCOUNTER → 2024-12-14 10:57 | Outpatient (BNVA) | payer OTHER, SELFPAY | PROVIDERS: PCP Internal Medicine; Visit Provider Internal Medicine Cardiovascular Disease | DX: I10 Essential (primary) hypertension (principal); I35.0 Nonrheumatic aortic (valve) stenosis; I73.9 Peripheral vascular disease, unspecified; E78.5 Hyperlipidemia, unspecified; I25.10 Atherosclerotic heart disease of native coronary artery without angina pectoris | CPT/HCPCS: 93005; 99212 ==

== ENCOUNTER 2025-02-14 20:10 | Emergency (ER) | payer OTHER, SELFPAY ==
--- NOTE | ~2025-02-14 | XR_ITS ---
CLINICAL HISTORY: osteo? 3 view left ankle Comparison: CR/UT/SR - XR ANKLE 3 OR MORE VIEWS LEFT - 11/21/24 10:21 EDT Findings: Enthesophyte at the insertion of the plantar fascia on the inferior calcaneus. Mild degenerative changes. No acute fracture deformity. No disruption of the ankle mortise. No lytic bone lesions to suggest osteomyelitis. No ankle effusion. No radiopaque foreign body. Diffuse calcification in the arterial vascular system. Soft tissue swelling around the ankle. IMPRESSION: 1. No acute findings. 2. Soft tissue swelling around the ankle. This document has been electronically signed by: Filippo Davis MD on 02/15/2025 01:47:25
--- NOTE | ~2025-02-14 | XR_ITS ---
CLINICAL HISTORY: osteo? 3 view left foot Comparison: CR - XR FOOT LT MIN 3V - 10/04/2024 05:16 PM EDT Findings: No acute fracture or subluxation. Moderate left foot osteoarthritis. No definite radiographic findings to suggest osteomyelitis. No radiodense soft tissue foreign bodies or emphysema. Extensive arterial vascular calcifications. Impression: 1. No fracture or subluxation. 2. No definite radiographic findings to suggest osteomyelitis. 3. Additional findings as above. This document has been electronically signed by: Rosa Lagunas MD on 02/15/2025 00:57:59
[2025-02-14 20:44] VITALS: BP 127/61; PULSE 97; RESP 18; TEMP 36.7; O2SAT 95; BMI 35.3
[2025-02-14 21:07] LABS: MANUAL DIFF FLAG NO
[2025-02-14 21:08] LABS: Hematocrit 34.1 % (42.0-52.0); Hemoglobin 10.7 g/dl (14.0-18.0); Imm Gran Abs Auto 0.02 X10*3/uL (0.00-0.03); Imm Gran Pct Auto 0.3 % (0.0-0.4); Lymphocytes Absolute Auto 1.9 X10*3/uL (1.2-4.9); Mean Corpuscular HGB Conc 31.4 g/dl (31.0-36.0); Mean Corpuscular Hemoglobin 24.8 pg (27.0-33.0); Mean Corpuscular Volume 78.9 fL (80.0-98.0); NRBC Abs Auto 0.000 X10*3/uL (0.0-0.012); NRBC Pct Auto 0.0 /100WBC (0.0-0.2); Platelet Count 212 X10*3/uL (160-400); Red Blood Count 4.32 X10*6/uL (4.60-5.80); White Blood Count 7.5 X10*3/uL (4.8-10.8)
[2025-02-14 21:23] LABS: Alanine Aminotransferase 28 U/L (0-40); Albumin Level 4.4 g/dL (3.5-5.0); Alkaline Phosphatase 67 U/L (39-117); Anion Gap 16 (12-20); Aspartate Amino Transferase 26 U/L (5-37); Blood Urea Nitrogen 17 mg/dL (9-16); Calcium 9.1 mg/dL (8.4-10.2); Carbon Dioxide 26 mmol/L (22-29); Chloride 104 mmol/L (96-108); Creatinine Clr Calc Pharmacy 59.7; Estimated Glomerular Filt Rate > 60; Potassium 3.8 mmol/L (3.3-5.1); Sodium 142 mmol/L (135-145); Total Protein 7.4 g/dL (6.5-8.0)
--- OUTSIDE RECORDS SUMMARY | 2025-02-14 23:04 | XMS_ITS | Encounter Summary ---
Author Organization [facility] Address [address] [place] [address] Care Team Providers Care Post Doctoral Researcher Name Role Phone Carri Suazo MD Primary Care Provider [phone] Encounter Details Date Type Department Care Team (Late Contact Info) Description 12/21/2024 Lab Requisition [facility] - Main Lab [address] [facility] [place] [phone] Marya [place], [place] [address] [facility] [address] [place] [address] Benign prostatic hyperplasia with lower urinary tract symptoms Social History Tobacco Use Types Packs/Day Years Used Date Smoking Tobacco: Former Smokeless Tobacco: Never Alcohol Use Standard Drinks/Week Comments Yes 6 (1 standard drink = 0.6 oz pur e alcohol) Sex and Gender Information Value Date Recorded Sex Assigned at Male 05/18/2024 2:30 PM EDT Legal Sex Male 11:35 PM EST Gender Identity Male 05/18/2024 2:30 PM EDT Sexual Orientation Straight 05/18/2024 2: 30 PM EDT documented as of this encounter Plan of Treatment Upcoming Encounters Date Type Department Care Team (Late Contact Info) Description 03/08/2025 8:15 AM EDT Office Visit Orthopedic Surgery - [place] [address] [facility] [address] [place] [phone] Elder Snyder DPM [address] [address] 03/28/2025 10:30 AM EDT Consult Adult Medicine [address] [phone] Carri Suazo MD [address] [place] [address] 04/03/2025 8:00 AM EDT Consult Orthopedic Surgery [place] [address] [phone] Elder Snyder DPM [address] [address] 04/07/2025 1:00 PM EDT Hospital Encounter [facility] OR [address] [place] [phone] Elder Snyder DPM [address] [address] 04/07/2025 1:00 PM EDT - 04/07/2025 2:30 PM EDT Surgery [facility] OR [address] [place] [phone] Elder Snyder DPM [address] [address] EXCISION METATARSAL HEAD LEFT [01078 (CPT ) +1 more] 04/13/2025 8:00 AM EDT Office Visit Adult Medicine [address] [phone] Carri Suazo MD [address] [place] [address] 04/20/2025 9:45 AM EDT Office Visit Orthopedic Surgery [address] [place] [phone] Elder Snyder, TREVOR [address] [address] 08/03/2025 9:00 AM EST Office Visit [place] [facility] [place] [address] [place], [place] [phone] Chu Joyner MD [address] [place] [address] Scheduled Procedures Name Priority Associated Diagnoses Date/Ti me EXCISION METATARSAL HEAD Tailor's bunionette, left Multiple exostoses 04/07/2025 1:00 PM EDT documented as of this encounter Procedures Procedure Name Priority Date/Time Associated Diagnosis Comments PROSTATE SPECIFIC ANTIGEN DIAGNOSTIC Routine 12/21/2024 9:18 AM EDT Benign prostatic hyperplasia with lower urinary tract symptoms documented in this encounter Results * Prostate specific antigen diagnostic (12/21/2024 9:18 AM EDT) PSA 2.38 0.00 - 4.00 ng/mL LAB CHEMISTRY METHOD 12/21/2024 2:11 PM EDT [facility] Blood Venous blood specimen / Unknown 12/21/2024 9:18 AM EDT 12/21/2024 12:22 PM EDT Narrative [facility] - 12/21/2024 2:11 PM EDT The Siemens Advia Centaur Chemiluminescent Immunoassay is used. Results obtained with different assay methods or kits cannot be used interchangeably. Results cannot be interpreted as absolute evidence of the presence or absence of malignant disease. 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
--- OUTSIDE RECORDS SUMMARY | 2025-02-14 23:04 | XMS_ITS | Clinical Summary ---
Author Organization [facility] Address [address] [place] [address] Care Team Providers Care Ferryboat Deckhand Name Role Phone Wandy Delcid DO Primary [...] 82 05/16/2020 2:55 PM EDT Temperature 36.6 C (97.9 F) 05/16/2020 2:55 PM EDT Respiratory Rate - - Oxygen Saturation - [...] 1-dose 75+ series) 2021 Influenza Vaccine (#1) 2025 0, 07/08/2018, 05/01/2017, Additional history exists Pneumococcal Vaccine Completed 07/31/2016, 05/25/20 12 Hepatitis B Vaccines Aged Out No long er eligible based on patient's age to complete this topic RSV Ped < 20 months Aged Out No longe r eligible based on patient's age to complete this topic Care Teams Ferryboat Deckhand Relationship Specialty Start Date End Date Wandy Delcid DO PCP - General Spanish Professor 02/17/20
--- NOTE | 2025-02-14 23:32 | PC.NURSE ---
Pt reporting pain, requesting pain medication. Provider notified.
[2025-02-14 23:55] VITALS: BP 118/58; PULSE 82; RESP 18; TEMP 36.6; O2SAT 95
--- NOTE | 2025-02-15 00:02 | ED_ITS ---
HPI - General Adult General Chief complaint: Extremity Problem Stated complaint: left foot pain Time Seen by Provider: 02/14/25 23:29 Source: patient and family Limitations: language barrier History of Present Illness ED Provider: Marleny Porter PA-C HPI narrative: 79-year-old male with a history of diabetes, peripheral arterial disease, hypertension, hyperlipidemia, aortic stenosis, known coronary artery disease and asthma who presents with left foot pain and swelling. The patient's spouse is concerned that he has an infection, that he has an ulcer over the medial foot. The patient is also currently pending surgery for ?an extra bone of the left 5th toe?. Denies fevers. Denies drainage from the site. Related Data Home Medications ?Medication ?Instructions ?Recorded ?Confirmed aspirin 81 mg tablet,delayed 81 mg PO DAILY 03/06/22 0 12/14/24 release cholecalciferol (vitamin D3) 50 50 mcg PO DAILY 12/14/24 mcg (2,000 unit) capsule empagliflozin 10 mg tablet 10 mg PO DAILY 03/06/22 (Jardiance) finasteride 5 mg tablet 5 mg PO DAILY 03/06/2212/14 lisinopril 20 1 tab PO DAILY 03/06/2211/18 mg-hydrochlorothiazide 25 mg tablet metformin 1,000 mg tablet 1,000 mg PO BID 03/06/22 naproxen 500 mg tablet 500 mg PO BID PRN 03/06/22 0 12/14/24 omeprazole 20 mg capsule,delayed 20 mg PO DAILY 12/14/24 release blood sugar diagnostic (FreeStyle #10 ea 01/28/2411/18 Lite Strips) dulaglutide 3 mg/0.5 mL mg subcut 06/06/24 12/14/24 subcutaneous pen injector (Trulicity) Previous Rx's ?Medication ?Instructions ?Recorded amlodipine 5 mg tablet 5 mg PO DAILY #90 tabs 05/03 cephalexin 500 mg capsule 500 mg PO QID 10 days #40 ca ps 08/13/24 doxycycline hyclate 100 mg tablet 100 mg PO BID #20 ta bs 08/13/24 fluticasone fur. 100 mcg-umeclid 1 inh inhalation BILLY Y 30 days #60 09/06/24 62.5 mcg-vilant 25 mcg ea inhalat.powder (Trelegy Ellipta) albuterol sulfate 90 mcg/actuation 2 puff inhalation Q 4H PRN wheezing 09/23/24 aerosol inhaler (Ventolin HFA) 30 days #8.5 grams clindamycin HCl 150 mg capsule 450 mg (3 x 150 mg) PO TID #90 caps 10/04/24 sulfamethoxazole 800 1 tab PO Q12H 14 days #28 ta bs 11/17/24 mg-trimethoprim 160 mg tablet (Bactrim DS) cefuroxime axetil 500 mg tablet 500 mg PO Q12H 7 days #14 tabs 11/21/24 clopidogrel 75 mg tablet 75 mg PO DAILY #90 tabs 11/17 11/11 atorvastatin 40 mg tablet 40 mg PO BEDTIME #90 tabs acetaminophen 500 mg tablet 500 mg PO Q6H PRN pain #30 tabs 12/30/24 (Tylenol Extra Strength) doxycycline hyclate 100 mg tablet 100 mg PO BID 7 days #14 tabs 02/15/25 ketorolac 10 mg tablet 10 mg PO Q6H PRN pain #20 ta bs 02/15/25 oxycodone 5 mg tablet 5 mg PO Q6H PRN pain, modera te #8 02/15/25 tabs Allergies Allergy/AdvReac Type Severity Reaction Status Date / Time oxycodone (OXYCODONE) Allergy Unknown ITCH Verified 02/14/25 20:52 Review of Systems 2 Review of Systems: Yes all other systems are reviewed and are negative Constitutional: Constitutional: Denies fatigue and Denies fever(s) Musculoskeletal: Musculoskeletal: Reports arthralgias and Reports joint swelling Endocrine: Endocrine: Denies fatigue [facility] Past Medical History Attestation statement: The following information was validated with the patient. Medical History (Updated 02/16/25 @ 00:00 by Neto Palm) S/P angiogram of extremity (11/30/24) GERD (gastroesophageal reflux disease) Diabetes CAD (coronary artery disease) Tachycardia Asthma Surgical History Hx of cardiac cath H/O prostate biopsy Family History Family History Mother Diabetes HTN (hypertension) Hypercholesteremia Father Heart disease Cancer HTN (hypertension) Hypercholesteremia Asthma Brother HTN (hypertension) Heart disease Hypercholesteremia Prostate cancer Brother No problems noted. Brother No problems noted. Brother Heart disease Heart attack Asthma Sister HTN (hypertension) Hypercholesteremia Kidney disease Sister Diabetes HTN (hypertension) Hypercholesteremia COPD (chronic obstructive pulmonary disease) Asthma Daughter Hyperthyroidism Asthma Daughter Asthma Migraines Social History Social History Unable to assess alcohol history related to: Unknown Alcohol intake: current Alcohol intake frequency: a few times a week Alcohol type: beer and hard liquor Patient Tobacco Use Status: Former Tobacco user Physical Exam ED Vital Signs: Vital Signs - 24 hr 02/14/25 20:44 02/14/25 23:55 02/15/25 01:58 Temperature 98.1 F 97.8 F 97.7 F Pulse Rate 97 82 77 Respiratory Rate 18 18 16 Blood Pressure 127/61 118/58 L 126/64 Pulse Oximetry 95 95 97 Oxygen Delivery Method Room Air Room Air Room Air BMI result Body Mass Index 35.3 Const Other: Alert well-appearing Orientation/consciousness: patient oriented x3 Resp Effort & Inspection: normal respiratory effort Cardio Other: Normal peripheral perfusion Skin Other: Warm dry no rash Neuro General: patient oriented x3, gait normal, no focal motor deficits and CN's II- XI intact bilaterally Extrem Other: Mild erythema over the left foot which is subtly swollen, the ulceration over the left ankle is very superficial without erythema or warmth, no drainage, is not actively infected Psych Other: Cooperative Medications Administered Discontinued Medications Generic Name Dose Route Start Last Admin Trade Name Freq PRN Reason Stop Dose Admin Diphenhydramine HCl 12.5 mg 02/15/25 00:14 02/15/25 00:25 Diphenhydramine Hcl 50 Mg/Ml Vial IVPUSH 02/15/25 00:15 12.5 mg ONCE ONE Administration Doxycycline Monohydrate 100 mg 02/15/25 02:29 02/15/25 02:52 Doxycycline Monohydrate 100 Mg Capsule PO 02/15/25 02:30 100 mg ONCE ONE Administration Ketorolac Tromethamine 15 mg 02/15/25 00:14 02/15/25 00:24 Ketorolac Tromethamine 15 Mg/Ml Vial IVPUSH 02/15/25 00:15 15 mg ONCE ONE Administration Oxycodone HCl 5 mg 02/15/25 00:14 02/15/25 00:24 Oxycodone Hcl Immed Release 5 Mg Tablet PO 02/15/25 00:15 5 mg ONCE ONE Administration Medical Decision Making Medical Decision Making [facility] Narrative: 79-year-old male with a history of diabetes, peripheral arterial disease, hypertension, hyperlipidemia, aortic stenosis, known coronary artery disease and asthma who presents with left foot pain and swelling. The patient's spouse is concerned that he has an infection, that he has an ulcer over the medial ankle. The patient is also currently pending surgery for ?an extra bone of the left 5th toe?. Denies fevers. Denies drainage from the site. Problem: Diabetes, known diabetic foot ulcer History: Per patient and his spouse I have considered the following differential diagnoses: Cellulitis, purulent cellulitis, osteomyelitis Plan: Screening labs were ordered from triage, I am obtaining imaging and adding on inflammatory markers. The ulceration does not appear infected, it appears chronic, I do not believe he is going to have osteomyelitis. If anything, I will cover him for subtle early cellulitis given the subtle redness and warmth of the left foot. I have independently reviewed the following tests: Labs: No leukocytosis, not anemic, ESR 14, no electrolyte abnormality X-ray left foot:Findings: No acute fracture or subluxation. Moderate left foot osteoarthritis. No definite radiographic findings to suggest osteomyelitis. No radiodense soft tissue foreign bodies or emphysema. Extensive arterial vascular calcifications. Impression: 1. No fracture or subluxation. 2. No definite radiographic findings to suggest osteomyelitis. 3. Additional findings as above. X-ray left ankle IMPRESSION: 1. No acute findings. 2. Soft tissue swelling around the ankle. Lab Data 02/14/25 21:03 02/14/25 21:03 Labs: Lab Results 02/14/25 Range/Units 21:03 WBC 7.5 (4.8-10.8) X10*3/uL RBC 4.32 L (4.60-5.80) X10*6/uL Hgb 10.7 L (14.0-18.0) g/dl Hct 34.1 L (42.0-52.0) % MCV 78.9 L (80.0-98.0) fL MCH 24.8 L (27.0-33.0) pg MCHC 31.4 (31.0-36.0) g/dl RDW 17.2 H (11.0-16.0) % Plt Count 212 (160-400) X10*3/uL MPV 11.6 (9.4-12.4) fL Immature Gran % (Auto) 0.3 (0.0-0.4) % Neut % (Auto) 64.2 (45-73) % Lymph % (Auto) 25.1 (20-40) % Divide % (Auto) 9.1 (2-11) % Eos % (Auto) 0.9 (0-4) % Baso % (Auto) 0.4 (0-2) % Lymph # (Auto) 1.9 (1.2-4.9) X10*3/uL Divide # (Auto) 0.7 (0.1-1.2) X10*3/uL Eos # (Auto) 0.1 (0.0-0.4) X10*3/uL Baso # (Auto) 0.0 (0.0-0.2) X10*3/uL Abs Immat Gran (auto) 0.02 (0.00-0.03) X10*3/uL Absolute Neuts (auto) 4.8 (2.0-8.3) x10*3/uL Absolute Nucleated RBC 0.000 (0.0-0.012) X10*3/uL Nucleated RBC % (auto) 0.0 (0.0-0.2) /100WBC ESR 14 (0-15) MM/HR Sodium 142 (135-145) mmol/L Potassium 3.8 (3.3-5.1) mmol/L Chloride 104 (96-108) mmol/L Carbon Dioxide 26 (22-29) mmol/L Anion Gap 16 (12-20) BUN 17 H (9-16) mg/dL Creatinine 1.16 (0.5-1.4) mg/dL Estim Creat Clear Calc 59.7 Estimated GFR > 60 Random Glucose 175 H (60-115) mg/dL Calcium 9.1 D (8.4-10.2) mg/dL Total Bilirubin 0.3 (0.0-1.0) mg/dL AST 26 (5-37) U/L ALT 28 (0-40) U/L Alkaline Phosphatase 67 (39-117) U/L C-Reactive Protein 0.44 (< or = 0.50) mg/dL Total Protein 7.4 (6.5-8.0) g/dL Albumin 4.4 (3.5-5.0) g/dL Discharge Plan Discharge Clinical Impression: Cellulitis of foot, left Patient Disposition: Home, Self-Care Instructions: Cellulitis (ED) Additional Instructions: The x-rays of the foot and ankle were negative for infection of the bone. Arthritic/degenerative changes were noted. You are being treated for cellulitis, this is a superficial infection of the skin. Take the doxycycline as directed. For your ongoing pain, use the ketorolac as directed take it with food, alternated with the use of the oxycodone. The oxycodone can be constipating, be sure to take [id number] Colace, which is a stool softener, to prevent constipation. Be sure to follow up with your primary care provider for a re-check of the foot. Prescriptions: New ketorolac 10 mg tablet 10 mg PO Q6H PRN (Reason: pain) Qty: 20 0RF Rx Instructions: maximum total duration of 5 days from all oral, intranasal, or parenteral formulations. The patient received an IV dose of Toradol here in the emergency room oxycodone 5 mg tablet 5 mg PO Q6H PRN (Reason: pain, moderate) Qty: 8 0RF Rx Instructions: Partial Fill upon patient request. doxycycline hyclate 100 mg tablet 100 mg PO BID 7 Days Qty: 14 0RF No Action amlodipine 5 mg tablet 5 mg PO DAILY Qty: 90 3RF Trelegy Ellipta 100-62.5-25 mcg blister with device 1 inh inhalation DAILY 30 Days Qty: 60 11RF albuterol sulfate [Ventolin HFA] 90 mcg/actuation HFA aerosol inhaler 2 puff inhalation Q4H PRN (Reason: wheezing) 30 Days Qty: 8.5 11RF sulfamethoxazole-trimethoprim [Bactrim DS] 800-160 mg tablet 1 tab PO Q12H 14 Days Qty: 28 0RF atorvastatin 40 mg tablet 40 mg PO BEDTIME Qty: 90 1RF acetaminophen [Tylenol Extra Strength] 500 mg tablet 500 mg PO Q6H PRN (Reason: pain) Qty: 30 0RF cephalexin 500 mg capsule 500 mg PO QID 10 Days Qty: 40 0RF doxycycline hyclate 100 mg tablet 100 mg PO BID Qty: 20 0RF cefuroxime axetil 500 mg tablet 500 mg PO Q12H 7 Days Qty: 14 0RF clindamycin HCl 150 mg capsule 450 mg PO TID Qty: 90 0RF clopidogrel 75 mg tablet 75 mg PO DAILY Qty: 90 1RF (DME) FreeStyle Lite Strips Strip See Rx Instructions .ROUTE DAILY Qty: 10 Rx Instructions: As directed Jardiance 10 mg tablet 10 mg PO DAILY omeprazole 20 mg capsule,delayed release(DR/EC) 20 mg PO DAILY naproxen 500 mg tablet 500 mg PO BID PRN lisinopril-hydrochlorothiazide 20-25 mg tablet 1 tab PO DAILY finasteride 5 mg tablet 5 mg PO DAILY metformin 1,000 mg tablet 1,000 mg PO BID aspirin 81 mg tablet,delayed release (DR/EC) 81 mg PO DAILY cholecalciferol (vitamin D3) 50 mcg (2,000 unit) capsule 50 mcg PO DAILY Trulicity 3 mg/0.5 mL pen injector subcut Interventions: ED Discharge Assessment Last Done: 02/15/25 03:15 Discharge Date/Time: 02/15/25 03:16 Print Language: Lebanese
[2025-02-15] MEDS: oxyCODONE HCl Immed Release 5 MG TABLET PO (00:24)
--- NOTE | 2025-02-15 00:33 | PC.NURSE ---
Pt medicated per MAR with dermatologist and dermatopathologist at bedside. Pt reporting 10/10 pain to left foot with movement and ambulation. Pt reports an allergy to Oxycodone, states it makes him itchy. Pt denies hives, SOB, difficulty swallowing. Per SMITH, okay to administer Oxycodone despite allergy/sensitivity. Pt resting in bed at this time, aware of plan for additional xrays to r/o osteo. Call phillips within reach.
--- NOTE | 2025-02-15 01:48 | PC.NURSE ---
Pt and aware that XRay results are not back at this time.
[2025-02-15 01:58] VITALS: BP 126/64; PULSE 77; RESP 16; TEMP 36.5; O2SAT 97
[2025-02-15 02:56] VITALS: BP 142/77; PULSE 82; RESP 20; TEMP 36.6; O2SAT 95
--- NOTE | 2025-02-15 03:14 | PC.NURSE ---
resumed care of pt at 0300, dc was placed shortly after, pt reporting 5/10 pain, aware of follow up needed, at bedside. Pt able to self transfer to and be escorted out of ED
[2025-02-15 03:15] VITALS: BP 142/77; PULSE 82; RESP 20; TEMP 36.6; O2SAT 95
== END 2025-02-15 03:16 | disposition home or self-care (01) ==
PROVIDERS: Nurse Practitioner Family; Emergency Provider Emergency Medicine; PCP Internal Medicine
DX: L03.116 Cellulitis of left lower limb (principal); M79.672 Pain in left foot; E11.9 Type 2 diabetes mellitus without complications; I10 Essential (primary) hypertension; E78.5 Hyperlipidemia, unspecified; J45.909 Unspecified asthma, uncomplicated; Z79.82 Long term (current) use of aspirin; Z79.84 Long term (current) use of oral hypoglycemic drugs; Z79.85 Long-term (current) use of injectable non-insulin antidiabetic drugs; Z79.899 Other long term (current) drug therapy; Z79.02 Long term (current) use of antithrombotics/antiplatelets; Z87.891 Personal history of nicotine dependence
CPT/HCPCS: 36415; 73610; 73630; 80053; 85025; 85652; 86140; 96374; 96375; 99284; J1200; J1885

== ENCOUNTER → 2025-02-15 00:02 | Outpatient (BNV) | payer OTHER, SELFPAY | PROVIDERS: Emergency Provider Emergency Medicine; PCP Internal Medicine; Visit Provider Radiology Diagnostic Radiology | DX: M77.32 Calcaneal spur, left foot (principal); M19.072 Primary osteoarthritis, left ankle and foot | CPT/HCPCS: 73610; 73630 ==

== ENCOUNTER → 2025-05-02 07:52 | Outpatient (REF) | payer OTHER, SELFPAY ==
--- OUTSIDE RECORDS SUMMARY | 2025-05-02 07:55 | XMS_ITS | Encounter Summary ---
Author Organization [facility] Address [address] [place] [address] Care Team Providers Care Head Of Mobile Name Role Phone Carri Suazo MD Primary Care Provider [phone] Encounter Details Date Type Department Care Team (Late st Contact Info) Description 12/21/2024 Lab Requisition [facility] - Main Lab [address] [place] [id number] [place] [address] [place] [address] [address] [place] [address] Benign prostatic hyperplasia with lower urinary tract [...] Care Team (Late st Contact Info) Description 05/11/2025 3:30 PM EDT Office Visit Adult [facility] [address] [place], [place] [phone] Carri Suazo MD [address] [place], [place] 06/19/2025 1:00 PM EST Appointment [facility] Ultrasound [address] [place] [phone] 07/07/2025 11:30 AM EST Office Visit Vascular Surgery - [place] [address] [place] [address] Raheel Duffy MD [address] [place] [phone] 08/03/2025 9:00 AM EST Office Visit Endocrinology [address] [phone] Chu Joyner MD [address] [place] [address] documented as of this encounter Procedures Procedure Name Priority Date/Time Associated Diagnosis Comments PROSTATE SPECIFIC ANTIGEN DIAGNOSTIC Routine 12/21/2024 9:18 AM EDT Benign prostatic hyperplasia with lower urinary tract symptoms documented in this encounter Results * Prostate specific antigen diagnostic (12/21/2024 9:18 AM EDT) PSA 2.38 0.00 - 4.00 ng/mL LAB CHEMISTRY METHOD 12/21/2024 2:11 PM EDT [facility] Blood Venous blood specimen / Unknown 12/21/2024 9:18 AM EDT 12/21/2024 12:22 PM EDT Narrative [facility] - 12/21/2024 2:11 PM EDT The Siemens Advia Beroomersaur Chemiluminescent Immunoassay is used. Results obtained with different assay methods or kits cannot be used interchangeably. Results cannot be interpreted as absolute evidence of the presence or absence of malignant disease. us Marya [facility] BLOOD ORDERABLES Final Result Performing Organization Address City/State/[facility] Co de Phone Number [facility] [address] [place] [address], documented in this encounter Visit Diagnoses Diagnosis Benign prostatic hyperplasia with lower urinary tract symptoms documented in this encounter Additional Health Concerns Infection Onset Date Last Indicated Resolved Time Respiratory Rule-Out 03/15/2025 03/15/2025 025 10:09 PM EDT documented as of this encounter Care Teams Head Of Mobile Relationship Specialty Start Date End Date Carri Suazo MD [address] [place] [phone] PCP - General Internal Medicine 05/24/24 documented as of this encounter
--- OUTSIDE RECORDS SUMMARY | 2025-05-02 07:55 | XMS_ITS | Clinical Summary ---
Author Organization [facility] Address [address] [place] [address] Care Team Providers Care Swahili Teacher Name Role Phone Wandy Delcid DO Primary [...] age to complete this topic Care Teams Swahili Teacher Relationship Specialty Start Date End Date Wandy Delcid DO PCP - General Senior Market Intelligence Consultant 02/17/20
--- OUTSIDE RECORDS SUMMARY | 2025-05-02 07:55 | XMS_ITS | Clinical Summary ---
Author Organization [facility] [address] [place] [address] Address [address], [place] Phone Care Team Providers Care Site Safety Manager Name Role Phone Carri Suazo MD Primary Care Provider [phone] Allergies Active Allergy Reactions Criticality Noted Date Comments Grass Pollen Runny nose Medium 03/15/2025 Other 04/20/2009 Seasonal Allergies Medications FREESTYLE LANCETS MISC Use to test blood sugar once daily 03/19/20 23 Active albuterol 2.5 mg /3 mL (0.083 %) nebulizer solution 3 mL (2.5 mg total) every 4 (four) hours if needed. 02/24/20 23 Active albuterol HFA (Ventolin HFA) 90 mcg/actuation inhaler Inhale 2 puffs by mouth every 4 (four) hours if needed for wheezing (COUGH). 05/28/20 23 Active amLODIPine (NORVASC) 5 mg tablet Take 1 tablet (5 mg total) by mouth 1 (one) time each day. Active atorvastatin (LIPITOR) 40 mg tablet Take 1 tablet (40 mg total) by mouth at bedtime. 03/06/20 22 Active fluticasone-ume clidinium-vilan terol (Trelegy Ellipta) 100-62.5-25 mcg inhaler Inhale 1 puff (100 mcg total) by mouth 1 (one) time each day. 09/02/19 24 Active pen needle, diabetic (Pen Needle) 31 gauge x 3/16 needle 1 Each by Does not apply route 3 times daily (with meals). 12/21/19 24 Active finasteride (PROSCAR) 5 mg tablet TAKE 1 TABLET BY MOUTH EVERY DAY 90 tablet 1 07/12/20 24 Active FreeStyle Lite Meter monitoring kitIndications: Type 2 diabetes mellitus with other ophthalmic complication, without long-term current use of insulin ([facility] V24, [facility] V28) USE TO CHECK BLOOD SUGAR DAILY 1 kit 08/08/19 25 Active blood sugar diagnostic (FreeStyle Lite Strips) test stripIndication s:Type 2 diabetes mellitus with other ophthalmic complication, without long-term current use of insulin ([facility] V24, [facility] V28) USE TO TEST BLOOD SUGAR ONCE DAILY 200 strip 5 08/08/19 25 Active aspirin 81 mg EC tablet TAKE 1 TABLET BY MOUTH EVERY DAY 90 tablet 1 09/06/19 25 Active omeprazole (PriLOSEC) [address] capsule TAKE 1 CAPSULE BY MOUTH EVERY DAY 90 capsule 1 12/06/19 25 Active metFORMIN (GLUCOPHAGE) 1,000 mg tablet TAKE 1 TABLET BY MOUTH TWICE A DAY WITH FOOD 180 tablet 1 12/08/19 25 Active glipiZIDE (GLUCOTROL) 5 mg tablet TAKE 1 TABLET BY MOUTH EVERY DAY 90 tablet 1 12/08/19 25 Active Jardiance 25 mg tablet TAKE 1 TABLET BY MOUTH EVERY DAY 90 tablet 1 12/08/19 25 Active cholecalciferol (VITAMIN D-3) 50 mcg (2,000 unit) capsule TAKE 1 CAPSULE BY MOUTH EVERY DAY 90 capsule 1 01/06/20 25 Active Additional Information Patient taking differently: 2,000 Units Daily, Reported on 04/21/2025 fluticasone propionate (FLONASE) 50 mcg/actuation nasal spray ADMINISTER 2 SPRAYS INTO EACH NOSTRIL 2 (TWO) TIMES A DAY. SHAKE GENTLY. BEFORE FIRST USE, PRIME PUMP. AFTER USE, CLEAN TIP AND REPLACE CAP. 48 mL 1 01/06/20 25 Active Additional Information Patient taking differently:2 spray Each Nostril2 times daily PRN, Shake gently. Before first use, prime pump. After use, clean tip and replace cap., Reported on 04/21/2025 clopidogreL (PLAVIX) 75 mg tablet Take 1 tablet (75 mg total) by mouth 1 (one) time each day. LAST DOSE WAS 03/09/25 Active gabapentin (Neurontin) 400 mg capsule Take 1 capsule (400 mg total) by mouth 3 (three) times a day. 90 each 1 02/10/20 25 Active ferrous sulfate 325 mg (65 mg iron) EC tablet Take 1 tablet (325 mg total) by mouth 1 (one) time each day with breakfast. Do not crush, chew, or split. 90 each 1 02/29/20 25 Active polyethylene glycol (MIRALAX) 17 gram packet Take 17 g by mouth 1 (one) time each day. 100 each 03/09/20 25 2024 Active oxyCODONE (ROXICODONE) 5 mg immediate release tabletIndicatio ns:Critical limb ischemia of left lower extremity (CMS/HCC V24, CMS/[facility] V28) Take 1-2 tablets (5-10 mg total) by mouth every 6 hours as needed for severe pain. 24 tablet 03/17/20 25 Active acetaminophen (TYLENOL) 500 mg tablet Take 2 tablets (1,000 mg total) by mouth every 6 (six) hours if needed for mild pain or moderate pain. 40 tablet 04/06/20 25 Active lisinopril-hydr oCHLOROthiazide (PRINZIDE,ZESTO RETIC) 20-12.5 mg per tablet Take 1 tablet by mouth 1 (one) time each day. 90 tablet 1 04/11/20 25 Active loratadine (CLARITIN) 10 mg tablet Take 1 tablet (10 mg total) by mouth 1 (one) time each day. 90 each 1 04/11/20 25 2025 Active Trulicity 3 mg/0.5 mL pen injector injectionIndica tions:Type 2 diabetes mellitus with other specified complication (CMS/HCC V24, CMS/HCC V28) INJECT 1 PEN (3 MG) INTO THE SKIN ONE TIME PER WEEK 9 mL 1 04/17/20 25 Active Trulicity 3 mg/0.5 mL pen injector injectionIndica tions:Type 2 diabetes mellitus with other specified complication (CMS/HCC V24, CMS/HCC V28) INJECT 3 MG INTO THE SKIN ONE TIME PER WEEK 6 mL 1 09/05/19 25 2024 Discontinued lisinopril-hydr oCHLOROthiazide (PRINZIDE,ZESTO RETIC) 20-25 mg per tablet TAKE 1 TABLET BY MOUTH EVERY DAY 90 tablet 1 12/06/19 25 2024 Discontinued(D ose adjustment) acetaminophen (TYLENOL) 500 mg tablet Take 2 tablets (1,000 mg total) by mouth every 6 (six) hours if needed for mild pain or moderate pain. 40 tablet 03/17/202024 Discontinued(R eorder) levoFLOXacin (LEVAQUIN) 750 mg tablet Take 1 tablet (750 mg total) by mouth 1 (one) time each day for 7 days. 7 each 04/06/202024 Active Problems Problem Noted Date Diagnosed Date Critical limb ischemia of le ft lower extremity ([facility] V24, [facility] V28) 03/08/2025 Diabetic foot infection ([facility] V24, [facility] V2 8) 02/24/2025 PAD (peripheral artery disease) ([facility] V24) Multiple exostoses 02/09/2025 PVD (peripheral vascular disease) ([facility] V24) 01/05/2025 Nonrheumatic aortic valve stenosis 01/05/2025 Type 2 diabetes mellitus wit h diabetic peripheral angiopathy without gangrene, without long-term current use of insulin ([facility] V24, [facility] V28) 01/05/2025 Tailor's bunionette, left 12/01/2024 Microalbuminuria 04/07/2022 Normocytic anemia 10/02/2019 Habitual alcohol use 10/26/2018 BPH (benign prostatic hyperplasia) 01/30/2016 PSA elevation 02/06/2015 DM (diabetes mellitus), type 2 with ophthalmic complications ([facility] V24, [facility] V28) 09/12/2013 Overview (04/18/2024): Nuclear Sclerosis out side eye exam 07/07/12. Dr. Engle. Obesity (BMI 30.0-34.9) 11/20/2009 Asthma 04/13/2006 Essential hypertension, benign 04/13/2006 CAD (coronary artery disease) 04/13/2006 Hyperlipidemia 04/13/2006 Lumbago 04/13/2006 Encounters Date Type Department Care Team Description 04/21/2025 1:00 PM EDT Office Visit Vascular Surgery [address] [phone] Raheel Duffy MD Critical limb ischemia of left lower extremity ([facility] V24, CMS/[facility] V28) (Primary Dx); Non-healing surgical wound, initial encounter 04/17/2025 Telephone Adult [address] [phone] Kenzie Delcid MA 04/14/2025 3:30 PM EDT Office Visit Vascular Surgery [address] [phone] Davina Restrepo PA PAD (peripheral artery disease) ([facility] V24) (Primary Dx); Critical limb ischemia of left lower extremity (CMS/[facility] V24, CMS/HCC V28); Non-healing surgical wound, initial encounter 04/11/2025 9:00 AM EDT Office Visit [address] [phone] Carri Suazo MD Hospital discharge follow-up (Primary Dx); PAD (peripheral artery disease) ([facility]/HCC V24); Other acute osteomyelitis of left foot (CMS/[facility] V24, CMS/[facility] V28); 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 ([facility] V24); S/P vascular bypass; Essential hypertension, benign; Type 2 diabetes mellitus with other ophthalmic complication, without long-term current use of insulin (CMS/[facility] V24, CMS/HCC V28) 04/06/2025 1:30 PM EDT Office Visit Vascular Surgery [address] [phone] Davina Restrepo PA PAD (peripheral artery disease) ([facility] V24) (Primary Dx) 04/03/2025 Telephone Adult [address] [phone] Carri Suazo MD 03/27/2025 Telephone Adult Medicine [facility] [address], [place] [phone] Carri Suazo MD 03/23/2025 Telephone Adult Medicine [address] [phone] Amy Buitrago MA 03/21/2025 11:44 AM EDT - 03/21/2025 12:44 PM EDT Surgery [facility] OR [address] [place] [phone] Raheel Duffy MD INCISION AND DRAINAGE left 5th metatarsal bone, WASHOUT, WOUND, and complex secondary wound clsoure left foot 03/21/2025 10:58 AM EDT Anesthesia Event [facility] OR [address] [place] [phone] Ld Jimenez DO Slanda, Summer, RASHEED 03/19/2025 2:46 PM EDT Anesthesia Event [facility] OR [address] [place] [phone] Filippo Dunn MD 03/19/2025 11:35 AM EDT - 03/19/2025 12:40 PM EDT Surgery [facility] OR [address] [place] [phone] Raheel Duffy MD AMPUTATION FIFTH TOE/ I&D FIFTH METATARSAL BONE 03/15/2025 12:13 PM EDT Anesthesia Event [facility] OR [address] [place] [phone] Filippo Dunn MD Vermes, Rachie, CRNA 03/15/2025 10:30 AM EDT - 03/15/2025 3:30 PM EDT Surgery [facility] OR [address] [place] [phone] Raheel Duffy MD Left popliteal to dorsalis pedis bypass w/Left GSV harvest, Left focal popliteal endarterectomy [05367 (CPT )] 03/15/2025 8:55 AM EDT - 03/25/2025 11:03 AM EDT Hospital Encounter [facility] Medical Surgical Unit [address] [place] [phone] Raheel Duffy MD Loiacono, Laurie, MD Kokosadze, Estate, MD Critical limb ischemia of left lower extremity ([facility] V24, [facility] V28) (Primary Dx); Diabetic foot infection ([facility] V24, [facility] V28); PAD (peripheral artery disease) ([facility] V24) Discharge Disposition: Home-Health Care [facility] 03/13/2025 Telephone Orthopedic Surgery [facility] [address] [facility] [address] [place] [phone] Elder Snyder DPAbbi 03/12/2025 3:27 PM EDT - 03/12/2025 4:18 PM EDT Emergency [facility] Emergency [address] [place] [phone] Kristin Willett MD Diabetic foot infection ([facility] V24, [facility] V28) (Primary Dx); PAD (peripheral artery disease) ([facility] V24); Pain Discharge Disposition: Home or Self Care 03/10/2025 12:22 PM EDT - 03/10/2025 7:42 PM EDT Emergency [facility] Emergency [address] [place] [phone] Martin Petit MD Left foot pain (Primary Dx) Discharge Disposition: Home or Self Care 03/09/2025 10:30 AM EDT Office Visit Vascular Surgery [facility] [address] [place] [phone] Davina Restrepo PA Non-healing surgical wound, initial encounter (Primary Dx); Critical limb ischemia of left lower extremity ([facility] V24, [facility] V28); PAD (peripheral artery disease) ([facility] V24) 03/09/2025 9:00 AM EDT Office Visit Adult [address] [phone] Carri Suazo MD Hospital discharge follow-up (Primary Dx); Type 2 diabetes mellitus with diabetic peripheral angiopathy without gangrene, without long-term current use of insulin ([facility] V24, [facility] V28); PVD (peripheral vascular disease) ([facility] V24); 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 ([facility] V24, [facility] V28) 03/09/2025 Telephone Orthopedic Surgery [place] [address] [phone] Elder Snyder DPM 03/09/[address] [phone] Carri Suazo MD 03/08/2025 8:15 AM EDT Office Visit Orthopedic [place] [address] [phone] Elder Snyder DPM Ulcer of toe of left foot, with fat layer exposed ([facility] V24, [facility] V28) (Primary Dx); Follow-up exam; Maninder godfrey, left 03/02/[address] [phone] Lucy MarroquinThompson, [place] 02/28/2025 10:30 AM EDT - 02/28/2025 11:30 AM EDT [facility] Cardiac Planer Operator / Grader [address] [place] [phone] Raheel Duffy MD Angiography left lower extremity [[id number] (CPT )] 02/26/2025 9:55 AM EDT - 02/26/2025 11:20 AM EDT [facility] OR [address] [place] [phone] Elder Snyder DPM EXCISION METATARSAL HEAD left 5th toe [[id number] (CPT )] 02/26/2025 8:04 AM EDT Anesthesia Event [facility] OR [address] [place] [phone] Olvin Nair MD 02/24/2025 8:48 AM EDT - 03/01/2025 5:38 PM EDT Hospital [facility] Medical Surgical Unit [address] [place] [phone] Vernon Cedillo MD Shapiro, Benjamin, DO Seralathan, Manikandan, MD Surendran, Anupama, MD Diabetic foot infection ([facility] V24, [facility] V28) (Primary Dx); Tailor's bunionette, left; PAD (peripheral artery disease) ([facility] V24); Non-pressure chronic ulcer of other part of left foot with unspecified severity ([facility] V24, [facility] V28); Type 2 diabetes mellitus with diabetic peripheral angiopathy without gangrene, without long-term current use of insulin ([facility] V24, [facility] V28); Cellulitis of left foot; Ulcer of toe of left foot, with fat layer exposed ([facility] V24, [facility] V28); Multiple exostoses Discharge Disposition: Home-Health Care [facility] 02/24/2025 Telephone Orthopedic Surgery [address] [phone] Elder Snyder DPM 02/23/2025 11:30 AM EDT Office Visit [address] [phone] Rachel Kilgore PA Diabetic mononeuropathy associated with type 2 diabetes mellitus ([facility] V24, [facility] V28) (Primary Dx); Diabetic ulcer of other part of left foot associated with diabetes mellitus due to underlying condition, unspecified ulcer stage ([facility] V24, [facility] V28); Absent pedal pulses; PAD (peripheral artery disease) ([facility] V24); PVD (peripheral vascular disease) ([facility] V24); Normocytic anemia 02/21/2025 1:00 PM EDT Office Visit Orthopedic Surgery [place] [address] [phone] Elder Snyder, DPM Cellulitis of left foot (Primary Dx); Ulcer of toe of left foot, with fat layer exposed ([facility] V24, [facility] V28); Tailor's bunionette, left; Diabetic mononeuropathy simplex ([facility] V24, [facility] V28) 02/17/2025 Telephone Orthopedic Surgery [facility] [address] [phone] Elder Snyder DPM 02/09/2025 3:45 PM EDT Office Visit Orthopedic [facility] [address] [phone] Elder Snyder, TREVOR Tailor's bunionette, left (Primary Dx); Diabetic mononeuropathy simplex ([facility] V24, [facility] V28); Multiple exostoses 01/31/2025 Telephone Orthopedic Surgery [facility] [address] [phone] Elder Snyder, DPM from Last 3 Months Immunizations Immunization Administration Dates Next Due H1N1 Inj Preservative [...] 01/02/2024 Surgical History Surgery Date Site/Laterality Comments COLONOSCOPY 12/26/2016 PROCEDURE: HISTORICAL COLONOSCOPY; COMMENT: negative screening examination. ANGIOPLASTY 11/30/2024 Left anterior tibial - Dr. Grajeda on Plavix x 3 mos FOOT SURGERY 02/26/2025 Left CARDIAC CATHETERIZATION 12/19/2023 - 01/17/2024 Medical History Medical History Date Comments Coronary atherosclerosis of unspecified type of vessel, afognak or graft 04/13/2006 DX:Coronary atherosclerosis of unspecified type of vessel, afognak or graft Other and unspecified hyperlipidemia 04/13/2006 [...] Habitual alcohol use 10/26/2018 DX:Habitual alcohol use Heart disease MUMER, CAD,PVD Asthma Anemia Neuromuscular disorder (CMS/ HCC V24, CMS/HCC V28) Arthritis Joint pain Non-healing wound of left lo wer extremity Family History Medical History Relation Name Comments Glaucoma Father Glaucoma Mother cad Relation Name Status Comments Brother Alive CAD Daughter 1 Alive thyroid problem s Daughter 2 Alive Daughter 3 Alive Daughter 4 Alive Father [place] Mother DM Sister Alive DM Son Alive Social History Tobacco Use Types Packs/Day Years Used Date Smoking Tobacco: Former Cigarettes Q uit: 1985 Passive Smoke Exposure: Never Smokeless Tobacco: Never Tobacco Cessation:Counseling Given: Not Answered Alcohol Use Standard Drinks/Week Comments Yes 6 (1 standard drink = 0.6 oz pur e alcohol) OCCASIONALLY Interpersonal Safety Answer Date Record ed Physical Abuse Unrecognized value 03/15/2025 Verbal Abuse Unrecognized value 03/15/2025 Sex and Gender Information Value Date Recorded Sex Assigned at Male 05/18/2024 2:30 PM EDT Legal Sex Male 11:35 PM EST Gender Identity Male 05/18/2024 2:30 PM EDT Sexual Orientation Straight 05/18/2024 2: 30 PM EDT Obstetrics History Last Filed Vital Signs Vital Sign Reading Time Taken Comments Blood Pressure 140/60 04/21/2025 1:07 PM EDT Pulse 72 04/21/2025 1:07 PM EDT Temperature 36.6 C (97.9 F) 04/11/2025 9:22 AM EDT Respiratory Rate 16 04/21/2025 1:07 PM EDT Oxygen Saturation 97% 04/11/2025 9:22 AM EDT Inhaled Oxygen Concentration - - Weight 98.4 kg (217 lb) 04/06/2025 1:23 PM EDT Height 170.2 cm (5' 7 ) 04/21/2025 1:07 PM EDT Body Mass Index 33.99 04/06/2025 1:23 PM EDT Plan of Treatment Upcoming Encounters Date Type Department Care Team (Late st Contact Info) Description 05/11/2025 3:30 PM EDT Office Visit Adult Medicine [address] [phone] Carri Suazo MD [address] [place] [address] 06/19/2025 1:00 PM EST Appointment [facility] Ultrasound [address] [place] [phone] 07/07/2025 11:30 AM EST Office Visit Vascular Surgery [facility] [address] [place] [phone] Raheel Duffy MD [address] [place] [phone] 08/03/2025 9:00 AM EST Office Visit Endocrinology [address] [phone] Chu Joyner MD [address] [place] [address] Health Maintenance Due Date Last Done Comments RSV Immunization Adult Patients (1 - 1-dose 75+ series) 2021 Medicare Annual Wellness Visit 06/28/2022 Social Influencers of Health Screening 06/28/2022 Zoster Vaccines (2 of 2) 02/27/2024 01/02/2024 Depression Screening 07/20/2024 09/02/2023 Diabetes: Annual Retina Eye Exam 09/08/2024 09/08/2023, 09/08/2023 COVID-19 Vaccine ( season) 2025 07/09/2021, 11/18/2020, 10/28/2020 Influenza Vaccine (#1) 2025 , 05/28/2023, 04/07/2022, Additional history exists Diabetes: Annual Urine Albumin-Creatinine Ratio (uACR) 07/05/2025 07/05/2024, 02/29/2024 Diabetes: Blood Sugar Control Test (HGBA1C) 07/07/2025 01/05/2025, 07/05/2024, 02/29/2024, Additional history exists Diabetes: Annual Foot Exam 03/18/202603/18, 02/24/2025, 03/30/2024 Diabetes: Annual GFR (Glomerular Filtration Rate) 03/25/2026 03/25/2025, 03/24/2025, 03/22/2025, Additional history exists Falls Risk Assessment 03/25/2026 03/25/2025 Hypertension/CHF/CAD Annual BMP Blood Test 03/25/2026 03/25/2025, 03/24/2025, 03/22/2025, Additional history exists Cholesterol Screening (Lipid Panel) 12/23/2029 12/23/2024, 07/05/2024, 02/29/2024, Additional history exists DTaP,Tdap,and Td Vaccines (4 - Td or Tdap) 09/07/2034 09/07/2024, 06/27/2014, 05/31/2013 Hepatitis C Screening Completed 06/02/2013 Pneumococcal Vaccine: 50+ Years Completed 07/31/2016, 05/25/2012 Colorectal Cancer Screening: Colonoscopy Discontinued 12/26/2016 HIB Vaccines Aged Out No longer eligi [...] on patient's age to complete this topic Medical Devices Implanted Type Area Petrophysicist Device Identifier Shelf Expiration Date Model / Serial / Lot Hemostat Absorb Surgicel 2x4in Fibrillar - Sn/A - [id number] Implanted:Qty: 1 on 03/15/2025 by Raheel Duffy MD at [facility] Hemostasis Left: Leg [employer] 09/17/20271961 / N/A / [id number] Sealant Fibrin Vistaseal 10ml - [id number] - [id number] Implanted:Qty: 1 on 03/15/2025 by Raheel Duffy MD at [facility] Hemostasis Left: Leg [facility] [employer] [id number] 08/23/2026 VST10 / [id number] Procedures Procedure Name Priority Date/Time Associated Diagnosis Comments POCT GLUCOSE BLOOD Routine 03/25/2025 7: 52 AM EDT CBC WITH AUTO DIFFERENTIAL Routine 03/25/2025 5:15 AM EDT BASIC METABOLIC PANEL Routine 03/25/2025 5:15 AM EDT CBC AND DIFFERENTIAL Routine 03/25/2025 5:15 AM EDT POCT GLUCOSE BLOOD Routine 03/24/2025 7: 32 PM EDT POCT GLUCOSE BLOOD Routine 03/24/2025 4: 01 PM EDT POCT GLUCOSE BLOOD Routine 03/24/2025 10:55 AM EDT VANCOMYCIN, TROUGH Timed 03/24/2025 8: 05 AM EDT CBC WITH AUTO DIFFERENTIAL Routine 03/24/2025 8:05 AM EDT CBC AND DIFFERENTIAL Routine 03/24/2025 8:05 AM EDT BASIC METABOLIC PANEL Routine 03/24/2025 8:05 AM EDT POCT GLUCOSE BLOOD Routine 03/24/2025 7: 53 AM EDT POCT GLUCOSE BLOOD Routine 03/23/2025 10:00 PM EDT POCT GLUCOSE BLOOD Routine 03/23/2025 4: 05 PM EDT POCT GLUCOSE BLOOD Routine 03/23/2025 11:08 AM EDT POCT GLUCOSE BLOOD Routine 03/23/2025 8: 13 AM EDT VANCOMYCIN, TROUGH Timed 03/23/2025 7: 58 AM EDT LAVENDER - EDTA Routine 03/23/2025 7:56 AM EDT EXTRA TUBES Routine 03/23/2025 7:56 AM EDT POCT GLUCOSE BLOOD Routine 03/22/2025 7: 52 PM EDT POCT GLUCOSE BLOOD Routine 03/22/2025 3: 57 PM EDT POCT GLUCOSE BLOOD Routine 03/22/2025 11:35 AM EDT POCT GLUCOSE BLOOD Routine 03/22/2025 8: 12 AM EDT CBC WITH AUTO DIFFERENTIAL Routine 03/22/2025 5:40 AM EDT CBC AND DIFFERENTIAL Routine 03/22/2025 5:40 AM EDT BASIC METABOLIC PANEL Routine 03/22/2025 5:40 AM EDT POCT GLUCOSE BLOOD Routine 03/21/2025 8: 10 PM EDT POCT GLUCOSE BLOOD Routine 03/21/2025 4: 13 PM EDT VANCOMYCIN, TROUGH Timed 03/21/2025 4: 00 PM EDT POCT GLUCOSE BLOOD Routine 03/21/2025 12:21 PM EDT OXYGEN THERAPY, ADULT Routine 03/21/2025 12:01 PM EDT TH AN LMA(NO CHARGE) Routine 03/21/2025 11:30 AM EDT TISSUE EXAM Routine 03/21/2025 11:29 AM EDT Critical limb ischemia of left lower extremity (CMS/HCC V24, CMS/HCC V28) CULTURE BONE Routine 03/21/2025 11:28 AM EDT Critical limb ischemia of left lower extremity (CMS/HCC V24, CMS/HCC V28) INCISION DRAINAGE EXTREMITY LOWER 03/21/2025 10:59 AM EDT Critical limb ischemia of left lower extremity (CMS/HCC V24, CMS/HCC V28) POCT GLUCOSE BLOOD Routine 03/21/2025 7: 23 AM EDT CBC WITH AUTO DIFFERENTIAL Routine 03/21/2025 5:47 AM EDT CBC AND DIFFERENTIAL Routine 03/21/2025 5:47 AM EDT BASIC METABOLIC PANEL Routine 03/21/2025 5:47 AM EDT POCT GLUCOSE BLOOD Routine 03/20/2025 7: 28 PM EDT POCT GLUCOSE BLOOD Routine 03/20/2025 3: 29 PM EDT POCT GLUCOSE BLOOD Routine 03/20/2025 10:58 AM EDT POCT GLUCOSE BLOOD Routine 03/20/2025 7: 47 AM EDT VANCOMYCIN, TROUGH Timed 03/20/2025 6: 59 AM EDT CBC WITH AUTO DIFFERENTIAL Routine 03/20/2025 6:59 AM EDT BASIC METABOLIC PANEL Routine 03/20/2025 6:59 AM EDT CBC AND DIFFERENTIAL Routine 03/20/2025 6:59 AM EDT POCT GLUCOSE BLOOD Routine 03/19/2025 7: 36 PM EDT POCT GLUCOSE BLOOD Routine 03/19/2025 4: 25 PM EDT CULTURE BONE Routine 03/19/2025 3:11 PM EDT Critical limb ischemia of left lower extremity (CMS/HCC V24, CMS/HCC V28) TISSUE EXAM Routine 03/19/2025 3:10 PM EDT Critical limb ischemia of left lower extremity (CMS/HCC V24, CMS/HCC V28) AMPUTATION TOE 03/19/2025 2:46 PM EDT Critical limb ischemia of left lower extremity (CMS/HCC V24, CMS/HCC V28) SST - GOLD Routine 03/19/2025 12:15 PM EDT EXTRA TUBES Routine 03/19/2025 12:15 PM EDT SEDIMENTATION RATE Routine 03/19/2025 12:15 PM EDT POCT GLUCOSE BLOOD Routine 03/19/2025 11:50 AM EDT POCT GLUCOSE BLOOD Routine 03/19/2025 7: 46 AM EDT POCT GLUCOSE BLOOD Routine 03/18/2025 4: 16 PM EDT POCT GLUCOSE BLOOD Routine 03/18/2025 11:22 AM EDT POCT GLUCOSE BLOOD Routine 03/18/2025 7: 40 AM EDT C-REACTIVE PROTEIN Add-On 03/18/2025 5: 30 AM EDT CBC WITH AUTO DIFFERENTIAL Routine 03/18/2025 5:30 AM EDT BASIC METABOLIC PANEL Routine 03/18/2025 5:30 AM EDT CBC AND DIFFERENTIAL Routine 03/18/2025 5:30 AM EDT POCT GLUCOSE BLOOD Routine 03/17/2025 8: 02 PM EDT XR FOOT 2 VIEWS LEFT STAT 03/17/2025 4:24 PM EDT POCT GLUCOSE BLOOD Routine 03/17/2025 3: 27 PM EDT POCT GLUCOSE BLOOD Routine 03/17/2025 11:38 AM EDT POCT GLUCOSE BLOOD Routine 03/17/2025 7: 29 AM EDT CBC WITH AUTO DIFFERENTIAL Routine 03/17/2025 4:48 AM EDT CBC AND DIFFERENTIAL Routine 03/17/2025 4:48 AM EDT PHOSPHORUS Routine 03/17/2025 4:48 AM EDT MAGNESIUM Routine 03/17/2025 4:48 AM EDT CALCIUM, IONIZED Routine 03/17/2025 4:48 AM EDT BASIC METABOLIC PANEL Routine 03/17/2025 4:48 AM EDT POCT GLUCOSE BLOOD Routine 03/16/2025 8: 59 PM EDT POCT GLUCOSE BLOOD Routine 03/16/2025 4: 53 PM EDT POCT GLUCOSE BLOOD Routine 03/16/2025 11:18 AM EDT POCT GLUCOSE BLOOD Routine 03/16/2025 6: 23 AM EDT COMPLETE BLOOD COUNT Timed 03/16/2025 4:06 AM EDT ALBUMIN Routine 03/16/2025 4:06 AM EDT PHOSPHORUS Routine 03/16/2025 4:06 AM EDT MAGNESIUM Routine 03/16/2025 4:06 AM EDT CALCIUM, IONIZED Routine 03/16/2025 4:06 AM EDT BASIC METABOLIC PANEL Routine 03/16/2025 4:06 AM EDT RESPIRATORY VIRUS PANEL MOLECULAR STUDY STAT 03/15/2025 8:34 PM EDT MRSA PCR STAT 03/15/2025 8:34 PM EDT CBC WITH AUTO DIFFERENTIAL STAT 03/15/2025 8:02 PM EDT LACTATE STAT 03/15/2025 8:02 PM EDT PHOSPHORUS STAT 03/15/2025 8:02 PM EDT MAGNESIUM STAT 03/15/2025 8:02 PM EDT CALCIUM, IONIZED STAT 03/15/2025 8:02 PM EDT BASIC METABOLIC PANEL STAT 03/15/2025 8:02 PM EDT CBC AND DIFFERENTIAL STAT 03/15/2025 8:02 PM EDT POCT GLUCOSE BLOOD Routine 03/15/2025 6: 40 PM EDT ACTIVATED PARTIAL THROMBOPLASTIN TIME STAT 03/15/2025 5:05 PM EDT PROTHROMBIN TIME WITH INR STAT 03/15/2025 5:05 PM EDT LAVENDER - EDTA Routine 03/15/2025 5:00 PM EDT SST - GOLD Routine 03/15/2025 5:00 PM EDT EXTRA TUBES Routine 03/15/2025 5:00 PM EDT POCT ACTIVATED CLOTTING TIME, KAOLIN Routine 03/15/2025 3:41 PM EDT POCT ARTERIAL BASIC METABOLIC PROFILE, HH Routine 03/15/2025 3:33 PM EDT POCT ACTIVATED CLOTTING TIME, KAOLIN Routine 03/15/2025 3:27 PM EDT POCT ACTIVATED CLOTTING TIME, KAOLIN Routine 03/15/2025 3:10 PM EDT PREPARE RBC Routine 03/15/2025 2:50 PM EDT POCT ACTIVATED CLOTTING TIME, KAOLIN Routine 03/15/2025 2:46 PM EDT ANESTHESIA PERIPHERAL IV PLACEMENT Routine 03/15/2025 12:43 PM EDT TH AN ARTERIAL LINE (CHARGE) Routine 03/15/2025 12:42 PM EDT POCT ACTIVATED CLOTTING TIME, KAOLIN Routine 03/15/2025 12:42 PM EDT TH AN ENDOTRACHEAL(NO CHARGE) Routine 03/15/2025 12:41 PM EDT IA BYPASS GFT W VEIN POPLITEAL-TIBIAL -DRAKE ARTERY OR OTHER DISTAL VESSELS 03/15/2025 12:12 PM EDT Critical limb ischemia of left lower extremity (CMS/HCC V24, CMS/HCC V28) Case Notes VASC BED, ICU BED, GSV harvest POCT GLUCOSE BLOOD Routine 03/15/2025 9: 13 AM EDT PROCEDURAL ECG Routine 03/13/2025 9:04 AM EDT Critical limb ischemia of left lower extremity (CMS/HCC V24, CMS/HCC V28) CBC WITH AUTO DIFFERENTIAL Routine 03/13/2025 8:49 AM EDT Critical limb ischemia of left lower extremity (CMS/HCC V24, CMS/HCC V28) TYPE AND SCREEN Routine 03/13/2025 8:49 AM EDT Critical limb ischemia of left lower extremity (CMS/HCC V24, CMS/HCC V28) ACTIVATED PARTIAL THROMBOPLASTIN TIME Routine 03/13/2025 8:49 AM EDT Critical limb ischemia of left lower extremity (CMS/HCC V24, CMS/HCC V28) PROTHROMBIN TIME WITH INR Routine 03/13/2025 8:49 AM EDT Critical limb ischemia of left lower extremity (CMS/HCC V24, CMS/HCC V28) MAGNESIUM Routine 03/13/2025 8:49 AM EDT Critical limb ischemia of left lower extremity (CMS/HCC V24, CMS/HCC V28) CBC AND DIFFERENTIAL Routine 03/13/2025 8:49 AM EDT Critical limb ischemia of left lower extremity (CMS/HCC V24, CMS/HCC V28) BASIC METABOLIC PANEL Routine 03/13/2025 8:49 AM EDT Critical limb ischemia of left lower extremity (CMS/HCC V24, CMS/HCC V28) LACTATE, WITH REFLEX Timed 03/10/2025 5:57 PM EDT XR FOOT 3+ VIEWS LEFT STAT 03/10/2025 2:05 PM EDT CBC WITH AUTO DIFFERENTIAL STAT 03/10/2025 1:08 PM EDT LACTATE, WITH REFLEX STAT 03/10/2025 1:08 PM EDT COMPREHENSIVE METABOLIC PANEL STAT 03/10/2025 1:08 PM EDT CBC AND DIFFERENTIAL STAT 03/10/2025 1:08 PM EDT POCT GLUCOSE BLOOD Routine 03/01/2025 4: 20 PM EDT POCT GLUCOSE BLOOD Routine 03/01/2025 11:21 AM EDT POCT GLUCOSE BLOOD Routine 03/01/2025 7: 47 AM EDT POCT GLUCOSE BLOOD Routine 02/28/2025 8: 47 PM EDT POCT GLUCOSE BLOOD Routine 02/28/2025 3: 59 PM EDT VAS US DUPLEX LOWER EXT VEIN MAP BILAT Routine 02/28/2025 11:22 AM EDT PAD (peripheral artery disease) (CMS/HCC V24) VANCOMYCIN, TROUGH Timed 02/28/2025 11:01 AM EDT POCT ACTIVATED CLOTTING TIME, KAOLIN Routine 02/28/2025 10:01 AM EDT ANGIOGRAPHY LOWER EXT RIGHT Routine 02/28/2025 9:35 AM EDT Non-pressure chronic ulcer of other part of left foot with unspecified severity (CMS/HCC V24, CMS/HCC V28) POCT GLUCOSE BLOOD Routine 02/28/2025 7: 35 AM EDT CBC WITH AUTO DIFFERENTIAL Routine 02/28/2025 6:20 AM EDT MAGNESIUM Routine 02/28/2025 6:20 AM EDT CBC AND DIFFERENTIAL Routine 02/28/2025 6:20 AM EDT BASIC METABOLIC PANEL Routine 02/28/2025 6:20 AM EDT POCT GLUCOSE BLOOD Routine 02/27/2025 7: 35 PM EDT POCT GLUCOSE BLOOD Routine 02/27/2025 4: 10 PM EDT VANCOMYCIN, TROUGH Timed 02/27/2025 11:02 AM EDT POCT GLUCOSE BLOOD Routine 02/27/2025 10:43 AM EDT POCT GLUCOSE BLOOD Routine 02/27/2025 7: 35 AM EDT CBC WITH AUTO DIFFERENTIAL Routine 02/27/2025 5:41 AM EDT CBC AND DIFFERENTIAL Routine 02/27/2025 5:41 AM EDT BASIC METABOLIC PANEL Routine 02/27/2025 5:41 AM EDT MAGNESIUM Routine 02/27/2025 5:41 AM EDT PHOSPHORUS Routine 02/27/2025 5:41 AM EDT POCT GLUCOSE BLOOD Routine 02/26/2025 7: 40 PM EDT VAS US DUPLEX LOWER EXT ARTERY LEFT Routine 02/26/2025 5:19 PM EDT Diabetic foot infection ([facility] V24, CMS/[facility] V28) PAD (peripheral artery disease) (CMS/[facility] V24) POCT GLUCOSE BLOOD Routine 02/26/2025 3: 58 PM EDT POCT GLUCOSE BLOOD Routine 02/26/2025 10:30 AM EDT CULTURE ANAEROBIC WITH GRAM STAIN Routine 02/26/2025 10:26 AM EDT Diabetic foot infection (CMS/HCC V24, CMS/HCC V28) Tailor's bunionette, left CULTURE WOUND DEEP Routine 02/26/2025 10:19 AM EDT Diabetic foot infection (CMS/HCC V24, CMS/HCC V28) Tailor's bunionette, left XR FOOT 3+ VIEWS LEFT Routine 02/26/2025 9:17 AM EDT TISSUE EXAM Routine 02/26/2025 8:19 AM EDT Diabetic foot infection (CMS/HCC V24, CMS/HCC V28) Tailor's bunionette, left IA OSTECTOMY COMPLETE EXCISION FIFTH METATARSAL HEAD 02/26/2025 8:04 AM EDT Diabetic foot infection (CMS/HCC V24, CMS/HCC V28) nora Armstrong POCT GLUCOSE BLOOD Routine 02/26/2025 7: 32 AM EDT CBC WITH AUTO DIFFERENTIAL Routine 02/26/2025 5:53 AM EDT CBC AND DIFFERENTIAL Routine 02/26/2025 5:53 AM EDT BASIC METABOLIC PANEL Routine 02/26/2025 5:53 AM EDT MAGNESIUM Routine 02/26/2025 5:53 AM EDT PHOSPHORUS Routine 02/26/2025 5:53 AM EDT PROTHROMBIN TIME WITH INR Routine 02/26/2025 5:53 AM EDT POCT GLUCOSE BLOOD Routine 02/25/2025 7: 32 PM EDT POCT GLUCOSE BLOOD Routine 02/25/2025 3: 32 PM EDT POCT GLUCOSE BLOOD Routine 02/25/2025 11:07 AM EDT POCT GLUCOSE BLOOD Routine 02/25/2025 7: 59 AM EDT CBC WITH AUTO DIFFERENTIAL Routine 02/25/2025 6:08 AM EDT MAGNESIUM Routine 02/25/2025 6:08 AM EDT BASIC METABOLIC PANEL Routine 02/25/2025 6:08 AM EDT CBC AND DIFFERENTIAL Routine 02/25/2025 6:08 AM EDT POCT GLUCOSE BLOOD Routine 02/24/2025 7: 57 PM EDT POCT GLUCOSE BLOOD Routine 02/24/2025 4: 12 PM EDT POCT GLUCOSE BLOOD Routine 02/24/2025 2: 08 PM EDT MR FOOT WO AND W CONTRAST LEFT STAT 02/24/2025 2:00 PM EDT XR FOOT 3+ VIEWS LEFT STAT 02/24/2025 10:39 AM EDT CULTURE BLOOD STAT 02/24/2025 10:19 AM EDT CBC WITH AUTO DIFFERENTIAL STAT 02/24/2025 9:52 AM EDT C-REACTIVE PROTEIN STAT 02/24/2025 9: 52 AM EDT BASIC METABOLIC PANEL STAT 02/24/2025 9:52 AM EDT CBC AND DIFFERENTIAL STAT 02/24/2025 9:52 AM EDT CULTURE BLOOD STAT 02/24/2025 9:52 AM EDT EXTERNAL XRAY REPORT 02/15/2025 EXTERNAL XRAY REPORT 02/15/2025 EXTERNAL XRAY REPORT 02/15/2025 EXTERNAL XRAY REPORT 02/15/2025 HEMOGLOBIN A1C Routine 01/05/2025 10:08 AM EDT Type 2 diabetes mellitus with other specified complication, without long-term current use of insulin ([facility] V24, CMS/[facility] V28) LIPID PANEL WITH REFLEX TO DIRECT LDL Routine 12/23/2024 7:41 AM EDT Mixed hyperlipidemia MICROALBUMIN CREATININE URINE RATIO Routine 07/05/2024 8:17 AM EST Type 2 diabetes mellitus with other specified complication, without long-term current use of insulin (CMS/[facility] V24, CMS/[facility] V28) HM DIABETES FOOT EXAM Routine 03/30/2024 DIABETES EYE EXAM Routine 09/08/2023 DEPRESSION SCREENING Routine 09/02/2023 HEPATITIS C SCREENING Routine 06/02/2013 from Last 3 Months or Most Recently Relevant to Health Maintenance Results * (ABNORMAL) POCT Glucose, blood (03/25/2025 7:52 AM EDT) Only the most recent of59 resultswithin the time period is included. [facility] Glucose POCT 206(H) 70 - 100 mg/dL 03/25/2025 7:53 AM EDT [facility] Blood Capillary blood specimen / Unknown 03/25/2025 7:52 AM EDT 03/25/2025 7:54 AM EDT [facility] Cassandra BLANDON LAB POINT OF CARE TE ST DOCKED DEVICE UNSOLICITED RESULTS Final Result [facility] [address] [place] [address], * (ABNORMAL) CBC auto differential (03/25/2025 5:15 AM EDT) Only the most recent of15 resultswithin the time period is included. [facility] WBC 7.4 4.8 - 10.8 K/mcL LAB HEMETOLOGY METHOD 03/25/2025 6:47 AM EDT [facility] RBC 3.50(L) 4.50 - 5.50 M/mcL LAB HEMETOLOGY METHOD 03/25/2025 6:47 AM EDT [facility] Hemoglobin 8.4(L) 13.5 - 17.5 g/dL LAB HEMETOLOGY METHOD 03/25/2025 6:47 AM EDT [facility] Hematocrit 29.2(L) 42.0 - 54.0 % LAB HEMETOLOGY METHOD 03/25/2025 6:47 AM [facility] MCV 83.0 79.0 - 98.0 FL LAB HEMETOLOGY METHOD 03/25/2025 6:47 AM [facility] MCH 23.9(L) 27.0 - 32.0 pcg LAB HEMETOLOGY METHOD 03/25/2025 6:47 AM [facility] MCHC 28.8(L) 32.0 - 37.0 g/dL LAB HEMETOLOGY METHOD 03/25/2025 6:47 AM [facility] RDW 20.4(H) 11.0 - 15.0 % LAB HEMETOLOGY METHOD 03/25/2025 6:47 AM [facility] Platelets 295 130 - 400 K/mcL LAB HEMETOLOGY METHOD 03/25/2025 6:47 AM [facility] MPV 11.8(H) 7.0 - 11.0 FL LAB HEMETOLOGY METHOD 03/25/2025 6:47 AM [facility] NRBC 0.3 <1.0 % LAB HEMETOLOGY METHOD 03/25/2025 6:47 AM [facility] NRBC Absolute 0.02 <0.10 K/mcL LAB HEMETOLOGY METHOD 03/25/2025 6:47 AM [facility] Neutrophils Relative 62.3 % LAB HEMETOLOGY METHOD 03/25/2025 6:47 AM [facility] Lymphocytes Relative 21.5 % LAB HEMETOLOGY METHOD 03/25/2025 6:47 AM [facility] Monocytes Relative 10.4 % LAB HEMETOLOGY METHOD 03/25/2025 6:47 AM [facility] Eosinophils Relative 3.8 % LAB HEMETOLOGY METHOD 03/25/2025 6:47 AM [facility] Basophils Relative 0.5 % LAB HEMETOLOGY METHOD 03/25/2025 6:47 AM EDT [facility] Immature Granulocytes Relative 1.5 % LAB HEMETOLOGY METHOD 03/25/2025 6:47 AM EDT [facility] Neutrophils Absolute 4.62 1.50 - 7.00 K/mcL LAB HEMETOLOGY METHOD 03/25/2025 6:47 AM EDT [facility] Lymphocytes Absolute 1.59 1.00 - 5.00 K/mcL LAB HEMETOLOGY METHOD 03/25/2025 6:47 AM EDT [facility] Monocytes Absolute 0.77 0.20 - 1.00 K/mcL LAB HEMETOLOGY METHOD 03/25/2025 6:47 AM EDT [facility] Eosinophils Absolute 0.28 0.00 - 0.50 K/mcL LAB HEMETOLOGY METHOD 03/25/2025 6:47 AM EDT [facility] Basophils Absolute 0.04 0.00 - 0.20 K/mcL LAB HEMETOLOGY METHOD 03/25/2025 6:47 AM EDT [facility] Immature Granulocytes Absolute 0.11(H) 0.00 - 0.03 K/mcL LAB HEMETOLOGY METHOD 03/25/2025 6:47 AM EDT [facility] Blood Venous blood specimen / Unknown Venipuncture / Unknown 03/25/2025 5:15 AM EDT 03/25/2025 6:38 AM EDT [facility]andra BLANDON LAB BLOOD ORDERABLES Final R esult [facility] [address] [place] [address], * (ABNORMAL) Basic metabolic panel (03/25/2025 5:15 AM EDT) Only the most recent of15 resultswithin the time period is included. [facility] Signature Sodium 138 133 - 145 mmol/L LAB CHEMISTRY METHOD 03/25/2025 7:11 AM [facility] Potassium 4.4 3.5 - 5.5 mmol/L LAB CHEMISTRY METHOD 03/25/2025 7:11 AM [facility] Chloride 107 96 - 110 mmol/L LAB CHEMISTRY METHOD 03/25/2025 7:11 AM [facility] CO2 26 21 - 32 mmol/L LAB CHEMISTRY METHOD 03/25/2025 7:11 AM [facility] Anion Gap 5 3 - 11 LAB CHEMISTRY METHOD 03/25/2025 7:11 AM [facility] Glucose 196(H) 70 - 100 mg/dL LAB CHEMISTRY METHOD 03/25/2025 7:11 AM [facility] BUN 14 5 - 25 mg/dL LAB CHEMISTRY METHOD 03/25/2025 7:11 AM [facility] Creatinine 0.83 0.70 - 1.30 mg/dL LAB CHEMISTRY METHOD 03/25/2025 7:11 AM [facility] eGFR 90 >=60 mL/min/1. 73m2 LAB CHEMISTRY METHOD 03/25/2025 7:11 AM [facility] Comment:Calculation based on the Chronic Kidney Disease Epidemiology Collaboration (CKD-EPI) equation refit without adjustment for race. BUN/Creatinine Ratio 16.9 LAB CHEMISTRY METHOD 03/25/2025 7:11 AM [facility] Calcium 8.6 8.5 - 10.5 mg/dL LAB CHEMISTRY METHOD 03/25/2025 7:11 AM [facility] Blood Venous blood specimen / Unknown Venipuncture / Unknown 03/25/2025 5:15 AM EDT 03/25/2025 6:37 AM EDT us Estjason Trujillo MD LAB BLOOD ORDERABLES Final R esult Performing Organization Address [facility] Co de Phone Number [facility] [address] [place] [address], [place] [phone] * Vancomycin, trough Please draw 1 hour prior to dose due at 0900 (03/24/2025 8:05 AM EDT) Only the most recent of6 resultswithin the time period is included. Pathologist [facility] Vancomycin Trough 17.6 10.0 - 20.0 mcg/mL LAB CHEMISTRY METHOD 03/24/2025 9:13 AM EDT [facility] Blood Venous blood specimen / Unknown Venipuncture / Unknown 03/24/2025 8:05 AM EDT 03/24/2025 8:26 AM EDT us Layla Trujillo MD LAB BLOOD ORDERABLES Final R esult Performing Organization Address [facility] de Phone Number [facility] [address] [place] [address], [place] [phone] * Lavender tube (03/23/2025 7:56 AM EDT) Only the most recent of2 resultswithin the time period is included. [facility] Extra Tube Hold for add-ons. 03/23/2025 10:01 AM EDT [facility] Comment:Auto resulted. Blood Venous blood specimen / Unknown Venipuncture / Unknown 03/23/2025 7:56 AM EDT 03/23/2025 8:18 AM EDT us Layla Trujillo MD LAB BLOOD ORDERABLES Final R esult Performing Organization Address [facility] Co de Phone Number [facility] [address] [place] [address], [place] [phone] * TH AN LMA(NO CHARGE) (03/21/2025 11:30 AM EDT) Narrative Ld Jimenez DO - 03/21/2025 11:30 AM EDT Ld Jimenez DO 03/22/2025 6:46 AM General Information and Staff Patient location during procedure: OR Anesthesiologist: Ld Jimenez DO Resident/RENTAL CAR PORTER: Aliya Block CRNA Performed: resident/RENTAL CAR PORTER/CAA Performed by: Aliya Block CRNA Authorized by: Ld Jimenez DO Intubation Airway not difficult Urgency: elective Final Airway Details Number of attempts at approach: 1 Ventilation between attempts: none Number of other approaches attempted: 0 LMA Size: 5 LMA Type: Classic LMA Seal Pressure: Final airway type: LMA Indications and Patient Condition Indications for airway management: anesthesia Spontaneous ventilation: present Sedation level: Yes Preoxygenated: yes Soft Tissue Damage: No Dentition Unchanged: Yes Patient position: neutral MILS maintained throughout Mask difficulty assessment: 0 - not attempted us Ld Jimenez DO ANESTHESIA ORDERABLES Edited Re sult - Final * Tissue exam (03/21/2025 11:29 AM EDT) Only the most recent of3 resultswithin the time period is included. Final Diagnosis Bone, left 5th metatarsal clean margin: -VIABLE APPEARING BONE 03/23/2025 5:11 PM EDT [facility] Gross Description A. Bone, left 5th metatarsal clean margin: Labeled bone, left fifth . Received in formalin are four irregular pink-white to red bone fragments, ranging from 0.6 cm to 1 cm in greatest dimension. There is minimal attached pink-red soft tissue. The trabecular bone is mcgregor-yellow and unremarkable. The specimen is submitted in toto in one cassette following decalcificati on, four pieces. 03/23/2025 5:11 PM EDT [facility] Disclaimer Unless otherwise specified, all tissue is 10% NB formalin fixed and paraffin embedded. 03/23/2025 5:11 PM T [facility] Bone Bone structure / Unknown 03/21/2025 11:29 AM EDT 03/21/2025 1:12 PM EDT Raheel Duffy MD LAB PATHOLOGY ORDERABLES Final Result [facility] [address] [place] [address], * (ABNORMAL) Culture bone (03/21/2025 11:28 AM EDT) Only the most recent of2 resultswithin the time period is included. Culture, Bone No Anaerobes isolated at 5 days. 03/26/2025 8:52 AM EDT [facility] Culture, Bone Escherichia coli(A) SHANE 03/26/2025 8:52 AM EDT [facility] Comment: The organism value for this result has been updated. These results have been appended to the previously preliminary verified report. This is an edited result. Previous organism was Gram negative bacilli on 03/22/2025 at 1025 EDT. Culture, Bone Staphylococcus epidermidis(A) SHANE 03/26/2025 8:52 AM EDT [facility] Comment: The organism value for this result has been updated. These results have been appended to the previously preliminary verified report. Edited result: Previously reported as Gram Positive Cocci on 03/23/2025 at 1055 EDT. Gram Stain Result No polymorphonuclear leukocytes, No epithelial cells, and No organisms noted 03/26/2025 8:52 AM EDT [facility] Bone Bone structure / Unknown 03/21/2025 11:28 AM EDT 03/21/2025 12:31 PM EDT Narrative Organism Antibiotic Method Susceptibility Escherichia coli Amoxicillin/Clavulanate SHANE 16 ug/ml: Intermediate Escherichia coli Ampicillin/Sulbactam SHANE >=32 ug/ml: Resistant Escherichia coli Piperacillin/Tazobactam SHANE <=4 ug/ml: Susceptible Escherichia coli Cefazolin (Other) SHANE 8 ug/ml: Resistant Escherichia coli Cefoxitin SHANE <=4 ug/ml: Susceptible Escherichia coli Ceftazidime SHANE <=0.5 ug/ml: Susceptible Escherichia coli Ceftriaxone SHANE <=0.25 ug/ml: Susceptible Escherichia coli Cefepime SHANE <=0.12 ug/ml: Susceptible Escherichia coli Meropenem SHANE <=0.25 ug/ml: Susceptible Escherichia coli Amikacin SHANE 2 ug/ml: Susceptible Escherichia coli Gentamicin SHANE >=16 ug/ml: Resistant Escherichia coli Ciprofloxacin SHANE <=0.06 ug/ml: Susceptible Escherichia coli Levofloxacin SHANE <=0.12 ug/ml: Susceptible Escherichia coli Trimethoprim/Sulfame thoxazo le SHANE >=320 ug/ml: Resistant Staphylococcus epidermidis Benzylpenicillin SHANE >=0.5 ug/ml: Resistant Staphylococcus epidermidis Oxacillin SHANE >=4 ug/ml: Resistant Staphylococcus epidermidis Gentamicin SHANE <=0.5 ug/ml: Susceptible Staphylococcus epidermidis Ciprofloxacin SHANE 1 ug/ml: Susceptible Staphylococcus epidermidis Levofloxacin SHANE 0.5 ug/ml: Susceptible Staphylococcus epidermidis Erythromycin SHANE >=8 ug/ml: Resistant Staphylococcus epidermidis Clindamycin SHANE <=0.25 ug/ml: Resistant Staphylococcus epidermidis Quinupristin/Dalfopristin M IC <=0.25 ug/ml: Susceptible Staphylococcus epidermidis Linezolid SHANE 1 ug/ml: Susceptible Staphylococcus epidermidis Vancomycin SHANE 1 ug/ml: Susceptible Staphylococcus epidermidis Tetracycline SHANE >=16 ug/ml: Resistant Staphylococcus epidermidis Rifampin SHANE <=0.5 ug/ml: Susceptible Raheel Duffy MD LAB MICROBIOLOGY - GENERAL ORDE ATUL Final Result [facility] [address] [place] [address], * SST tube (03/19/2025 12:15 PM EDT) Only the most recent of2 resultswithin the time period is included. Extra Tube Hold for add-ons. 03/19/2025 2:01 PM EDT [facility] Comment:Auto resulted. Blood Venous blood specimen / Unknown Venipuncture / Unknown 03/19/2025 12:15 PM EDT 03/19/2025 12:21 PM EDT Layla Trujillo MD LAB BLOOD ORDERABLES Final R esult [facility] [address] [place] [address], [place] [phone] * (ABNORMAL) Sedimentation rate (03/19/2025 12:15 PM EDT) Pathologist [facility] [place] Sed Rate 92(H) 0 - 20 mm/hr LAB HEMETOLOGY METHOD 03/19/2025 12:26 PM EDT [facility] Blood Venous blood specimen / Unknown Venipuncture / Unknown 03/19/2025 12:15 PM EDT 03/19/2025 12:20 PM EDT us Layla Trujillo MD LAB BLOOD ORDERABLES Final R esult Performing Organization Address [facility] Co de Phone Number [facility] [address] [place] [address], [place] [phone] * (ABNORMAL) C-reactive protein (03/18/2025 5:30 AM EDT) Only the most recent of2 resultswithin the time period is included. [facility] C-Reactive Protein 22.90(H) <=0.50 mg/dL LAB CHEMISTRY METHOD 03/19/2025 12:15 PM EDT [facility] Blood Venous blood specimen / Unknown Venipuncture / Unknown 03/18/2025 5:30 AM EDT 03/18/2025 6:19 AM EDT us Layla Trujillo MD LAB BLOOD ORDERABLES Final R esult Performing Organization Address [facility]/ZIP Co de Phone Number [facility] [address] [place] [address], [place] [phone] * XR Foot 2 Views Left (03/17/2025 4:24 PM EDT) Anatomical Region Laterality Modality Lower Extremities, Foot Left Radiogra phic Imaging 03/17/2025 4:34 PM EDT Impressions 03/17/2025 4:35 PM EDT FINDINGS/IMPRESSION: Wound over the right lateral forefoot. Postsurgical changes of a distal 5th metatarsal resection. Degenerative changes throughout with vascular calcifications noted. No radiographic evidence for acute osteomyelitis. -------- FINAL REPORT -------- Dictated By: Toma Brown Dictated Date: 03/17/2025 16:34 ET Assigned Physician: Toma Brown Reviewed and Electronically Signed By: Toma Brown Signed Date: 03/17/2025 16:35 ET Workstation ID: [id number] Transcribed By: Self Edit Transcribed Date: 03/17/2025 16:34 ET Narrative 03/17/2025 4:35 PM EDT XR FOOT 2 VIEWS LEFT INDICATION: left lateral foot wound dehiscence s/p 5th metatarsal head excision 02/26 TECHNIQUE: XR FOOT 2 VIEWS LEFT COMPARISON: No priors available. Procedure Note Toma Brown MD - 03/17/2025 XR FOOT 2 VIEWS LEFT INDICATION: left lateral foot wound dehiscence s/p 5th metatarsal headexcision 02/26 TECHNIQUE: XR FOOT 2 VIEWS LEFT COMPARISON: No priors available. IMPRESSION: FINDINGS/IMPRESSION: Wound over the right lateral forefoot. Postsurgicalchanges of a distal 5th metatarsal resection. Degenerative changesthroughout with vascular calcifications noted. No radiographic evidencefor acute osteomyelitis. -------- FINAL REPORT -------- Dictated By: Toma Brown Dictated Date: 03/17/2025 16:34 ET Assigned Physician: Toma Brown Reviewed and Electronically Signed By: Toma Brown Signed Date: 03/17/2025 16:35 ET Workstation ID: [id number] Transcribed By: Self Edit Transcribed Date: 03/17/2025 16:34 ET Davina SEVERINO IM XR PROCEDURES Final Result * (ABNORMAL) Phosphorus (03/17/2025 4:48 AM EDT) Only the most recent of5 resultswithin the time period is included. Phosphorus 2.3(L) 2.5 - 4.5 mg/dL LAB CHEMISTRY METHOD 03/17/2025 5:35 AM EDT [facility] Blood Venous blood specimen / Unknown Venipuncture / Unknown 03/17/2025 4:48 AM EDT 03/17/2025 4:52 AM EDT Mir Herroneliazar LAB BLOOD ORDERABLES Final R esult Performing Organization Address City/[facility]/ZIP Co de Phone Number [facility] [address] [place] [address], [place] [phone] * Magnesium (03/17/2025 4:48 AM EDT) Only the most recent of8 resultswithin the time period is included. Magnesium 2.0 1.9 - 2.6 mg/dL LAB CHEMISTRY METHOD 03/17/2025 5:35 AM EDT [facility] Blood Venous blood specimen / Unknown Venipuncture / Unknown 03/17/2025 4:48 AM EDT 03/17/2025 4:52 AM EDT Mir Alvarezchris LAB BLOOD ORDERABLES Final R eseliazar Performing Organization Address [facility] de Phone Number [facility] [address] [place] [address], [place] [phone] * (ABNORMAL) Calcium, ionized (03/17/2025 4:48 AM EDT) Only the most recent of3 resultswithin the time period is included. Calcium Ionized 4.33(L) 4.50 - 5.30 mg/dL 03/17/2025 5:15 AM EDT [facility] Blood Venous blood specimen / Unknown Venipuncture / Unknown 03/17/2025 4:48 AM EDT 03/17/2025 4:52 AM EDT Mir Mullen LAB BLOOD ORDERABLES Final R esult Performing Organization Address City/[facility] Co de Phone Number [facility] [address] [place] [address], * (ABNORMAL) CBC - Every 3 Days (03/16/2025 4:06 AM EDT) [facility] Signature WBC 8.3 4.8 - 10.8 K/mcL LAB HEMETOLOGY METHOD 03/16/2025 4:28 AM EDT [facility] RBC 3.70(L) 4.50 - 5.50 M/mcL LAB HEMETOLOGY METHOD 03/16/2025 4:28 AM EDT [facility] Hemoglobin 8.6(L) 13.5 - 17.5 g/dL LAB HEMETOLOGY METHOD 03/16[facility]25 [facility] Hematocrit 29.4(L) 42.0 - 54.0 % LAB HEMETOLOGY METHOD 03/16/2025 4:28 AM EDT [facility] MCV 80.5 79.0 - 98.0 FL LAB HEMETOLOGY METHOD 03/16/2025 4:[facility] MCH 23.6(L) 27.0 - 32.0 pcg LAB HEMETOLOGY METHOD 03/16/2025 4:28 AM [facility] MCHC 29.3(L) 32.0 - 37.0 g/dL LAB HEMETOLOGY METHOD 03/16/2025 4:28 AM EDT [facility] RDW 18.5(H) 11.0 - 15.0 % LAB HEMETOLOGY METHOD 03/16/2025 4:28 AM EDT [facility] Platelets 214 130 - 400 K/mcL LAB HEMETOLOGY METHOD 03/16/2025 4:28 [facility] MPV 11.8(H) 7.0 - 11.0 FL LAB HEMETOLOGY METHOD 03/16/2025 4:28 AM EDT [facility] NRBC 0.0 <1.0 % LAB HEMETOLOGY METHOD 03/16/2025 4:28 AM EDT [facility] NRBC Absolute 0.00 <0.10 K/mcL LAB HEMETOLOGY METHOD 03/16/2025 4:28 AM EDT [facility] Blood Arterial blood specimen / Unknown Venipuncture / Unknown 03/16/2025 4:06 AM EDT 03/16/2025 4:23 AM EDT Davina SEVERINO LAB BLOOD ORDERABLES Final Res ult Performing Organization Address [facility]/ZIP Co de Phone Number [facility] [address] [place] [address], [place] [phone] * (ABNORMAL) Albumin (03/16/2025 4:06 AM EDT) [facility] Albumin 3.1(L) 3.2 - 5.0 g/dL LAB CHEMISTRY METHOD 03/16/2025 4:59 AM EDT [facility] Blood Arterial blood specimen / Unknown Venipuncture / Unknown 03/16/2025 4:06 AM EDT 03/16/2025 4:23 AM EDT us Jorge L SEVERINO LAB BLOOD ORDERABLES Final Resul t Performing Organization Address [facility]/ZIP Co de Phone Number [facility] [address] [place] [address], [place] [phone] * Respiratory virus panel molecular study (03/15/2025 8:34 PM EDT) [facility] Adenovirus Detection by PCR Not Detected Not Detected LAB MICROBIOLOGY METHOD 03/15/2025 10:09 PM EDT [facility] Influenza A PCR Not Detected Not Detected LAB MICROBIOLOGY METHOD 03/15/2025 10:09 PM EDT [facility] Influenza B PCR Not Detected Not Detected LAB MICROBIOLOGY METHOD 03/15/2025 10:09 PM EDT [facility] Coronavirus 229E Not Detected Not Detected LAB MICROBIOLOGY METHOD 03/15/2025 10:09 PM EDT [facility] Coronavirus HKU1 Not Detected Not Detected LAB MICROBIOLOGY METHOD 03/15/2025 10:09 PM EDT [facility] Coronavirus OC43 Not Detected Not Detected LAB MICROBIOLOGY METHOD 03/15/2025 10:09 PM EDT [facility] Coronavirus NL63 Not Detected Not Detected LAB MICROBIOLOGY METHOD 03/15/2025 10:09 PM EDT [facility] Parainfluenza Virus 1 Not Detected Not Detected LAB MICROBIOLOGY METHOD 03/15/2025 10:09 PM EDT [facility] Parainfluenza Virus 2 Not Detected Not Detected LAB MICROBIOLOGY METHOD 03/15/2025 10:09 PM EDT [facility] Parainfluenza Virus 3 Not Detected Not Detected LAB MICROBIOLOGY METHOD 03/15/2025 10:09 PM EDT [facility] Parainfluenza Virus 4 Not Detected Not Detected LAB MICROBIOLOGY METHOD 03/15/2025 10:09 PM EDT [facility] RSV PCR Not Detected Not Detected LAB MICROBIOLOGY METHOD 03/15/2025 10:09 PM EDT [facility] Human Metapneumovirus A and B Not Detected Not Detected LAB MICROBIOLOGY METHOD 03/15/2025 10:09 PM EDT [facility] Rhinovirus/Entero virus Not Detected Not Detected LAB MICROBIOLOGY METHOD 03/15/2025 10:09 PM EDT [facility] Bordetella pertussis Not Detected Not Detected LAB MICROBIOLOGY METHOD 03/15/2025 10:09 PM EDT [facility] Bordetella parapertussis Not Detected Not Detected LAB MICROBIOLOGY METHOD 03/15/2025 10:09 PM EDT [facility] Mycoplasma pneumo by PCR Not Detected Not Detected LAB MICROBIOLOGY METHOD 03/15/2025 10:09 PM EDT [facility] Chlamydia pneumoniae Not Detected Not Detected LAB MICROBIOLOGY METHOD 03/15/2025 10:09 PM EDT [facility] SARS COV-2 Not Detected Not Detected LAB MICROBIOLOGY METHOD 03/15/2025 10:09 PM EDT [facility] Swab Both anterior nares / Unknown Non-blood Collection / Unknown 03/15/2025 8:34 PM EDT 03/15/2025 9:15 PM EDT Narrative [facility] - 03/15/2025 10:09 PM EDT Testing was performed using the [employer] BioCode Respiratory Pathogen PCR Assay. All results must be correlated with the clinical findings. Results should not be used as the sole basis for diagnosis. False Negative results may occur from the presence of sequence variants in the region targeted by the assay or the presence of inhibitors. Results may be affected by concurrent antiviral/antimicrobial therapy or levels of organisms that are below the limit of detection. us Jorge L SEVERINO LAB MICROBIOLOGY - GENERAL ORDER QASIM Final Result Performing Organization Address City/[facility]/ZIP Co de Phone Number [facility] [address] [place] [address], * MRSA molecular study (03/15/2025 8:34 PM EDT) [facility] MRSA Screen PCR Not Detected Not Detected LAB MICROBIOLOGY METHOD 03/15/2025 10:32 PM EDT [facility] Swab Both anterior nares / Unknown Non-blood Collection / Unknown 03/15/2025 8:34 PM EDT 03/15/2025 9:14 PM EDT us Jorge L SEVERINO LAB MICROBIOLOGY - GENERAL ORDER QASIM Final Result [facility] [address] [place] [address], * Lactate (03/15/2025 8:02 PM EDT) [facility] Lactate 1.1 0.4 - 2.0 mmol/L LAB CHEMISTRY METHOD 03/15/2025 8:41 PM EDT [facility] Blood Venous blood specimen / Unknown Venipuncture / Unknown 03/15/2025 8:02 PM EDT 03/15/2025 8:14 PM EDT Jorge L Hwang PA LAB BLOOD ORDERABLES Final Resul t Performing Organization Address [facility] Co de Phone Number [facility] [address] [place] [address], [place] [phone] * (ABNORMAL) Activated Partial Thromboplastin Time - STAT (03/15/2025 5:05 PM EDT) Only the most recent of2 resultswithin the time period is included. [facility] aPTT 51.7(H) 24.1 - 39.3 sec LAB COAGULATION METHOD 03/15/2025 6:09 PM EDT [facility] Blood Venous blood specimen / Unknown Venipuncture / Unknown 03/15/2025 5:05 PM EDT 03/15/2025 5:09 PM EDT Davina SEVERINO LAB BLOOD ORDERABLES Final Res ult Performing Organization Address City/[facility]/ZIP Co de Phone Number [facility] [address] [place] [address], [place] [phone] * (ABNORMAL) Prothrombin Time with INR - STAT (03/15/2025 5:05 PM EDT) Only the most recent of3 resultswithin the time period is included. [facility] Protime 14.5(H) 10.6 - 13.9 sec LAB COAGULATION METHOD 03/15/2025 5:38 PM EDT [facility] INR 1.2 LAB COAGULATION METHOD 03/15/2025 5:38 PM EDT [facility] Blood Venous blood specimen / Unknown Venipuncture / Unknown 03/15/2025 5:05 PM EDT 03/15/2025 5:09 PM EDT Davina SEVERINO LAB BLOOD ORDERABLES Final Res ult Performing Organization Address City/[facility]/ZIP Co de Phone Number [facility] [address] [place] [address], [place] [phone] * (ABNORMAL) POCT activated clotting time,kaolin (03/15/2025 3:41 PM EDT) Only the most recent of6 resultswithin the time period is included. Activated Clotting Time Kaolin 256(H) 74 - 137 sec 03/15/2025 5:18 PM EDT [facility] Blood Arterial blood specimen / Unknown 03/15/2025 3:41 PM EDT 03/15/2025 5:20 PM EDT Raheel Duffy MD LAB POINT OF CARE TE ST DOCKED DEVICE UNSOLICITED RESULTS Final Result Performing Organization Address [facility]/ZIP Co de Phone Number [facility] [address] [place] [address], [place] [phone] * (ABNORMAL) POCT Arterial basic metabolic profile, HH (03/15/2025 3:33 PM EDT) Glucose Arterial POCT 123(H) 70 - 100 mg/dL 03/15/2025 5:18 PM EDT [facility] Sodium Arterial POCT 139 135 - 145 mmol/L 03/15/2025 5:18 PM EDT [facility] Potassium Arterial POCT 4.4 3.5 - 5.5 mmol/L 03/15/2025 5:18 PM EDT [facility] Chloride Arterial POCT 103 96 - 110 mmol/L 03/15/2025 5:18 PM EDT [facility] TCO2 Arterial POCT 24 21 - 32 mmol/L 03/15/2025 5:18 PM EDT [facility] BUN, Arterial POCT 10 5 - 25 mg/dL 03/15/2025 5:18 PM EDT [facility] Creatinine Arterial POCT 0.7 0.7 - 1.3 mg/dL 03/15/2025 5:18 PM EDT [facility] Ionized Calcium Arterial POCT 4.60 4.50 - 5.30 mg/dL 03/15/2025 5:18 PM EDT [facility] Hemoglobin Arterial POCT 11.2(L) 13.5 - 17.5 g/dL 03/15/2025 5:18 PM EDT [facility] Hematocrit Arterial POCT 33(L) 42 - 54 % 03/15/2025 5:18 PM EDT [facility] Blood Arterial blood specimen / Unknown 03/15/2025 3:33 PM EDT 03/15/2025 5:20 PM EDT Raheel Duffy MD LAB POINT OF CARE TE ST DOCKED DEVICE UNSOLICITED RESULTS Final Result [facility] [address] [place] [address], * Prepare RBC: 2 Units, Leukoreduced (03/15/2025 2:50 PM EDT) Product Code [id number] 03/16/2025 7:21 AM EDT [facility] Unit Number [id number] 03/16/20 7:21 AM EDT [facility] Crossmatch Compatible 03/15/2025 2:54 PM EDT [facility] Dispense Status Released From Crossmatch 03/16/2025 7:21 AM EDT [facility] Unit ABO Rh OPOS 03/16/2025 7:21 AM EDT [facility] Unit Expiration Date Time 03/16/2025 7:21 AM EDT [facility] Unit Blood Type 5100 03/16/2025 7:21 AM EDT [facility] Product Code [id number] 03/16/2025 7:20 AM EDT [facility] Unit Number [id number] 03/16/20 7:20 AM EDT [facility] Crossmatch Compatible 03/15/2025 2:54 PM EDT [facility] Dispense Status Released From Crossmatch 03/16/2025 7:20 AM EDT [facility] Unit ABO Rh OPOS 03/16/2025 7:20 AM EDT [facility] Unit Expiration Date Time 03/16/2025 7:20 AM EDT [facility] Unit Blood Type 5100 03/16/2025 7:20 AM EDT [facility] Blood Venous blood specimen / Unknown 03/15/2025 2:50 PM EDT 03/13/2025 9:45 AM EDT us Raheel Duffy MD BLOOD BANK PRODUCT ORDERABLES F inal Result [facility]) [facility] [address] [place] [address], * Peripheral IV (03/15/2025 12:43 PM EDT) Narrative Sam Alegria CRNA - 03/15/2025 12:43 PM EDT Sam Alegria CRNA 03/15/2025 12:44 PM Peripheral IV Placement Needle size: 16 G Laterality: left Location: hand Local anesthetic: none Site prep: chlorhexidine Technique: anatomical landmarks Attempts: 1 us Filippo Dunn MD ANESTHESIA ORDERABLES Final Re sult * TH AN ARTERIAL LINE (CHARGE) (03/15/2025 12:42 PM EDT) Sam Herman CRNA - 03/15/2025 12:42 PM EDT Sam Alegria CRNA 03/15/2025 12:43 PM Arterial Line Performed by: Filippo Dunn MD Authorized by: Filippo Dunn MD Consent: Verbal consent obtained. Consent given by: patient Indications: hemodynamic monitoring Location: left radial Sedation: Patient sedated: yes (under GETA) Needle gauge: 20 Seldinger technique: Seldinger technique used Number of attempts: 1 Post-procedure: dressing applied Comments: With ultrasound guided. Filippo Dunn MD ANESTHESIA ORDERABLES Final Re sult * TH AN ENDOTRACHEAL(NO CHARGE) (03/15/2025 12:41 PM EDT) Sam Herman CRNA - 03/15/2025 12:41 PM EDT Sam Alegria CRNA 03/15/2025 12:41 PM General Information and Staff Patient location during procedure: OR Performed by: Sam Alegria CRNA Authorized by: Filippo Dunn MD Intubation Airway not difficult Urgency: elective Final Airway Details Successful airway: ETT Cuffed: yes Successful intubation technique: direct laryngoscopy Facilitating devices/methods: intubating stylet Endotracheal tube insertion site: oral Blade: Ceci Blade size: #3 ETT size (mm): 7.5 Cormack-Lehane Classification: grade I - full view of glottis Placement verified by: chest auscultation and capnometry Number of attempts at approach: 1Final airway type: endotracheal airway Indications and Patient Condition Indications for airway management: anesthesia Spontaneous Ventilation: absent Sedation level: Yes Preoxygenated: yes Soft Tissue Damage: No Dentition Unchanged: Yes Patient position: neutral MILS maintained throughout Mask difficulty assessment: 1 - vent by mask us Filippo Dunn MD ANESTHESIA ORDERABLES Final Re sult * ECG 12 lead - Procedural (No Charge) (03/13/2025 9:04 AM EDT) Pathologist [facility] Ventricular Rate ECG 97 BPM GEMUSE QRS Duration 80 ms GEMUSE Q-T Interval 356 ms GEMUSE QTc 452 ms GEMUSE R [place] -32 degrees GEMUSE T [place] 64 degrees GEMUSE ECG Interpretation Normal sinus rhythm with premature atrial contration Left axis deviation Abnormal ECG No previous ECGs available Confirmed by WE[facility] [place] ([id number]) on 03/14/2025 8:07:48 AM GEMUSE 03/13/2025 9:04 AM EDT 03/14/2025 8:07 AM EDT Davina SEVREINO ECG ORDERABLES Final Result Performing Organization Address [facility] de Phone Number GEMUSE * Type and screen (03/13/2025 8:49 AM EDT) Pathologist [facility] ABO Group B 03/13/2025 11:06 AM EDT [facility] Rh Type Positive 03/13/2025 11:06 AM EDT [facility] Antibody Screen Negative 03/13/2025 11:06 AM EDT [facility] Blood Venous blood specimen / Unknown Venipuncture / Unknown 03/13/2025 8:49 AM EDT 03/13/2025 9:45 AM EDT [address] CT LAB BLOOD BANK TEST ORDERABLES Final Result Performing Organization Address City/[facility] de Phone Number [facility] [address] [place] [address], * (ABNORMAL) Lactate, with reflex (03/10/2025 5:57 PM EDT) Only the most recent of2 resultswithin the time period is included. Pathologist [facility] LACTIC ACID 2.2(H) 0.4 - 2.0 mmol/L LAB CHEMISTRY METHOD 03/10/2025 6:30 PM EDT [facility] Blood Venous blood specimen / Unknown Venipuncture / Unknown 03/10/2025 5:57 PM EDT 03/10/2025 6:01 PM EDT us Martin Petit MD LAB BLOOD ORDERABLES Final Resul t [facility]) [facility] [address] [place] [address], * XR Foot 3+ Views Left (03/10/2025 2:05 PM EDT) Only the most recent of3 resultswithin the time period is included. Anatomical Region Laterality Modality Lower Extremities, Foot Left Radiogra phic Imaging 03/10/2025 4:06 PM EDT Impressions 03/10/2025 4:07 PM EDT FINDINGS/IMPRESSION: No significant change status post distal 5th metatarsal resection. Degenerative changes, osteopenia and vascular calcifications are again noted. Large plantar calcaneal spur. -------- FINAL REPORT -------- Dictated By: Toma Brown Dictated Date: 03/10/2025 16:06 ET Assigned Physician: Toma Brown Reviewed and Electronically Signed By: Toma Brown Signed Date: 03/10/2025 16:07 ET Workstation ID: [id number] Transcribed By: Self Edit Transcribed Date: 03/10/2025 16:06 ET Narrative 03/10/2025 4:07 PM EDT XR FOOT 3+ VIEWS LEFT INDICATION: pain to fifth metatarsal TECHNIQUE: XR FOOT 3+ VIEWS LEFT COMPARISON: 02/26/2025. Procedure Note Toma Brown MD - 03/10/2025 XR FOOT 3+ VIEWS LEFT INDICATION: pain to fifth metatarsal TECHNIQUE: XR FOOT 3+ VIEWS LEFT COMPARISON: 02/26/2025. IMPRESSION: FINDINGS/IMPRESSION: No significant change status post distal 5thmetatarsal resection. Degenerative changes, osteopenia and vascularcalcifications are again noted. Large plantar calcaneal spur. -------- FINAL REPORT -------- Dictated By: Toma Brown Dictated Date: 03/10/2025 16:06 ET Assigned Physician: Toma Brown Reviewed and Electronically Signed By: Toma Brown Signed Date: 03/10/2025 16:07 ET Workstation ID: [id number] Transcribed By: Self Edit Transcribed Date: 03/10/2025 16:06 ET Martin Petit MD IMG XR PROCEDURES Final Result * Comprehensive metabolic panel (03/10/2025 1:08 PM EDT) Sodium 138 133 - 145 mmol/L LAB CHEMISTRY METHOD 03/10/2025 2:56 PM EDT [facility] Potassium 4.7 3.5 - 5.5 mmol/L LAB CHEMISTRY METHOD 03/10/2025 2:56 PM [facility] Chloride 104 96 - 110 mmol/L LAB CHEMISTRY METHOD 03/10/2025 2:56 PM [facility] CO2 28 21 - 32 mmol/L LAB CHEMISTRY METHOD 03/10/2025 2:56 PM [facility] Anion Gap 6 3 - 11 LAB CHEMISTRY METHOD 03/10/2025 2:56 PM [facility] Glucose 95 70 - 100 mg/dL LAB CHEMISTRY METHOD 03/10/2025 2:56 PM [facility] BUN 16 5 - 25 mg/dL LAB CHEMISTRY METHOD 03/10/2025 2:56 PM [facility] Creatinine 0.98 0.70 - 1.30 mg/dL LAB CHEMISTRY METHOD 03/10/2025 2:56 PM [facility] eGFR 79 >=60 mL/min/1. 73m2 LAB CHEMISTRY METHOD 03/10/2025 2:56 PM [facility] Comment:Calculation based on the Chronic Kidney Disease Epidemiology Collaboration (CKD-EPI) equation refit without adjustment for race. BUN/Creatinine Ratio 16.3 LAB CHEMISTRY METHOD 03/10/2025 2:56 PM T [facility] Calcium 9.4 8.5 - 10.5 mg/dL LAB CHEMISTRY METHOD 03/10/2025 2:56 PM EDT [facility] AST (SGOT) 21 10 - 42 unit/L LAB CHEMISTRY METHOD 03/10/2025 2:56 PM [facility] ALT (SGPT) 23 10 - 60 unit/L LAB CHEMISTRY METHOD 03/10/2025 2:56 PM [facility] Alkaline Phosphatase 93 42 - 121 unit/L LAB CHEMISTRY METHOD 03/10/2025 2:56 PM [facility] Total Protein 7.7 6.0 - 8.0 g/dL LAB CHEMISTRY METHOD 03/10/2025 2:56 PM [facility] Albumin 3.9 3.2 - 5.0 g/dL LAB CHEMISTRY METHOD 03/10/2025 2:56 PM [facility] Total Bilirubin 0.4 0.0 - 1.4 mg/dL LAB CHEMISTRY METHOD 03/10/2025 2:56 PM [facility] Blood Venous blood specimen / Unknown Venipuncture / Unknown 03/10/2025 1:08 PM EDT 03/10/2025 2:13 PM EDT us Martin Petit MD LAB BLOOD ORDERABLES Final Resul t [facility] [address] [place] [address], * Vascular US duplex lower extremity vein map bilateral (02/28/2025 11:22 AM EDT) Anatomical Region Laterality Modality Vascular, Abdomen Ultrasound 03/01/2025 9:09 AM EDT Impressions 03/01/2025 9:14 AM EDT There is no evidence of thrombus in the venous systems of the lower extremities bilaterally. The diameters of the greater saphenous veins are as above. Code 49194 -------- FINAL REPORT -------- Dictated By: Jarod Thurman Dictated Date: 03/01/2025 09:09 ET Assigned Physician: Jarod Thurman Reviewed and Electronically Signed By: Jarod Thurman Signed Date: 03/01/2025 09:14 ET Workstation ID: [id number] Transcribed By: Self Edit Transcribed Date: 03/01/2025 09:09 ET Narrative 03/01/2025 9:14 AM EDT HISTORY: The patient is a 79-year-old male undergoing evaluation of the greater saphenous veins to assess their suitability for use as a bypass graft. FINDINGS: Real-time ultrasonography of the venous systems of the lower extremities bilaterally is performed. The common femoral, femoral, popliteal, and greater saphenous veins are widely patent bilaterally, without evidence of thrombus. There is normal compressibility. The diameter of the greater saphenous vein in the inguinal region is 4.0 mm on the right and 6.8 mm on the left; in the upper thigh, 3.2 mm on the right and 4.0 mm on the left; in the mid thigh, 2.1 mm on the right and 3.3 mm on the left; in the lower thigh, 1.7 mm on the right and 3.1 mm on the left; just above the knee, 2.9 mm on the right and 3.2 mm on the left; just below the knee, 1.4 mm on the right and 3.0 mm on the left; in the mid calf, 1.1 mm on the right and 2.8 mm on the left; at the ankle, 1.2 mm on the right and 2.3 mm on the left. Procedure Note Jarod Thurman MD - 03/01/2025 HISTORY: The patient is a 79-year-old male undergoing evaluation of thegreater saphenous veins to assess their suitability for use as a bypassgraft. FINDINGS: Real-time ultrasonography of the venous systems of the lowerextremities bilaterally is performed. The common femoral, femoral,popliteal, and greater saphenous veins are widely patent bilaterally,without evidence of thrombus. There is normal compressibility. The diameter of the greater saphenous vein in the inguinal region is 4.0mm on the right and 6.8 mm on the left; in the upper thigh, 3.2 mm on theright and 4.0 mm on the left; in the mid thigh, 2.1 mm on the right and3.3 mm on the left; in the lower thigh, 1.7 mm on the right and 3.1 mm onthe left; just above the knee, 2.9 mm on the right and 3.2 mm on the left;just below the knee, 1.4 mm on the right and 3.0 mm on the left; in themid calf, 1.1 mm on the right and 2.8 mm on the left; at the ankle, 1.2 mmon the right and 2.3 mm on the left. IMPRESSION: There is no evidence of thrombus in the venous systems of the lowerextremities bilaterally. The diameters of the greater saphenous veins areas above. Code 31847 -------- FINAL REPORT -------- Dictated By: Jarod Thurman Dictated Date: 03/01/2025 09:09 ET Assigned Physician: Jarod Thurman Reviewed and Electronically Signed By: Jarod Thurman Signed Date: 03/01/2025 09:14 ET Workstation ID: [id number] Transcribed By: Self Edit Transcribed Date: 03/01/2025 09:09 ET us Davina SEVERINO CV VASCULAR PROCEDURES Final R esult * ANGIOGRAPHY LOWER EXT RIGHT (02/28/2025 9:35 AM EDT) Anatomical Region Laterality Modality X-Ray Angiograph y Narrative 03/08/2025 10:18 AM EDT Per op note Study Details Per consult Clinical Background Per consult Procedure Details Per op note us Raheel Duffy MD CV INVASIVE VASCULAR PROCEDURES Final Result * Vascular US duplex lower extremity artery left (02/26/2025 5:19 PM EDT) Anatomical Region Laterality Modality Vascular, Abdomen Ultrasound 02/26/2025 5:41 PM EDT Impressions 02/26/2025 5:41 PM EDT Impression: No aneurysm or occlusion. Abnormal velocities and waveforms, detailed above. Monophasic waveforms equates to a 50-99% in diameter reduction. This document has been electronically signed by: Marycarmen Quispe MD on 02/26/2025 17:41:25 Narrative 02/26/2025 5:41 PM EDT INDICATION: Ulceration Left lower Extremity Arterial Ultrasound Comparison: None available Findings: Continuous, pulsatile flow from the common femoral artery through the anterior/posterior tibial arteries. No aneurysm or occlusion. Decreased velocities are seen within the common femoral, deep femoral, proximal femoral, distal popliteal and mid /distal posterior tibial arteries. Velocities are otherwise within normal range. Monophasic waveforms are seen within the deep femoral, popliteal, posterior tibial and anterior tibial arteries. Waveforms are otherwise triphasic. Procedure Note Marycarmen Alvarez MD - 02/26/2025 INDICATION: Ulceration Left lower Extremity Arterial Ultrasound Comparison: None available Findings: Continuous, pulsatile flow from the common femoral artery through the anterior/posterior tibial arteries. No aneurysm or occlusion. Decreased velocities are seen within the common femoral, deep femoral, proximal femoral, distal popliteal and mid /distal posterior tibial arteries. Velocities are otherwise within normal range. Monophasic waveforms are seen within the deep femoral, popliteal, posterior tibial and anterior tibial arteries. Waveforms are otherwise triphasic. IMPRESSION: Impression: No aneurysm or occlusion. Abnormal velocities and waveforms, detailed above. Monophasic waveforms equates to a 50-99% in diameter reduction. This document has been electronically signed by: Marycarmen Quispe MD on 02/26/2025 17:41:25 us Raheel Duffy MD CV VASCULAR PROCEDURES Final Re sult * Culture anaerobic with gram stain (02/26/2025 10:26 AM EDT) Culture, Anaerobic No Growth of Anaerobes. 03/03/2025 8:14 AM EDT [facility] Gram Stain Result Refer to Aerobic culture for gram stain results. 03/03/2025 8:14 AM EDT [facility] Swab Structure of toe of left foot / Unknown 02/26/2025 10:26 AM EDT 02/26/2025 11:08 AM EDT Elder Snyder DPM LAB MICROBIOLOGY - GENERA L ORDERABLES Final Result Performing Organization Address [facility] de Phone Number [facility] [address] [place] [address], [place] [phone] * (ABNORMAL) Culture wound deep (02/26/2025 10:19 AM EDT) Culture, Wound Cutibacterium granulosum(A) 03/02/2025 2:30 PM EDT [facility] Comment: Susceptibility testing not routinely performed. If further therapeutic information is required, please consult an infectious disease specialist. The organism value for this result has been updated. These results have been appended to the previously preliminary verified report. Gram Stain Result Few Polymorphonuclear leukocytes 03/02/2025 2:30 PM EDT [facility] Gram Stain Result No Epithelial cells 03/02/2025 2:30 PM EDT [facility] Gram Stain Result No organisms seen 03/02/2025 2:30 PM EDT [facility] Swab Structure of toe of left foot / Unknown 02/26/2025 10:19 AM EDT 02/26/2025 11:08 AM EDT Elder Snyder DPM LAB MICROBIOLOGY - GENERA L ORDERABLES Final Result Performing Organization Address [facility] de Phone Number [facility] [address] [place] [address], [place] [phone] * MR Foot wo and w Contrast Left (02/24/2025 2:00 PM EDT) Anatomical Region Laterality Modality Lower Extremities, Foot Left Magnetic Resonance 02/24/2025 2:43 PM EDT Impressions 02/24/2025 2:49 PM EDT No evidence of osteomyelitis. -------- FINAL REPORT -------- Dictated By: Michael Gould Dictated Date: 02/24/2025 14:43 ET Assigned Physician: Michael Gould Reviewed and Electronically Signed By: Michael Gould Signed Date: 02/24/2025 14:49 ET Workstation ID: [id number] Transcribed By: Self Edit Transcribed Date: 02/24/2025 14:43 ET Narrative 02/24/2025 2:49 PM EDT PROCEDURE: MRI of the left forefoot with and without intravenous contrast. HISTORY: Foot swelling, diabetic, osteomyelitis suspected, xray done. COMPARISON: Radiographs dated 825. TECHNIQUE: Multiplanar multisequence MRI of the left forefoot with and without intravenous contrast administration. IV contrast dose: 20 mL intravenous Dotarem from a 20 mL vial with 0 mL discarded. FINDINGS: There is moderate soft tissue swelling, predominately along the dorsal aspect of the foot. There is no soft tissue fluid collection to suggest an abscess. No mass. Mild diffuse degenerative changes of the interphalangeal and metatarsophalangeal joints. No marrow signal abnormality to suggest osteomyelitis. No joint effusion. The Lisfranc and intermetatarsal ligaments are normal. Flexor and extensor tendons appear normal. Visualized portions of the distal plantar fascia are normal. Procedure Note Michael Gould MD - 02/24/2025 PROCEDURE: MRI of the left forefoot with and without intravenouscontrast. HISTORY: Foot swelling, diabetic, osteomyelitis suspected, xray done. COMPARISON: Radiographs dated 825. TECHNIQUE: Multiplanar multisequence MRI of the left forefoot with andwithout intravenous contrast administration. IV contrast dose: 20 mL intravenous Dotarem from a 20 mL vial with 0 mLdiscarded. FINDINGS: There is moderate soft tissue swelling, predominately along the dorsalaspect of the foot. There is no soft tissue fluid collection to suggestan abscess. No mass. Mild diffuse degenerative changes of the interphalangeal andmetatarsophalangeal joints. No marrow signal abnormality to suggestosteomyelitis. No joint effusion. The Lisfranc and intermetatarsal ligaments are normal. Flexor and extensor tendons appear normal. Visualized portions of thedistal plantar fascia are normal. IMPRESSION: No evidence of osteomyelitis. -------- FINAL REPORT -------- Dictated By: Michael Gould Dictated Date: 02/24/2025 14:43 ET Assigned Physician: Michael Gould Reviewed and Electronically Signed By: Michael Gould Signed Date: 02/24/2025 14:49 ET Workstation ID: [id number] Transcribed By: Self Edit Transcribed Date: 02/24/2025 14:43 ET Vernon Cedillo MD IMG MRI PROCEDURES Final Re sult * Blood Culture, Peripheral Draw #1 (02/24/2025 10:19 AM EDT) Only the most recent of2 resultswithin the time period is included. Culture, Blood No growth at 5 days LAB MICROBIOLOGY METHOD 03/01/2025 11:01 AM EDT [facility] Blood Venous blood specimen / Unknown Venipuncture / Unknown 02/24/2025 10:19 AM EDT 02/24/2025 10:34 AM EDT Vernon Cedillo MD LAB MICROBIOLOGY - GENERAL ORDERABLES Final Result [facility] [address] [place] [address], [place] [phone] * External Xray Report (02/15/2025) Only the most recent of4 resultswithin the time period is included. Anatomical Region Laterality Modality Radiographic Farhana ging Provider [facility] IMG XR PROCEDURES Final Result * (ABNORMAL) Hemoglobin A1c (01/05/2025 10:08 AM EDT) Hemoglobin A1C 7.4(H) <6.5 % LAB CHEMISTRY METHOD 01/05/2025 1:49 PM EDT [facility] Mean Bld Glu Estim. 166 mg/dL LAB CHEMISTRY METHOD 01/05/2025 1:49 PM EDT [facility] Blood Venous blood specimen / Unknown Venipuncture / Unknown 01/05/2025 10:08 AM EDT 01/05/2025 10:08 AM EDT us Rachel SEVERINO LAB BLOOD ORDERABLES Final Res ult [facility] [address] [place] [address], [place] [phone] * (ABNORMAL) Lipid panel with reflex to direct LDL (12/23/2024 7:41 AM EDT) Cholesterol 172 0 - 200 mg/dL LAB CHEMISTRY METHOD 12/23/2024 12:50 PM EDT [facility] Triglycerides 233(H) 0 - 150 mg/dL LAB CHEMISTRY METHOD 12/23/2024 12:50 PM EDT [facility] HDL 44 >=40 mg/dL LAB CHEMISTRY METHOD 12/23/2024 12:50 PM EDT [facility] LDL Calculated 81 0 - 100 mg/dL LAB CHEMISTRY METHOD 12/23/2024 12:50 PM EDT [facility] VLDL Cholesterol Eleazar 46.6 mg/dL LAB CHEMISTRY METHOD 12/23/2024 12:50 PM EDT [facility] Non HDL Chol. (LDL+VLDL) 128 <145 mg/dL LAB CHEMISTRY METHOD 12/23/2024 12:50 PM EDT [facility] Chol/HDL Ratio 3.9 0.0 - 4.4 LAB CHEMISTRY METHOD 12/23/2024 12:50 PM EDT [facility] Blood Venous blood specimen / Unknown Venipuncture / Unknown 12/23/2024 7:41 AM EDT 12/23/2024 7:41 AM EDT Carri Suazo MD LAB BLOOD ORDERABLES Final Resul t [facility] [address] [place] [address], [place] [phone] * Microalbumin creatinine urine ratio (07/05/2024 8:17 AM EST) [facility] Creatinine, Urine 166.0 mg/dL LAB CHEMISTRY METHOD 07/05/2024 11:01 AM EST [facility] Microalb, Ur 13.5 0.0 - 29.0 mg/L LAB CHEMISTRY METHOD 07/05/2024 11:01 AM EST [facility] Microalb/Creat Ratio 8 <30 mg/g creat LAB CHEMISTRY METHOD 07/05/2024 11:01 AM EST [facility] Urine Urine specimen obtained by clean catch procedure / Unknown Non-blood Collection / Unknown 07/05/2024 8:17 AM EST 07/05/2024 8:17 AM EST Carri Suazo MD LAB URINE ORDERABLES Final Resul t [facility] [address] [place] [address], [place] [phone] * Diabetes Foot Exam (03/30/2024) [facility] Diabetes: Annual Foot Exam Abstracted [facility] Chioma [facility] [employer] Final Result * Diabetes Eye Exam (09/08/2023) [facility] Diabetes: Annual Retina Eye Exam Abstracted [facility] Provider HEALTH MAINTENANCE Final Result * Depression Screening (09/02/2023) [facility] Depression Screening Abstracted [facility] Chioma [facility] Final Result * Hepatitis C Screening (06/02/2013) [facility] Hepatitis C Screening Abstracted JoseE nrique Bedolla MD HEALTH MAINTENANCE Final Result from Last 3 Months or Most Recently [place] [address] [facility] MEDICARE Member Subscriber Plan / Payer (Ef fective 2020-Present) Name:Major Christianson Relation to Subscriber:Self Name:Major Christianson Payer ID:[id number] Group ID:[id number] Type:Not on file Address: [address] [facility] [place] [address] Advance Directives Documents on File Type Date Recorded Patient Head Of Housekeeping Expl anation Advance Directives and Living Will 02/24/2025 3:33 PM Jacy Christianson Health Care Proxy * Full Code - Default (Latest Code Status on File) Date Activated Date Inactivated Comments 03/15/2025 4:50 PM 03/25/2025 1:03 PM This is order is used when code status has not been discussed with the patient, or code status is otherwise unknown/unconfirmed To update the patient's code status, place a code status order. Do not modify or discontinue any currently active code status orders. * Full Code - Default Date Activated Date Inactivated Comments 03/15/2025 9:26 AM 03/15/2025 4:50 PM This is orde r is used when code status has not been discussed with the patient, or code status is otherwise unknown/unconfirmed To update the patient's code status, place a code status order. Do not modify or discontinue any currently active code status orders. * Full Code - Confirmed Date Activated Date Inactivated Comments 03/09/2025 9:49 AM 03/15/2025 8:[address] atus was ascertained in the following way: Code status discussion: discussion with patient/MOLST form scanned To update the patient's code status, place a code status order. Do not modify or discontinue any currently active code status orders. Healthcare Agents on File Name Relationship Healthcare Agent Relationship Communication Jacy Christianson Daughter First Alternate Health Care Agent [email or web address] Sarah Christianson Spouse Second Alterna te Health Care Agent Care Teams Site Safety Manager Relationship Specialty Start Date End Date Carri Suazo MD [address] [place] [phone] PCP - General Internal Medicine 05/24/24
== END ==
LOC: HO.CARD 07:52
PROVIDERS: Visit Provider Internal Medicine Cardiovascular Disease
DX: I35.0 Nonrheumatic aortic (valve) stenosis (principal)
CPT/HCPCS: 93306; Q9957

== ENCOUNTER → 2025-05-02 07:54 | Outpatient (BNV) | payer OTHER, SELFPAY | PROVIDERS: Visit Provider Internal Medicine Cardiovascular Disease | DX: I35.0 Nonrheumatic aortic (valve) stenosis (principal); I77.810 Thoracic aortic ectasia; I51.7 Cardiomegaly | CPT/HCPCS: 93306 ==

== ENCOUNTER → 2025-05-04 09:29 | Outpatient (BNV) | payer OTHER, SELFPAY | PROVIDERS: PCP Internal Medicine; Visit Provider Radiology Diagnostic Radiology | DX: S91.302A Unspecified open wound, left foot, initial encounter (principal) | CPT/HCPCS: 73630 ==

== ENCOUNTER 2025-05-04 12:27 | Outpatient (REF) | payer OTHER, SELFPAY ==
--- OUTSIDE RECORDS SUMMARY | 2025-05-04 15:38 | XMS_ITS | Encounter Summary ---
Author Organization [facility] Address [address] [place] [address] Care Team Providers Care Cyber Special Agent Name Role Phone Carri Suazo MD Primary Care Provider [phone] Encounter Details Date Type Department Care Team (Late st Contact Info) Description 05/04/2025 Telephone Adult Medicine [address] [phone] Kenzie Delcid MA Social History Tobacco Use Types Packs/Day Years Used Date Smoking Tobacco: Former Cigarettes Q uit: 1985 Passive Smoke Exposure: Never Smokeless Tobacco: Never Alcohol Use Standard Drinks/Week [...] PM EDT documented as of this encounter Functional Status * Are you deaf or do you have serious difficulty hearing? Answer Date of Assessment Author No 03/12/2025 3:27 PM EDT Abbi Perez RN * Are you blind or do you have serious difficulty seeing, even when wearing glasses? Answer Date of Assessment Author No 03/12/2025 3:27 PM EDT Abbi Perez RN * Do you have serious difficulty walking or climbing stairs? Answer Date of Assessment Author Yes 03/12/2025 3:27 PM EDT Abbi Perez RN * Do you have serious difficulty dressing or bathing? Answer Date of Assessment Author No 03/12/2025 3:27 PM EDT Abbi Perez RN * Because of a physical, mental, or emotional condition, do you have serious difficulty doing errandsalone such as visiting the doctor? Answer Date of Assessment Author No 03/12/2025 3:27 PM EDT Abbi Perez RN documented as of this encounter Mental Status * Because of a physical, mental, or emotional condition, do you have serious difficulty concentrating, remembering, or making decisions? (5 years old or older) Answer Entry Date Author No 03/12/2025 3:27 PM EDT Abbi Perez RN documented in this encounter Progress Notes * Kenzie Delcid MA - 05/04/2025 1:16 PM EDT [employer] order Signed, scanned and faxed via Right fax. [phone] documented in this encounter Plan of Treatment Upcoming Encounters Date Type Department Care Team (Late st Contact Info) Description 05/11/2025 3:30 PM EDT Office Visit Adult Medicine [address] [phone] Carri Suazo MD [address] [place] [address] 06/19/2025 1:00 PM EST Appointment [facility] Ultrasound [address] [place] [phone] 07/07/2025 11:30 AM EST Office Visit Vascular Surgery - [place] [address] [place] [address] Raheel Duffy MD [address] [place] [phone] 08/03/2025 9:00 AM EST Office Visit Endocrinology - [address] [phone] Chu Joyner MD [address] [place] [address] documented as of this encounter Visit Diagnoses Not on filedocumented in this encounter Care Teams Cyber Special Agent Relationship Specialty Start Date End Date Carri Suazo MD [address] [place] [address] PCP - General Internal Medicine 05/24/24 documented as of this encounter
--- OUTSIDE RECORDS SUMMARY | 2025-05-04 15:38 | XMS_ITS | Clinical Summary ---
[facility] Address [address] [place] [address] Care Team Providers Care Wood Miller Name Role Phone Wandy Delcid DO Primary [...] age to complete this topic Care Teams Wood Miller Relationship Specialty Start Date End Date Wandy Delcid DO PCP - General Commercial Escrow Assistant 02/17/20
--- OUTSIDE RECORDS SUMMARY | 2025-05-04 15:38 | XMS_ITS | Clinical Summary ---
Author Organization [facility] [address] [place] [address] Address [address], [place] Phone Care Team Providers Care Linter Saw Sharpener Name Role Phone Carri Suazo MD Primary Care Provider [phone] Allergies Active Allergy Reactions Criticality Noted Date [...] complication, without long-term current use of insulin ([facility] V24, [facility] V28) USE TO CHECK BLOOD SUGAR DAILY 1 kit 08/08/19 25 Active blood sugar diagnostic (FreeStyle Lite Strips) test stripIndication s:Type 2 diabetes mellitus with other ophthalmic complication, without long-term current use of insulin ([facility] V24, [facility] V28) USE TO TEST BLOOD [...] ischemia of left lower extremity (CMS/HCC V24, CMS/[facility] V28) Take 1-2 tablets (5-10 mg total) [...] limb ischemia of le ft lower extremity ([facility] V24, [facility] V28) 03/08/2025 Diabetic foot infection ([facility] V24, [facility] V2 8) 02/24/2025 PAD (peripheral artery disease) ([facility] V24) Multiple exostoses 02/09/2025 PVD (peripheral vascular disease) ([facility] V24) 01/05/2025 Nonrheumatic aortic valve stenosis 01/05/2025 Type 2 diabetes mellitus wit h diabetic peripheral angiopathy without gangrene, without long-term current use of insulin ([facility] V24, [facility] V28) 01/05/2025 Tailor's bunionette, left 12/01/2024 Microalbuminuria 04/07/2022 Normocytic anemia 10/02/2019 Habitual alcohol use 10/26/2018 BPH (benign prostatic hyperplasia) 01/30/2016 PSA elevation 02/06/2015 DM (diabetes mellitus), type 2 with ophthalmic complications ([facility] V24, [facility] V28) 09/12/2013 Overview (04/18/2024): Nuclear Sclerosis out side eye exam 07/07/12. Dr. Engle. Obesity (BMI 30.0-34.9) 11/20/2009 Asthma 04/13/2006 Essential hypertension, benign 04/13/2006 CAD (coronary artery disease) 04/13/2006 Hyperlipidemia 04/13/2006 Lumbago 04/13/2006 Encounters Date Type Department Care Team Description 05/04/[address] [phone] [place] 04/21/2025 1:00 PM EDT Office Visit Vascular Surgery [address] [phone] Raheel Duffy MD Critical limb ischemia of left lower extremity (CMS/[facility] V24, CMS/[facility] V28) (Primary Dx); Non-healing surgical wound, initial encounter 04/17/2025 Telephone Adult [address] [phone] [place] 04/14/2025 3:30 PM EDT Office Visit Vascular Surgery [address] [phone] Davina Restrepo PA PAD (peripheral artery disease) ([facility]/HCC V24) (Primary Dx); Critical limb ischemia of left lower extremity (CMS/HCC V24, CMS/HCC V28); Non-healing surgical wound, initial encounter 04/11/2025 9:00 AM EDT Office Visit [address] [phone] Carri Suazo MD Hospital discharge follow-up (Primary Dx); PAD (peripheral artery disease) (CMS/HCC V24); Other acute osteomyelitis of left foot (CMS/HCC V24, CMS/HCC V28); 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 ([facility]/HCC V24); S/P vascular bypass; Essential hypertension, benign; Type 2 diabetes mellitus with other ophthalmic complication, without long-term current use of insulin (CMS/HCC V24, CMS/HCC V28) 04/06/2025 1:30 PM EDT Office Visit Vascular Surgery [facility] [address] [phone] Davina Restrepo PA PAD (peripheral artery disease) (CMS/[facility] V24) (Primary Dx) 04/03/2025 Telephone Adult Medicine [address] [phone] Carri Suazo MD 03/27/2025 Telephone Adult Medicine [address] [phone] Carri Suazo MD 03/23/2025 Telephone Adult Medicine [address] [phone] MinnaAmy hodgson [place] 03/21/2025 11:44 AM EDT - 03/21/2025 12:44 PM EDT Surgery [facility] OR [address] [place] [phone] Raheel Duffy MD INCISION AND DRAINAGE left 5th metatarsal bone, WASHOUT, WOUND, and complex secondary wound clsoure left foot 03/21/2025 10:58 AM EDT Anesthesia Event [facility] OR [address] [place] [phone] Ld Jimenez DO Slanda, Summer, HOUSEKEEPING DEPARTMENT WORKER 03/19/2025 2:46 PM EDT Anesthesia Event [facility] OR [address] [place] [phone] Filippo Dunn MD 03/19/2025 11:35 AM EDT - 03/19/2025 12:40 PM EDT Surgery [facility] OR [address] [place] [phone] Raheel Duffy MD AMPUTATION FIFTH TOE/ I&D FIFTH METATARSAL BONE 03/15/2025 12:13 PM EDT Anesthesia Event [facility] OR [address] [place] [phone] Filippo Dunn MD Vermes, Rachie, CRNA 03/15/2025 10:30 AM EDT - 03/15/2025 3:30 PM EDT Surgery [facility] OR [address] [place] [phone] Raheel Duffy MD Left popliteal to dorsalis pedis bypass w/Left GSV harvest, Left focal popliteal endarterectomy [83492 (CPT )] 03/15/2025 8:55 AM EDT - 03/25/2025 11:03 AM EDT Hospital Encounter [facility] Surgical Unit [address] [place] [address] Raheel Duffy MD Loiacono, Laurie, MD Kokosadze, Estate, MD Critical limb ischemia of left lower extremity ([facility] V24, [facility] V28) (Primary Dx); Diabetic foot infection ([facility] V24, [facility] V28); PAD (peripheral artery disease) ([facility] V24) Discharge Disposition: Home-Health Care [facility] 03/13/2025 Ray Orthopedic Surgery [facility] [address] [place] [address] [address] [place] [phone] Elder Snyder DPAbbi 03/12/2025 3:27 PM EDT - 03/12/2025 4:18 PM EDT Emergency [facility] Emergency [address] [place] [phone] Kristin Willett MD Diabetic foot infection ([facility] V24, [facility] V28) (Primary Dx); PAD (peripheral artery disease) ([facility] V24); Pain Discharge Disposition: Home or Self Care 03/10/2025 12:22 PM EDT - 03/10/2025 7:42 PM EDT Emergency [facility] Emergency [address] [place] [phone] Martin Petit MD Left foot pain (Primary Dx) Discharge Disposition: Home or Self Care 03/09/2025 10:30 AM EDT Office Visit Vascular Surgery [facility] 300 [facility] [address] [place] [phone] Davina Restrepo PA Non-healing surgical wound, initial encounter (Primary Dx); Critical limb ischemia of left lower extremity ([facility] V24, [facility] V28); PAD (peripheral artery disease) ([facility] V24) 03/09/2025 9:00 AM EDT Office Visit [address] [phone] Carri Suazo MD Hospital discharge follow-up (Primary Dx); Type 2 diabetes mellitus with diabetic peripheral angiopathy without gangrene, without long-term current use of insulin ([facility] V24, [facility] V28); PVD (peripheral vascular disease) ([facility] V24); 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 ([facility] V24, [facility] V28) 03/09/2025 Telephone [facility] [place] [phone] [phone] Elder Snyder DPM 03/09/[address] [phone] Carri Suazo MD 03/08/2025 8:15 AM EDT Office Visit Orthopedic [facility] [address] [phone] Elder Snyder DPM Ulcer of toe of left foot, with fat layer exposed ([facility] V24, [facility] V28) (Primary Dx); Follow-up exam; Maninder godfrey, left 03/02/[address] [phone] Francy Marroquin [place] 02/28/2025 10:30 AM EDT - 02/28/2025 11:30 AM EDT [facility] Cardiac Design Studio Consultant [address] [place] [phone] Raheel Duffy MD Angiography left lower extremity [[id number] (CPT )] 02/26/2025 9:55 AM EDT - 02/26/2025 11:20 AM EDT [facility] Main OR [address] [place] [phone] Snyder, Christopher M, DPM EXCISION METATARSAL HEAD left 5th toe [[id number] (CPT )] 02/26/2025 8:04 AM EDT Anesthesia Event [facility] Main OR [address] [place] [address] Olvin Nair MD 02/24/2025 8:48 AM EDT - 03/01/2025 5:38 PM EDT Hospital Encounter [facility] [address] [place] [phone] Vernon Cedillo MD Shapiro, Benjamin, DO Seralathan, Manikandan, MD Surendran, Anupama, MD Diabetic foot infection ([facility] V24, [facility] V28) (Primary Dx); Tailor's bunionette, left; PAD (peripheral artery disease) ([facility] V24); Non-pressure chronic ulcer of other part of left foot with unspecified severity ([facility] V24, [facility] V28); Type 2 diabetes mellitus with diabetic peripheral angiopathy without gangrene, without long-term current use of insulin ([facility] V24, [facility] V28); Cellulitis of left foot; Ulcer of toe of left foot, with fat layer exposed ([facility] V24, [facility] V28); Multiple exostoses Discharge Disposition: Home-Health Care [facility] 02/24/2025 Ray Orthopedic Surgery [facility] [address] [place] [phone] Elder Snyder, TREVOR 02/23/2025 11:30 AM EDT Office Visit Adult Medicine [address] [phone] Rachel Kilgore PA Diabetic mononeuropathy associated with type 2 diabetes mellitus ([facility] V24, [facility] V28) (Primary Dx); Diabetic ulcer of other part of left foot associated with diabetes mellitus due to underlying condition, unspecified ulcer stage ([facility] V24, [facility] V28); Absent pedal pulses; PAD (peripheral artery disease) ([facility] V24); PVD (peripheral vascular disease) ([facility] V24); Normocytic anemia 02/21/2025 1:00 PM EDT Office Visit Orth[facility] [address] [phone] Elder Snyder, TREVOR Cellulitis of left foot (Primary Dx); Ulcer of toe of left foot, with fat layer exposed ([facility] V24, [facility] V28); Tailor's bunionette, left; Diabetic mononeuropathy simplex ([facility] V24, [facility] V28) 02/17/2025 Telephone Orthopedic Surgery [facility] [address] [phone] Elder Snyder DPM 02/09/2025 3:45 PM EDT Office Visit [facility] [address] [phone] Elder Snyder DPM Tailor's bunionette, left (Primary Dx); Diabetic mononeuropathy simplex ([facility] V24, [facility] V28); Multiple exostoses from Last 3 Months Immunizations Immunization Administration [...] Coronary atherosclerosis of unspecified type of vessel, [place] or graft 04/13/2006 DX:Coronary atherosclerosis of unspecified type of vessel, [place] or graft Other and unspecified hyperlipidemia 04/13/2006 [...] 3:30 PM EDT Office Visit Adult Medicine [address] [phone] Carri Suazo MD [address] [place] [address] 06/19/2025 1:00 PM EST Appointment [facility] Ultrasound [address] [place] [phone] 07/07/2025 11:30 AM EST Office Visit Vascular Surgery - [place] [address] [place] [phone] Raheel Duffy MD [address] [place] [phone] 08/03/2025 9:00 AM EST Office Visit Endocrinology [address] [phone] Chu Joyner MD [address] [place] [address] Health Maintenance Due Date Last Done Comments [...] this topic Medical Devices Implanted Type Area Meat Apprentice Device Identifier Shelf Expiration Date Model / Serial / Lot Hemostat Absorb Surgicel 2x4in Fibrillar - Sn/A - [id number] Implanted:Qty: 1 on 03/15/2025 by Raheel Duffy MD at [facility] Hemostasis Left: Leg [employer] 09/17/20271961 / N/A / [id number] Sealant Fibrin Vistaseal 10ml - [id number] - [id number] Implanted:Qty: 1 on 03/15/2025 by Raheel Duffy MD at [facility] Hemostasis Left: Leg [facility] [employer] [id number] 08/23/2026 VST10 / [id number] / [id number] Procedures Procedure Name Priority Date/Time Associated [...] ENDOTRACHEAL(NO CHARGE) Routine 03/15/2025 12:41 PM EDT CO BYPASS GFT W VEIN POPLITEAL-TIBIAL -DRAKE ARTERY [...] 02/26/2025 5:19 PM EDT Diabetic foot infection (CMS/[facility] V24, CMS/[facility] V28) PAD (peripheral artery disease) ([facility] V24) POCT GLUCOSE BLOOD Routine 02/26/2025 3: [...] (CMS/HCC V24, CMS/HCC V28) Tailor's bunionette, left CO OSTECTOMY COMPLETE EXCISION FIFTH METATARSAL HEAD 02/26/2025 [...] complication, without long-term current use of insulin ([facility] V24, CMS/[facility] V28) LIPID PANEL WITH REFLEX TO DIRECT LDL Routine 12/23/2024 7:41 AM EDT Mixed hyperlipidemia MICROALBUMIN CREATININE URINE RATIO Routine 07/05/2024 8:17 AM EST Type 2 diabetes mellitus with other specified complication, without long-term current use of insulin ([facility] V24, CMS/[facility] V28) HM DIABETES FOOT EXAM Routine 03/30/2024 DIABETES EYE EXAM Routine 09/08/2023 DEPRESSION SCREENING Routine 09/02/2023 HEPATITIS C SCREENING Routine 06/02/2013 from Last 3 Months or Most Recently Relevant to Health Maintenance Results * (ABNORMAL) POCT Glucose, blood (03/25/2025 7:52 AM EDT) Only the most recent of59 resultswithin the time period is included. [facility] Glucose POCT 206(H) 70 - 100 mg/dL 03/25/2025 7:53 AM EDT [facility] Blood Capillary blood specimen / Unknown 03/25/2025 7:52 AM EDT 03/25/2025 7:54 AM EDT [facility] Cassandra BLANDON LAB POINT OF CARE TE ST DOCKED DEVICE UNSOLICITED RESULTS Final Result [facility] [address] [place] [address], * (ABNORMAL) CBC auto differential (03/25/2025 5:15 AM EDT) Only the most recent of15 resultswithin the time period is included. [facility] WBC 7.4 4.8 - 10.8 K/mcL LAB HEMETOLOGY METHOD 03/25/2025 6:47 AM EDT [facility] RBC 3.50(L) 4.50 - 5.50 M/mcL LAB HEMETOLOGY METHOD 03/25/2025 6:47 AM EDT [facility] Hemoglobin 8.4(L) 13.5 - 17.5 g/dL LAB HEMETOLOGY METHOD 03/25/2025 6:47 AM EDT [facility] Hematocrit 29.2(L) 42.0 - 54.0 % LAB HEMETOLOGY METHOD 03/25/2025 6:47 AM [facility] MCV 83.0 79.0 - 98.0 FL LAB HEMETOLOGY METHOD 03/25/2025 6:47 AM [facility] MCH 23.9(L) 27.0 - 32.0 pcg LAB HEMETOLOGY METHOD 03/25/2025 6:47 AM [facility] MCHC 28.8(L) 32.0 - 37.0 g/dL LAB HEMETOLOGY METHOD 03/25/2025 6:47 AM [facility] RDW 20.4(H) 11.0 - 15.0 % LAB HEMETOLOGY METHOD 03/25/2025 6:47 AM [facility] Platelets 295 130 - 400 K/mcL LAB HEMETOLOGY METHOD 03/25/2025 6:47 AM [facility] MPV 11.8(H) 7.0 - 11.0 FL LAB HEMETOLOGY METHOD 03/25/2025 6:47 AM [facility] NRBC 0.3 <1.0 % LAB HEMETOLOGY METHOD 03/25/2025 6:47 AM [facility] NRBC Absolute 0.02 <0.10 K/mcL LAB HEMETOLOGY METHOD 03/25/2025 6:47 AM [facility] Neutrophils Relative 62.3 % LAB HEMETOLOGY METHOD 03/25/2025 6:47 AM [facility] Lymphocytes Relative 21.5 % LAB HEMETOLOGY METHOD 03/25/2025 6:47 AM [facility] Monocytes Relative 10.4 % LAB HEMETOLOGY METHOD 03/25/2025 6:47 AM [facility] Eosinophils Relative 3.8 % LAB HEMETOLOGY METHOD 03/25/2025 6:47 AM [facility] Basophils Relative 0.5 % LAB HEMETOLOGY METHOD 03/25/2025 6:47 AM EDT [facility] Immature Granulocytes Relative 1.5 % LAB HEMETOLOGY METHOD 03/25/2025 6:47 AM EDT [facility] Neutrophils Absolute 4.62 1.50 - 7.00 K/mcL LAB HEMETOLOGY METHOD 03/25/2025 6:47 AM EDT [facility] Lymphocytes Absolute 1.59 1.00 - 5.00 K/mcL LAB HEMETOLOGY METHOD 03/25/2025 6:47 AM EDT [facility] Monocytes Absolute 0.77 0.20 - 1.00 K/mcL LAB HEMETOLOGY METHOD 03/25/2025 6:47 AM EDT [facility] Eosinophils Absolute 0.28 0.00 - 0.50 K/mcL LAB HEMETOLOGY METHOD 03/25/2025 6:47 AM EDT [facility] Basophils Absolute 0.04 0.00 - 0.20 K/mcL LAB HEMETOLOGY METHOD 03/25/2025 6:47 AM EDT [facility] Immature Granulocytes Absolute 0.11(H) 0.00 - 0.03 K/mcL LAB HEMETOLOGY METHOD 03/25/2025 6:47 AM EDT [facility] Blood Venous blood specimen / Unknown Venipuncture / Unknown 03/25/2025 5:15 AM EDT 03/25/2025 6:38 AM EDT [facility] Cassandra BLANDON LAB BLOOD ORDERABLES Final R esult [facility] [address] [place] [address], * (ABNORMAL) Basic metabolic panel (03/25/2025 5:15 AM EDT) Only the most recent of15 resultswithin the time period is included. [facility] Sodium 138 133 - 145 mmol/L LAB CHEMISTRY METHOD 03/25/2025 7:11 AM [facility] Potassium 4.4 3.5 - 5.5 mmol/L LAB CHEMISTRY METHOD 03/25/2025 7:11 AM [facility] Chloride 107 96 - 110 mmol/L LAB CHEMISTRY METHOD 03/25/2025 7:11 AM [facility] CO2 26 21 - 32 mmol/L LAB CHEMISTRY METHOD 03/25/2025 7:11 AM [facility] Anion Gap 5 3 - 11 LAB CHEMISTRY METHOD 03/25/2025 7:11 AM [facility] Glucose 196(H) 70 - 100 mg/dL LAB CHEMISTRY METHOD 03/25/2025 7:11 AM [facility] BUN 14 5 - 25 mg/dL LAB CHEMISTRY METHOD 03/25/2025 7:11 AM [facility] Creatinine 0.83 0.70 - 1.30 mg/dL LAB CHEMISTRY METHOD 03/25/2025 7:11 AM [facility] eGFR 90 >=60 mL/min/1. 73m2 LAB CHEMISTRY METHOD 03/25/2025 7:11 AM [facility] Comment:Calculation based on the Chronic Kidney Disease Epidemiology Collaboration (CKD-EPI) equation refit without adjustment for race. BUN/Creatinine Ratio 16.9 LAB CHEMISTRY METHOD 03/25/2025 7:11 AM [facility] Calcium 8.6 8.5 - 10.5 mg/dL LAB CHEMISTRY METHOD 03/25/2025 7:11 AM [facility] Blood Venous blood specimen / Unknown Venipuncture / Unknown 03/25/2025 5:15 AM EDT 03/25/2025 6:37 AM EDT [facility] Cassandra BLANDON LAB BLOOD ORDERABLES Final R esult Performing Organization Address [facility] Co de Phone Number [facility] [address] [place] [address], [place] [phone] * Vancomycin, trough Please draw 1 hour prior to dose due at 0900 (03/24/2025 8:05 AM EDT) Only the most recent of6 resultswithin the time period is included. Pathologist [facility] [place] Vancomycin Trough 17.6 10.0 - 20.0 mcg/mL LAB CHEMISTRY METHOD 03/24/2025 9:13 AM EDT [facility] Blood Venous blood specimen / Unknown Venipuncture / Unknown 03/24/2025 8:05 AM EDT 03/24/2025 8:26 AM EDT us Layla Trujillo MD LAB BLOOD ORDERABLES Final R esult Performing Organization Address [facility] de Phone Number [facility] [address] [place] [address], [place] [phone] * Lavender tube (03/23/2025 7:56 AM EDT) Only the most recent of2 resultswithin the time period is included. [facility] Extra Tube Hold for add-ons. 03/23/2025 10:01 AM EDT [facility] Comment:Auto resulted. Blood Venous blood specimen / Unknown Venipuncture / Unknown 03/23/2025 7:56 AM EDT 03/23/2025 8:18 AM EDT us Layla Trujillo MD LAB BLOOD ORDERABLES Final R esult Performing Organization Address [facility] Co de Phone Number [facility] [address] [place] [address], [place] [phone] * TH AN LMA(NO CHARGE) (03/21/2025 11:30 AM EDT) Narrative Ld Jimenez DO - 03/21/2025 11:30 AM EDT Ld Jimenez DO 03/22/2025 6:46 AM General Information and Staff Patient location during procedure: [place] Anesthesiologist: Ld Jimenez DO Resident/HOUSEKEEPING DEPARTMENT WORKER: Aliya Block CRNA Performed: resident/HOUSEKEEPING DEPARTMENT WORKER/CAA Performed by: Aliya Block CRNA Authorized by: [...] Mask difficulty assessment: 0 - not attempted Ld Jimenez DO ANESTHESIA ORDERABLES Edited Re sult - Final * Tissue exam (03/21/2025 11:29 AM EDT) Only the most recent of3 resultswithin the time period is included. Final Diagnosis Bone, left 5th metatarsal clean margin: -VIABLE APPEARING BONE 03/23/2025 5:11 PM EDT [facility] Gross Description A. Bone, left [...] on, four pieces. 03/23/2025 5:11 PM EDT [facility] Disclaimer Unless otherwise specified, all tissue is 10% NB formalin fixed and paraffin embedded. 03/23/2025 5:11 PM T [facility] Bone Bone structure / Unknown 03/21/2025 11:29 AM EDT 03/21/2025 1:12 PM EDT Raheel Duffy MD LAB PATHOLOGY ORDERABLES Final Result [facility] [address] [place] [address], * (ABNORMAL) Culture bone (03/21/2025 11:28 AM EDT) Only the most recent of2 resultswithin the time period is included. Culture, Bone No Anaerobes isolated at 5 days. 03/26/2025 8:52 AM EDT [facility] Culture, Bone Escherichia coli(A) SHANE 03/26/2025 8:52 AM EDT [facility] Comment: The organism value for this result has been updated. These results have been appended to the previously preliminary verified report. This is an edited result. Previous organism was Gram negative bacilli on 03/22/2025 at 1025 EDT. Culture, Bone Staphylococcus epidermidis(A) SHANE 03/26/2025 8:52 AM EDT [facility] Comment: The organism value for this result has been updated. These results have been appended to the previously preliminary verified report. Edited result: Previously reported as Gram Positive Cocci on 03/23/2025 at 1055 EDT. Gram Stain Result No polymorphonuclear leukocytes, No epithelial cells, and No organisms noted 03/26/2025 8:52 AM EDT [facility] Bone Bone structure / Unknown [...] MICROBIOLOGY - GENERAL ORDE ATUL Final Result [facility] [address] [place] [address], * SST tube (03/19/2025 12:15 PM EDT) Only the most recent of2 resultswithin the time period is included. Extra Tube Hold for add-ons. 03/19/2025 2:01 PM EDT [facility] Comment:Auto resulted. Blood Venous blood specimen / Unknown Venipuncture / Unknown 03/19/2025 12:15 PM EDT 03/19/2025 12:21 PM EDT Layla Trujillo MD LAB BLOOD ORDERABLES Final R esult [facility] [address] [place] [address], [place] [phone] * (ABNORMAL) Sedimentation rate (03/19/2025 12:15 PM EDT) [facility] [facility] Sed Rate 92(H) 0 - 20 mm/hr LAB HEMETOLOGY METHOD 03/19/2025 12:26 PM EDT [facility] Blood Venous blood specimen / Unknown Venipuncture / Unknown 03/19/2025 12:15 PM EDT 03/19/2025 12:20 PM EDT us Layla Trujillo MD LAB BLOOD ORDERABLES Final R esult Performing Organization Address [facility] Co de Phone Number [facility] [address] [place] [address], [place] [phone] * (ABNORMAL) C-reactive protein (03/18/2025 5:30 AM EDT) Only the most recent of2 resultswithin the time period is included. [facility] C-Reactive Protein 22.90(H) <=0.50 mg/dL LAB CHEMISTRY METHOD 03/19/2025 12:15 PM EDT [facility] Blood Venous blood specimen / Unknown Venipuncture / Unknown 03/18/2025 5:30 AM EDT 03/18/2025 6:19 AM EDT us Layla Trujillo MD LAB BLOOD ORDERABLES Final R esult Performing Organization Address [facility]/State/ZIP Co de Phone Number [facility] [address] [place] [address], [place] [phone] * XR Foot 2 Views Left (03/17/2025 [...] Signed Date: 03/17/2025 16:35 ET Workstation ID: [id number] Transcribed By: Self Edit Transcribed Date: 03/17/2025 [...] Signed Date: 03/17/2025 16:35 ET Workstation ID: [id number] Transcribed By: Self Edit Transcribed Date: 03/17/2025 16:34 ET Davina SEVERINO IM XR PROCEDURES Final Result * (ABNORMAL) Phosphorus (03/17/2025 4:48 AM EDT) Only the most recent of5 resultswithin the time period is included. Phosphorus 2.3(L) 2.5 - 4.5 mg/dL LAB CHEMISTRY METHOD 03/17/2025 5:35 AM EDT [facility] Blood Venous blood specimen / Unknown Venipuncture / Unknown 03/17/2025 4:48 AM EDT 03/17/2025 4:52 AM EDT Mir Germaineeliazar LAB BLOOD ORDERABLES Final R esult Performing Organization Address City/[facility]/ZIP Co de Phone Number [facility] [address] [place] [address], [place] [phone] * Magnesium (03/17/2025 4:48 AM EDT) Only the most recent of8 resultswithin the time period is included. Magnesium 2.0 1.9 - 2.6 mg/dL LAB CHEMISTRY METHOD 03/17/2025 5:35 AM EDT [facility] Blood Venous blood specimen / Unknown Venipuncture / Unknown 03/17/2025 4:48 AM EDT 03/17/2025 4:52 AM EDT Mir Mullen LAB BLOOD ORDERABLES Final R [facility] Performing Organization Address [facility] Co de Phone Number [facility] [address] [place] [address], [place] [phone] * (ABNORMAL) Calcium, ionized (03/17/2025 4:48 AM EDT) Only the most recent of3 resultswithin the time period is included. Calcium Ionized 4.33(L) 4.50 - 5.30 mg/dL 03/17/2025 5:15 AM EDT [facility] Blood Venous blood specimen / Unknown Venipuncture / Unknown 03/17/2025 4:48 AM EDT 03/17/2025 4:52 AM EDT Mir Pinoeliazar LAB BLOOD ORDERABLES Final R esult [facility] [address] [place] [address], * (ABNORMAL) CBC - Every 3 Days (03/16/2025 4:06 AM EDT) WBC 8.3 4.8 - 10.8 K/mcL LAB HEMETOLOGY METHOD 03/16/2025 4:28 AM EDT [facility] RBC 3.70(L) 4.50 - 5.50 M/mcL LAB HEMETOLOGY METHOD 03/16/2025 4:28 AM EDT [facility] Hemoglobin 8.6(L) 13.5 - 17.5 g/dL LAB HEMETOLOGY METHOD 03/16/2025 4:28 AM [facility] Hematocrit 29.4(L) 42.0 - 54.0 % LAB [facility]ETOLOGY [facility] MCV 80.5 79.0 - 98.0 FL LAB HEMETOLOGY METHOD [facility]25 [facility] MCH 23.6(L) 27.0 - 32.0 pcg LAB HEMETOLOGY METHOD 03/16/2025 4:28 AM [facility] MCHC 29.3(L) 32.0 - 37.0 g/dL LAB HEMETOLOGY METHOD 03/16/2025 4:28 AM EDT [facility] RDW 18.5(H) 11.0 - 15.0 % LAB HEMETOLOGY METHOD 03/16/2025 4:28 AM EDT [facility] Platelets 214 130 - 400 K/mcL LAB HEMETOLOGY METHOD 03/16/2025 4:28 AM [facility] MPV 11.8(H) 7.0 - 11.0 FL LAB HEMETOLOGY METHOD 03/16/2025 4:28 AM EDT [facility] NRBC 0.0 <1.0 % LAB HEMETOLOGY METHOD 03/16/2025 4:28 AM EDT [facility] NRBC Absolute 0.00 <0.10 K/mcL LAB HEMETOLOGY METHOD 03/16/2025 4:28 AM EDT [facility] Blood Arterial blood specimen / Unknown Venipuncture / Unknown 03/16/2025 4:06 AM EDT 03/16/2025 4:23 AM EDT Davina SEVERINO LAB BLOOD ORDERABLES Final Res ult Performing Organization Address [facility]/ZIP Co de Phone Number [facility] [address] [place] [address], [place] [phone] * (ABNORMAL) Albumin (03/16/2025 4:06 AM EDT) [facility] Albumin 3.1(L) 3.2 - 5.0 g/dL LAB CHEMISTRY METHOD 03/16/2025 4:59 AM EDT [facility] Blood Arterial blood specimen / Unknown Venipuncture / Unknown 03/16/2025 4:06 AM EDT 03/16/2025 4:23 AM EDT us Jorge L SEVERINO LAB BLOOD ORDERABLES Final Resul t Performing Organization Address [facility]/ZIP Co de Phone Number [facility] [address] [place] [address], [place] [phone] * Respiratory virus panel molecular study (03/15/2025 8:34 PM EDT) [facility] Adenovirus Detection by PCR Not Detected Not Detected LAB MICROBIOLOGY METHOD 03/15/2025 10:09 PM EDT [facility] Influenza A PCR Not Detected Not Detected LAB MICROBIOLOGY METHOD 03/15/2025 10:09 PM EDT [facility] Influenza B PCR Not Detected Not Detected LAB MICROBIOLOGY METHOD 03/15/2025 10:09 PM EDT [facility] Coronavirus 229E Not Detected Not Detected LAB MICROBIOLOGY METHOD 03/15/2025 10:09 PM EDT [facility] Coronavirus HKU1 Not Detected Not Detected LAB MICROBIOLOGY METHOD 03/15/2025 10:09 PM EDT [facility] Coronavirus OC43 Not Detected Not Detected LAB MICROBIOLOGY METHOD 03/15/2025 10:09 PM EDT [facility] Coronavirus NL63 Not Detected Not Detected LAB MICROBIOLOGY METHOD 03/15/2025 10:09 PM EDT [facility] Parainfluenza Virus 1 Not Detected Not Detected LAB MICROBIOLOGY METHOD 03/15/2025 10:09 PM EDT [facility] Parainfluenza Virus 2 Not Detected Not Detected LAB MICROBIOLOGY METHOD 03/15/2025 10:09 PM EDT [facility] Parainfluenza Virus 3 Not Detected Not Detected LAB MICROBIOLOGY METHOD 03/15/2025 10:09 PM EDT [facility] Parainfluenza Virus 4 Not Detected Not Detected LAB MICROBIOLOGY METHOD 03/15/2025 10:09 PM EDT [facility] RSV PCR Not Detected Not Detected LAB MICROBIOLOGY METHOD 03/15/2025 10:09 PM EDT [facility] Human Metapneumovirus A and B Not Detected Not Detected LAB MICROBIOLOGY METHOD 03/15/2025 10:09 PM EDT [facility] Rhinovirus/Entero virus Not Detected Not Detected LAB MICROBIOLOGY METHOD 03/15/2025 10:09 PM EDT [facility] Bordetella pertussis Not Detected Not Detected LAB MICROBIOLOGY METHOD 03/15/2025 10:09 PM EDT [facility] Bordetella parapertussis Not Detected Not Detected LAB MICROBIOLOGY METHOD 03/15/2025 10:09 PM EDT [facility] Mycoplasma pneumo by PCR Not Detected Not Detected LAB MICROBIOLOGY METHOD 03/15/2025 10:09 PM EDT [facility] Chlamydia pneumoniae Not Detected Not Detected LAB MICROBIOLOGY METHOD 03/15/2025 10:09 PM EDT [facility] SARS COV-2 Not Detected Not Detected LAB MICROBIOLOGY METHOD 03/15/2025 10:09 PM EDT [facility] Swab Both anterior nares / Unknown Non-blood Collection / Unknown 03/15/2025 8:34 PM EDT 03/15/2025 9:15 PM EDT Narrative [facility] - 03/15/2025 10:09 PM EDT Testing was performed using the built[employer]io Respiratory Pathogen PCR Assay. All results must [...] MICROBIOLOGY - GENERAL ORDER QASIM Final Result [facility] [address] [place] [address], [place] [phone] * MRSA molecular study (03/15/2025 8:34 PM EDT) [facility] MRSA Screen PCR Not Detected Not Detected LAB MICROBIOLOGY METHOD 03/15/2025 10:32 PM EDT [facility] Swab Both anterior nares / Unknown Non-blood Collection / Unknown 03/15/2025 8:34 PM EDT 03/15/2025 9:14 PM EDT us Jorge L SEVERINO LAB MICROBIOLOGY - GENERAL ORDER QASIM Final Result [facility] [address] [place] [address], [place] [phone] * Lactate (03/15/2025 8:02 PM EDT) [facility] Lactate 1.1 0.4 - 2.0 mmol/L LAB CHEMISTRY METHOD 03/15/2025 8:41 PM EDT [facility] Blood Venous blood specimen / Unknown Venipuncture / Unknown 03/15/2025 8:02 PM EDT 03/15/2025 8:14 PM EDT Jorge L Hwang PA LAB BLOOD ORDERABLES Final Resul t Performing Organization Address [facility] Co de Phone Number [facility] [address] [place] [address], [place] [phone] * (ABNORMAL) Activated Partial Thromboplastin Time - STAT (03/15/2025 5:05 PM EDT) Only the most recent of2 resultswithin the time period is included. [facility] aPTT 51.7(H) 24.1 - 39.3 sec LAB COAGULATION METHOD 03/15/2025 6:09 PM EDT [facility] Blood Venous blood specimen / Unknown Venipuncture / Unknown 03/15/2025 5:05 PM EDT 03/15/2025 5:09 PM EDT Davina SEVERINO LAB BLOOD ORDERABLES Final Res ult Performing Organization Address [facility]/ZIP Co de Phone Number [facility] [address] [place] [address], [place] [phone] * (ABNORMAL) Prothrombin Time with INR - STAT (03/15/2025 5:05 PM EDT) Only the most recent of3 resultswithin the time period is included. [facility] Protime 14.5(H) 10.6 - 13.9 sec LAB COAGULATION METHOD 03/15/2025 5:38 PM EDT [facility] INR 1.2 LAB COAGULATION METHOD 03/15/2025 5:38 PM EDT [facility] Blood Venous blood specimen / Unknown Venipuncture / Unknown 03/15/2025 5:05 PM EDT 03/15/2025 5:09 PM EDT Davina SEVERINO LAB BLOOD ORDERABLES Final Res ult Performing Organization Address City/[facility]/ZIP Co de Phone Number [facility] [address] [place] [address], [place] [phone] * (ABNORMAL) POCT activated clotting time,kaolin (03/15/2025 3:41 PM EDT) Only the most recent of6 resultswithin the time period is included. Activated Clotting Time Kaolin 256(H) 74 - 137 sec 03/15/2025 5:18 PM EDT [facility] Blood Arterial blood specimen / Unknown 03/15/2025 3:41 PM EDT 03/15/2025 5:20 PM EDT us Raheel Duffy MD LAB POINT OF CARE TE ST DOCKED DEVICE UNSOLICITED RESULTS Final Result Performing Organization Address [facility]/ZIP Co de Phone Number [facility] [address] [place] [address], [place] [phone] * (ABNORMAL) POCT Arterial basic metabolic profile, HH (03/15/2025 3:33 PM EDT) Glucose Arterial POCT 123(H) 70 - 100 mg/dL 03/15/2025 5:18 PM EDT [facility] Sodium Arterial POCT 139 135 - 145 mmol/L 03/15/2025 5:18 PM EDT [facility] Potassium Arterial POCT 4.4 3.5 - 5.5 mmol/L 03/15/2025 5:18 PM EDT [facility] Chloride Arterial POCT 103 96 - 110 mmol/L 03/15/2025 5:18 PM EDT [facility] TCO2 Arterial POCT 24 21 - 32 mmol/L 03/15/2025 5:18 PM EDT [facility] BUN, Arterial POCT 10 5 - 25 mg/dL 03/15/2025 5:18 PM EDT [facility] Creatinine Arterial POCT 0.7 0.7 - 1.3 mg/dL 03/15/2025 5:18 PM EDT [facility] Ionized Calcium Arterial POCT 4.60 4.50 - 5.30 mg/dL 03/15/2025 5:18 PM EDT [facility] Hemoglobin Arterial POCT 11.2(L) 13.5 - 17.5 g/dL 03/15/2025 5:18 PM EDT [facility] Hematocrit Arterial POCT 33(L) 42 - 54 % 03/15/2025 5:18 PM EDT [facility] Blood Arterial blood specimen / Unknown 03/15/2025 3:33 PM EDT 03/15/2025 5:20 PM EDT Raheel Duffy MD LAB POINT OF CARE TE ST DOCKED DEVICE UNSOLICITED RESULTS Final Result [facility] [address] [place] [address], * Prepare RBC: 2 Units, Leukoreduced (03/15/2025 2:50 PM EDT) Product Code [id number] 03/16/2025 7:21 AM EDT [facility] Unit Number [id number] 03/16/20 7:21 AM EDT [facility] Crossmatch Compatible 03/15/2025 2:54 PM EDT [facility] Dispense Status Released From Crossmatch 03/16/2025 7:21 AM EDT [facility] Unit ABO Rh OPOS 03/16/2025 7:21 AM EDT [facility] Unit Expiration Date Time 03/16/2025 7:21 AM EDT [facility] Unit Blood Type 5100 03/16/2025 7:21 AM EDT [facility] Product Code [id number] 03/16/2025 7:20 AM EDT [facility] Unit Number [id number] 03/16/20 7:20 AM EDT [facility] Crossmatch Compatible 03/15/2025 2:54 PM EDT [facility] Dispense Status Released From Crossmatch 03/16/2025 7:20 AM EDT [facility] Unit ABO Rh OPOS 03/16/2025 7:20 AM EDT [facility] Unit Expiration Date Time 03/16/2025 7:20 AM EDT [facility] Unit Blood Type 5100 03/16/2025 7:20 AM EDT [facility] Blood Venous blood specimen / Unknown 03/15/2025 2:50 PM EDT 03/13/2025 9:45 AM EDT us Raheel Duffy MD BLOOD BANK PRODUCT ORDERABLES F inal Result [facility] [address] [place] [address], * Peripheral IV (03/15/2025 12:43 PM EDT) [...] Procedural (No Charge) (03/13/2025 9:04 AM EDT) Ventricular Rate ECG 97 BPM GEMUSE QRS Duration 80 ms GEMUSE Q-T Interval 356 ms GEMUSE QTc 452 ms GEMUSE R [place] -32 degrees GEMUSE T [place] 64 degrees GEMUSE ECG Interpretation Normal sinus rhythm with premature atrial contration Left axis deviation Abnormal ECG No previous ECGs available Confirmed by WE[facility] PASCUAL ([id number]) on 03/14/2025 8:07:48 AM GEMUSE 03/13/2025 9:04 AM EDT 03/14/2025 8:07 AM EDT Davina SEVERINO ECG ORDERABLES Final Result Performing Organization Address [facility] de Phone Number GEMUSE * Type and screen (03/13/2025 8:49 AM EDT) Pathologist [facility] [place] ABO Group B 03/13/2025 11:06 AM EDT [facility] Rh Type Positive 03/13/2025 11:06 AM EDT [facility] Antibody Screen Negative 03/13/2025 11:06 AM EDT [facility] Blood Venous blood specimen / Unknown Venipuncture / Unknown 03/13/2025 8:49 AM EDT 03/13/2025 9:45 AM EDT Davina Restrepo [place] LAB BLOOD BANK TEST ORDERABLES Final Result Performing Organization Address City/[facility]/[place] Co de Phone Number [facility] [address] [place] [address], * (ABNORMAL) Lactate, with reflex (03/10/2025 5:57 PM EDT) Only the most recent of2 resultswithin the time period is included. Pathologist [facility] [place] LACTIC ACID 2.2(H) 0.4 - 2.0 mmol/L LAB CHEMISTRY METHOD 03/10/2025 6:30 PM EDT [facility] Blood Venous blood specimen / Unknown Venipuncture / Unknown 03/10/2025 5:57 PM EDT 03/10/2025 6:01 PM EDT us Martin Petit MD LAB BLOOD ORDERABLES Final Resul t [facility] [address] [place] [address], * XR Foot 3+ Views Left (03/10/2025 [...] Signed Date: 03/10/2025 16:07 ET Workstation ID: [id number] Transcribed By: Self Edit Transcribed Date: 03/10/2025 [...] Signed Date: 03/10/2025 16:07 ET Workstation ID: [id number] Transcribed By: Self Edit Transcribed Date: 03/10/2025 16:06 ET Martin Petit MD IMG XR PROCEDURES Final Result * Comprehensive metabolic panel (03/10/2025 1:08 PM EDT) Pathologist [facility] [place] Sodium 138 133 - 145 mmol/L LAB CHEMISTRY METHOD 03/10/2025 2:56 PM T [facility] Potassium 4.7 3.5 - 5.5 mmol/L LAB CHEMISTRY METHOD 03/10/2025 2:56 PM [facility] Chloride 104 96 - 110 mmol/L LAB CHEMISTRY METHOD 03/10/2025 2:56 PM [facility] CO2 28 21 - 32 mmol/L LAB CHEMISTRY METHOD 03/10/2025 2:56 PM [facility] Anion Gap 6 3 - 11 LAB CHEMISTRY METHOD 03/10/2025 2:56 PM [facility] Glucose 95 70 - 100 mg/dL LAB CHEMISTRY METHOD 03/10/2025 2:56 PM [facility] BUN 16 5 - 25 mg/dL LAB CHEMISTRY METHOD 03/10/2025 2:56 PM [facility] Creatinine 0.98 0.70 - 1.30 mg/dL LAB CHEMISTRY METHOD 03/10/2025 2:56 PM [facility] eGFR 79 >=60 mL/min/1. 73m2 LAB CHEMISTRY METHOD 03/10/2025 2:56 PM [facility] Comment:Calculation based on the Chronic Kidney Disease Epidemiology Collaboration (CKD-EPI) equation refit without adjustment for race. BUN/Creatinine Ratio 16.3 LAB CHEMISTRY METHOD 03/10/2025 2:[address] [facility] Calcium 9.4 8.5 - 10.5 mg/dL LAB CHEMISTRY METHOD 03/10/2025 2:56 PM EDT [facility] AST (SGOT) 21 10 - 42 unit/L LAB CHEMISTRY METHOD 03/10/2025 2:56 PM EDT [facility] ALT (SGPT) 23 10 - 60 unit/L LAB CHEMISTRY METHOD 03/10/2025 2:56 PM EDT [facility] Alkaline Phosphatase 93 42 - 121 unit/L LAB CHEMISTRY METHOD 03/10/2025 2:56 PM EDT [facility] Total Protein 7.7 6.0 - 8.0 g/dL LAB CHEMISTRY METHOD 03/10/2025 2:56 PM T [facility] Albumin 3.9 3.2 - 5.0 g/dL LAB CHEMISTRY METHOD 03/10/2025 2:56 PM EDT [facility] Total Bilirubin 0.4 0.0 - 1.4 mg/dL LAB CHEMISTRY METHOD 03/10/2025 2:56 PM EDT [facility] Blood Venous blood specimen / Unknown Venipuncture / Unknown 03/10/2025 1:08 PM EDT 03/10/2025 2:13 PM EDT us Martin Petit MD LAB BLOOD ORDERABLES Final Resul t [facility] [address] [place] [address], * Vascular US duplex lower extremity vein map bilateral (02/28/2025 11:22 AM EDT) Anatomical Region Laterality Modality Vascular, Abdomen Ultrasound 03/01/2025 9:09 AM EDT Impressions 03/01/2025 9:14 AM EDT There is no evidence of thrombus in the venous systems of the lower extremities bilaterally. The diameters of the greater saphenous veins are as above. Code 81959 -------- FINAL REPORT -------- Dictated By: Jarod Thurman Dictated Date: 03/01/2025 09:09 ET Assigned Physician: Jarod Thurman Reviewed and Electronically Signed By: Jarod Thurman Signed Date: 03/01/2025 09:14 ET Workstation ID: [id number] Transcribed By: Self Edit Transcribed Date: 03/01/2025 [...] the greater saphenous veins areas above. Code 13163 -------- FINAL REPORT -------- Dictated By: Jarod Thurman Dictated Date: 03/01/2025 09:09 ET Assigned Physician: Jarod Thurman Reviewed and Electronically Signed By: Jarod Thurman Signed Date: 03/01/2025 09:14 ET Workstation ID: [id number] Transcribed By: Self Edit Transcribed Date: 03/01/2025 [...] Growth of Anaerobes. 03/03/2025 8:14 AM EDT [facility] Gram Stain Result Refer to Aerobic culture for gram stain results. 03/03/2025 8:14 AM EDT [facility] Swab Structure of toe of left foot / Unknown 02/26/2025 10:26 AM EDT 02/26/2025 11:08 AM EDT Elder Snyder DPM LAB MICROBIOLOGY - GENERA L ORDERABLES Final Result Performing Organization Address [facility] de Phone Number [facility] [address] [place] [address], [place] [phone] * (ABNORMAL) Culture wound deep (02/26/2025 10:19 AM EDT) Culture, Wound Cutibacterium granulosum(A) 03/02/2025 2:30 PM EDT [facility] Comment: Susceptibility testing not routinely performed. If further therapeutic information is required, please consult an infectious disease specialist. The organism value for this result has been updated. These results have been appended to the previously preliminary verified report. Gram Stain Result Few Polymorphonuclear leukocytes 03/02/2025 2:30 PM EDT [facility] Gram Stain Result No Epithelial cells 03/02/2025 2:30 PM EDT [facility] Gram Stain Result No organisms seen 03/02/2025 2:30 PM EDT [facility] Swab Structure of toe of left foot / Unknown 02/26/2025 10:19 AM EDT 02/26/2025 11:08 AM EDT Elder Snyder DPM LAB MICROBIOLOGY - GENERA L ORDERABLES Final Result Performing Organization Address [facility] de Phone Number [facility] [address] [place] [address], [place] [phone] * MR Foot wo and w Contrast [...] Signed Date: 02/24/2025 14:49 ET Workstation ID: [id number] Transcribed By: Self Edit Transcribed Date: 02/24/2025 [...] Signed Date: 02/24/2025 14:49 ET Workstation ID: [id number] Transcribed By: Self Edit Transcribed Date: 02/24/2025 14:43 ET Vernon Cedillo MD IMG MRI PROCEDURES Final Re sult * Blood Culture, Peripheral Draw #1 (02/24/2025 10:19 AM EDT) Only the most recent of2 resultswithin the time period is included. Culture, Blood No growth at 5 days LAB MICROBIOLOGY METHOD 03/01/2025 11:01 AM EDT [facility] Blood Venous blood specimen / Unknown Venipuncture / Unknown 02/24/2025 10:19 AM EDT 02/24/2025 10:34 AM EDT Vernon Cedillo MD LAB MICROBIOLOGY - GENERAL ORDERABLES Final Result [facility] [address] [place] [address], * External Xray Report (02/15/2025) Only the most recent of4 resultswithin the time period is included. Anatomical Region Laterality Modality Radiographic Farhana ging Provider [facility] IMG XR PROCEDURES Final Result * (ABNORMAL) Hemoglobin A1c (01/05/2025 10:08 AM EDT) Hemoglobin A1C 7.4(H) <6.5 % LAB CHEMISTRY METHOD 01/05/2025 1:49 PM EDT [facility] Mean Bld Glu Estim. 166 mg/dL LAB CHEMISTRY METHOD 01/05/2025 1:49 PM EDT [facility] Blood Venous blood specimen / Unknown Venipuncture / Unknown 01/05/2025 10:08 AM EDT 01/05/2025 10:08 AM EDT us Rachel SEVERINO LAB BLOOD ORDERABLES Final Res ult [facility] [address] [place] [address], [place] [phone] * (ABNORMAL) Lipid panel with reflex to direct LDL (12/23/2024 7:41 AM EDT) Cholesterol 172 0 - 200 mg/dL LAB CHEMISTRY METHOD 12/23/2024 12:50 PM EDT [facility] Triglycerides 233(H) 0 - 150 mg/dL LAB CHEMISTRY METHOD 12/23/2024 12:50 PM EDT [facility] HDL 44 >=40 mg/dL LAB CHEMISTRY METHOD 12/23/2024 12:50 PM EDT [facility] LDL Calculated 81 0 - 100 mg/dL LAB CHEMISTRY METHOD 12/23/2024 12:50 PM EDT [facility] VLDL Cholesterol Eleazar 46.6 mg/dL LAB CHEMISTRY METHOD 12/23/2024 12:50 PM EDT [facility] Non HDL Chol. (LDL+VLDL) 128 <145 mg/dL LAB CHEMISTRY METHOD 12/23/2024 12:50 PM EDT [facility] Chol/HDL Ratio 3.9 0.0 - 4.4 LAB CHEMISTRY METHOD 12/23/2024 12:50 PM EDT [facility] Blood Venous blood specimen / Unknown Venipuncture / Unknown 12/23/2024 7:41 AM EDT 12/23/2024 7:41 AM EDT Carri Suazo MD LAB BLOOD ORDERABLES Final Resul t [facility] [address] [place] [address], [place] [phone] * Microalbumin creatinine urine ratio (07/05/2024 8:17 AM EST) [facility] Creatinine, Urine 166.0 mg/dL LAB CHEMISTRY METHOD 07/05/2024 11:01 AM EST [facility] Microalb, Ur 13.5 0.0 - 29.0 mg/L LAB CHEMISTRY METHOD 07/05/2024 11:01 AM EST [facility] Microalb/Creat Ratio 8 <30 mg/g creat LAB CHEMISTRY METHOD 07/05/2024 11:01 AM EST [facility] Urine Urine specimen obtained by clean catch procedure / Unknown Non-blood Collection / Unknown 07/05/2024 8:17 AM EST 07/05/2024 8:17 AM EST Carri Suazo MD LAB URINE ORDERABLES Final Resul t [facility] [address] [place] [address], [place] [phone] * Diabetes Foot Exam (03/30/2024) [facility] Diabetes: Annual Foot Exam Abstracted [facility] Provider HEALTH MAINTENANCE Final Result * Diabetes Eye Exam (09/08/2023) [facility] Diabetes: Annual Retina Eye Exam Abstracted [facility] Provider HEALTH MAINTENANCE Final Result * Depression Screening (09/02/2023) [facility] Depression Screening Abstracted [facility] Provider HEALTH MAINTENANCE Final Result * Hepatitis C Screening (06/02/2013) [facility] Hepatitis C Screening Abstracted Jose Enrique Bedolla MD HEALTH MAINTENANCE Final Result from Last 3 Months or Most [place] [address] [facility] MEDICARE Member Subscriber Plan / Payer (Ef fective 2020-Present) Name:Major Christianson Relation to Subscriber:Self Name:Major Christianson Payer ID:[id number] Group ID:[id number] Type:Not on file Address: [place] [address] [address] [id number] Advance Directives Documents on File Type Date Recorded Patient Health Aide Expl anation Advance Directives and Living Will [...] File Name Relationship Healthcare Agent Relationship Communication Tajsirena Sammy Daughter First Alternate Health Care Agent [email or web address] Sarah Christianson Spouse Second Alterna te Health Care Agent Care Teams Linter Saw Sharpener Relationship Specialty Start Date End Date Carri Suazo MD [address] [place] [phone] PCP - General Internal Medicine 05/24/24
--- OUTSIDE RECORDS SUMMARY | 2025-05-04 15:38 | XMS_ITS | Encounter Summary ---
Author Organization [employer] Address [address] [place] [address] Care Team Providers Care Air Valve Repairer Name Role Phone Carri Suazo MD Primary Care Provider [phone] Encounter Details Date Type Department Care Team (Late st Contact Info) Description 12/21/2024 Lab Requisition [facility] - Main Lab [address] [place] [phone] [place] [address] [place] [address] [address] [place] [address] Benign prostatic hyperplasia with lower urinary tract [...] 05/11/2025 3:30 PM EDT Office Visit Adult [facility] [address] [place], [place] [phone] Carri Suazo MD [address] [place], [place] 06/19/2025 1:00 PM EST Appointment [facility] Ultrasound [address] [place] [phone] 07/07/2025 11:30 AM EST Office Visit Vascular Surgery - [place] [address] [place] [address] Raheel Duffy MD [address] [place] [address] 08/03/2025 9:00 AM EST Office Visit Endocrinology [address] [phone] Chu Joyner MD [address] [place] [address] documented as of this encounter Procedures Procedure Name Priority Date/Time Associated Diagnosis Comments PROSTATE SPECIFIC ANTIGEN DIAGNOSTIC Routine 12/21/2024 9:18 AM EDT Benign prostatic hyperplasia with lower urinary tract symptoms documented in this encounter Results * Prostate specific antigen diagnostic (12/21/2024 9:18 AM EDT) PSA 2.38 0.00 - 4.00 ng/mL LAB CHEMISTRY METHOD 12/21/2024 2:11 PM EDT [facility] Blood Venous blood specimen / Unknown 12/21/2024 9:18 AM EDT 12/21/2024 12:22 PM EDT Narrative [facility] - 12/21/2024 2:11 PM EDT The Siemens Advia WinDensityaur Chemiluminescent Immunoassay is used. Results obtained with different assay methods or kits cannot be used interchangeably. Results cannot be interpreted as absolute evidence of the presence or absence of malignant disease. us Marya SEVERINO LAB BLOOD ORDERABLES Final Result Performing Organization Address City/State/[facility] Co de Phone Number [facility] ([facility] [address] [place] [address], documented in this encounter Visit Diagnoses Diagnosis Benign prostatic hyperplasia with lower urinary tract symptoms documented in this encounter Additional Health Concerns Infection Onset Date Last Indicated Resolved Time Respiratory Rule-Out 03/15/2025 03/15/2025 025 10:09 PM EDT documented as of this encounter Care Teams Air Valve Repairer Relationship Specialty Start Date End Date Carri Suazo MD [address] [place] [phone] PCP - General Internal Medicine 05/24/24 documented as of this encounter
== END 2025-05-04 12:28 | disposition home or self-care (01) ==
LOC: HO.LNP 12:27
PROVIDERS: Visit Provider Surgery Surgical Oncology
DX: Z13.89 Encounter for screening for other disorder (principal)
CPT/HCPCS: 87070; 87073; 87205

== ENCOUNTER 2025-06-05 11:01 | Outpatient (AMB) | payer OTHER, SELFPAY ==
--- NOTE | 2025-06-05 11:05 | A.OFFVIS_ITS ---
Vital Signs 06/05/25 11:06 Height 5 ft 7 in Weight 211 lb 10.3 oz BMI 33.1 BP 140/64 H Blood Pressure Location Lt brachial Position Sitting Pulse 98 Pulse Source Monitor Intake Visit Reasons: 6 mth f/up Intake Note: 6 mth f/up Cylinder Valve Repairer Required: No Cylinder Valve Repairer Name: daughter Accompanied by: Daughter Allergies oxycodone (OXYCODONE) Allergy (Unknown, Verified 02/14/25 20:52) ITCH Medication List - Last Reconciled 06/05/25 by Helder Nguyen MD acetaminophen (Tylenol Extra Strength) 500 mg PO Q6H PRN albuterol sulfate 90 mcg/actuation (Ventolin HFA) 2 puffs inhalation Q4H PRN 30 days amlodipine 5 mg PO DAILY aspirin 81 mg PO DAILY atorvastatin 40 mg PO BEDTIME blood sugar diagnostic (FreeStyle Lite Strips) As directed cholecalciferol (vitamin D3) 50 mcg PO DAILY clindamycin HCl 450 mg (3 x 150 mg) PO TID clopidogrel 75 mg PO DAILY dulaglutide (Trulicity) mg subcut empagliflozin (Jardiance) 10 mg PO DAILY ferrous sulfate (FeroSul) 325 mg PO DAILY finasteride 5 mg PO DAILY osxxrraeuwc-oribxhpyi-lmpdlyop 100-62.5-25 mcg (Trelegy Ellipta) 1 inh inhalation DAILY 30 days lisinopril-hydrochlorothiazide 20-25 mg 12.5 tabs PO DAILY metformin 1,000 mg PO BID naproxen 500 mg PO BID PRN omeprazole 20 mg PO DAILY HPI Comments Details: Pleasant 79 year gentleman who is here for follow-up. He has background history of moderate coronary disease, moderate aortic valve stenosis and peripheral vascular disease. He has diabetes and hypertension. He apparently underwent a bone spur surgery in [facility]. Previous to that he had peripheral angiography and percutaneous intervention done by Dr. Grajeda. 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 Subsequently he had bypass surgery done at [facility] which I think is a femoral to peroneal bypass. We will get records from [facility]. Since then he has been doing better and there is some improvement in wound healing. His blood pressure was noticed to be low and he was getting tachycardic with standing up in his medications were adjusted and it looks like he is on a lower dose of hydrochlorothiazide at this point. He is also on aspirin and Plavix at this point. His blood pressure is slightly elevated at this point but he rushed to the office because he thought that he was late.. [facility] Medical History S/P angiogram of extremity (11/30/24) GERD (gastroesophageal reflux disease) Diabetes CAD (coronary artery disease) Tachycardia Asthma Surgical History Hx of cardiac cath H/O prostate biopsy Family History Mother Diabetes HTN (hypertension) Hypercholesteremia Father Heart disease Cancer HTN (hypertension) Hypercholesteremia Asthma Brother HTN (hypertension) Heart disease Hypercholesteremia Prostate cancer Brother No problems noted. Brother No problems noted. Brother Heart disease Heart attack Asthma Sister HTN (hypertension) Hypercholesteremia Kidney disease Sister Diabetes HTN (hypertension) Hypercholesteremia COPD (chronic obstructive pulmonary disease) Asthma Daughter Hyperthyroidism Asthma Daughter Asthma Migraines Social History Alcohol intake: current Alcohol intake frequency: a few times a week Alcohol type: beer and hard liquor Patient Tobacco Use Status: Former Tobacco user Review of Systems Const Denies chills, Denies fatigue, Denies fever(s), Denies frequent falls, Denies weakness, Denies weight gain and Denies weight loss ENT Denies dizziness Card Denies chest pain, Denies leg edema, Denies lightheadedness, Denies palpitations, Denies dyspnea and Denies dyspnea on exertion Resp Denies cough, Denies dyspnea and Denies dyspnea on exertion GI Denies hematochezia Musc Denies abnormal gait, Denies muscle weakness, Denies numbness, Denies radiating pain into limb and Denies tingling Neuro Denies abnormal gait, Denies dizziness, Denies frequent falls, Denies numbness, Denies tingling and Denies weakness Endo Denies fatigue and Denies palpitations Physical Exam Vital Signs: Last Vital Signs Pulse 98 06/05/25 11:06 BP 140/64 H 06/05/25 11:06 BMI result Body Mass Index 33.1 GENERAL APPEARANCE: in no acute distress, pleasant. NECK: no carotid bruit, mild jugular venous distention. SKIN: no suspicious lesions, warm and dry. Wound left medial malleolus currently dressed. HEART: Ejection systolic murmur aortic area with preserved 2nd heart sound, regular rate and rhythm. LUNGS: clear to auscultation bilaterally. ABDOMEN: soft, nontender. EXTREMITIES: Left foot dressed currently-recent amputation of the left little toe. PERIPHERAL PULSES: equal. NEUROLOGIC: No gross deficits, AAO X 3 Office Procedures EKG Details: Sinus rhythm 98 beats per minute, normal axis, QTC 444 milliseconds. [id number]-[place], Complete Assessment & Plan Assessment & Plan (1) Essential hypertension: Code(s): I10 - Essential (primary) hypertension Category: Medical (2) Aortic stenosis: Code(s): I35.0 - Nonrheumatic aortic (valve) stenosis Category: Medical Qualifiers: Cardiac valve disease etiology: etiology unspecified Qualified Code(s): I35.0 - Nonrheumatic aortic (valve) stenosis (3) Tachycardia: Code(s): R00.0 - Tachycardia, unspecified Category: Medical (4) PAD (peripheral artery disease): Comment: 11/30/2024 - left anterior tibial plasty Code(s): I73.9 - Peripheral vascular disease, unspecified Category: Medical Plan 79-year-old gentleman who is presenting for follow-up. He has background history of moderate coronary artery disease, hypertension, moderate aortic valve stenosis, peripheral vascular disease now status post lower extremity bypass surgery at [facility] (we will request records) and left little toe amputation due to nonhealing wound. His recent echocardiography has shown moderate aortic valve stenosis. His blood pressure is mildly elevated but overall numbers has been low at home his medications were actually decreased and he is on a lower dose of hydrochlorothiazide. I have advised no changes in medications currently for blood pressure. I have advised the daughter that the patient should be eating more protein and he should keep himself well hydrated. As he starts improving he should get into an exercise program. He can still do upper body exercises currently to prevent further deconditioning. I will get a 30 day monitor for him because he has subclinical strokes on his MRI and we should rule out atrial fibrillation and him. LDL cholesterol is elevated in his target is less than 55. I am adding ezetimibe 10 mg daily. The daughter will check with his vascular surgeon on next visit whether Xarelto 2.5 mg twice a day is a better option then Plavix. Thank you for allowing me to participate in the care of your patient. Please feel free to contact me if you have any questions. Orders: Orders ECG 30 day event monitor Today R00.0 - Tachycardia, unspecified Medications: New ezetimibe 10 mg PO DAILY 90 tabs 3RF E78.5 - Hyperlipidemia, unspecified Coding Level of Care Code Est Pt Level 4 (82429) Diagnoses Essential hypertension I10 Aortic valve stenosis, etiology of cardiac valve disease unspecified I35.0 Cardiac valve disease etiology: etiology unspecified Tachycardia R00.0 PAD (peripheral artery disease) I73.9 CPT Codes EKG - CPT: 89336-Cztcxswrkmwtyhvmt, Complete ([id number])
[2025-06-05 11:06] VITALS: BP 140/64; PULSE 98; BMI 33.1
== END 2025-06-05 12:06 | disposition home or self-care (01) ==
LOC: HO.HCS 11:01
PROVIDERS: PCP Internal Medicine; Visit Provider Internal Medicine Cardiovascular Disease
DX: I10 Essential (primary) hypertension (principal); I35.0 Nonrheumatic aortic (valve) stenosis; R00.0 Tachycardia, unspecified; I73.9 Peripheral vascular disease, unspecified
CPT/HCPCS: 93010; 99214

== ENCOUNTER → 2025-06-05 11:01 | Outpatient (BNVA) | payer OTHER, SELFPAY | PROVIDERS: PCP Internal Medicine; Visit Provider Internal Medicine Cardiovascular Disease | DX: I10 Essential (primary) hypertension (principal); I35.0 Nonrheumatic aortic (valve) stenosis; R00.0 Tachycardia, unspecified; I73.9 Peripheral vascular disease, unspecified; E78.5 Hyperlipidemia, unspecified | CPT/HCPCS: 93005; 99212 ==

== ENCOUNTER → 2025-06-19 11:01 | Outpatient (REF) | payer OTHER, SELFPAY ==
--- OUTSIDE RECORDS SUMMARY | 2025-06-19 12:51 | XMS_ITS | Encounter Summary ---
Author Organization [employer] Address [address] [place] [address] Care Team Providers Care Appliance Service Supervisor Name Role Phone Carri Suazo MD Primary Care Provider Reason for Referral * Imaging (Routine) - Authorized Specialty Diagnoses / Procedures Referred By Ai pack Referred To Contact Diagnoses PAD (peripheral artery disease) ([facility] V24) Procedures Vascular US duplex lower extremity arteries bilateral with DIANNA Davina Restrepo PA [address] [address] Phone: tel: fax: [facility] Referral ID Status Reason Start Date Expiration Date V isits Requested Visits Authorized [id number] Authorized 04/07/2025 04/06/2026 1 1 Reason for Visit * Imaging (Routine) - Authorized Specialty Diagnoses / Procedures Referred By Conthannah pack Referred To Contact Diagnoses PAD (peripheral artery disease) ([facility] V24) Procedures Vascular US duplex lower extremity arteries bilateral with DIANNA Davina Restrepo PA [address] [place] [address] Phone: tel: fax: [facility] Referral ID Status Reason Start Date Expiration Date V isits Requested Visits Authorized [id number] Authorized 04/07/2025 04/06/2026 1 1 Encounter Details Date Type Department Care Team (Latest Contact Info) Description 06/19/2025 12:51 PM EST Hospital Encounter [facility] Ultrasound [address] [place] [address] PAD (peripheral artery disease) ([facility] V24) Social History Tobacco Use Types Packs/Day Years Used Date Smoking Tobacco: Former Cigarettes 0 Q uit: 1985 Passive Smoke Exposure: Never [...] Abbi Perez RN documented in this encounter Plan of Treatment Upcoming Encounters Date Type Department Care Team (Late st Contact Info) Description 07/07/2025 11:30 AM EST Office Visit Vascular Surgery - [place] [address] [place] [address] Raheel Duffy MD [address] [place] [address] 07/11/2025 3:30 PM EST Office Visit Adult Medicine [address] [phone] Carri Suazo MD [address] [place] [address] 08/03/2025 8:00 AM EST Office Visit Endocrinology [address] [phone] Phil Jimenez MD [address] [place] [address] Pending Results Name Type Priority Associated Diagnoses Date/Time Vascular US duplex lower extremity arteries bilateral with DIANNA Vascular Ultrasound Routine PAD (peripheral artery disease) ([facility] V24) 06/19/2025 12:57 PM EST Scheduled Orders Name Type Priority Associated Diagnoses Order Schedule Vascular US duplex lower extremity arteries bilateral with DIANNA Vascular Ultrasound Routine PAD (peripheral artery disease) (CMS/HCC V24) Once for 1 Occurrences starting 06/19/2025 until 06/19/2025 documented as of this encounter Visit Diagnoses Diagnosis PAD (peripheral artery disease) (CMS/HCC V24) Unspecified peripheral vascular disease documented in this encounter Care Teams Appliance Service Supervisor Relationship Specialty Start Date End Date Carri Suazo MD [address] [place] [address] PCP - General Internal Medicine 05/24/24 documented as of this encounter
--- OUTSIDE RECORDS SUMMARY | 2025-06-19 14:25 | XMS_ITS | Encounter Summary ---
Author Organization [employer] Address [address] [place] [address] Care Team Providers Care Industrial Property Appraiser Name Role Phone Carri Suazo MD Primary Care Provider [phone] Reason for Referral * Consultation (Routine) - Closed Specialty Diagnoses / Procedures Referred By Ai pack Referred To Contact Neurology Diagnoses Sequela of lacunar infarction Carri Suazo MD [address] [place] [address] Phone: tel: fax: [facility] [address] [address] Phone: tel: fax: Referral ID Status Reason Start Date Expiration Date V isits Requested Visits Authorized [id number] Closed Specialty Services Required 05/26/2025 05/26/2026 1 1 Encounter Details Date Type Department Care Team ([facility] Contact Info) Description 05/26/2025 Results Follow-Up Adult Medicine [address] [phone] Carri Suazo MD [address] [place] [address] Social History Tobacco Use Types Packs/Day Years [...] documented in this encounter Progress Notes * Carri Suazo MD - 06/06/2025 2:39 PM EST I called and spoke with patient's daughter on the phone regarding this, they will await neurology referral. 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 wafers marker documented in this encounter Plan of Treatment Upcoming Encounters Date Type Department Care Team (Late st Contact Info) Description 07/07/2025 11:30 AM EST Office Visit Vascular Surgery - [place] [address] [place] [address] Raheel Duffy MD [address] [place] [address] 07/11/2025 3:30 PM EST Office Visit Adult Medicine [address] [phone] Carri Suazo MD [address] [place] [address] 08/03/2025 8:00 AM EST Office Visit Endocrinology [address] [phone] Phil Jimenez MD [address] [place] [address] Scheduled Referrals Name Type Priority Associated Diagnoses Order Schedule Ambulatory referral to Neurology Outpatient Referral Routine Sequela of lacunar infarction 1 Occurrences starting 05/26/2025 until 05/26/2026 documented as of this encounter Visit Diagnoses Diagnosis Sequela of lacunar infarction- Primary documented in this encounter Care Teams Industrial Property Appraiser Relationship Specialty Start Date End Date Carri Suazo MD [address] [place] [address] PCP - General Internal Medicine 05/24/24 documented as of this encounter
--- OUTSIDE RECORDS SUMMARY | 2025-06-19 14:25 | XMS_ITS | Clinical Summary ---
Author Organization [facility] Address [address] [place] [address] Care Team Providers Care Car Whacker Name Role Phone Wandy Delcid DO Primary [...] age to complete this topic Care Teams Car Whacker Relationship Specialty Start Date End Date Wandy Delcid DO PCP - General Block Sealer 02/17/20
--- OUTSIDE RECORDS SUMMARY | 2025-06-19 14:26 | XMS_ITS | Clinical Summary ---
Author Organization [facility] [address] [place] [address] Address [address] [place], [place] Phone Care Team Providers Care Retail Warehouse Supervisor Name Role Phone Carri Suazo MD Primary Care Provider [phone] Allergies Active Allergy Reactions Criticality Noted Date Comments Grass Pollen Runny nose Medium 03/15/2025 Other 04/20/2009 Seasonal Allergies Medications albuterol 2.5 mg /3 mL (0.083 %) nebulizer solution 3 mL (2.5 mg total) every 4 (four) hours if needed. 3 Active albuterol HFA (Ventolin HFA) 90 mcg/actuation inhaler Inhale 2 puffs by mouth every 4 (four) hours if needed for wheezing (COUGH). 3 Active amLODIPine (NORVASC) 5 mg tablet Take 1 tablet (5 mg total) by mouth 1 (one) time each day. Active atorvastatin (LIPITOR) 40 mg tablet Take 1 tablet (40 mg total) by mouth at bedtime. 2 Active fluticasone-umec lidinium-vilante rol (Trelegy Ellipta) 100-62.5-25 mcg inhaler Inhale 1 puff (100 mcg total) by mouth 1 (one) time each day. 4 Active pen needle, diabetic (Pen Needle) 31 gauge x 3/16 needle 1 Each by Does not apply route 3 times daily (with meals). 4 Active finasteride (PROSCAR) 5 mg tablet TAKE 1 TABLET BY MOUTH EVERY DAY 90 tablet 1 4 Active FreeStyle Lite Meter monitoring kitIndications:T ype 2 diabetes mellitus with other ophthalmic complication, without long-term current use of insulin ([facility] V24, [facility] V28) USE TO CHECK BLOOD SUGAR DAILY 1 kit 5 Active aspirin 81 mg EC tablet TAKE 1 TABLET BY MOUTH EVERY DAY 90 tablet 1 5 Active omeprazole (PriLOSEC) [address] capsule TAKE 1 CAPSULE BY MOUTH EVERY DAY 90 capsule 1 5 Active metFORMIN (GLUCOPHAGE) 1,000 mg tablet TAKE 1 TABLET BY MOUTH TWICE A DAY WITH FOOD 180 tablet 1 5 Active glipiZIDE (GLUCOTROL) 5 mg tablet TAKE 1 TABLET BY MOUTH EVERY DAY 90 tablet 1 5 Active Jardiance 25 mg tablet TAKE 1 TABLET BY MOUTH EVERY DAY 90 tablet 1 5 Active cholecalciferol (VITAMIN D-3) 50 mcg (2,000 unit) capsule TAKE 1 CAPSULE BY MOUTH EVERY DAY 90 capsule 1 5 Active Additional Information Patient taking differently: 2,000 Units Daily, Reported on 05/11/2025 fluticasone propionate (FLONASE) 50 mcg/actuation nasal spray ADMINISTER 2 SPRAYS INTO EACH NOSTRIL 2 (TWO) TIMES A DAY. SHAKE GENTLY. BEFORE FIRST USE, PRIME PUMP. AFTER USE, CLEAN TIP AND REPLACE CAP. 48 mL 1 5 Active Additional Information Patient taking differently:2 spray Each Nostril2 times daily PRN, Shake gently. Before first use, prime pump. After use, clean tip and replace cap., Reported on 05/11/2025 clopidogreL (PLAVIX) 75 mg tablet Take 1 tablet (75 mg total) by mouth 1 (one) time each day. LAST DOSE WAS 03/09/25 Active ferrous sulfate 325 mg (65 mg iron) EC tablet Take 1 tablet (325 mg total) by mouth 1 (one) time each day with breakfast. Do not crush, chew, or split. 90 each 1 5 Active acetaminophen (TYLENOL) 500 mg tablet Take 2 tablets (1,000 mg total) by mouth every 6 (six) hours if needed for mild pain or moderate pain. 40 tablet 5 Active lisinopril-hydro CHLOROthiazide (PRINZIDE,ZESTOR ETIC) 20-12.5 mg per tablet Take 1 tablet by mouth 1 (one) time each day. 90 tablet 1 5 Active loratadine (CLARITIN) 10 mg tablet Take 1 tablet (10 mg total) by mouth 1 (one) time each day. 90 each 1 5 026 Active Trulicity 3 mg/0.5 mL pen injector injectionIndicat ions:Type 2 diabetes mellitus with other specified complication ([facility] V24, [facility] [place] [place] V28) INJECT 1 PEN (3 MG) INTO THE SKIN ONE TIME PER WEEK 9 mL 1 5 Active blood sugar diagnostic (FreeStyle Lite Strips) test stripIndications :Type 2 diabetes mellitus with other ophthalmic complication, without long-term current use of insulin ([facility] [place] [place] V24, [facility] [place] [place] V28) Check blood sugar once a day 100 strip 5 5 Active FreeStyle Lancets 28 gauge lancets Check blood sugar once a day 100 each 11 5 Active polyethylene glycol (MIRALAX) 17 gram packet Take 17 g by mouth 1 (one) time each day. 100 each 5 025 Active Problems Problem Noted Date Diagnosed Date Critical limb ischemia of le ft lower extremity ([facility] [place] [place] V24, [facility] [place] [place] V28) 03/08/2025 Diabetic foot infection ([facility] [place] [place] V24, [facility] [place] [place] V2 8) 02/24/2025 PAD (peripheral artery disease) ([facility] [place] [place] V24) Multiple exostoses 02/09/2025 PVD (peripheral vascular disease) ([facility] [place] [place] V24) 01/05/2025 Nonrheumatic aortic valve stenosis 01/05/2025 Type 2 diabetes mellitus wit h diabetic peripheral angiopathy without gangrene, without long-term current use of insulin ([facility] [place] [place] V24, [facility] [place] [place] V28) 01/05/2025 Maninder godfrey, left 12/01/2024 Microalbuminuria 04/07/2022 Normocytic anemia 10/02/2019 Habitual alcohol use 10/26/2018 BPH (benign prostatic hyperplasia) 01/30/2016 PSA elevation 02/06/2015 DM (diabetes mellitus), type 2 with ophthalmic complications ([facility] V24, [facility] [place] [place] V28) 09/12/2013 Overview (04/18/2024): Nuclear Sclerosis out side eye exam 07/07/12. Dr. Engle. Obesity (BMI 30.0-34.9) 11/20/2009 Asthma 04/13/2006 Essential hypertension, benign 04/13/2006 CAD (coronary artery disease) 04/13/2006 Hyperlipidemia 04/13/2006 Lumbago 04/13/2006 Encounters Date Type Department Care Team Description 06/19/2025 12:51 PM EST Hospital Encounter [facility] Ultrasound [address] [place] [address] PAD (peripheral artery disease) ([facility] [place] [place] V24) 05/26/2025 Results Follow-Up Adult Medicine [address] [phone] Carri Suazo MD 05/25/2025 5:41 PM EST - 05/25/2025 11:59 PM EST Hospital Encounter Radiology Department - [address] [phone] Tremor Discharge Disposition: Home or Self Care 05/12/2025 Results Follow-Up Adult Medicine [address] [phone] Latoya Tan [place] 05/11/2025 3:30 PM EDT Office Visit Adult [address] [phone] Carri Suazo MD Tremor (Primary Dx); Essential hypertension, benign; Mixed hyperlipidemia; Need for prophylactic vaccination and inoculation against influenza 05/09/2025 Telephone Endocrinology - [address] [place] [phone] Chu Joyner MD 05/05/[address] [phone] Chu Joyner MD 05/04/[address] [phone] Kenzie Delcid [place] 04/21/2025 1:00 PM EDT Office Visit Vascular Surgery [facility] [address] [place] [phone] Raheel Duffy MD Critical limb ischemia of left lower extremity (CMS/HCC V24, CMS/HCC V28) (Primary Dx); Non-healing surgical wound, initial encounter 04/17/[address] [phone] Kenzie Delcid [place] 04/14/2025 3:30 PM EDT Office Visit Vascular Surgery - [place] [address] [place] [address] Davina Restrepo PA PAD (peripheral artery disease) (CMS/HCC V24) (Primary Dx); Critical limb ischemia of left lower extremity (CMS/HCC V24, CMS/HCC V28); Non-healing surgical wound, initial encounter 04/11/2025 9:00 AM EDT Office Visit [address] [phone] Carri Suazo MD Hospital discharge follow-up (Primary Dx); PAD (peripheral artery disease) (CMS/HCC V24); Other acute osteomyelitis of left foot (CMS/HCC V24, CMS/HCC V28); 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 (CMS/HCC V24); S/P vascular bypass; Essential hypertension, benign; Type 2 diabetes mellitus with other ophthalmic complication, without long-term current use of insulin (CMS/HCC V24, CMS/HCC V28) 04/06/2025 1:30 PM EDT Office Visit Vascular Surgery [facility] [address] [place] [address] Davina Restrepo PA PAD (peripheral artery disease) ([facility] V24) (Primary Dx) 04/03/2025 Telephone Adult Medicine [address] [phone] Carri Suazo MD 03/27/2025 Telephone Adult Medicine [address] [phone] Carri Suazo MD 03/23/2025 Telephone Adult Medicine [address] [phone] Amy Buitrago [place] 03/21/2025 11:44 AM EDT - 03/21/2025 12:[address] [facility] Main OR [address] [place] [phone] Raheel Duffy MD INCISION AND DRAINAGE left 5th metatarsal bone, WASHOUT, WOUND, and complex secondary wound clsoure left foot 03/21/2025 10:58 AM EDT Anesthesia Event [facility] OR [address] [place] [phone] Ld Jimenez DO Slanda, Aliya, [facility] 03/15/2025 8:55 AM EDT - 03/25/2025 11:03 AM EDT Hospital Encounter [facility] Medical Surgical Unit [address] [place] [address] Raheel Duffy MD Loiacono, Laurie, MD Kokosadze, Estate, MD Critical limb ischemia of left lower extremity ([facility] V24, [facility] V28) (Primary Dx); Diabetic foot infection ([facility] V24, [facility] V28); PAD (peripheral artery disease) ([facility] V24) Discharge Disposition: Home-Health Care [facility] from Last 3 Months Immunizations Immunization Administration Dates Next Due H1N1 Inj Preservative Free 08/21/2009 Influenza Quadravalent, 0.5m l (Fluzone High-dose) 65yo and older 06/10/2020 Influenza Quadravalent, MDCK , 0.5ml, preservative free (Flucelvax) 6mo and older 04/07/2022,07/08/2018 Influenza trivalent, 0.5mL ( Fluad) 65yo and older 05/11/2025,05/25/2024 Influenza trivalent, 0.5mL ( Fluzone High-dose) 65yo and older 05/28/2023,05/16/2021,06/10/2020,07/25,05/01/2017 Influenza trivalent, with pr eservative (Fluzone; Afluria) 6mo and older 07/31/2016,06/11/2015,06/06/2014,05/31,05/25/2012,06/23/2011,03/26/2010 ,05/21/2009,05/17/2007,06/08/2006 LiveIntent SARS-CoV-2 COVID-19, mRNA, LNP-S, preservative free 07/09/2021 Pneumococcal conjugate 13 va lent (Prevnar 13, PCV13) 2mo and older 07/31/2016 Pneumococcal polysaccharide 23 valent (Pneumovax 23) 2yo and older 05/25/2012 Td Tetanus diptheria (Tdvax) 7yo and older 06/27/2014,05/31/2013 Td Tetanus diptheria, preser vative free (Tenivac) 7yo and older 06/27/2014 Tdap Tetanus diptheria acell ular pertussis (Boostrix; [...] Coronary atherosclerosis of unspecified type of vessel, tonto apache or graft 04/13/2006 DX:Coronary atherosclerosis of unspecified type of vessel, tonto apache or graft Other and unspecified hyperlipidemia 04/13/2006 [...] disease MUMER, CAD,PVD Asthma Anemia Neuromuscular disorder ([facility] V24, [facility] V28) Arthritis Joint pain Non-healing wound of left lo wer extremity Family History Medical History Relation Name Comments Glaucoma Father Glaucoma Mother cad Relation Name Status Comments Brother Alive CAD Daughter 1 Alive thyroid problem s Daughter 2 Alive Daughter 3 Alive Daughter 4 Alive Father [place] Mother DM Sister Alive DM Son Alive [...] Sign Reading Time Taken Comments Blood Pressure 110/62 05/11/2025 3:49 PM EDT Pulse 82 05/11/2025 3:49 PM EDT Temperature 36.3 C (97.4 F) 05/11/2025 3:49 PM EDT Respiratory Rate 14 05/11/2025 3:49 PM EDT Oxygen Saturation 97% 04/11/2025 9:22 AM EDT Inhaled Oxygen Concentration - - Weight 94.8 kg (209 lb) 05/11/2025 3:49 PM EDT Height 170.2 cm (5' 7 ) 05/11/2025 3:49 PM EDT Body Mass Index 32.73 05/11/2025 3:49 PM EDT Plan of Treatment Upcoming Encounters Date Type Department Care Team (Late st Contact Info) Description 07/07/2025 11:30 AM EST Office Visit Vascular Surgery - [place] [address] [place] [address] Raheel Duffy MD [address] [place] [phone] 07/11/2025 3:30 PM EST Office Visit Adult Medicine [place] - [address] [phone] Crari Suazo MD [address] [place] [address] 08/03/2025 8:00 AM EST Office Visit Endocrinology [address] [phone] Phil Jimenez MD [address] [place] [address] Health Maintenance Due Date Last Done Comments RSV Immunization Adult Patients (1 - 1-dose 75+ series) 2021 Medicare Annual Wellness Visit 06/28/2022 Social Influencers of Health Screening 06/28/2022 Zoster Vaccines (2 of 2) 02/27/2024 01/02/2024 Depression Screening 07/20/2024 09/02/2023 Diabetes: Annual Retina Eye Exam 09/08/2024 09/08/2023, 09/08/2023 COVID-19 Vaccine ( season) 2025 07/09/2021, 11/18/2020, 10/28/2020 Diabetes: Annual Urine Albumin-Creatinine Ratio (uACR) 07/05/2025 07/05/2024, 02/29/2024 Diabetes: Blood Sugar Control Test (HGBA1C) 11/09/2025 05/11/2025, 01/05/2025, 07/05/2024, Additional history exists Diabetes: Annual Foot Exam 03/18/202603/18, 02/24/2025, 03/30/2024 Falls Risk Assessment 03/25/2026 03/25/2025 Diabetes: Annual GFR (Glomerular Filtration Rate) 05/11/2026 05/11/2025, 03/25/2025, 03/24/2025, Additional history exists Hypertension/CHF/CAD Annual BMP Blood Test 05/11/2026 05/11/2025, 03/25/2025, 03/24/2025, Additional history exists Cholesterol Screening (Lipid Panel) 12/23/2029 12/23/2024, 07/05/2024, 02/29/2024, Additional history exists DTaP,Tdap,and Td Vaccines (5 - Td or Tdap) 09/07/2034 09/07/2024, 06/27/2014, 06/27/2014, Additional history exists Hepatitis C Screening Completed 06/02/2013 Pneumococcal Vaccine: 50+ Years Completed 07/31/2016, 05/25/2012 Colorectal Cancer Screening: Colonoscopy Discontinued 12/26/2016 Influenza Vaccine Completed 05/11/2025, , 05/28/2023, Additional history exists HIB Vaccines Aged Out [...] this topic Medical Devices Implanted Type Area Allied Health Professional Device Identifier Shelf Expiration Date Model / Serial / Lot Hemostat Absorb Surgicel 2x4in Fibrillar - Sn/A - [id number] Implanted:Qty: 1 on 03/15/2025 by Raheel Duffy MD at [facility] Hemostasis Left: Leg [employer] 09/17/2027 1962 / N/A / [id number] Sealant Fibrin Vistaseal 10ml - [id number] - [id number] Implanted:Qty: 1 on 03/15/2025 by Raheel Duffy MD at [facility] Hemostasis Left: Leg [employer] [id number] 08/23/2026 VST10 / [id number] / [id number] Procedures Procedure Name Priority Date/Time Associated Diagnosis Comments MR BRAIN WO CONTRAST Routine 05/25/2025 6:23 PM EST Tremor CBC WITH AUTO DIFFERENTIAL Routine 05/11/2025 4:33 PM EDT PAD (peripheral artery disease) ([facility] V24) IRON AND TIBC Routine 05/11/2025 4:33 PM EDT Normocytic anemia FERRITIN Routine 05/11/2025 4:33 PM EDT Normocytic anemia CBC AND DIFFERENTIAL Routine 05/11/2025 4:33 PM EDT PAD (peripheral artery disease) ([facility] V24) HEMOGLOBIN A1C Routine 05/11/2025 4:33 PM EDT Type 2 diabetes mellitus with other ophthalmic complication, without long-term current use of insulin ([facility] V24, [facility] V28) COMPREHENSIVE METABOLIC PANEL Routine 05/11/2025 4:33 PM EDT Type 2 diabetes mellitus with other ophthalmic complication, without long-term current use of insulin ([facility] V24, [facility] V28) POCT GLUCOSE BLOOD Routine 03/25/2025 7: 52 AM EDT CBC WITH AUTO DIFFERENTIAL Routine 03/25/2025 5:15 AM EDT BASIC METABOLIC PANEL Routine 03/25/2025 5:15 AM EDT CBC AND DIFFERENTIAL Routine 03/25/2025 5:15 AM EDT POCT GLUCOSE BLOOD Routine 03/24/2025 7: 32 PM EDT POCT GLUCOSE BLOOD Routine 03/24/2025 4: 01 PM EDT POCT GLUCOSE BLOOD Routine 03/24/2025 10 :55 AM EDT VANCOMYCIN, TROUGH Timed 03/24/2025 8: 05 AM EDT CBC WITH AUTO DIFFERENTIAL Routine 03/24/2025 8:05 AM EDT CBC AND DIFFERENTIAL Routine 03/24/2025 8:05 AM EDT BASIC METABOLIC PANEL Routine 03/24/2025 8:05 AM EDT POCT GLUCOSE BLOOD Routine 03/24/2025 7: 53 AM EDT POCT GLUCOSE BLOOD Routine 03/23/2025 10 :00 PM EDT POCT GLUCOSE BLOOD Routine 03/23/2025 4: 05 PM EDT POCT GLUCOSE BLOOD Routine 03/23/2025 11 :08 AM EDT POCT GLUCOSE BLOOD Routine 03/23/2025 8: 13 AM EDT VANCOMYCIN, TROUGH Timed 03/23/2025 7: 58 AM EDT LAVENDER - EDTA Routine 03/23/2025 7:56 AM EDT EXTRA TUBES Routine 03/23/2025 7:56 AM EDT POCT GLUCOSE BLOOD Routine 03/22/2025 7: 52 PM EDT POCT GLUCOSE BLOOD Routine 03/22/2025 3: 57 PM EDT POCT GLUCOSE BLOOD Routine 03/22/2025 11 :35 AM EDT POCT GLUCOSE BLOOD Routine 03/22/2025 [...] PM EDT POCT GLUCOSE BLOOD Routine 03/21/2025 12 :21 PM EDT OXYGEN THERAPY, ADULT Routine 03/21/2025 [...] PM EDT POCT GLUCOSE BLOOD Routine 03/20/2025 10 :58 AM EDT POCT GLUCOSE BLOOD Routine 03/20/2025 7: 47 AM EDT VANCOMYCIN, TROUGH Timed 03/20/2025 6: 59 AM EDT CBC WITH AUTO DIFFERENTIAL Routine 03/20/2025 6:59 AM EDT BASIC METABOLIC PANEL Routine 03/20/2025 6:59 AM EDT CBC AND DIFFERENTIAL Routine 03/20/2025 6:59 AM EDT LIPID PANEL WITH REFLEX TO DIRECT LDL Routine 12/23/2024 7:41 AM EDT Mixed hyperlipidemia MICROALBUMIN CREATININE URINE RATIO Routine 07/05/2024 8:17 AM EST Type 2 diabetes mellitus with other specified complication, without long-term current use of insulin ([facility] V24, [facility] V28) DIABETES FOOT EXAM Routine 03/30/2024 DIABETES EYE EXAM Routine 09/08/2023 DEPRESSION SCREENING Routine 09/02/2023 HEPATITIS C SCREENING Routine 06/02/2013 from Last 3 Months or Most Recently Relevant to Health Maintenance Results * MR Brain wo Contrast (05/25/2025 6:23 PM EST) Anatomical Region Laterality Modality Head and Neck Magnetic Resonan ce 05/25/2025 7:07 PM EST Narrative 05/25/2025 7:15 PM EST MRI of the head without intravenous contrast. History bilateral hand tremors. Examination was performed on 1.5 Tomasa magnet without administration of intravenous contrast. No previous studies are available for comparison. There is a sulcal ventricular prominence probably reflecting mild atrophic changes. Cerebellar tonsils are normally positioned. There is no evidence of midline shift, extra or intra-axial blood or fluid collections. There is no visible masses or mass effect in the brain and cerebellum. There are several fluid signal intensity lesions in the basal ganglia bilaterally the largest on the left measuring approximately 9 mm without associated restricted diffusion most likely representing old lacunar infarctions. There are extensive supratentorial white matter signal abnormalities, involving subcortical deep and periventricular locations the largest areas in the periventricular white matter. There is no associated restricted diffusion or magnetic susceptibility artifact. No focal signal abnormalities were identified within the corpus callosum or posterior fossa. White matter signal abnormalities most likely due to chronic small vessel ischemia. Paranasal sinuses and mastoid processes appear to be unremarkable. CONCLUSIONS: Extensive supratentorial white matter signal abnormalities most likely due to chronic small vessel ischemia. Mild atrophic changes. 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 -------- FINAL REPORT -------- Dictated By: Dominique Corrigan Dictated Date: 05/25/2025 19:07 ET Assigned Physician: Dominique Corrigan Reviewed and Electronically Signed By: Dominique Corrigan Signed Date: 05/25/2025 19:15 ET Workstation ID: [id number] Transcribed By: Self Edit Transcribed Date: 05/25/2025 19:07 ET Procedure Note Dominique Corrigan MD - 05/25/2025 MRI of the head without intravenous contrast. History bilateral hand tremors. Examination was performed on 1.5 Tomasa magnet without administration ofintravenous contrast. No previous studies are available for comparison. There is a sulcal ventricular prominence probably reflecting mild atrophicchanges. Cerebellar tonsils are normally positioned. There is no evidenceof midline shift, extra or intra-axial blood or fluid collections. Thereis no visible masses or mass effect in the brain and cerebellum. There areseveral fluid signal intensity lesions in the basal ganglia bilaterallythe largest on the left measuring approximately 9 mm without associatedrestricted diffusion most likely representing old lacunar infarctions.There are extensive supratentorial white matter signal abnormalities,involving subcortical deep and periventricular locations the largest areasin the periventricular white matter. There is no associated restricteddiffusion or magnetic susceptibility artifact. No focal signalabnormalities were identified within the corpus callosum or posteriorfossa. White matter signal abnormalities most likely due to chronic smallvessel ischemia. Paranasal sinuses and mastoid processes appear to be unremarkable. CONCLUSIONS: Extensive supratentorial white matter signal abnormalitiesmost likely due to chronic small vessel ischemia. 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 -------- FINAL REPORT -------- Dictated By: Dominique Corrigan Dictated Date: 05/25/2025 19:07 ET Assigned Physician: Dominique Corrigan Reviewed and Electronically Signed By: Dominique Corrigan Signed Date: 05/25/2025 19:15 ET Workstation ID: [id number] Transcribed By: Self Edit Transcribed Date: 05/25/2025 19:07 ET us Carri Suazo MD IM MRI PROCEDURES Final Result * (ABNORMAL) CBC auto differential (05/11/2025 4:33 PM EDT) Only the most recent of6 resultswithin the time period is included. [facility] WBC 9.1 4.8 - 10.8 K/mcL LAB HEMETOLOGY METHOD 05/11/2025 6:45 PM [facility] RBC 4.50 4.50 - 5.50 M/mcL LAB HEMETOLOGY METHOD 05/11/2025 6:45 PM [facility] Hemoglobin 10.0(L) 13.5 - 17.5 g/dL LAB HEMETOLOGY METHOD 05/11/2025 6:45 PM [facility] Hematocrit 36.0(L) 42.0 - 54.0 % LAB HEMETOLOGY METHOD 05/11/2025 6:45 PM [facility] MCV 79.8 79.0 - 98.0 FL LAB HEMETOLOGY METHOD 05/11/2025 6:45 PM [facility] MCH 22.2(L) 27.0 - 32.0 pcg LAB HEMETOLOGY METHOD 05/11/2025 6:45 PM [facility] MCHC 27.8(L) 32.0 - 37.0 g/dL LAB HEMETOLOGY METHOD 05/11/2025 6:45 PM [facility] RDW 18.7(H) 11.0 - 15.0 % LAB HEMETOLOGY METHOD 05/11/2025 6:45 PM [facility] Platelets 272 130 - 400 K/mcL LAB HEMETOLOGY METHOD 05/11/2025 6:45 PM [facility] MPV 12.3(H) 7.0 - 11.0 FL LAB HEMETOLOGY METHOD 05/11/2025 6:45 PM [facility] NRBC 0.0 <1.0 % LAB HEMETOLOGY METHOD 05/11/2025 6:45 PM [facility] NRBC Absolute 0.00 <0.10 K/[facility] LAB HEMETOLOGY METHOD 05/11/2025 6:[address] [facility] Neutrophils Relative 69.8 % LAB HEMETOLOGY METHOD 05/11/2025 6:[address] [facility] Lymphocytes Relative 22.1 % LAB HEMETOLOGY METHOD 05/11/2025 6:[address] [facility] Monocytes Relative 6.9 % LAB HEMETOLOGY METHOD 05/11/2025 6:[address] [facility] Eosinophils Relative 0.4 % LAB HEMETOLOGY METHOD 05/11/2025 6:[address] [facility] Basophils Relative 0.4 % [facility] Immature Granulocytes Relative 0.4 % LAB HEMETOLOGY METHOD 05/11/2025 6:[address] [facility] Neutrophils Absolute 6.32 1.50 - 7.00 K/mcL LAB HEMETOLOGY METHOD 05/11/2025 6:[address] [facility] Lymphocytes Absolute 2.01 1.00 - 5.00 K/mcL LAB HEMETOLOGY METHOD [facility] Monocytes Absolute 0.63 0.20 - 1.00 K/mcL LAB HEMETOLOGY METHOD 05/11/2025 6:[address] [facility] Eosinophils Absolute 0.04 0.00 - 0.50 K/mcL LAB HEMETOLOGY METHOD 05/11/2025 6:[address] [facility] Basophils Absolute 0.04 0.00 - 0.20 K/mcL LAB HEMETOLOGY METHOD [facility] Immature Granulocytes Absolute 0.04(H) 0.00 - 0.03 K/mcL LAB HEMETOLOGY METHOD 05/11/2025 6:[address] [facility] Blood Venous blood specimen / Unknown Venipuncture / Unknown 05/11/2025 4:33 PM EDT 05/11/2025 4:33 PM EDT Carri Suazo MD LAB BLOOD ORDERABLES Final Resul t Performing Organization Address [facility]/ZIP Co de Phone Number [facility] [address] [place] [address], [place] [phone] * (ABNORMAL) Iron and TIBC (05/11/2025 4:33 PM EDT) Iron 29(L) 50 - 160 mcg/dL LAB CHEMISTRY METHOD 05/11/2025 7:[address] [facility] TIBC 370 250 - 450 mcg/dL LAB CHEMISTRY METHOD 05/11/2025 7:[address] [facility] Iron Saturation 8(L) 20 - 50 % LAB CHEMISTRY METHOD 05/11/2025 7:[address] [facility] Blood Venous blood specimen / Unknown Venipuncture / Unknown 05/11/2025 4:33 PM EDT 05/11/2025 4:33 PM EDT Rachel SEVERINO LAB BLOOD ORDERABLES Final Res ult Performing Organization Address City/[facility]/ZIP Co de Phone Number [facility] [address] [place] [address], [place] [phone] * Hemoglobin A1c (05/11/2025 4:33 PM EDT) Hemoglobin A1C 6.3 <6.5 % LAB CHEMISTRY METHOD 05/11/2025 9:[address] [facility] Mean Bld Glu Estim. 134 mg/dL LAB CHEMISTRY METHOD 05/11/2025 9:[address] [facility] Blood Venous blood specimen / Unknown Venipuncture / Unknown 05/11/2025 4:33 PM EDT 05/11/2025 4:33 PM EDT Carri Suazo MD LAB BLOOD ORDERABLES Final Resul t Performing Organization Address [facility]/ZIP Co de Phone Number [facility] [address] [place] [address], [place] [phone] * (ABNORMAL) Ferritin (05/11/2025 4:33 PM EDT) Pathologist [facility] Ferritin 23(L) 26 - 388 ng/mL LAB CHEMISTRY METHOD 05/11/2025 7:[address] [facility] Blood Venous blood specimen / Unknown Venipuncture / Unknown 05/11/2025 4:33 PM EDT 05/11/2025 4:33 PM EDT Rachel SEVERINO LAB BLOOD ORDERABLES Final Res ult Performing Organization Address City/[facility]/ZIP Co de Phone Number [facility] [address] [place] [address], [place] [phone] * (ABNORMAL) Comprehensive metabolic panel (05/11/2025 4:33 PM EDT) [facility] Sodium 141 133 - 145 mmol/L LAB CHEMISTRY METHOD 05/11/2025 7:[address] [facility] Potassium 4.9 3.5 - 5.5 mmol/L LAB CHEMISTRY METHOD 05/11/2025 7:[address] [facility] Chloride 106 96 - 110 mmol/L LAB CHEMISTRY METHOD 05/11/2025 7:[address] [facility] CO2 25 21 - 32 mmol/L LAB CHEMISTRY METHOD 05/11/2025 7:[address] [facility] Anion Gap 10 3 - 11 LAB CHEMISTRY METHOD 05/11/2025 7:[address] [facility] Glucose 101(H) 70 - 100 mg/dL LAB CHEMISTRY METHOD 05/11/2025 7:19 PM [facility] BUN 18 5 - 25 mg/dL LAB CHEMISTRY METHOD 05/11/2025 7:19 PM [facility] Creatinine 1.16 0.70 - 1.30 mg/dL LAB CHEMISTRY METHOD 05/11/2025 7:19 PM [facility] eGFR 64 >=60 mL/min/1. 73m2 LAB CHEMISTRY METHOD 05/11/2025 7:19 PM [facility] Comment:Calculation based on the Chronic Kidney Disease Epidemiology Collaboration (CKD-EPI) equation refit without adjustment for race. BUN/Creatinine Ratio 15.5 LAB CHEMISTRY METHOD 05/11/2025 7:19 PM [facility] Calcium 9.4 8.5 - 10.5 mg/dL LAB CHEMISTRY METHOD 05/11/2025 7:19 PM [facility] AST (SGOT) 15 10 - 42 unit/L LAB CHEMISTRY METHOD 05/11/2025 7:19 PM [facility] ALT (SGPT) 28 10 - 60 unit/L LAB CHEMISTRY METHOD 05/11/2025 7:19 PM [facility] Alkaline Phosphatase 87 42 - 121 unit/L LAB CHEMISTRY METHOD 05/11/2025 7:19 PM [facility] Total Protein 7.7 6.0 - 8.0 g/dL LAB CHEMISTRY METHOD 05/11/2025 7:19 PM [facility] Albumin 4.2 3.2 - 5.0 g/dL LAB CHEMISTRY METHOD 05/11/2025 7:19 PM [facility] Total Bilirubin 0.3 0.0 - 1.4 mg/dL LAB CHEMISTRY METHOD 05/11/2025 7:19 PM [facility] Blood Venous blood specimen / Unknown Venipuncture / Unknown 05/11/2025 4:33 PM EDT 05/11/2025 4:33 PM EDT Carri Suazo MD LAB BLOOD ORDERABLES Final Resul t Performing Organization Address City/[facility]/ZIP Co de Phone Number [facility] [address] [place] [address], [place] [phone] * (ABNORMAL) POCT Glucose, blood (03/25/2025 7:52 AM EDT) Only the most recent of21 resultswithin the time period is included. Pathologist [facility] Glucose POCT 206(H) 70 - 100 mg/dL 03/25/2025 7:[address] [facility] Blood Capillary blood specimen / Unknown 03/25/2025 7:52 AM EDT 03/25/2025 7:54 AM EDT Layla Trujillo MD LAB POINT OF CARE TE ST DOCKED DEVICE UNSOLICITED RESULTS Final Result Performing Organization Address [facility] de Phone Number [facility] [address] [place] [address], [place] [phone] * (ABNORMAL) Basic metabolic panel (03/25/2025 5:15 AM EDT) Only the most recent of5 resultswithin the time period is included. Sodium 138 133 - 145 mmol/L LAB CHEMISTRY METHOD 03/25/2025 7:[address] [facility] Potassium 4.4 3.5 - 5.5 mmol/L LAB CHEMISTRY METHOD 03/25/2025 7:[address] [facility] Chloride 107 96 - 110 mmol/L LAB CHEMISTRY METHOD 03/25/2025 7:[address] [facility] CO2 26 21 - 32 mmol/L LAB CHEMISTRY METHOD 03/25/2025 7:[address] [facility] Anion Gap 5 3 - 11 LAB CHEMISTRY METHOD 03/25/2025 7:[address] [facility] Glucose 196(H) 70 - 100 mg/dL LAB CHEMISTRY METHOD 03/25/2025 7:11 AM [facility] BUN 14 5 - 25 mg/dL LAB CHEMISTRY METHOD 03/25/2025 7:11 AM [facility] Creatinine 0.83 0.70 - 1.30 mg/dL LAB CHEMISTRY METHOD 03/25/2025 7:[facility] eGFR 90 >=60 mL/min/1. 73m2 LAB CHEMISTRY METHOD 03/25/2025 7:11 AM [facility] Comment:Calculation based on the Chronic Kidney Disease Epidemiology Collaboration (CKD-EPI) equation refit without adjustment for race. BUN/Creatinine Ratio 16.9 LAB CHEMISTRY METHOD 03/25/2025 7:11 AM [facility] Calcium 8.6 8.5 - 10.5 mg/dL LAB CHEMISTRY METHOD 03/25/2025 7:11 AM [facility] Blood Venous blood specimen / Unknown Venipuncture / Unknown 03/25/2025 5:15 AM EDT 03/25/2025 6:37 AM EDT us Layla Trujillo MD LAB BLOOD ORDERABLES Final R esult [facility] [address] [place] [address], * Vancomycin, trough Please draw 1 hour prior to dose due at 0900 (03/24/2025 8:05 AM EDT) Only the most recent of4 resultswithin the time period is included. Vancomycin Trough 17.6 10.0 - 20.0 mcg/mL LAB CHEMISTRY METHOD 03/24/2025 9:13 AM [facility] Blood Venous blood specimen / Unknown Venipuncture / Unknown 03/24/2025 8:05 AM EDT 03/24/2025 8:26 AM EDT Layla Trujillo MD LAB BLOOD ORDERABLES Final R esult Performing Organization Address [facility]/ZIP Co de Phone Number [facility] [address] [place] [address], [place] [phone] * Lavender tube (03/23/2025 7:56 AM EDT) Extra Tube Hold for add-ons. 03/23/2025 10:[address] [facility] Comment:Auto resulted. Blood Venous blood specimen / Unknown Venipuncture / Unknown 03/23/2025 7:56 AM EDT 03/23/2025 8:18 AM EDT Layla Trujillo MD LAB BLOOD ORDERABLES Final R esult Performing Organization Address City/[facility] Co de Phone Number [facility] [address] [place] [address], [place] [phone] * TH AN LMA(NO CHARGE) (03/21/2025 11:30 AM EDT) Ld Tripathi DO - 03/21/2025 11:30 AM EDT Ld Jimenez DO 03/22/2025 6:46 AM General Information and Staff Patient location during procedure: OR Anesthesiologist: Ld Jimenez DO Resident/RELAY MAN: Aliya Block CRNA Performed: resident/RELAY MAN/CAA Performed by: Aliya Block CRNA Authorized by: [...] * Tissue exam (03/21/2025 11:29 AM EDT) Final Diagnosis Bone, left 5th metatarsal clean margin: -VIABLE APPEARING BONE 03/23/2025 5:[address] [facility] at 1711 EDT Gross Description A. Bone, left 5th metatarsal [...] on, four pieces. 03/23/2025 5:[address] [facility] Disclaimer Unless otherwise specified, all tissue is 10% NB formalin fixed and paraffin embedded. 03/23/2025 5:[address] [facility] Bone Bone structure / Unknown 03/21/2025 11:29 AM EDT 03/21/2025 1:12 PM EDT Raheel Duffy MD LAB PATHOLOGY ORDERABLES Final Result [facility] [address] [place] [address], * (ABNORMAL) Culture bone (03/21/2025 11:28 AM EDT) Culture, Bone No Anaerobes isolated at 5 days. 03/26/2025 8:[address] [facility] Culture, Bone Escherichia coli(A) SHANE 03/26/2025 8:[address] [facility] Comment: The organism value for this result has been updated. These results have been appended to the previously preliminary verified report. This is an edited result. Previous organism was Gram negative bacilli on 03/22/2025 at 1025 EDT. Culture, Bone Staphylococcus epidermidis(A) SHANE 03/26/2025 8:[address] [facility] Comment: The organism value for this result has been updated. These results have been appended to the previously preliminary verified report. Edited result: Previously reported as Gram Positive Cocci on 03/23/2025 at 1055 EDT. Gram Stain Result No polymorphonuclear leukocytes, No epithelial cells, and No organisms noted 03/26/2025 8:[address] [facility] Bone Bone structure / Unknown [...] Staphylococcus epidermidis Rifampin SHANE <=0.5 ug/ml: Susceptible us Raheel Duffy MD LAB MICROBIOLOGY - GENERAL HELIO POLLARD Final Result [facility] [address] [place] [address], [place] [phone] * (ABNORMAL) Lipid panel with reflex to direct LDL (12/23/2024 7:41 AM EDT) Cholesterol 172 0 - 200 mg/dL LAB CHEMISTRY METHOD 12/23/2024 12:[address] [facility] Triglycerides 233(H) 0 - 150 mg/dL LAB CHEMISTRY METHOD 12/23/2024 12:[address] [facility] HDL 44 >=40 mg/dL LAB CHEMISTRY METHOD 12/23/2024 12:[address] [facility] LDL Calculated 81 0 - 100 mg/dL LAB CHEMISTRY METHOD 12/23/2024 12:[address] [facility] VLDL Cholesterol Eleazar 46.6 mg/dL LAB CHEMISTRY METHOD 12/23/2024 12:[address] [facility] Non HDL Chol. (LDL+VLDL) 128 <145 mg/dL LAB CHEMISTRY METHOD 12/23/2024 12:[address] [facility] Chol/HDL Ratio 3.9 0.0 - 4.4 LAB CHEMISTRY METHOD 12/23/2024 12:[address] [facility] Blood Venous blood specimen / Unknown Venipuncture / Unknown 12/23/2024 7:41 AM EDT 12/23/2024 7:41 AM EDT us Carri Suazo MD LAB BLOOD ORDERABLES Final Resul t [facility] [address] [place] [address], [place] [phone] * Microalbumin creatinine urine ratio (07/05/2024 8:17 AM EST) [facility] Creatinine, Urine 166.0 mg/dL LAB CHEMISTRY METHOD 07/05/2024 11:[address] [facility] Microalb, Ur 13.5 0.0 - 29.0 mg/L LAB CHEMISTRY METHOD 07/05/2024 11:[address] [facility] Microalb/Creat Ratio 8 <30 mg/g creat LAB CHEMISTRY METHOD 07/05/2024 11:[address] [facility] Urine Urine specimen obtained by clean catch procedure / Unknown Non-blood Collection / Unknown 07/05/2024 8:17 AM EST 07/05/2024 8:17 AM EST Carri Suazo MD LAB URINE ORDERABLES Final Resul t [facility] [address] [place] [address], [place] [phone] * Diabetes Foot Exam (03/30/2024) [facility] Diabetes: Annual Foot Exam Abstracted Historical Provider HEALTH MAINTENANCE Final Result * Diabetes Eye Exam (09/08/2023) [facility] Diabetes: Annual Retina Eye Exam Abstracted Historical Provider HEALTH MAINTENANCE Final Result * Depression Screening (09/02/2023) [facility] Depression Screening Abstracted Historical Provider HEALTH MAINTENANCE Final Result * Hepatitis C Screening (06/02/2013) [facility] Hepatitis C Screening Abstracted Historical Provider HEALTH MAINTENANCE Final Result from Last 3 Months or Most Recently Relevant to Health Maintenance Insurance [facility] MEDICARE Member Subscriber Plan / Payer (Ef fective 2020-Present) Name:Chrystal Christiansono Relation to Subscriber:Self Name:Rosana Christiansondro Payer ID:[id number] Group ID:[id number] Type:Not on file Address: [place] [address] [phone] Advance Directives Documents on File Type Date Recorded Patient Waste Salvager Expl anation Advance Directives and Living Will [...] Christianson Daughter First Alternate Health Care Agent [email or web address] Sarah Christianson Spouse Second Alterna te Health Care Agent Care Teams Retail Warehouse Supervisor Relationship Specialty Start Date End Date Carri Suazo MD [address] [place] [phone] PCP - General Internal Medicine 05/24/24
--- OUTSIDE RECORDS SUMMARY | 2025-06-19 14:26 | XMS_ITS | Encounter Summary ---
Author Organization [employer] Address [address] [place] [address] Care Team Providers Care Stone Chimney Mason Name Role Phone Carri Suazo MD Primary Care Provider [phone] Encounter Details Date Type Department Care Team (Late st Contact Info) Description 12/21/2024 Lab Requisition [facility] - Main Lab [address] [facility] [place] [address] [address] [place] [address] Benign prostatic hyperplasia with lower urinary tract [...] AM EST Office Visit Vascular Surgery - [place] [address] [place] [phone] Raheel Duffy MD [address] [place] [phone] 07/11/2025 3:30 PM EST Office Visit Adult Medicine [place] - [address] [phone] Carri Suazo MD [address] [place] [address] 08/03/2025 8:00 AM EST Office Visit Endocrinology [address] [phone] Phil Jimenez MD [address] [place] [address] documented as of this encounter Procedures Procedure Name Priority Date/Time Associated Diagnosis Comments PROSTATE SPECIFIC ANTIGEN DIAGNOSTIC Routine 12/21/2024 9:18 AM EDT Benign prostatic hyperplasia with lower urinary tract symptoms documented in this encounter Results * Prostate specific antigen diagnostic (12/21/2024 9:18 AM EDT) PSA 2.38 0.00 - 4.00 ng/mL LAB CHEMISTRY METHOD 12/21/2024 2:11 PM EDT [facility] Blood Venous blood specimen / Unknown 12/21/2024 9:18 AM EDT 12/21/2024 12:22 PM EDT Narrative [facility] - 12/21/2024 2:11 PM EDT The Siemens Advia Centaur Chemiluminescent Immunoassay is used. Results obtained with different assay methods or kits cannot be used interchangeably. Results cannot be interpreted as absolute evidence of the presence or absence of malignant disease. Marya SEVERINO LAB BLOOD ORDERABLES Final Result [facility] [address] [place] [address], documented in this encounter Visit Diagnoses Diagnosis Benign prostatic hyperplasia with lower urinary tract symptoms documented in this encounter Additional Health Concerns Infection Onset Date Last Indicated Resolved Time Respiratory Rule-Out 03/15/2025 03/15/2025 025 10:09 PM EDT documented as of this encounter Care Teams Stone Chimney Mason Relationship Specialty Start Date End Date Carri Suazo MD [address] [place] [phone] PCP - General Internal Medicine 05/24/24 documented as of this encounter
--- OUTSIDE RECORDS SUMMARY | 2025-06-19 14:26 | XMS_ITS | Encounter Summary ---
Author Organization [employer] Address [address] [place] [address] Care Team Providers Care Forming Acid Dumper Name Role Phone Carri Suazo MD Primary Care Provider [phone] Encounter Details Date Type Department Care Team (Late st Contact Info) Description 05/12/2025 Results Follow-Up Adult Medicine [address] [phone] Latoya Tan [place] Social History Tobacco Use Types Packs/Day [...] of Assessment Author No 03/12/2025 3:27 PM EDAbbi Clark RN * Are you blind or do you have serious difficulty seeing, even when wearing glasses? Answer Date of Assessment Author No 03/12/2025 3:27 PM Abbi Marie RN * Do you have serious difficulty walking or climbing stairs? Answer Date of Assessment Author Yes 03/12/2025 3:27 PM Abbi Marie RN * Do you have serious difficulty dressing or bathing? Answer Date of Assessment Author No 03/12/2025 3:27 PM Abbi Marie RN * Because of a physical, mental, or emotional condition, do you have serious difficulty doing errandsalone such as visiting the doctor? Answer Date of Assessment Author No 03/12/2025 3:27 PM Abbi Marie RN documented as of this encounter Mental Status * Because of a physical, mental, or emotional condition, do you have serious difficulty concentrating, remembering, or making decisions? (5 years old or older) Answer Entry Date Author No 03/12/2025 3:27 PM Abbi Marie RN documented in this encounter Plan of Treatment Upcoming Encounters Date Type Department Care Team (Late st Contact Info) Description 07/07/2025 11:30 AM EST Office Visit Vascular Surgery - [address] [phone] Raheel Duffy MD [address] [place] [phone] 07/11/2025 3:30 PM EST Office Visit Adult Medicine [address] [phone] Carri Suazo MD [address] [place] [address] 08/03/2025 8:00 AM EST Office Visit Endocrinology [address] [phone] Phil Jimenez MD [address] [place] [address] documented as of this encounter Visit Diagnoses Not on filedocumented in this encounter Care Teams Forming Acid Dumper Relationship Specialty Start Date End Date Carri Suazo MD [address] [place] [phone] PCP - General Internal Medicine 05/24/24 documented as of this encounter
== END ==
LOC: HO.CARD 11:01
PROVIDERS: PCP Internal Medicine; Visit Provider Internal Medicine Cardiovascular Disease
DX: R00.0 Tachycardia, unspecified (principal)
CPT/HCPCS: 93270

== ENCOUNTER → 2025-06-19 11:04 | Outpatient (BNV) | payer OTHER, SELFPAY | PROVIDERS: PCP Internal Medicine; Visit Provider Internal Medicine Cardiovascular Disease | DX: I49.1 Atrial premature depolarization (principal) | CPT/HCPCS: 93272 ==